=== PATIENT | female | born 1995 | race Caucasian/White ===

== ENCOUNTER → 2018-08-23 18:18 | Outpatient (CLI) | payer OTHER, SELFPAY ==
[2018-08-23 21:00] LABS: Chlamydia Trachomatis by PCR Negative (Negative); Neisserai gonorrhoeae by PCR Negative (Negative); Probe Check PASS; Sample Adequacy Control PASS; Specimen Processing Control PASS
[2018-08-28 11:55] LABS: HPV Reflexed? NOT INDICATED
== END ==
PROVIDERS: Referring Provider Nurse Practitioner Women's Health; Visit Provider Nurse Practitioner Women's Health
DX: Z12.4 Encounter for screening for malignant neoplasm of cervix (principal); Z11.3 Encounter for screening for infections with a predominantly sexual mode of transmission
CPT/HCPCS: 87491; 87591; 87624; 88175; G0145

== ENCOUNTER 2019-05-07 09:58 | Emergency (ER) | payer OTHER, SELFPAY ==
[2019-05-07 09:58] VITALS: BP 143/87; PULSE 95; RESP 16; TEMP 36.8; O2SAT 100; BMI 27.9
--- NOTE | 2019-05-07 10:16 | RAD_ITS ---
STUDY: X-RAY CHEST REASON FOR EXAM: Female, 23 years old. Chest pain. TECHNIQUE: PA and lateral views of the chest. COMPARISON: None. FINDINGS: The lungs are clear and expanded. There is no demonstrated pleural abnormality. Normal size heart. Normal mediastinum and diogenes. Normal visualized pulmonary arteries. Normal visualized aortic arch and descending thoracic aorta. Normal visualized thoracic spine. Normal visualized ribs, clavicles, and shoulders. There is no demonstrated abnormality of the visualized soft tissue structures of the upper abdomen. RAD/Chest PA and Lateral IMPRESSION: Normal x-ray examination of the chest. Electronically Signed: Galindo Chou, at 11:04 EDT , Service support ,
--- NOTE | 2019-05-07 10:16 | VDLE_ITS ---
Reason For Study: Right leg pain RIGHT GSV is normal. CFV is compressible, spontaneous, phasic, competent and demonstrates normal augmentation. FV is compressible, spontaneous, phasic, competent and demonstrates normal augmentation. POP V is compressible, spontaneous, phasic, competent and demonstrates normal augmentation. T/P Trunk is compressible. PTV is compressible. RT PerV is compressible. Procedure Exam performed portable in ED. A preliminary report was called and/or faxed to Marco A. Interpretation Summary There is no evidence of right lower extremity deep vein thrombosis. Right greater saphenous vein appears patent and compressible segmentally. Ordering Physician: Antonieta Strickland Performed By: Paulette Fung RVT
--- NOTE | 2019-05-07 10:16 | EKG12_ITS ---
Test Reason : LOWER EXTREMITY PAIN Blood Pressure : / mmHG Vent. Rate : 073 BPM Atrial Rate : 073 BPM P-R Int : 138 ms QRS Dur : 082 ms QT Int : 390 ms P-R-T Axes : 067 028 053 degrees QTc Int : 429 ms Normal sinus rhythm Normal ECG Confirmed by PARKER CHRISTY, ANNA ([id number]), video news editor NIKITA MATHIS ([id number]) on 05/08/2019 12:26:39 PM Referred By: IRLANDA Confirmed By:ANNA CANALES MD
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
== END 2019-05-07 11:48 | disposition home or self-care (01) ==
PROVIDERS: Emergency Provider Emergency Medicine; Family Provider Nurse Practitioner Primary Care; PCP Nurse Practitioner Primary Care
DX: R07.89 Other chest pain (principal); S80.11XA Contusion of right lower leg, initial encounter; F90.9 Attention-deficit hyperactivity disorder, unspecified type; Z79.899 Other long term (current) drug therapy; X58.XXXA Exposure to other specified factors, initial encounter; Y93.89 Activity, other specified; Y92.89 Other specified places as the place of occurrence of the external cause; Y99.8 Other external cause status
CPT/HCPCS: 71046; 93005; 93971; 99283; J7030; A4216

== ENCOUNTER → 2020-05-21 | Outpatient (CLI) | payer OTHER, SELFPAY | END | disposition home or self-care (01) | LOC: MTDU 09:36 | PROVIDERS: PCP Nurse Practitioner Primary Care; Visit Provider Family Medicine | DX: Z02.1 Encounter for pre-employment examination (principal) | CPT/HCPCS: 87635; G2023; U0003 ==

== ENCOUNTER → 2020-08-24 | Outpatient (CLI) | payer OTHER, SELFPAY ==
[2020-08-24 13:11] VITALS: BMI 29.4
[2020-08-27 03:07] LABS: Chlamydia By Nucleic Acid AMP Negative (Negative)
[2020-08-27 08:27] LABS: Gonococcus By Nucleic Acid AMP Negative (Negative)
== END | disposition home or self-care (01) ==
LOC: LABSPEC 16:35
PROVIDERS: PCP Nurse Practitioner Primary Care; Visit Provider Nurse Practitioner Women's Health
DX: Z11.3 Encounter for screening for infections with a predominantly sexual mode of transmission (principal)
CPT/HCPCS: 87070; 87205; 87491; 87591

== ENCOUNTER 2021-12-16 14:26 | Outpatient (CLI) | payer OTHER, SELFPAY ==
[2021-12-21 17:53] LABS: HPV Reflexed? NOT INDICATED
== END 2021-12-16 23:59 | disposition home or self-care (01) ==
LOC: LABSPEC 14:27
PROVIDERS: PCP Nurse Practitioner Primary Care; Visit Provider Nurse Practitioner Women's Health
DX: Z12.4 Encounter for screening for malignant neoplasm of cervix (principal)
CPT/HCPCS: 88175; G0145

== ENCOUNTER → 2022-06-25 | Outpatient (CLI) | payer OTHER, SELFPAY ==
--- NOTE | 2022-06-25 09:01 | CT_ITS ---
INDICATION: HYPOXEMIA EXAMINATION: CT CHEST WITHOUT CONTRAST - CT Chest W/O Contrast Injection TECHNIQUE: Helically acquired images were obtained of the chest. A radiation dose optimization technique was used for this scan. IV Contrast dosage and agent: None. COMPARISON: None. FINDINGS: LUNGS, PLEURA AND LARGE AIRWAYS: No masses, consolidation, or edema. No pleural effusion or thickening. No pneumothorax. THYROID: No thyroid lesions. HEART AND PERICARDIUM: Heart size is normal. No pericardial effusion. CORONARY ARTERIES: Coronary artery calcification VESSELS: Thoracic aorta is not dilated. MEDIASTINUM AND MELITA: No mediastinal or hilar adenopathy. Esophagus is unremarkable. No hiatal hernia. UPPER ABDOMEN: No acute pathology. BONES: No suspicious lytic or blastic abnormality. CT/Chest without Contrast IMPRESSION: Negative CT chest without contrast. Electronically Signed: Keegan Crow MD at 10:37 EDT ,
== END | disposition home or self-care (01) ==
LOC: CT 08:56
PROVIDERS: PCP Nurse Practitioner Primary Care; Visit Provider Internal Medicine Pulmonary Disease
DX: I25.10 Atherosclerotic heart disease of native coronary artery without angina pectoris (principal); R09.02 Hypoxemia; R06.09 Other forms of dyspnea
CPT/HCPCS: 71250

== ENCOUNTER → 2022-10-07 | Outpatient (CLI) | payer OTHER, SELFPAY ==
[2022-10-07 17:37] LABS: Amphetamine Urine VISTA NEGATIVE (<1000 ng/mL); Barbiturate Urine VISTA NEGATIVE (< 200 ng/mL); Benzodiazepine Urine VISTA NEGATIVE (< 200 ng/mL); Cocaine Urine VISTA NEGATIVE (< 300 ng/mL); Ecstacy Urine VISTA NEGATIVE (< 500 ng/mL); Methadone Urine VISTA NEGATIVE (< 300 ng/mL); PCP Urine VISTA NEGATIVE (< 25 ng/mL); THC Urine VISTA NEGATIVE (< 50 ng/mL); Vista UDS pH Range 6
[2022-10-10 22:06] LABS: Chlamydia By Nucleic Acid AMP Negative (Negative)
[2022-10-11 11:12] LABS: Gonococcus By Nucleic Acid AMP Negative (Negative)
== END | disposition home or self-care (01) ==
PROVIDERS: PCP Nurse Practitioner Primary Care; Visit Provider Obstetrics & Gynecology
DX: Z34.90 Encounter for supervision of normal pregnancy, unspecified, unspecified trimester (principal)
CPT/HCPCS: 80307; 87086; 87088; 87491; 87591

== ENCOUNTER → 2022-10-24 | Outpatient (CLI) | payer OTHER, SELFPAY ==
[2022-10-24 10:29] LABS: Absolute Lymphocyte Count 2.24 X10^3/uL (0.83-4.51); Absolute Neutrophil Count 7.6 X10^3/uL (2.0-7.7); Basophil# 0.08 X10^3/uL; Basophil% 0.7 % (0-1); Eosinophil# 0.18 X10^3/uL; Eosinophils% 1.7 % (0-5); Hematocrit 40.6 % (37-47); Hemoglobin 14.3 g/dL (12.0-15.0); Lymphocyte # 2.24 X10^3/ul (0.83-4.51); Lymphocyte % 20.9 % (19-41); Mean Corp Hgb Conc 35.2 g/dL (32-36); Mean Corpuscular Hgb 29.2 pg (27.0-32.0); Mean Platelet Vol. 9.9 fl (6.2-12.0); Monocyte# 0.56 X10^3/uL; Monocyte% 5.2 % (0-10); NRBC Flagged by Analyzer 0 % (0-5); Neutrophil # 7.63 X10^3/uL (2.7-7.7); Neutrophil % 71.1 % (47-70); Platelet Count 248 K/mm3 (150-450); RBC Distribution Width CV 12.7 % (11.6-14.6); RBC Distribution Width SD 38.5 fl (35.1-43.9); Red Blood Count 4.89 M/mm3 (4.2-5.4); White Blood Count 10.7 K/mm3 (4.4-11.0)
[2022-10-24 10:54] LABS: Glucose Challenge Gest 1H 50g 104 mg/dL (70-140)
[2022-10-24 11:15] LABS: NATERA MAILED SPECIMEN
[2022-10-24 11:49] LABS: HIV - WCH Non-Reactive (Nonreactive); Hepatitis B Surface Antigen Non-Reactive (Nonreactive); Hepatitis C Antibody Non-Reactive (Nonreactive); Rubella IgG Reactive (Nonreactive); Syphilis Antibodies Non-reactive
== END | disposition home or self-care (01) ==
LOC: PAVLAB 09:58
PROVIDERS: PCP Nurse Practitioner Primary Care; Referring Provider Obstetrics & Gynecology; Visit Provider Obstetrics & Gynecology
DX: Z34.81 Encounter for supervision of other normal pregnancy, first trimester (principal)
CPT/HCPCS: 36415; 82950; 85025; 86703; 86762; 86780; 86803; 86850; 86900; 86901; 87340

== ENCOUNTER → 2022-12-02 | Outpatient (CLI) | payer OTHER, SELFPAY ==
--- NOTE | 2022-12-02 15:17 | US_ITS ---
STUDY: SECOND AND THIRD TRIMESTER OBSTETRICAL ULTRASOUND - LIMITED REASON FOR EXAM: Female, 27 years old. Pelvic pain. well-being. Right-sided pain. LMP: August 06, 2022 PRIOR ULTRASOUND: None. TECHNIQUE: Transabdominal TECHNICAL QUALITY: Adequate. FINDINGS: There is a single intrauterine fetus. The fetus is in a variable presentation. There is demonstrated cardiac activity with a heart rate of 162 bpm. There is a normal amniotic fluid volume. The largest amniotic fluid pocket measures 4.5 cm. The placenta is posterior and low lying but not previa in location. The placental edge lies 1.8 cm away from the internal os. There are Grade 0 placental changes. Along the superior aspect of the placenta there is a 0.8 x 1.6 x 1.9 cm anechoic area becomes less conspicuous the later images. There is no vascularity. Question placental guzmán. The cervix measures 3.5 cm in length. The adnexa are visualized and appear unremarkable. Biometry was not performed. Patient is scheduled for an anatomy scan in 2.5 weeks. Age by LMP: 16 weeks, 6 days. ADILENE by LMP: May 13, 2023. US/OB Limited (No Biometrics) IMPRESSION: 1. Live single intrauterine at 16 weeks, 6 days. ADILENE is May 13, 2023. 2. heart rate 162 bpm. 3. Low-lying posterior grade 0 placenta with questionable placental guzmán. Electronically Signed: Tamir Santana DO at 16:18 EST ,
== END | disposition home or self-care (01) ==
LOC: US 15:16
PROVIDERS: PCP Nurse Practitioner Primary Care; Visit Provider Obstetrics & Gynecology
DX: O26.899 Other specified pregnancy related conditions, unspecified trimester (principal); R10.2 Pelvic and perineal pain
CPT/HCPCS: 76815

== ENCOUNTER → 2023-02-23 | Outpatient (CLI) | payer OTHER, SELFPAY ==
[2023-02-23 09:44] LABS: Absolute Lymphocyte Count 2.22 X10^3/uL (0.83-4.51); Absolute Neutrophil Count 11.2 X10^3/uL (2.0-7.7); Basophil# 0.09 X10^3/uL; Basophil% 0.6 % (0-1); Eosinophil# 0.24 X10^3/uL; Eosinophils% 1.6 % (0-5); Hemoglobin 12.8 g/dL (12.0-15.0); Lymphocyte # 2.22 X10^3/ul (0.83-4.51); Mean Corp Hgb Conc 33.7 g/dL (32-36); Mean Corpuscular Hgb 29.5 pg (27.0-32.0); Mean Corpuscular Volume 87.6 fL (81-99); Mean Platelet Vol. 9.8 fl (6.2-12.0); Monocyte# 0.86 X10^3/uL; Monocyte% 5.8 % (0-10); NRBC Flagged by Analyzer 0 % (0-5); Neutrophil # 11.19 X10^3/uL (2.7-7.7); Neutrophil % 75.7 % (47-70); Platelet Count 258 K/mm3 (150-450); RBC Distribution Width CV 13.2 % (11.6-14.6); Red Blood Count 4.34 M/mm3 (4.2-5.4); White Blood Count 14.8 K/mm3 (4.4-11.0)
[2023-02-23 10:19] LABS: Glucose Challenge Gest 1H 50g 114 mg/dL (70-140)
[2023-02-23 10:42] LABS: HIV - WCH Non-Reactive (Nonreactive); Syphilis Antibodies Non-reactive
== END | disposition home or self-care (01) ==
PROVIDERS: PCP Nurse Practitioner Primary Care; Referring Provider Obstetrics & Gynecology; Visit Provider Obstetrics & Gynecology
DX: O09.90 Supervision of high risk pregnancy, unspecified, unspecified trimester (principal)
CPT/HCPCS: 36415; 82950; 85025; 86703; 86780; 86850; 86900; 86901

== ENCOUNTER 2023-03-14 20:45 | Outpatient (CLI) | payer OTHER, SELFPAY ==
[2023-03-14] VITALS (9 sets, daily range): BP systolic 119–148; BP diastolic 70–85; PULSE 74–90; TEMP 36.4; O2SAT 97–99; BMI 35.4
[2023-03-14 22:00] LABS: Hematocrit 37.5 % (37-47); Hemoglobin 12.6 g/dL (12.0-15.0); Mean Corp Hgb Conc 33.6 g/dL (32-36); Mean Corpuscular Hgb 29.2 pg (27.0-32.0); Mean Corpuscular Volume 86.8 fL (81-99); Mean Platelet Vol. 10.3 fl (6.2-12.0); Platelet Count 252 K/mm3 (150-450); RBC Distribution Width CV 13.2 % (11.6-14.6); RBC Distribution Width SD 41.7 fl (35.1-43.9); Red Blood Count 4.32 M/mm3 (4.2-5.4); White Blood Count 16.4 K/mm3 (4.4-11.0)
[2023-03-14 22:13] LABS: AST(SGOT) 10 U/L (15-37); Alanine Aminotransfer ALT/SGPT 17 U/L (13-56); EST Glomerular Filtration Rate 107 mL/min (>60); Est Glom Filt Rate - Afr Amer 130 mL/min (>60); Estimated Creatinine Clearance 127.28 ml/min
[2023-03-14 22:18] LABS: Protein, Urine (Random) < 6.0 mg/dL (<11.9)
--- NOTE | 2023-03-14 22:36 | OB.TRI.PN_ITS ---
Progress Notes Date of Service: 03/14/23 Progress Note: Patient presents for triage evaluation secondary to headache and elevated BP at work today FHT: 145 Moderate variability reactive no decelerations category I tracing. appropriate for gestational age [place]: No Contractions Assessment and plan: Reactive NST, reassuring maternal and status patient discharged to home to follow-up in office later this week for BP check. Get home BP monitoring set up through [facility] this week. See problem list details for additional plan information. Reviewed POC with Dr. Harris, agrees with plan. Laboratory Studies: Laboratory Tests 03/14/23 03/14/23 03/14/23 Range/Units 21:50 21:50 21:45 WBC 16.4 H (4.4-11.0) K/mm3 RBC 4.32 (4.2-5.4) M/mm3 Hgb 12.6 (12.0-15.0) g/dL Hct 37.5 (37-47) % MCV 86.8 (81-99) fL MCH 29.2 (27.0-32.0) pg MCHC 33.6 (32-36) g/dL RDW Std Deviation 41.7 (35.1-43.9) fl RDW Coeff of Leora 13.2 (11.6-14.6) % Plt Count 252 (150-450) K/mm3 MPV 10.3 (6.2-12.0) fl Creatinine 0.70 (0.55-1.02) mg/dL Estim Creat Clear Calc 127.28 ml/min Est GFR (MDRD) Af Amer 130 (>60) mL/min Est GFR (MDRD) Non-Af 107 (>60) mL/min Uric Acid 4.0 (2.6-6.0) mg/dL AST 10 L (15-37) U/L ALT 17 (13-56) U/L U Random Total Protein < 6.0 (<11.9) mg/dL Urine Creatinine 25.10 (NO RANGE EST.) mg/dL Protein/Creatinin Ratio TNP Charges/Coding Multi Select Codes Urinary/Genital Urinary/Genital CPT Codes: 42261-40 non-stress test Interp Assessment & Plan (1) Elevated blood pressure affecting , antepartum: COMMENT: to follow up this week for BP check. Get home monitor ([facility]), repeat labs next week. Anticipate testing at 32 weeks and growth US q 4 weeks
== END 2023-03-14 23:08 | disposition home or self-care (01) ==
LOC: WPOUT 20:51 → WP 20:52
PROVIDERS: PCP Nurse Practitioner Primary Care; Referring Provider Advanced Practice Midwife; Visit Provider Advanced Practice Midwife
DX: O99.891 Other specified diseases and conditions complicating pregnancy (principal); R51.9 Headache, unspecified; R03.0 Elevated blood-pressure reading, without diagnosis of hypertension; Z3A.00 Weeks of gestation of pregnancy not specified
CPT/HCPCS: 59025; 59050; 82565; 82570; 84156; 84450; 84460; 84550; 85027

== ENCOUNTER 2023-03-22 09:54 | Outpatient (CLI) | payer OTHER, SELFPAY ==
[2023-03-22] MEDS: Lactated Ringers 1,000 ML 999 ML IV (10:20)
[2023-03-22 10:43] LABS: Hematocrit 38.5 % (37-47); Hemoglobin 12.9 g/dL (12.0-15.0); Mean Corp Hgb Conc 33.5 g/dL (32-36); Mean Corpuscular Hgb 29.1 pg (27.0-32.0); Mean Corpuscular Volume 86.9 fL (81-99); Mean Platelet Vol. 10.5 fl (6.2-12.0); Platelet Count 257 K/mm3 (150-450); RBC Distribution Width CV 13.2 % (11.6-14.6); RBC Distribution Width SD 41.4 fl (35.1-43.9); Red Blood Count 4.43 M/mm3 (4.2-5.4); White Blood Count 13.8 K/mm3 (4.4-11.0)
[2023-03-22 10:56] LABS: AST(SGOT) 11 U/L (15-37); Alanine Aminotransfer ALT/SGPT 15 U/L (13-56); EST Glomerular Filtration Rate 128 mL/min (>60); Est Glom Filt Rate - Afr Amer 155 mL/min (>60); Uric Acid 4.7 mg/dL (2.6-6.0)
[2023-03-22 11:09] LABS: Free T3 2.3 pg/mL (2.18-3.98); T4 Free Direct 0.92 ng/dL (0.76-1.46); Thyroid Stim Hormone (TSH) 1.39 uIU/mL (0.358-3.74)
--- NOTE | 2023-03-22 21:45 | OB.TRI.HP_ITS ---
HPI - General HPI Narrative RICK STORY, is a 27 F who presents at 32+4 with dizziness room spinning and near syncopal event in the office. sent to for BP monitoring and PEC work up. Maternal Data Information ADILENE Calculator Estimated Delivery Date Method Current WG Current Estimate 05/13/23 LMP (Certain) 32w 4d PFSH PFSH Medical History ADHD Migraine Vocal cord dysfunction Home Medications ascorbic acid (vitamin C) 1,000 mg capsule 1 g PO DAILY 09/27/22 [History Last Taken 03/13/23] multivit-min no.71-iron fum 28 mg-folate no.1 1 mg-dha 300 mg capsule (PNV- [place]) 1 cap PO DAILY Check with primary doctor 09/27/22 [History Last Taken 06/28] omega3 1,000 iv-pil-zza-other [id number] oil 1,400 mg capsule,delay rel 1 cap PO DAILY Check with primary doctor 09/27/22 [History Last Taken 03/13/23] vitamin B comp and C no.3 15 mg-10 mg-50 mg-5 mg-300 mg capsule (B Complex Plus Vitamin C) 1 cap PO QODAY 09/27/22 [History Last Taken 03/12/23] labetalol 100 mg tablet 100 mg PO BID #60 tabs 03/21/23 [Rx Last Taken Unknown] Allergy/AdvReac Type Severity Reaction Status Date / Time No Known Allergies Allergy Verified 03/22/23 09:02 Family History Mother Psoriasis Surgical History H/O wisdom tooth extraction History of tonsillectomy Social History adopted: No household members: spouse housing: apartment number of children: 0 current occupational status: employed 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 current occupational exposures/hazards: No pets and animals: Yes pets and animals: dog(s) history of recent travel: Yes ([place]) out of state: Yes out of country: No sexually active: Yes Smoking Status: Never smoker second hand exposure: No alcohol intake: former details: socially prior to substance use type: does not use well-balanced diet: daily or most days caffeine: Yes Type: coffee Number of servings: 1 eating out: 1-3 times/week what type of physical activity do you participate in: walking frequency: 5-6 times per week duration: 30-45 minutes/day amy/methodist: None seatbelt use: always do you feel safe at home: Yes additional social history: - Rickey Story - [place] [place] History 1 Elective abortions Hx Para 0 Spontaneous abortions Hx # Term Pregnancies Ectopic pregnancies Hx # Pregnancies Multiple births # of living children Visit Details Expected Delivery Route/Plan Labor Preferences- CB/BF classes: just breathe, childbirth education labor support person: Rickey labor intervention preferences: [] pain management options preferred: prefers no epidural cut cord/dad catch: : yes PP control planned: nuvaring discussed possible routes of delivery and associated risks: [] special requests: [] Plans Covid status: discussed Flu vaccine: discussed Tdap vaccine: [] Rhogam: [] LARC form signed: completed. Problem list reviewed and updated with the most current plan of care details and appropriate orders placed. Relevant counseling for the gestational age provided. Continue routine care and follow up unless otherwise noted in visit notes/problem list details OB Flowsheet Initial Weight: Not Recorded Date -?-?-?-?-?-?-?-?-?-?-?-?- EGA Weight BP Urine Prot -?-?-?-?-?-?-?-?-?-?-?-?- Glucose FHR FuHt Pres Dilation -?-?-?-?-?-?-?-?-?-?-?-?- Effaced St Visit Note 10/07/22 -?-?-?-?-?-?-?-?-?-?-?-?- 8w 6d 215 lb 129/83 -?-?-?-?-?-?-?-?-?-?-?-?- 180 -?-?-?-?-?-?-?-?-?-?-?-?- JV- single live IUP measurign 8 weeks 6 days and consistent with LMP. 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 11/11/22 -?-?-?-?-?-?-?-?-?-?-?-?- 13w 6d 217 lb 123/74 -?-?-?-?-?-?-?-?-?-?-?-?- 160 -?-?-?-?-?-?-?-?-?-?-?-?- SM- no vb keithfer ariel reviewed testing results 12/06/22 -?-?-?-?-?-?-?-?--?-?-?-?- 17w 3d 213 lb 8 oz 110/74 Nega tive -?-?-?-?-?-?-?-?-?-?-?-?- Negative 161 -?-?-?-?-?-?-?-?-?-?-?-?- MH-No Vb, ely george. Doing well. 01/06/23 -?-?-?-?-?-?-?-?-?-?-?-?- 21w 6d 222 lb 4 oz 107/71 Nega tive -?-?-?-?-?-?-?-?-?-?-?-?- Negative 163 -?-?-?-?-?-?-?-?-?-?-?-?- JV- has rpt us a t 28 weeks for low placenta. 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 02/03/23 -?-?-?-?-?-?-?-?-?-?-?-?- 25w 6d 232 lb 6 oz 120/82 Nega tive -?-?-?-?-?-?-?-?-?-?-?-?- Negative 150 26 -?-?-?-?-?-?-?-?-?-?-?-?- SM- no vb lof go od fm no reuglar ctx 02/23/23 -?-?-?-?-?-?-?-?-?-?-?-?- 28w 5d 234 lb 8 oz 119/73 -?-?-?-?-?-?-?-?-?-?-?-?- 159 29 -?-?-?-?-?-?-?-?-?-?-?-?- JV- tdap and rho luz maria given. gct done and pending. cbc is normal. pt complains of cramping in legs because works 12 hr shifts. compression stockings and magnesium supplement encouraged and she is doing these already 03/08/23 -?-?-?-?-?-?-?-?-?-?-?-?- 30w 4d 239 lb 2 oz 103/68 Nega tive -?-?-?-?-?-?-?-?-?-?-?-?- Negative 156 30 -?-?-?-?-?-?-?-?-?-?-?-?- LC- doing well. no vb/ctx/lof. good fm. larc signed. normal glucose. signed up for childbirth education classes. 03/15/23 -?-?-?-?-?-?-?-?-?-?-?-?- 31w 4d 236 lb 4 oz 108/71 Nega tive -?-?-?-?-?-?-?-?-?-?-?-?- Negative 150 -?-?-?-?-?-?-?-?-?-?-?-?- KW-doing well to day, +FM, no lof/vb/ctx. monitor given and has follow up appt on mon. Daily BPs at home or unless she is feeling symptomatic. to call with BPs of 140/90 or higher. 03/22/23 -?-?-?-?-?-?-?-?-?-?-?-?- 32w 4d 241 lb 2 oz 142/82 122/83 Negative -?-?-?-?-?-?-?-?-?-?-?-?- Negative 150 32 -?-?-?-?-?-?-?-?-?-?-?-?- LC- pt seen in [facility] on 03/14 with 140s/90s BP, home bp last night 140s/90s. started on labetalol 100mg BID. not taken yet this AM. LC- pt seen in [facility] on 03/14 wit h 140s/90s BP, home bp last night 140s/90s. started on labetalol 100mg BID. not taken yet this AM. NST not completed as pt felt dizzy and feeling faint. sent to [facility] for labs and hydration. LC- pt seen in [facility] on 03/14 wit h 140s/90s BP, home bp last night 140s/90s. GHTN diagnosis based on criteria. started on labetalol 100mg BID. not taken yet this AM. NST not completed as pt felt dizzy and feeling faint. sent to [facility] for labs and hydration. NST FHR Rate Baby A Baseline: 140 Variability:: Moderate Accelerations:: 10 x 10 Decelerations:: None NST Reactive:: Yes FHR Category:: Category I Uterine Activity:: none Assessment & Plan (1) Gestational hypertension: COMMENT: NST twice weekly. growth US at 32 &36 weeks. home monitor-Daily BP. Medications started. IOL between 37-38 weeks (2) Low lying placenta nos or without hemorrhage, second trimester: COMMENT: Resolved-fu placental location with anatomy US at 20 weeks (3) Thyroid goiter: COMMENT: monitoring TSH normal 03/22 (4) Rh negative state in antepartum period: COMMENT: rhogam @ 28 wks & PRN bleeding (5) Supervision of high risk , antepartum: COMMENT: PRR , ADILENE 05/13/23, boy Coleen Lang Jr IV Rickey (6) : QUALIFIERS: Weeks of gestation: 30 weeks Qualified Code(s): Z3A.30 - 30 weeks gestation of COMMENT: NIPT low risk, declined carrier testing, nl 1 HR GCT. declined ntd screening. nl anatomy. PLAN: Plan Patient presents for triage evaluation secondary to labile BP and dizziness in office stable BP in L&D with improved symptoms following rehydration. FHT: Moderate variability reactive no decelerations category I tracing [place]: no Contractions Assessment and plan: Reactive NST, reassuring maternal and status patient discharged to home to follow-up in office. See problem list details for additional plan information. Charges/Coding Procedures Urinary/Genital [id number]: 55838-10 non-stress test Interp
== END 2023-03-22 13:35 | disposition home or self-care (01) ==
LOC: WPOUT 10:00 → WP 10:00
PROVIDERS: PCP Nurse Practitioner Primary Care; Referring Provider Registered Nurse; Visit Provider Registered Nurse
DX: O13.3 Gestational [pregnancy-induced] hypertension without significant proteinuria, third trimester (principal); Z3A.30 30 weeks gestation of pregnancy; O99.283 Endocrine, nutritional and metabolic diseases complicating pregnancy, third trimester; E04.9 Nontoxic goiter, unspecified
CPT/HCPCS: 96360; 36415; 59025; 59050; 82565; 84439; 84443; 84450; 84460; 84481; 84550; 85027; 99221; J7120; G0378

== ENCOUNTER → 2023-03-24 | Outpatient (CLI) | payer OTHER, SELFPAY ==
--- NOTE | 2023-03-24 18:22 | US_ITS ---
STUDY: SECOND AND THIRD TRIMESTER OBSTETRICAL ULTRASOUND - LIMITED REASON FOR EXAM: Female, 27 years old . Growth. LMP: August 06, 2022 PRIOR ULTRASOUND: December 02, 2022 TECHNIQUE: Transabdominal TECHNICAL QUALITY: Adequate. FINDINGS: There is a single intrauterine fetus. The fetus is in a cephalic presentation. There is demonstrated cardiac activity with a heart rate of 158 bpm. There is a normal amniotic fluid volume. The largest amniotic fluid pocket measures 5.6 cm. The amniotic fluid index (CARRIE) is 17.27 cm. The placenta is posterior in location and is not low lying. There are Grade 1 placental changes. The cervix measures 3.8 cm in length. BIOMETRY: BPD: 8.11 cm: 32 weeks, 4 days HC: 30.53 cm: 34 weeks, 0 days AC: 30.13 cm: 34 weeks, 1 days FL: 6.58 cm: 33 weeks, 6 days Age by LMP: 32 weeks, 6 days. ADILENE by LMP: May 13, 2023. age by current US: 33 weeks, 3 days. ADILENE by current US: May 09, 2023. Estimated weight: 12/09/2002 grams, +/- 345 grams, 70 percentile. Gender: Indeterminant US/OB Limited With Biometrics IMPRESSION: 1. Live single intrauterine at 33 weeks, 3 days. ADILENE is May 09, 2023. This grossly conforms to expected gestational age by LMP. 2. EFW of 2303 g. 3. CARRIE of 17.27 cm. 4. Posterior grade 1 placenta. 5. Vertex presentation. Electronically Signed: Tamir Santana DO at 18:33 EDT ,
== END | disposition home or self-care (01) ==
PROVIDERS: PCP Nurse Practitioner Primary Care; Referring Provider Advanced Practice Midwife; Visit Provider Advanced Practice Midwife
DX: Z34.80 Encounter for supervision of other normal pregnancy, unspecified trimester (principal)
CPT/HCPCS: 76816

== ENCOUNTER → 2023-03-28 | Outpatient (CLI) | payer OTHER, SELFPAY ==
[2023-03-28 15:53] LABS: Absolute Lymphocyte Count 2.53 X10^3/uL (0.83-4.51); Absolute Neutrophil Count 10.6 X10^3/uL (2.0-7.7); Basophil# 0.08 X10^3/uL; Basophil% 0.6 % (0-1); Eosinophil# 0.25 X10^3/uL; Eosinophils% 1.7 % (0-5); Hematocrit 35.6 % (37-47); Hemoglobin 12.4 g/dL (12.0-15.0); Lymphocyte # 2.53 X10^3/ul (0.83-4.51); Lymphocyte % 17.4 % (19-41); Mean Corp Hgb Conc 34.8 g/dL (32-36); Mean Corpuscular Hgb 29.5 pg (27.0-32.0); Mean Corpuscular Volume 84.6 fL (81-99); Mean Platelet Vol. 10.2 fl (6.2-12.0); Monocyte# 0.89 X10^3/uL; Monocyte% 6.1 % (0-10); NRBC Flagged by Analyzer 0 % (0-5); Neutrophil # 10.58 X10^3/uL (2.7-7.7); Platelet Count 243 K/mm3 (150-450); RBC Distribution Width CV 13.3 % (11.6-14.6); RBC Distribution Width SD 40.5 fl (35.1-43.9); Red Blood Count 4.21 M/mm3 (4.2-5.4); White Blood Count 14.5 K/mm3 (4.4-11.0)
[2023-03-28 16:15] LABS: ALB/GLOB Ratio 0.7 RATIO (0.9-2.4); AST(SGOT) 10 U/L (15-37); Alanine Aminotransfer ALT/SGPT 14 U/L (13-56); Albumin, Serum 2.4 g/dL (3.2-5.0); Alkaline Phosphatase 96 U/L (45-117); Anion Gap 8 (5-15); BUN 7 mg/dL (7-18); BUN/Creat Ratio 10.4 RATIO (10-20); Calcium,Total 8.6 mg/dL (8.5-10.1); Chloride 109 mmol/L (98-107); Creatinine, Serum 0.67 mg/dL (0.55-1.02); EST Glomerular Filtration Rate 112 mL/min (>60); Est Glom Filt Rate - Afr Amer 135 mL/min (>60); Globulin 3.4 g/dL (2.2-4.2); Glucose 115 mg/dL (74-106); Potassium 3.7 mmol/L (3.5-5.1); Protein, Total 5.8 g/dL (6.4-8.2); Sodium Level 140 mmol/L (136-145)
[2023-03-28 17:50] LABS: Protein, Urine (Random) 22.2 mg/dL (<11.9); Protein:Creat Ratio 109 mg/g CRE (0-200)
== END | disposition home or self-care (01) ==
PROVIDERS: PCP Nurse Practitioner Primary Care; Referring Provider Advanced Practice Midwife; Visit Provider Advanced Practice Midwife
DX: O13.9 Gestational [pregnancy-induced] hypertension without significant proteinuria, unspecified trimester (principal)
CPT/HCPCS: 36415; 80053; 82570; 84156; 85025

== ENCOUNTER 2023-04-01 09:00 | Outpatient (CLI) | payer OTHER, SELFPAY ==
[2023-03-22 10:05] VITALS: TEMP 36.8; O2SAT 98
[2023-03-22 11:25] VITALS: BP 97/56; PULSE 74
[2023-04-01 09:18] VITALS: BMI 35.2
[2023-04-01 09:21] VITALS: BP 122/71; PULSE 85; TEMP 36.5; O2SAT 97
--- NOTE | 2023-04-01 10:10 | OB.TRI.HP_ITS ---
HPI - General HPI Narrative RICK STORY, is a 27 F who presents at 34 weeks for NST for gestational HTN. Maternal Data Information ADILENE Calculator Estimated Delivery Date Method Current WG Current Estimate 05/13/23 LMP (Certain) 34w 0d PFSH PFSH Medical History ADHD Migraine Vocal cord dysfunction Home Medications ascorbic acid (vitamin C) 1,000 mg capsule 1 g PO DAILY 09/27/22 [History Last Taken 03/13/23] multivit-min no.71-iron fum 28 mg-folate no.1 1 mg-dha 300 mg capsule (PNV- [place]) 1 cap PO DAILY Check with primary doctor 09/27/22 [History Last Taken 03/13/23] omega3 1,000 cg-eii-mzi-other yx1n-nphb oil 1,400 mg capsule,delay rel 1 cap PO DAILY Check with primary doctor 09/27/22 [History Last Taken 03/13/23] vitamin B comp and C no.3 15 mg-10 mg-50 mg-5 mg-300 mg capsule (B Complex Plus Vitamin C) 1 cap PO QODAY 09/27/22 [History Last Taken 03/12/23] Allergy/AdvReac Type Severity Reaction Status Date / Time No Known Allergies Allergy Verified 04/01/23 09:18 Family History Mother Psoriasis Surgical History H/O wisdom tooth extraction History of tonsillectomy Social History adopted: No household members: spouse housing: apartment number of children: 0 current occupational status: employed 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 current occupational exposures/hazards: No pets and animals: Yes pets and animals: dog(s) history of recent travel: Yes ([place]) out of state: Yes out of country: No sexually active: Yes Smoking Status: Never smoker second hand exposure: No alcohol intake: former details: socially prior to substance use type: does not use well-balanced diet: daily or most days caffeine: Yes Type: coffee Number of servings: 1 eating out: 1-3 times/week what type of physical activity do you participate in: walking frequency: 5-6 times per week duration: 30-45 minutes/day amy/evangelical: None seatbelt use: always do you feel safe at home: Yes additional social history: - Rickey Story - Crank Hand History 1 Elective abortions Hx Para 0 Spontaneous abortions Hx # Term Pregnancies Ectopic pregnancies Hx # Pregnancies Multiple births # of living children Visit Details Expected Delivery Route/Plan Labor Preferences- CB/BF classes: just breathe, childbirth education labor support person: Rickey labor intervention preferences: [] pain management options preferred: prefers no epidural cut cord/dad catch: : yes PP control planned: nuvaring discussed possible routes of delivery and associated risks: [] special requests: [] Plans Covid status: discussed Flu vaccine: discussed Tdap vaccine: [] Rhogam: [] LARC form signed: completed. Problem list reviewed and updated with the most current plan of care details and appropriate orders placed. Relevant counseling for the gestational age provided. Continue routine care and follow up unless otherwise noted in visit notes/problem list details OB Flowsheet Initial Weight: Not Recorded Date -?-?-?-?-?-?-?-?-?-?-?-?- EGA Weight BP Urine Prot -?-?-?-?-?-?-?-?-?-?-?-?- Glucose FHR FuHt Pres Dilation -?-?-?-?-?-?-?-?-?-?-?-?- Effaced St Visit Note 10/07/22 -?-?-?-?-?-?-?-?-?-?-?-?- 8w 6d 215 lb 129/83 -?-?-?-?-?-?-?-?-?-?-?-?- 180 -?-?-?-?-?-?-?-?-?-?-?-?- JV- single live IUP measurign 8 weeks 6 days and consistent with LMP. 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 11/11/22 -?-?-?-?-?-?--?-?-?-?-?-?- 13w 6d 217 lb 123/74 -?-?-?-?-?-?-?-?-?-?-?-?- 160 -?-?-?-?-?-?-?-?-?-?-?-?- SM- no vb ely george reviewed testing results 12/06/22 -?-?-?-?-?-?-?-?-?-?-?-?- 17w 3d 213 lb 8 oz 110/74 Nega tive -?-?-?-?-?-?-?-?-?-?-?-?- Negative 161 -?-?-?-?-?-?-?-?-?-?-?-?- MH-No Vb, ely george. Doing well. 01/06/23 -?-?-?-?-?-?-?-?-?-?-?-?- 21w 6d 222 lb 4 oz 107/71 Nega tive -?-?-?-?-?-?-?-?-?-?-?-?- Negative 163 -?-?-?-?-?-?-?-?-?-?-?-?- JV- has rpt us a t 28 weeks for low placenta. 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 02/03/23 -?-?-?-?-?-?-?-?--?-?-?-?- 25w 6d 232 lb 6 oz 120/82 Nega tive -?-?-?-?-?-?-?-?-?-?-?-?- Negative 150 26 -?-?-?-?-?-?-?-?-?-?-?-?- SM- no vb lof go od fm no reuglar ctx 02/23/23 -?-?-?-?-?-?-?-?-?-?-?-?- 28w 5d 234 lb 8 oz 119/73 -?-?-?-?-?-?-?-?-?-?-?-?- 159 29 -?-?-?-?-?-?-?-?-?-?-?-?- JV- tdap and rho luz maria given. gct done and pending. cbc is normal. pt complains of cramping in legs because works 12 hr shifts. compression stockings and magnesium supplement encouraged and she is doing these already 03/08/23 -?-?-?-?-?-?-?-?-?-?-?-?- 30w 4d 239 lb 2 oz 103/68 Nega tive -?-?-?-?-?-?-?-?-?-?-?-?- Negative 156 30 -?-?-?-?-?-?-?-?-?-?-?-?- LC- doing well. no vb/ctx/lof. good fm. larc signed. normal glucose. signed up for childbirth education classes. 03/15/23 -?-?-?-?-?-?-?-?-?-?-?-?- 31w 4d 236 lb 4 oz 108/71 Nega tive -?-?-?-?-?-?-?-?-?-?-?-?- Negative 150 -?-?-?-?-?-?-?-?-?-?-?-?- KW-doing well to day, +FM, no lof/vb/ctx. monitor given and has follow up appt on mon. Daily BPs at home or unless she is feeling symptomatic. to call with BPs of 140/90 or higher. 03/22/23 -?-?-?-?-?-?-?-?-?-?-?-?- 32w 4d 241 lb 2 oz 142/82 122/83 Negative -?-?-?-?-?-?-?-?-?-?-?-?- Negative 150 32 -?-?-?-?-?-?-?-?-?-?-?-?- LC- pt seen in [facility] on 03/14 with 140s/90s BP, home bp last night 140s/90s. started on labetalol 100mg BID. not taken yet this AM. LC- pt seen in [facility] on 03/14 wit h 140s/90s BP, home bp last night 140s/90s. started on labetalol 100mg BID. not taken yet this AM. NST not completed as pt felt dizzy and feeling faint. sent to for labs and hydration. LC- pt seen in [facility] on 03/14 wit h 140s/90s BP, home bp last night 140s/90s. GHTN diagnosis based on criteria. started on labetalol 100mg BID. not taken yet this AM. NST not completed as pt felt dizzy and feeling faint. sent to for labs and hydration. 03/24/23 -?-?-?-?-?-?-?-?-?-?-?--?- 32w 6d 239 lb 4 oz 129/81 Nega tive -?-?-?-?-?-?-?-?-?-?-?-?- Negative 140 -?-?-?-?-?-?-?-?-?-?-?-?- SM- discussed yann georgina haywood with patient, no meds at present, continue monitoring, repeat labs next week. home bp monitoring 03/28/23 -?-?-?-?-?-?-?-?-?-?-?-?- 33w 3d 239 lb 8 oz 111/76 111/76 Trace -?-?-?-?-?-?-?-?-?-?-?-?- Negative 145 33 -?-?-?-?-?-?-?-?-?-?-?-?- KW-+FM. No lof/v b/ctx. Bps good at home. Pre E labs today. has NST monday on [facility]. reactive NST NST FHR Rate Baby A Baseline: 130-150 Variability:: Moderate Accelerations:: 15 x 15 Decelerations:: None NST Reactive:: Yes FHR Category:: Category I Uterine Activity:: none Assessment & Plan (1) Gestational hypertension: COMMENT: questionable diagnosis- considerable variation, recommend weekly labs. continue to monitor at this point to clarify diagnosis. NST twice weekly. growth US at 32 (70%) &36 weeks. home monitor-Daily BP. consider IOL between 37- 38 weeks (2) Thyroid goiter: COMMENT: monitoring TSH normal 03/22 (3) Rh negative state in antepartum period: COMMENT: rhogam @ 28 wks & PRN bleeding (4) Supervision of high risk , antepartum: COMMENT: PRR , ADILENE 05/13/23, boy Coleen Lang Jr IV Rickey (5) : QUALIFIERS: Weeks of gestation: 33 weeks Qualified Code(s): Z3A.33 - 33 weeks gestation of COMMENT: NIPT low risk, declined carrier testing, nl 1 HR GCT. declined ntd screening. nl anatomy. (6) Maternal varicella, non-immune: COMMENT: Pt has had 5 boosters, doesn't hold immunity PLAN: Plan Patient presents for triage evaluation secondary to NST for gestational HTN. BP stable FHT: Moderate variability reactive no decelerations category I tracing [place]: no Contractions Assessment and plan: Reactive NST, reassuring maternal and status patient discharged to home to follow-up on monday for next NST. See problem list details for additional plan information.
== END 2023-04-01 10:05 | disposition home or self-care (01) ==
LOC: WPOUT 09:11 → WP 09:12
PROVIDERS: PCP Nurse Practitioner Primary Care; Referring Provider Registered Nurse; Visit Provider Registered Nurse
DX: O13.3 Gestational [pregnancy-induced] hypertension without significant proteinuria, third trimester (principal); Z3A.33 33 weeks gestation of pregnancy
CPT/HCPCS: 59025; 59050

== ENCOUNTER 2023-04-03 08:55 | Outpatient (CLI) | payer OTHER, SELFPAY ==
[2023-04-03 09:05] VITALS: BMI 35.3
[2023-04-03 09:08] VITALS: BP 106/59; PULSE 73; PULSE 75; TEMP 36.7; O2SAT 98
--- NOTE | 2023-04-03 09:46 | PCM.PN.OB ---
Objective Data Objective Data Vital Signs: Vital Signs Temp Pulse BP Pulse Ox 98.1 F 75 106/59 L 98 04/03/23 09:08 04/03/23 09:08 04/03/23 09:08 04/03/23 09:08 Weight: 239 lb 4 oz Body Mass Index (BMI) 35.3 NST FHR Rate Baby A Baseline: 150 Variability:: Moderate Accelerations:: 15 x 15 Decelerations:: None NST Reactive:: Yes FHR Category:: Category I Uterine Activity:: no contractions Assessment & Plan (1) Gestational hypertension: COMMENT: questionable diagnosis- considerable variation, recommend weekly labs. continue to monitor at this point to clarify diagnosis. NST twice weekly. growth US at 32 (70%) &36 weeks. home monitor-Daily BP. consider IOL between 37-38 weeks (2) Supervision of high risk , antepartum: COMMENT: PRR , ADILENE 05/13/23, boy Coleen Lang Jr IV Rickey (3) : QUALIFIERS: Weeks of gestation: 33 weeks Qualified Code(s): Z3A.33 - 33 weeks gestation of COMMENT: NIPT low risk, declined carrier testing, nl 1 HR GCT. declined ntd screening. nl anatomy. (4) Maternal varicella, non-immune: COMMENT: Pt has had 5 boosters, doesn't hold immunity (5) Thyroid goiter: COMMENT: monitoring TSH normal 03/22 (6) Rh negative state in antepartum period: COMMENT: rhogam @ 28 wks & PRN bleeding PLAN: Plan Patient presents for triage evaluation secondary to NST for GHTN FHT: Moderate variability reactive no decelerations category I tracing [place]: no Contractions Assessment and plan: Reactive NST, reassuring maternal and status patient discharged to home to follow-up in office. See problem list details for additional plan information. Charges/Coding Procedures Urinary/Genital 52xxx-59xxx: 30656-04 non-stress test Interp
== END 2023-04-03 09:50 | disposition home or self-care (01) ==
LOC: WPOUT 09:04 → WP 09:05
PROVIDERS: PCP Nurse Practitioner Primary Care; Referring Provider Registered Nurse; Visit Provider Registered Nurse
DX: O13.3 Gestational [pregnancy-induced] hypertension without significant proteinuria, third trimester (principal); Z3A.33 33 weeks gestation of pregnancy
CPT/HCPCS: 59025; 59050

== ENCOUNTER → 2023-04-06 | Outpatient (CLI) | payer OTHER, SELFPAY ==
[2023-04-06 14:21] LABS: Basophil# 0.08 X10^3/uL; Basophil% 0.6 % (0-1); Eosinophil# 0.19 X10^3/uL; Eosinophils% 1.4 % (0-5); Hematocrit 39.7 % (37-47); Hemoglobin 13.4 g/dL (12.0-15.0); Lymphocyte % 17.6 % (19-41); Mean Corp Hgb Conc 33.8 g/dL (32-36); Mean Corpuscular Hgb 29.4 pg (27.0-32.0); Mean Corpuscular Volume 87.1 fL (81-99); Mean Platelet Vol. 10.4 fl (6.2-12.0); Monocyte% 6.6 % (0-10); NRBC Flagged by Analyzer 0 % (0-5); Neutrophil # 9.96 X10^3/uL (2.7-7.7); Neutrophil % 72.8 % (47-70); Platelet Count 260 K/mm3 (150-450); RBC Distribution Width CV 13.4 % (11.6-14.6); RBC Distribution Width SD 42.2 fl (35.1-43.9); Red Blood Count 4.56 M/mm3 (4.2-5.4); White Blood Count 13.7 K/mm3 (4.4-11.0)
[2023-04-06 14:29] LABS: Protein, Urine (Random) < 6.0 mg/dL (<11.9)
[2023-04-06 14:37] LABS: ALB/GLOB Ratio 0.7 RATIO (0.9-2.4); AST(SGOT) 10 U/L (15-37); Alanine Aminotransfer ALT/SGPT 16 U/L (13-56); Albumin, Serum 2.6 g/dL (3.2-5.0); Alkaline Phosphatase 117 U/L (45-117); Anion Gap 7 (5-15); BUN 7 mg/dL (7-18); BUN/Creat Ratio 9.7 RATIO (10-20); Calcium,Total 9.3 mg/dL (8.5-10.1); Chloride 106 mmol/L (98-107); Creatinine, Serum 0.72 mg/dL (0.55-1.02); EST Glomerular Filtration Rate 103 mL/min (>60); Est Glom Filt Rate - Afr Amer 125 mL/min (>60); Globulin 3.6 g/dL (2.2-4.2); Glucose 87 mg/dL (74-106); Potassium 3.6 mmol/L (3.5-5.1); Protein, Total 6.2 g/dL (6.4-8.2); Sodium Level 137 mmol/L (136-145)
== END | disposition home or self-care (01) ==
LOC: PAVLAB 13:44
PROVIDERS: PCP Nurse Practitioner Primary Care; Referring Provider Obstetrics & Gynecology; Visit Provider Obstetrics & Gynecology
DX: O13.9 Gestational [pregnancy-induced] hypertension without significant proteinuria, unspecified trimester (principal)
CPT/HCPCS: 36415; 80053; 82570; 84156; 85025

== ENCOUNTER → 2023-04-10 | Outpatient (CLI) | payer OTHER, SELFPAY ==
[2023-04-10 10:48] LABS: Absolute Lymphocyte Count 2.31 X10^3/uL (0.83-4.51); Absolute Neutrophil Count 10.3 X10^3/uL (2.0-7.7); Basophil# 0.09 X10^3/uL; Basophil% 0.6 % (0-1); Eosinophils% 1.4 % (0-5); Hematocrit 40.4 % (37-47); Hemoglobin 13.6 g/dL (12.0-15.0); Lymphocyte # 2.31 X10^3/ul (0.83-4.51); Lymphocyte % 16.7 % (19-41); Mean Corp Hgb Conc 33.7 g/dL (32-36); Mean Corpuscular Hgb 28.9 pg (27.0-32.0); Mean Platelet Vol. 10.2 fl (6.2-12.0); Monocyte# 0.81 X10^3/uL; Monocyte% 5.8 % (0-10); NRBC Flagged by Analyzer 0 % (0-5); Neutrophil # 10.32 X10^3/uL (2.7-7.7); Neutrophil % 74.6 % (47-70); Platelet Count 253 K/mm3 (150-450); RBC Distribution Width CV 13.5 % (11.6-14.6); RBC Distribution Width SD 41.8 fl (35.1-43.9); White Blood Count 13.9 K/mm3 (4.4-11.0)
[2023-04-10 11:00] LABS: Protein, Urine (Random) 6.7 mg/dL (<11.9); Protein:Creat Ratio 212 mg/g CRE (0-200)
[2023-04-10 11:23] LABS: ALB/GLOB Ratio 0.7 RATIO (0.9-2.4); AST(SGOT) 12 U/L (15-37); Alanine Aminotransfer ALT/SGPT 15 U/L (13-56); Albumin, Serum 2.6 g/dL (3.2-5.0); Alkaline Phosphatase 117 U/L (45-117); Anion Gap 5 (5-15); BUN 6 mg/dL (7-18); BUN/Creat Ratio 8.5 RATIO (10-20); Calcium,Total 8.8 mg/dL (8.5-10.1); Chloride 109 mmol/L (98-107); Creatinine, Serum 0.71 mg/dL (0.55-1.02); EST Glomerular Filtration Rate 106 mL/min (>60); Est Glom Filt Rate - Afr Amer 128 mL/min (>60); Globulin 3.5 g/dL (2.2-4.2); Glucose 96 mg/dL (74-106); Potassium 3.8 mmol/L (3.5-5.1); Protein, Total 6.1 g/dL (6.4-8.2); Sodium Level 136 mmol/L (136-145)
== END | disposition home or self-care (01) ==
LOC: PAVLAB 10:16
PROVIDERS: PCP Nurse Practitioner Primary Care; Referring Provider Advanced Practice Midwife; Visit Provider Advanced Practice Midwife
DX: O13.9 Gestational [pregnancy-induced] hypertension without significant proteinuria, unspecified trimester (principal); Z3A.34 34 weeks gestation of pregnancy
CPT/HCPCS: 36415; 80053; 82570; 84156; 85025

== ENCOUNTER → 2023-04-18 | Outpatient (CLI) | payer OTHER, SELFPAY ==
[2023-04-18 10:32] LABS: Absolute Neutrophil Count 8.8 X10^3/uL (2.0-7.7); Basophil# 0.09 X10^3/uL; Basophil% 0.7 % (0-1); Eosinophil# 0.17 X10^3/uL; Eosinophils% 1.4 % (0-5); Hematocrit 40.9 % (37-47); Hemoglobin 13.6 g/dL (12.0-15.0); Mean Corp Hgb Conc 33.3 g/dL (32-36); Mean Corpuscular Hgb 28.9 pg (27.0-32.0); Mean Corpuscular Volume 86.8 fL (81-99); Mean Platelet Vol. 10.5 fl (6.2-12.0); Monocyte# 0.82 X10^3/uL; Monocyte% 6.5 % (0-10); NRBC Flagged by Analyzer 0 % (0-5); Neutrophil # 8.84 X10^3/uL (2.7-7.7); Neutrophil % 70.5 % (47-70); Platelet Count 244 K/mm3 (150-450); RBC Distribution Width CV 13.5 % (11.6-14.6); RBC Distribution Width SD 42.2 fl (35.1-43.9); Red Blood Count 4.71 M/mm3 (4.2-5.4); White Blood Count 12.5 K/mm3 (4.4-11.0)
[2023-04-18 10:57] LABS: Protein, Urine (Random) < 6.0 mg/dL (<11.9)
[2023-04-18 11:01] LABS: ALB/GLOB Ratio 0.7 RATIO (0.9-2.4); AST(SGOT) 12 U/L (15-37); Alanine Aminotransfer ALT/SGPT 14 U/L (13-56); Albumin, Serum 2.6 g/dL (3.2-5.0); Alkaline Phosphatase 118 U/L (45-117); Anion Gap 7 (5-15); BUN 5 mg/dL (7-18); BUN/Creat Ratio 6.8 RATIO (10-20); Calcium,Total 9.3 mg/dL (8.5-10.1); Chloride 110 mmol/L (98-107); Creatinine, Serum 0.73 mg/dL (0.55-1.02); EST Glomerular Filtration Rate 102 mL/min (>60); Est Glom Filt Rate - Afr Amer 123 mL/min (>60); Globulin 3.5 g/dL (2.2-4.2); Glucose 96 mg/dL (74-106); Potassium 3.9 mmol/L (3.5-5.1); Protein, Total 6.1 g/dL (6.4-8.2); Sodium Level 139 mmol/L (136-145)
== END | disposition home or self-care (01) ==
PROVIDERS: PCP Nurse Practitioner Primary Care; Referring Provider Nurse Practitioner Women's Health; Visit Provider Nurse Practitioner Women's Health
DX: O13.9 Gestational [pregnancy-induced] hypertension without significant proteinuria, unspecified trimester (principal); Z3A.00 Weeks of gestation of pregnancy not specified
CPT/HCPCS: 36415; 80053; 82570; 84156; 85025; 87081

== ENCOUNTER → 2023-04-21 | Outpatient (CLI) | payer OTHER, SELFPAY ==
--- NOTE | 2023-04-21 10:49 | US_ITS ---
STUDY: SECOND AND THIRD TRIMESTER OBSTETRICAL ULTRASOUND - LIMITED REASON FOR EXAM: Female, 27 years old growth ultrasound LMP: Established due date 05/13/2023. PRIOR ULTRASOUND: 03/24/2023. TECHNIQUE: Transabdominal. TECHNICAL QUALITY: Adequate. FINDINGS: Single fetus identified in the uterus. Cephalic presentation. heart rate demonstrated at 152 bpm. survey not assessed at this time. Amniotic fluid index 13.0 cm. Placenta is posterior fundal. Grossly intact. No previa. Cervical length not visualized. BIOMETRY: BPD: 9.07 cm: 36 weeks, 5 days HC: 32.52 cm: 36 weeks, 6 days AC: 33.51 cm: 37 weeks, 3 days FL: 7.18 cm: 36 weeks, 6 days Age by LMP: 36 weeks, 6 days. ADILENE by LMP: 05/13/2023. age by prior US: 37 weeks, 3 days. ADILENE by prior US: 05/09/2023. age by current US: 36 weeks, 6 days. ADILENE by current US: 05/13/2023. Estimated weight: 3165 grams, +/- 475 grams, 66.4 percentile. US/OB Limited With Biometrics IMPRESSION: Single live intrauterine estimated gestational age 36 weeks 6 days based on composite measurements. CARRIE 13. Electronically Signed: Emy Coronel MD at 22:14 EDT ,
[2023-04-21 12:48] LABS: Microalbumin,Random Urine 18.9 mg/L (NO RANGE EST.); Microalbumin:Creatinine Ratio 8.5 mg/g CRE (<30 mg/g CRE)
== END | disposition home or self-care (01) ==
PROVIDERS: Registered Nurse; PCP Nurse Practitioner Primary Care; Referring Provider Advanced Practice Midwife; Visit Provider Advanced Practice Midwife
DX: O09.90 Supervision of high risk pregnancy, unspecified, unspecified trimester (principal); Z3A.00 Weeks of gestation of pregnancy not specified
CPT/HCPCS: 76816; 82043; 82570

== ENCOUNTER 2023-04-23 19:05 | Inpatient (IN) | payer OTHER, SELFPAY ==
[2023-04-23 19:30] VITALS: BMI 36.6
[2023-04-23 19:40] VITALS: TEMP 36.3; O2SAT 97
[2023-04-23 19:41] VITALS: BP 135/83; PULSE 84
[2023-04-23 19:52] LABS: Absolute Lymphocyte Count 2.58 X10^3/uL (0.83-4.51); Absolute Neutrophil Count 8.1 X10^3/uL (2.0-7.7); Basophil# 0.07 X10^3/uL; Basophil% 0.6 % (0-1); Eosinophil# 0.18 X10^3/uL; Eosinophils% 1.5 % (0-5); Hematocrit 37.3 % (37-47); Hemoglobin 12.8 g/dL (12.0-15.0); Lymphocyte # 2.58 X10^3/ul (0.83-4.51); Lymphocyte % 21.8 % (19-41); Mean Corp Hgb Conc 34.3 g/dL (32-36); Mean Corpuscular Hgb 29.6 pg (27.0-32.0); Mean Corpuscular Volume 86.1 fL (81-99); Mean Platelet Vol. 11.1 fl (6.2-12.0); Monocyte# 0.79 X10^3/uL; Monocyte% 6.7 % (0-10); NRBC Flagged by Analyzer 0 % (0-5); Neutrophil # 8.14 X10^3/uL (2.7-7.7); Neutrophil % 68.8 % (47-70); Platelet Count 225 K/mm3 (150-450); RBC Distribution Width CV 13.6 % (11.6-14.6); RBC Distribution Width SD 42.2 fl (35.1-43.9); Red Blood Count 4.33 M/mm3 (4.2-5.4); White Blood Count 11.8 K/mm3 (4.4-11.0)
[2023-04-23] MEDS: miSOPROStol 25 MCG TABLET VAGINAL (20:22)
[2023-04-23 20:27] LABS: Syphilis Antibodies Non-reactive
[2023-04-23 20:34] LABS: AST(SGOT) 11 U/L (15-37); Alanine Aminotransfer ALT/SGPT 15 U/L (13-56); EST Glomerular Filtration Rate 106 mL/min (>60); Est Glom Filt Rate - Afr Amer 129 mL/min (>60); Estimated Creatinine Clearance 127.28 ml/min; Uric Acid 5.7 mg/dL (2.6-6.0)
[2023-04-23 20:49] LABS: Protein, Urine (Random) 8.1 mg/dL (<11.9); Protein:Creat Ratio 99 mg/g CRE (0-200)
[2023-04-24] VITALS (23 sets, daily range): BP systolic 96–146; BP diastolic 50–83; PULSE 67–90; TEMP 35.8–36.7; O2SAT 97–100
[2023-04-24] MEDS: miSOPROStol 25 MCG TABLET VAGINAL ×2 (00:22→04:22)
--- NOTE | 2023-04-24 07:25 | PCM.PN.BLA ---
Progress Note patient coping well with cramping continue with cytotec dosing. Will increase dose to 50mcg current tracing: FHT: 130 Moderate variability reactive no decelerations category I tracing [place]: irregular Contractions A/P: continue with cytotec continue position changes anticipate pitocin and parks bulb placement with improved mckeon score. Assessment & Plan Assessment/Plan (1) Encounter for induction of labor: PLAN: at 37.1 weeks for PIH (2) Gestational hypertension: (3) Supervision of high risk , antepartum: (4) : QUALIFIERS: Weeks of gestation: 36 weeks Qualified Code(s): Z3A.36 - 36 weeks gestation of Multi Select Codes Urinary/Genital Urinary/Genital CPT Codes: No Charge
[2023-04-24] MEDS: 0.9% Saline Lock 10 ML Syringe IV (07:42)
[2023-04-24] MEDS: miSOPROStol 50 MCG TABLET VAGINAL (08:59)
[2023-04-24] MEDS: Lactated Ringers 1,000 ML 50 ML IV (15:35)
[2023-04-24] MEDS: Oxytocin 15 Units/NS 250ml 15 UNITS/250 ML IV.SOLN 2 UNITS IV (15:35)
--- NOTE | 2023-04-24 15:51 | PN_ITS ---
Progress Note coping well with contractions current tracing: FHT: 145Moderate variability reactive no decelerations category I tracing [place]: irregular Contractions SROM at 1530 clear SVE 2/80/-1 A/P: pitocin titration per protocol continue position changes encouraged to walk room and halls epidural if desired Assessment & Plan Assessment/Plan (1) Encounter for induction of labor: (2) Gestational hypertension: (3) Thyroid goiter: (4) Rh negative state in antepartum period: (5) Supervision of high risk , antepartum: (6) : QUALIFIERS: Weeks of gestation: 36 weeks Qualified Code(s): Z3A.36 - 36 weeks gestation of Multi Select Codes Urinary/Genital Urinary/Genital CPT Codes: No Charge
[2023-04-24] MEDS: LACTATED RINGERS 500 ML 999 ML IV (18:19)
[2023-04-24] MEDS: fentaNYL-bupivacaine (epidural) 100 ML BAG EPIDURAL (19:11)
--- NOTE | 2023-04-24 22:53 | PN_ITS ---
Progress Note comfortable with epidural current tracing: FHT: 145 Moderate variability reactive no decelerations category I tracing [place]: 2-4 minute Contractions-IUPC in place SVE 4/80/-1 Pitocin 6.0mu A/P: continue position changes titrate pitocin per policy anticipate active labor and Multi Select Codes Urinary/Genital Urinary/Genital CPT Codes: No Charge
[2023-04-24] MEDS: Lactated Ringers 1,000 ML 200 ML IV (23:50)
[2023-04-25] VITALS (44 sets, daily range): BP systolic 117–137; BP diastolic 57–80; PULSE 69–95; RESP 16–17; TEMP 35.9–37.4; O2SAT 89–100
[2023-04-25] MEDS: fentaNYL-bupivacaine (epidural) 100 ML BAG EPIDURAL (00:02)
[2023-04-25] MEDS: Ondansetron 4 MG/2 ML Vial IV (01:16)
[2023-04-25] MEDS: 0.9% Saline Lock 10 ML Syringe IV ×2 (01:16→08:36)
--- NOTE | 2023-04-25 05:25 | EX.PCM.OBRPT ---
Assessment & Plan (1) Encounter for induction of labor: (2) Gestational hypertension: COMMENT: 04/13 discussed with patient again- questionable diagnosis- considerable variation, recommend weekly labs. continue to monitor at this point to clarify diagnosis 04/21- reviewed BP log at home consistent 140s/80s atleast once/day. c/w JV concurs diagnosis of GHTN. IOL at 37 weeks NST twice weekly. growth US at 32 (70%) &36 weeks. home monitor-Daily BP. consider IOL between 37-38 weeks only if persistent HTN, discussed brining in cuff. bps 110s over 70s, PCR low/stable (3) Thyroid goiter: COMMENT: monitoring TSH normal 03/22 (4) Rh negative state in antepartum period: COMMENT: rhogam @ 28 wks & PRN bleeding (5) Supervision of high risk , antepartum: COMMENT: PRR , ADILENE 05/13/23, boy Coleen Lang Jr IV Rickey (6) : QUALIFIERS: Weeks of gestation: 36 weeks Qualified Code(s): Z3A.36 - 36 weeks gestation of COMMENT: Neg GBS NIPT low risk, declined carrier testing, nl 1 HR GCT. declined ntd screening. nl anatomy. (7) Maternal varicella, non-immune: COMMENT: Pt has had 5 boosters, doesn't hold immunity Maternal Data Information ADILENE Calculator Estimated Delivery Date Method Current WG Current Estimate 05/13/23 LMP (Certain) 37w 3d Final ADILENE: 05/13/23 Final ADILENE Source: US >20 weeks Gestational age: 37.3 weeks Vaginal Delivery Maternal Presentation Maternal Presentation: Medically Indicated Induction Maternal Presentation: Patient began pushing with significant variables during pushing. FHT returned to baseline quickly after contraction ended. Dr Cyr aware of heart tracing and viewing from mobile device. Patient pushed effectively and delivered the head in the VICKY presentation. The head was delivered atraumatically and a loose nuchal cord ?1 was identified and easily reduced over the 's head. The anterior and posterior shoulders delivered without complication followed by the rest of the infant and the was placed on the maternal abdomen. Delayed cord clamping was employed for approximately 4 minutes. Cord was clamped and cut and gentle traction was applied to the cord and the placenta delivered spontaneously immediately following it was noted to be intact with three-vessel cord. The perineum and vagina were inspected and noted to have second degree laceration which was repaired in the usual fashion using 3-0 Rapide. EBL was 150. Patient and infant tolerated delivery well. Apgars 8/9. Type of Induction: Pitocin and Cytotec Medical Reason for Induction: Gestational Hypertension Operative Information Date of Procedure: 04/25/23 Pre-Operative Diagnosis: See AP comments Post-Operative Diagnosis: Same Surgery / Procedure Performed: Spontaneous Vaginal Delivery typewriter operator automatic #1: Sanam Tovar Type of Anesthesia: Epidural Estimated Blood Loss: 150 Time of Delivery: 04:57 Findings Presentation: Vertex Amniotic Membrane Rupture Type: Spontaneous Time of Membrane Rupture: 1530 Amniotic Fluid Description: Clear Placental Delivery Description: Spontaneous Placenta Disposition: [facility] Cord Vessel Description: 3 Vessels Cord Entanglement: Around neck x 1, loose Cord Gases: VBG A Gender: Male (1 minute): 8 (5 minute): 9 Delayed Cord Clamping: Yes Post Vaginal Delivery Medications Given After Delivery: IV Pitocin Episiotomy Description: None Laceration: 2nd degree Complication Complications: None Multi Select Codes Urinary/Genital Urinary/Genital CPT Codes: 26879 Vaginal Delivery [facility]
--- NOTE | 2023-04-25 05:33 | DCINST_ITS ---
Discharge Instructions Diet Discharge Diet: No restrictions Activity Discharge Activity: Return to Normal Activity May resume sexual activity in: 6-8 weeks Dressing / Incision Call your doctor if you observe: Fever of 101 or Higher, Coldness, Increased Pain, Numbness or Tingling, Change in Color, Inability to urinate, Inability to have a bowel movement, Using more than 1 pad per hour, Shortness of breath, Dizziness, Fainting spells, Swelling in the ankles, Chest pain, Increased palpitations (irregular heartbeat), Calf discomfort and Uncontrolled pain Follow Up Care Please Follow Up With: Sanam Tovar CNM When: Please call the office to schedule your follow up appointment in 6 weeks. If you had high blood pressure please call to schedule an appointment in 2 weeks. Test Results: Test results from this visit will be discussed in further detail at your follow- up appointment, if applicable. Discharge Plan Admission Admit Date/Time: 04/23/23 19:05 Attending Provider: Sanam Tovar Primary Care Provider: Soco Frazier NP Discharge Orders/Prescriptions Prescriptions: No Action PNV-[place] 28-1-300 mg capsule 1 cap PO DAILY ascorbic acid (vitamin C) 1,000 mg capsule 1 g PO DAILY B Complex Plus Vitamin C 07-50-88-5-300 mg capsule 1 cap PO QODAY Rx Instructions: give with food (meal/snack) coyhn-6z-pky-epa-fish oil 1,000-1,400 mg capsule,delayed release(DR/EC) 1 cap PO DAILY Referrals / Follow Up: Soco Frazier NP, MECHANICAL PIPING DESIGNER-C [Primary Care Provider] - Disposition Disposition (needs filled in before D/C Order can be placed): Home, Self Care
[2023-04-25] MEDS: Oxytocin 15 Units/NS 250ml 15 UNITS/250 ML IV.SOLN 83 UNITS IV (05:35)
[2023-04-25] MEDS: Ibuprofen 600 MG Tablet PO ×2 (06:55→16:48)
[2023-04-25] MEDS: Acetaminophen 500 MG Tablet 1000 MG PO ×2 (13:05→20:11)
[2023-04-25] MEDS: Benzocaine/Lanolin/Aloe Vera 1 SPRAY EACH TOPICAL (16:49)
[2023-04-26 00:50] VITALS: BP 120/64; PULSE 84; RESP 16; TEMP 36.6; O2SAT 95
[2023-04-26] MEDS: Ibuprofen 600 MG Tablet PO ×2 (01:09→10:54)
[2023-04-26] MEDS: Acetaminophen 500 MG Tablet 1000 MG PO (05:15)
[2023-04-26 05:49] VITALS: BP 114/61; PULSE 72; RESP 16; TEMP 36.5; O2SAT 95
--- NOTE | 2023-04-26 07:25 | PCM.PN.OB ---
Subjective Subjective Patient doing well without complaints. Tolerating PO. Ambulating and voiding without difficulty. Feeding well. Denies chest pain, shortness of breath, calf pain/swelling, fevers, chills, lightheadedness. Objective Data Objective Data Vital Signs: Vital Signs Temp Pulse Resp BP Pulse Ox O2 Del Method 97.7 F L 72 16 114/61 95 Room Air 04/26/23 05:49 04/26/23 05:49 04/26/23 05:49 04/26/23 05:49 04/26/23 05:49 04/26/23 05:49 Oxygen Delivery Method Room Air Weight: 248 lb Body Mass Index (BMI) 36.6 Intake & Output: Intake and Output for Last 24 Hours 04/24/23 04/25/23 04/26/23 23:59 23:59 23:59 Intake Total 1524.50 / 1524.50 2426.3 / 2426.3 Output Total 2650 / 2650 Balance 1524.50 / 1524.50 -223.7 / -223.7 Lab / Micro Data Attestation: I reviewed the patient's lab results. Result Diagrams: 04/23/23 19:30 04/23/23 20:05 Labs: Laboratory Results - last 24 hr 04/25/23 08:30: Screen NEGATIVE, Baby's Blood Type O POSITIVE, Baby's EDNA NEGATIVE ROS Constitutional Constitutional: Reports systems reviewed and no addt'l complaints, except as documented; Denies anorexia or headache(s) Cardiovascular Cardiovascular: Reports systems reviewed and no addt'l complaints, except as documented; Denies dizziness, dyspnea, nausea or tachypnea Respiratory/Chest Respiratory/Chest: Reports systems reviewed and no addt'l complaints, except as documented; Denies cough, dyspnea, shortness of breath at rest or tachypnea Gastrointestinal Gastrointestinal: Reports systems reviewed and no addt'l complaints, except as documented; Denies abdominal pain, constipation or nausea Genitourinary Genitourinary: Reports systems reviewed and no addt'l complaints, except as documented; Denies burning urination, difficulty urinating, dysuria, urinary frequency or urinary incontinence Musculoskeletal Musculoskeletal: Reports systems reviewed and no addt'l complaints, except as documented Integumentary Integumentary: Reports systems reviewed and no addt'l complaints, except as documented Neurologic Neurologic: Reports systems reviewed and no addt'l complaints, except as documented; Denies abnormal speech, dizziness or headache(s) Psychiatric Psychiatric: Reports systems reviewed and no addt'l complaints, except as documented Endocrine Endocrinology: Reports systems reviewed and no addt'l complaints, except as documented Hematologic/Lymphatic Hematologic/Lymphatic: Reports systems reviewed and no addt'l complaints, except as documented Physical Exam Const alert, oriented x3 and no apparent distress Neck full ROM Resp normal respiratory effort, normal air movement and no retractions Effort and Inspection: able to speak in complete sentences and symmetric chest movement GI soft to palpation Bladder / Kidney Exam: bladder normal to palpation Uterus Palpation: uterus fundus firm Extremity normal to inspection and full ROM Psych mental status grossly normal, thought process normal and cooperative Assessment & Plan (1) Vaginal delivery: COMMENT: KW IOL 37.3 PIH Boy Rickey Ramirez PLAN: s/p PPD # 1 1. routine post delivery care 2. breast feeding- support given 3. rh positive 4. rubella immune 5. D/C home (2) Gestational hypertension: COMMENT: 04/13 discussed with patient again- questionable diagnosis- considerable variation, recommend weekly labs. continue to monitor at this point to clarify diagnosis 04/21- reviewed BP log at home consistent 140s/80s atleast once/day. c/w JV concurs diagnosis of GHTN. IOL at 37 weeks NST twice weekly. growth US at 32 (70%) &36 weeks. home monitor-Daily BP. consider IOL between 37-38 weeks only if persistent HTN, discussed brining in cuff. bps 110s over 70s, PCR low/stable PLAN: continue to monitor BP daily. call with BP over 150/90 (3) Rh negative state in antepartum period: COMMENT: rhogam @ 28 wks & PRN bleeding (4) Maternal varicella, non-immune: COMMENT: Pt has had 5 boosters, doesn't hold immunity Charges/Coding Multi Select Codes Urinary/Genital Urinary/Genital CPT Codes: No Charge
--- NOTE | 2023-04-26 07:27 | DCINST_ITS ---
Discharge Instructions Diet Discharge Diet: No restrictions Activity May resume sexual activity in: 6-8 weeks Dressing / Incision Call your doctor if you observe: Fever of 101 or Higher, Coldness, Increased Pain, Numbness or Tingling, Change in Color, Inability to urinate, Inability to have a bowel movement, Using more than 1 pad per hour, Shortness of breath, Dizziness, Fainting spells, Swelling in the ankles, Chest pain, Increased palpitations (irregular heartbeat), Calf discomfort and Uncontrolled pain Follow Up Care Please Follow Up With: Sanam Tovar CNM Test Results: Test results from this visit will be discussed in further detail at your follow- up appointment, if applicable. Discharge Plan Admission Admit Date/Time: 04/23/23 19:05 Attending Provider: Sanam Tovar Primary Care Provider: Soco Frazier NP Discharge Orders/Prescriptions Prescriptions: No Action PNV-[place] 28-1-300 mg capsule 1 cap PO DAILY ascorbic acid (vitamin C) 1,000 mg capsule 1 g PO DAILY B Complex Plus Vitamin C 93-40-80-5-300 mg capsule 1 cap PO QODAY Rx Instructions: give with food (meal/snack) vuxqb-5a-eyj-epa-fish oil 1,000-1,400 mg capsule,delayed release(DR/EC) 1 cap PO DAILY Referrals / Follow Up: Soco Frazier NP, CARDING MACHINE FEEDER-C [Primary Care Provider] - Disposition Disposition (needs filled in before D/C Order can be placed): Home, Self Care
[2023-04-26 07:47] VITALS: BP 142/79; PULSE 79; RESP 16; TEMP 36.6; O2SAT 98
--- NOTE | 2023-04-26 08:11 | NURSING ---
report given to Ino Ford RN who is assuming care of pt at this time
[2023-04-26 10:49] VITALS: BP 115/68; PULSE 70; RESP 18
--- NOTE | 2023-04-27 12:27 | HP.PCM.OB_ITS ---
HPI - General General Date of Admission: 04/23/23 Date of Service: 04/23/23 Chief Complaint: IOL for PIH HPI Narrative RICK STORY, is a 27 F who presents at 37 weeks for IOL for PIH Maternal Data Information ADILENE Calculator Estimated Delivery Date Method Current WG Current Estimate 05/13/23 LMP (Certain) 37w 5d Final ADILENE: 05/13/23 Final ADILENE Source: US >20 weeks Gestational age: 37.0 weeks [facility] Medical History ADHD Migraine Vocal cord dysfunction Home Medications ascorbic acid (vitamin C) 1,000 mg capsule 1 g PO DAILY supplement 09/27/22 [History Last Taken 03/13/23] multivit-min no.71-iron fum 28 mg-folate no.1 1 mg-dha 300 mg capsule (PNV- Ransom) 1 cap PO DAILY 09/27/22 [History Last Taken 03/13/23] omega3 1,000 sd-cej-adv-other [id number] oil 1,400 mg capsule,delay rel 1 cap PO DAILY Check with primary doctor 09/27/22 [History Last Taken 03/13/23] vitamin B comp and C no.3 15 mg-10 mg-50 mg-5 mg-300 mg capsule (B Complex Plus Vitamin C) 1 cap PO QODAY supplement 09/27/22 [History Last Taken 03/12/23] Allergy/AdvReac Type Severity Reaction Status Date / Time Food Allergies: Uncoded AdvReac Other Verified 04/24/23 14:38 Family History (Updated 04/23/23 @ 19:51 by Laura Dubois) Mother Psoriasis Brother Psoriatic arthritis Asthma Father Kidney stone Surgical History H/O wisdom tooth extraction History of tonsillectomy Social History adopted: No household members: spouse housing: apartment number of children: 0 current occupational status: employed 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 current occupational exposures/hazards: No pets and animals: Yes pets and animals: dog(s) history of recent travel: Yes ([place]) out of state: Yes out of country: No sexually active: Yes Smoking Status: Never smoker second hand exposure: No alcohol intake: former details: socially prior to substance use type: does not use well-balanced diet: daily or most days caffeine: Yes Type: coffee Number of servings: 1 eating out: 1-3 times/week what type of physical activity do you participate in: walking frequency: 5-6 times per week duration: 30-45 minutes/day amy/uatsdin: None seatbelt use: always do you feel safe at home: Yes additional social history: - 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 1 Elective abortions Hx Para 0 Spontaneous abortions Hx # Term Pregnancies Ectopic pregnancies Hx # Pregnancies Multiple births # of living children Visit Details Expected Delivery Route/Plan Labor Preferences- CB/BF classes: just breathe, childbirth education labor support person: Rickey labor intervention preferences: [] pain management options preferred: prefers no epidural cut cord/dad catch: : yes PP control planned: nuvaring discussed possible routes of delivery and associated risks: [] special requests: [] Plans Covid status: discussed Flu vaccine: discussed Tdap vaccine: [] Rhogam: [] LARC form signed: completed. Problem list reviewed and updated with the most current plan of care details and appropriate orders placed. Relevant counseling for the gestational age provided. Continue routine care and follow up unless otherwise noted in visit notes/problem list details OB Flowsheet Initial Weight: Not Recorded Date -?-?-?-?-?-?-?-?-?-?-?-?- EGA Weight BP Urine Prot -?-?-?-?-?-?-?-?-?-?-?-?- Glucose FHR FuHt Pres Dilation -?-?-?-?-?-?-?-?-?-?-?-?- Effaced St Visit Note 10/07/22 -?-?-?-?-?-?-?-?-?-?-?-?- 8w 6d 215 lb 129/83 -?-?-?-?-?-?-?-?-?-?-?-?- 180 -?-?-?-?-?-?-?-?-?-?-?-?- JV- single live IUP measurign 8 weeks 6 days and consistent with LMP. 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 11/11/22 -?-?-?-?-?-?-?-?-?-?-?-?- 13w 6d 217 lb 123/74 -?-?-?-?-?-?-?-?-?-?-?-?- 160 -?-?-?-?-?-?-?-?-?-?-?-?- SM- no vb ely george reviewed testing results 12/06/22 -?-?-?-?-?-?-?-?-?-?-?-?- 17w 3d 213 lb 8 oz 110/74 Nega tive -?-?-?-?-?-?-?-?-?-?-?-?- Negative 161 -?-?-?-?-?-?-?-?-?-?-?-?- MH-No Vb, ely george. Doing well. 01/06/23 -?-?-?-?-?-?-?-?-?-?-?-?- 21w 6d 222 lb 4 oz 107/71 Nega tive -?-?-?-?-?-?-?-?-?-?-?-?- Negative 163 -?-?-?-?-?-?-?-?-?-?-?-?- JV- has rpt us a t 28 weeks for low placenta. 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 02/03/23 -?-?-?-?-?-?-?-?-?-?-?-?- 25w 6d 232 lb 6 oz 120/82 Nega tive -?-?-?-?-?-?-?-?-?-?-?-?- Negative 150 26 -?-?-?--?-?-?-?-?-?-?-?-?- SM- no vb lof go od fm no reuglar ctx 02/23/23 -?-?-?-?-?-?-?-?-?-?-?-?- 28w 5d 234 lb 8 oz 119/73 -?-?-?-?-?-?-?-?-?-?-?-?- 159 29 -?-?-?-?-?-?-?-?-?-?-?-?- JV- tdap and rho luz maria given. gct done and pending. cbc is normal. pt complains of cramping in legs because works 12 hr shifts. compression stockings and magnesium supplement encouraged and she is doing these already 03/08/23 -?-?-?-?-?-?-?-?-?-?-?-?- 30w 4d 239 lb 2 oz 103/68 Nega tive -?-?-?-?-?-?-?-?-?-?-?-?- Negative 156 30 -?-?-?-?-?-?-?-?-?-?-?-?- LC- doing well. no vb/ctx/lof. good fm. larc signed. normal glucose. signed up for childbirth education classes. 03/15/23 -?-?-?-?-?-?-?-?-?-?-?-?- 31w 4d 236 lb 4 oz 108/71 Nega tive -?-?-?-?-?-?-?-?-?-?-?-?- Negative 150 -?-?-?-?-?-?-?-?-?-?-?-?- KW-doing well to day, +FM, no lof/vb/ctx. monitor given and has follow up appt on mon. Daily BPs at home or unless she is feeling symptomatic. to call with BPs of 140/90 or higher. 03/22/23 -?-?-?-?-?-?-?-?-?-?-?-?- 32w 4d 241 lb 2 oz 142/82 122/83 Negative -?-?-?-?-?-?-?-?-?-?-?-?- Negative 150 32 -?-?-?-?-?-?-?-?-?-?-?-?- LC- pt seen in [facility] on 03/14 with 140s/90s BP, home bp last night 140s/90s. started on labetalol 100mg BID. not taken yet this AM. LC- pt seen in on 03/14 wit h 140s/90s BP, home bp last night 140s/90s. started on labetalol 100mg BID. not taken yet this AM. NST not completed as pt felt dizzy and feeling faint. sent to for labs and hydration. LC- pt seen in on 03/14 wit h 140s/90s BP, home bp last night 140s/90s. GHTN diagnosis based on criteria. started on labetalol 100mg BID. not taken yet this AM. NST not completed as pt felt dizzy and feeling faint. sent to for labs and hydration. 03/24/23 -?-?-?-?-?-?-?-?-?-?-?-?- 32w 6d 239 lb 4 oz 129/81 Nega tive -?-?-?-?-?-?-?-?-?-?-?-?- Negative 140 -?-?-?-?-?-?-?-?-?--?-?-?- SM- discussed yann georgina carbajalnosis with patient, no meds at present, continue monitoring, repeat labs next week. home bp monitoring 03/28/23 -?-?-?-?-?-?-?-?-?-?-?-?- 33w 3d 239 lb 8 oz 111/76 111/76 Trace -?-?-?-?-?-?-?-?-?-?-?-?- Negative 145 33 -?-?-?-?-?-?-?-?-?-?-?-?- KW-+FM. No lof/v b/ctx. Bps good at home. Pre E labs today. has NST monday on WP. reactive NST 04/06/23 -?-?-?-?-?-?-?-?-?-?-?-?- 34w 5d 239 lb 2 oz 124/78 Nega tive -?-?-?-?-?-?-?-?-?-?-?-?- Negative 130 35 -?-?-?-?-?-?-?-?-?-?-?-?- JV- no lof, va g inal bleeding or dec fm. pt states that she has started not feeling well. mild intermittent headaches, fatigue, increase swelling in hands and arms. normal bp today. NST reactive. no proteinuria. checking [facility] labs weekly. 04/10/23 -?-?-?-?-?-?-?-?-?-?-?-?- 35w 2d 110/72 110/72 Negative -?-?-?-?-?-?-?-?-?-?-?-?- Negative 145 -?-?-?-?-?-?-?-?-?-?-?-?- KW- +FM. no vb/l of/ctx. still feeling increased fatigue, with intermittent headaches. PIH repeated today. reactive NST KW- +FM. no vb/lof/ctx. stil l feeling increased fatigue, with intermittent headaches. PIH repeated today. reactive NST. has had some elevated bps at home. BP precautions reviewed. 04/13/23 -?-?-?-?-?-?-?-?-?-?-?-?- 35w 5d 242 lb 113/75 -?-?-?-?-?-?-?-?-?-?-?-?- 140 -?-?-?-?-?-?-?-?-?-?-?-?- SM- no vb lof go od fm no regular ctx 04/18/23 -?-?-?-?-?-?-?-?-?-?-?-?- 36w 3d 242 lb 4 oz 124/80 Nega tive -?-?-?-?-?-?-?-?-?-?-?-?- Negative 150 0 -?-?-?-?-?-?-?-?-?-?-?-?- -No VB, LOF. G ood FM. Some BH CTX. GBS done 04/21/23 -?-?-?-?-?-?-?-?-?-?-?-?- 36w 6d 214 lb 243 lb 143/80 1+ -?-?-?-?-?-?-?-?-?-?-?-?- Negative 150 36 0 -?-?-?-?-?-?-?-?-?-?-?-?- 30 -3 LC- no vb/ lof/ctx. good fm. gbs negative. IOL set up for monday.obtaining growth today. P:C ratio sent for elevated BP and +1 in office. PIH labs normal on 04/18 without any symptoms of PEC today. LC- no vb/lof/ctx. good fm. gbs negative. IOL set up for 04/23/2023 at 7pm.obtaining growth today. P:C ratio sent for elevated BP and +1 in office. PIH labs normal on 04/18 without any symptoms of PEC today. ROS Constitutional Constitutional: Denies change in weight, fatigue, fever(s), headache(s), poor appetite or weakness Eyes Eyes: Denies blurry vision, change in vision, floaters, seeing flashes or spots in vision ENT HEENT: Denies dizziness, headache(s), loss taste/smell or sore throat Cardiovascular Cardiovascular: Denies chest pain, dizziness, dyspnea, irregular heart rhythm, lightheadedness, palpitations or rapid heart rate Respiratory/Chest Respiratory/Chest: Denies change in mental status, chest tightness, cough, dyspnea or breast pain Gastrointestinal Gastrointestinal: Denies anorexia, chewing difficulty, constipation, diarrhea or weight changes Genitourinary Genitourinary: Denies difficulty urinating, dysuria, flank pain, genital pain, urinary frequency or urinary urgency Musculoskeletal Musculoskeletal: Denies back pain, difficulty walking, extremity pain, joint pain, muscle cramps or muscle weakness Integumentary Integumentary: Denies lesions or unusual bruising Neurologic Neurologic: Denies abnormal movements, abnormal speech, dizziness, numbness, seizure-like activity, syncope or weakness Psychiatric Psychiatric: Denies behavioral changes, change in appetite, confusion, depression, homicidal ideation, suicidal ideation or suicidal thoughts Endocrine Endocrinology: Denies excessive sweating, polydipsia or polyuria Hematologic/Lymphatic Hematologic/Lymphatic: Denies anemia Allergic/Immunologic Allergic/Immunologic: Denies itchy eyes, lip swelling, throat swelling, tongue swelling or wheezing Vital Signs Vital Signs Vital Signs: Weight Weight: 248 lb Body Mass Index (BMI) 36.6 Physical Exam Const alert, oriented x3 and no apparent distress General Appearance: cooperative Orientation / Consciousness: awake HEENT normocephalic Neck full ROM Lymph Lymphatic: no lymphadenopathy noted Chest inspection of chest normal Resp normal respiratory effort and normal air movement Effort and Inspection: able to speak in complete sentences and symmetric chest movement GI soft to palpation and non-tender Inspection: gravid Palpation: soft; Negative for tender external exam normal Back/Spine normal to inspection Extremity normal to inspection and full ROM Skin no rashes or lesions noted Psych mental status grossly normal Appearance: grossly normal Speech: normal speech Labs Labs Labs: Blood Type O NEGATIVE Antibody Screen POSITIVE H Hct 37.3 % (37-47) Hgb 12.8 g/dL (12.0-15.0) Obstetrics US Syphilis Total Ab Non-reactive Rubella IgG Antibody Reactive (Nonreactive) Hep Bs Antigen Non-Reactive (Nonreactive) Chlamydia DNA (HAYES) Negative (Negative) Neisseria gonorrhoeae DNA (HAYES) Negative (Negative) HIV 1&2 Antibody Non-Reactive (Nonreactive) Glucose 1 Hr 50 gm 114 mg/dL (70-140) Rhogam given: Yes Assessment & Plan (1) Gestational hypertension: COMMENT: 04/13 discussed with patient again- questionable diagnosis- considerable variation, recommend weekly labs. continue to monitor at this point to clarify diagnosis 04/21- reviewed BP log at home consistent 140s/80s atleast once/day. c/w JV concurs diagnosis of GHTN. IOL at 37 weeks NST twice weekly. growth US at 32 (70%) &36 weeks. home monitor-Daily BP. consider IOL between 37-38 weeks only if persistent HTN, discussed brining in cuff. bps 110s over 70s, PCR low/stable (2) Thyroid goiter: COMMENT: monitoring TSH normal 03/22 (3) Rh negative state in antepartum period: COMMENT: rhogam @ 28 wks & PRN bleeding (4) Vaginal delivery: COMMENT: KW IOL 37.3 PIH Boy Rickey Ramirez Charges/Coding Multi Select Codes Urinary/Genital Urinary/Genital CPT Codes: No Charge
== END 2023-04-26 13:50 | disposition home or self-care (01) | DRG 807 ==
PROVIDERS: Obstetrics & Gynecology; Admitting Provider Advanced Practice Midwife; PCP Nurse Practitioner Primary Care; Referring Provider Advanced Practice Midwife; Visit Provider Advanced Practice Midwife
DX: O13.4 Gestational [pregnancy-induced] hypertension without significant proteinuria, complicating childbirth (principal); Z37.0 Single live birth; E04.9 Nontoxic goiter, unspecified; O99.284 Endocrine, nutritional and metabolic diseases complicating childbirth; O70.1 Second degree perineal laceration during delivery; O69.81X0 Labor and delivery complicated by cord around neck, without compression, not applicable or unspecified; Z3A.37 37 weeks gestation of pregnancy
CPT/HCPCS: 59025; 59050; 82565; 82570; 84156; 84450; 84460; 84550; 85025; 85461; 86780; 86850; 86870; 86900; 86901; 99221; J7120; A4216; G0378; J2405; J2790

== ENCOUNTER → 2023-04-28 | Outpatient (CLI) | payer OTHER, SELFPAY ==
[2023-04-28 16:14] LABS: Absolute Neutrophil Count 7.5 X10^3/uL (2.0-7.7); Basophil# 0.06 X10^3/uL; Basophil% 0.5 % (0-1); Eosinophil# 0.41 X10^3/uL; Eosinophils% 3.7 % (0-5); Hematocrit 39.1 % (37-47); Hemoglobin 13.1 g/dL (12.0-15.0); Lymphocyte % 21.5 % (19-41); Mean Corp Hgb Conc 33.5 g/dL (32-36); Mean Corpuscular Hgb 29.4 pg (27.0-32.0); Mean Corpuscular Volume 87.9 fL (81-99); Mean Platelet Vol. 10.1 fl (6.2-12.0); Monocyte# 0.73 X10^3/uL; Monocyte% 6.5 % (0-10); NRBC Flagged by Analyzer 0 % (0-5); Neutrophil # 7.52 X10^3/uL (2.7-7.7); Neutrophil % 67.3 % (47-70); Platelet Count 264 K/mm3 (150-450); RBC Distribution Width CV 13.9 % (11.6-14.6); RBC Distribution Width SD 44.1 fl (35.1-43.9); Red Blood Count 4.45 M/mm3 (4.2-5.4); White Blood Count 11.2 K/mm3 (4.4-11.0)
[2023-04-28 16:41] LABS: Protein, Urine (Random) 9.5 mg/dL (<11.9); Protein:Creat Ratio 505 mg/g CRE (0-200)
[2023-04-28 16:52] LABS: ALB/GLOB Ratio 0.8 RATIO (0.9-2.4); AST(SGOT) 19 U/L (15-37); Alanine Aminotransfer ALT/SGPT 23 U/L (13-56); Albumin, Serum 2.6 g/dL (3.2-5.0); Alkaline Phosphatase 100 U/L (45-117); Anion Gap 5 (5-15); BUN 8 mg/dL (7-18); BUN/Creat Ratio 10.5 RATIO (10-20); Calcium,Total 8.8 mg/dL (8.5-10.1); Chloride 108 mmol/L (98-107); Creatinine, Serum 0.76 mg/dL (0.55-1.02); EST Glomerular Filtration Rate 97 mL/min (>60); Est Glom Filt Rate - Afr Amer 117 mL/min (>60); Globulin 3.4 g/dL (2.2-4.2); Glucose 84 mg/dL (74-106); Potassium 3.6 mmol/L (3.5-5.1); Sodium Level 142 mmol/L (136-145)
== END | disposition home or self-care (01) ==
LOC: LAB 15:50
PROVIDERS: PCP Nurse Practitioner Primary Care; Referring Provider Obstetrics & Gynecology; Visit Provider Obstetrics & Gynecology
DX: O13.9 Gestational [pregnancy-induced] hypertension without significant proteinuria, unspecified trimester (principal); Z3A.00 Weeks of gestation of pregnancy not specified
CPT/HCPCS: 36415; 80053; 82570; 84156; 85025

== ENCOUNTER 2024-11-01 01:47 | Emergency (ER) | payer OTHER, SELFPAY ==
[2024-11-01 01:47] VITALS: BP 128/89; PULSE 77; RESP 16; TEMP 36.6; O2SAT 99; BMI 31.1
--- NOTE | 2024-11-01 02:00 | EDS_ITS ---
HPI History of Present Illness Chief Complaint: Syncope Detail of Chief Complaint: Near syncope. No LOC. Abdominal cramping. Informant: patient Onset/Context/Timing Onset: Today and Yesterday Context: Gradual Onset Timing: Intermittent Current Severity: Mild Maximum Severity: Moderate Narrative Narrative: Healthy 29-year-old female. No prior abdominal surgeries. She was at her parents house today. [place] lightheaded and dizzy. Near syncopal episode around 6:00. Had some abdominal cramping. Had a normal bowel movement. No diarrhea or melena. And developed nausea with some abdominal cramps and some back discomfort of the lower back. Denies any dysuria urgency or frequency. She did start Zithromax Z-EDI antibiotic and took it on Monday and . She has never been on it before. She has had near syncope before in the past. 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 Recent Illness/Hospitalization: No PFSH PFSH Medical History Vocal cord dysfunction Migraine ADHD Home Medications ?Medication ?Instructions ?Recorded ?Last Taken ?Type ascorbic acid (vitamin C) 1,000 mg 1 g PO DAILY supplement 09/27/22 03/13/23 History capsule multivit-min no.71-iron fum 28 1 cap PO DAILY 09/27/22 03/13/23 History mg-folate no.1 1 mg-dha 300 mg capsule (PNV-Raymond) omega3 1,000 qe-ffa-itn-other 1 cap PO DAILY Check with primary 09/27/22 03/13/23 History [id number] oil 1,400 mg doctor capsule,delay rel vitamin B comp and C no.3 15 mg-10 1 cap PO QODAY supplement 09/27/22 03/12/23 History mg-50 mg-5 mg-300 mg capsule (B Complex Plus Vitamin C) cholecalciferol (vitamin D3) 25 150 mcg PO DAILY 06/02/23 Unknown History mcg (1,000 unit) capsule norethindrone (contraceptive) 0.35 0.35 mg PO DAILY #84 tabs 06/02/23 Unknown Rx mg tablet Allergy/AdvReac Type Severity Reaction Status Date / Time Food Allergies: Uncoded AdvReac Other Verified 11/01/24 01:52 Family History Mother Psoriasis Brother Psoriatic arthritis Asthma Father Kidney stone Surgical History H/O wisdom tooth extraction History of tonsillectomy Social History adopted: No household members: spouse housing: apartment number of children: 0 current occupational status: employed 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 current occupational exposures/hazards: No pets and animals: Yes pets and animals: dog(s) history of recent travel: Yes ([place]) out of state: Yes out of country: No sexually active: Yes Smoking Status: Never smoker second hand exposure: No alcohol intake: former details: socially prior to substance use type: does not use well-balanced diet: daily or most days caffeine: Yes Type: coffee Number of servings: 1 eating out: 1-3 times/week what type of physical activity do you participate in: walking frequency: 5-6 times per week duration: 30-45 minutes/day amy/taoism: None seatbelt use: always do you feel safe at home: Yes 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 Abdominal cramping and lower back pain. No recent illness other than a mild URI it sounds viral. Constitutional Constitutional ED: Denies chills Eyes Eyes: Denies blurry vision ENT ENT ED: Denies ear pain Cardiovascular Cardiovascular: Denies chest pain Respiratory/Chest Respiratory/Chest: Reports cough Gastrointestinal Gastrointestinal: Reports abdominal pain and nausea; Denies constipation, diarrhea, melena or vomiting Genitourinary Genitourinary ED: Denies dysuria or hematuria Musculoskeletal Musculoskeletal: Reports back pain; Denies arthralgias Integumentary Denies abscess or Abrasions Neurologic Neurologic: Denies headache(s) Psychiatric Psychiatric: Denies anxiety Endocrine Endocrinology: Denies cold intolerance Hematologic/Lymphatic Hematologic/Lymphatic: Reports none Allergic/Immunologic Allergic/Immunologic ED: Denies mouth swelling, tongue swelling or urticaria EXAM Physical Exam Narrative Exam Narrative: Well-appearing 29-year-old female. Vital signs are stable afebrile. Pulse ox 99% on room air no signs of hypoxia. H EENT exam pupils round reactive light. Moist mucous membranes. Posterior pharynx unremarkable. TMs normal. Neck nontender no lymphadenopathy. Lungs clear to auscultation bilaterally. Heart regular rate and rhythm rate about 75 no murmur. Chest wall ribs nontender. Abdomen soft nondistended normal bowel sounds without peritoneal signs. No localizing tenderness. No hernia or mass. No distention. Back mild paralumbar lumbar soft tissue tenderness. No ecchymosis or bruising. No CVA tenderness. Moving all 4 extremities. Normal strength. Nontender no edema. Neurologically she is awake and alert no focal motor deficits. Const Vital Signs: 11/01/24 01:47 11/01/24 01:50 11/01/24 03:47 Temperature 97.8 F Temperature Source Oral Pulse Rate 77 77 Respiratory Rate 16 13 Respiratory Effort Normal Respiratory Pattern Normal Blood Pressure 128/89 H 110/72 Blood Pressure Mean 102 84 Pulse Ox 99 96 Oxygen Delivery Method Room Air Room Air 11/01/24 04:27 Temperature 98.0 F Temperature Source Pulse Rate 69 Respiratory Rate 18 Respiratory Effort Respiratory Pattern Blood Pressure 114/75 Blood Pressure Mean 88 Pulse Ox 97 Oxygen Delivery Method Positive well nourished and well developed; Negative for cachectic, contractures or unkempt General Appearance ED: well developed and NAD; Negative for unkempt, cachectic, contractures, cyanotic, diaphoretic or pallor Nutritional Appearance: Negative for cachectic HEENT Reports TM's clear and moist mucous membranes Negative for trauma or tenderness Tympanic Membrane ED: Yes TM's clear Eyes PERRL and EOMs intact bilaterally General Eye ED: Negative for pale conjunctiva or scleral icterus Neck no lymphadenopathy, supple and no JVD General: Negative for tenderness Lymph Lymphatic: Negative for other Chest Wall inspection of chest normal and palpation of chest normal Chest: Negative for other Resp normal respiratory effort and clear to auscultation bilaterally Effort and Inspection: Negative for retractions Auscultation: Negative for rales, rhonchi, wheezes or diminished lung sounds Cardio regular rate, regular rhythm, S1 normal heart sound, S2 normal heart sound and no murmurs Palpation: Negative for palpable S3 or palpable S4 Rate: Negative for bradycardia or tachycardic Rhythm: Negative for abnormal rhythm GI normal to inspection, nondistended, normoactive bowel sounds, non-tender, non- distended and no masses Inspection: Negative for abdominal distention Auscultation: normoactive bowel sounds Palpation: soft; Negative for tender, guarding, mass or rebound tenderness present Back/Spine no CVA tenderness Back/Spine Narrative: Paralumbar soft tissue tenderness. General Back: Negative for CVA tenderness or other Cervical Spine: Negative for cervical spine tenderness Thoracic Spine / Upper Back: thoracic spinal tenderness; Negative for paraspinal muscle tenderness Lumbar Spine / Lower Back: Negative for lumbar spinal tenderness Extremity normal to inspection General Extremety ED: Negative for edema or tenderness General Extremity: Negative for edema Neuro oriented x3 and CN's II-XII intact bilaterally Sensorium / Orientation: alert; Negative for orientation impaired, lethargic or stuporous Motor Exam: strength 5/5 throughout; Negative for general weakness or strength abnormal Psych mental status grossly normal Appearance: Negative for unkempt Attitude: No agitated Mood & Affect: Negative for tearful Skin no rashes or lesions noted, no wounds and skin turgor normal General Skin Exam: elasticity normal; Negative for jaundice or pallor Lesions: No lesion noted Rashes: No rashes noted Trauma: Negative for abrasion Wounds: Negative for wounds noted MDM MDM MDM Narrative Medical decision making narrative: 29-year-old female abdominal cramping near syncope and nausea. Exam benign. This may be viral. Could also be secondary to her currently being on Zithromax Z-EDI antibiotic. Screening labs will be obtained. Zofran for nausea. I do not think she needs any imaging. Repeat exam patient is doing well at 3:20 AM. States she is feeling better. She received IV fluids. Zofran for nausea. And she is currently resting comfortably. On repeat abdominal exam is benign, soft and nontender without peritoneal signs. Similar to the prior exam. Awaiting the CAT scan reports. Clinically I think she had abdominal cramping may or may not be from her current antibiotic she is on. That caused her to have a vagal response and near syncope. Repeat exam patient doing well at 4:25 AM. CAT scan returned showed some fluid near her liver and right paracolic gutter. No specific cause. Abdomen is benign. She will be discharged to home. History & Record Review Discussion w/independent historian: Patient Additional record(s) reviewed:: No prior records Lab Data Attestation: I reviewed the patient's lab results. Lab results narrative: CBC shows an elevated white count of 23.8. H&H is 17 and 50. I think this is from hemoconcentration. Patient does have abnormal white counts in the past but normally not over 20,000. Typically her hemoglobin is around 13. Platelets 349. Electrolytes show a gap of 7. Normal BUN of 15 creatinine 0.9. Glucose 125. Liver enzymes normal. Lipase normal at 21. Serum test negative. Urinalysis is normal. No white or red cells. No nitrates. Labs: Laboratory Results - last 24 hr 11/01/24 11/01/24 02:01 02:21 WBC 23.8 H RBC 6.05 H Hgb 17.2 H Hct 50.3 H MCV 83.1 MCH 28.4 MCHC 34.2 RDW Std Deviation 39.2 RDW Coeff of Leora 13.0 Plt Count 349 MPV 9.7 Immature Gran % (Auto) 0.500 Neut % (Auto) 79.2 H Lymph % (Auto) 15.3 L Howard % (Auto) 4.2 Eos % (Auto) 0.3 Baso % (Auto) 0.5 Absolute Neuts (auto) 18.9 H Absolute Lymphs (auto) 3.64 Nucleated RBC % 0 Sodium 138 Potassium 4.2 Chloride 101 Carbon Dioxide 31.0 Anion Gap 7 BUN 15 Creatinine 0.96 Estim Creat Clear Calc 107.38 Est GFR (MDRD) Af Amer 89 Est GFR (MDRD) Non-Af 73 BUN/Creatinine Ratio 15.6 Glucose 125 H Calcium 9.6 Total Bilirubin 0.50 AST 20 ALT 22 Alkaline Phosphatase 90 Total Protein 7.5 Albumin 4.1 Globulin 3.4 Albumin/Globulin Ratio 1.2 Lipase 21 Serum , Qual NEGATIVE Urine Color Yellow Urine Clarity Clear Urine pH 6.0 Ur Specific [place] 1.025 Urine Protein 30 H Urine Glucose (UA) Normal Urine Ketones 5 H Urine Occult Blood 10 H Urine Nitrite Negative Urine Bilirubin 1 H Urine Urobilinogen 1 H Ur Leukocyte Esterase 25 H Urine RBC 0 SEEN Urine WBC 0 SEEN Ur Squamous Epith Cells 0 SEEN Urine Bacteria 2+ Hyaline Casts 0-5 SEEN Urine Mucus 0 SEEN Radiography Diagnostic Testing: Clinical Impression(s) from Imaging Studies Abdomen/Pelvis CT 11/01/24 02:10 IMPRESSION: Small amount of fluid signal along the right perihepatic region and the right paracolic gutter extending down into the pelvis. Electronically Signed: Florencio Ortega MD at 4:18 EST , Rhythm Strip Rhythm Strip: Sinus Rhythm Rate: 80 Ectopy: None EKG Initial EKG: Attestation: I personally reviewed and interpreted this EKG as follows: Interpretation: Sinus Rhythm and No Acute Injury Pattern Comments: Normal sinus rhythm rate of 80 no acute signs of OR or ischemia. No dysrhythmia. Discharge Plan Triage Chief Complaint: Syncope ED Provider: Heron Mondragon Dx/Rx/DC Orders Clinical Impression: Near syncope, Abdominal pain, Leukocytosis Instructions: ED Near-Fainting- Vagal Reaction Prescriptions: No Action PNV-Raymond 28-1-300 mg capsule 1 cap PO DAILY ascorbic acid (vitamin C) 1,000 mg capsule 1 g PO DAILY B Complex Plus Vitamin C 12-15-85-5-300 mg capsule 1 cap PO QODAY Rx Instructions: give with food (meal/snack) [id number]-fish oil 1,000-1,400 mg capsule,delayed release(DR/EC) 1 cap PO DAILY cholecalciferol (vitamin D3) 25 mcg (1,000 unit) capsule 150 mcg PO DAILY norethindrone (contraceptive) 0.35 mg tablet 0.35 mg PO DAILY Qty: 84 4RF Primary Care Provider: Soco Frazier NP Referrals: Soco Frazier NP, [employer] [Primary Care Provider] - As Needed Activity Restrictions/Additional Instructions: Plenty of fluids and rest. I would stop the Zithromax. Your lungs are clear and no signs of a bacterial respiratory infection. Print Language: Togolese Disposition Disposition: Home, Self Care
[2024-11-01] MEDS: Ondansetron 4 MG/2 ML Vial IV ×2 (02:05→02:49)
--- NOTE | 2024-11-01 02:05 | EKG12_ITS ---
Test Reason : SYNCOPE Blood Pressure : */* mmHG Vent. Rate : 80 BPM Atrial Rate : 80 BPM P-R Int : 150 ms QRS Dur : 76 ms QT Int : 388 ms P-R-T Axes : 51 -4 40 degrees QTcB Int : 447 ms Normal sinus rhythm Normal ECG Confirmed by NATHEN CHRISTY, SAVANNA ([id number]), film editor JEN CESPEDES ([id number]) on 11/01/2024 9:47:36 AM Referred By: Confirmed By: SAVANNA SENA MD
[2024-11-01 02:07] LABS: Absolute Lymphocyte Count 3.64 X10^3/uL (0.83-4.51); Absolute Neutrophil Count 18.9 X10^3/uL (2.0-7.7); Basophil# 0.13 X10^3/uL; Basophil% 0.5 % (0-1); Eosinophil# 0.06 X10^3/uL; Eosinophils% 0.3 % (0-5); Hematocrit 50.3 % (37-47); Hemoglobin 17.2 g/dL (12.0-15.0); Lymphocyte # 3.64 X10^3/ul (0.83-4.51); Lymphocyte % 15.3 % (19-41); Mean Corp Hgb Conc 34.2 g/dL (32-36); Mean Corpuscular Hgb 28.4 pg (27.0-32.0); Mean Corpuscular Volume 83.1 fL (81-99); Mean Platelet Vol. 9.7 fl (6.2-12.0); Monocyte# 0.99 X10^3/uL; Monocyte% 4.2 % (0-10); NRBC Flagged by Analyzer 0 % (0-5); Neutrophil % 79.2 % (47-70); Platelet Count 349 K/mm3 (150-450); RBC Distribution Width SD 39.2 fl (35.1-43.9); Red Blood Count 6.05 M/mm3 (4.2-5.4); White Blood Count 23.8 K/mm3 (4.4-11.0)
--- NOTE | 2024-11-01 02:10 | CT_ITS ---
EXAM: CT ABDOMEN AND PELVIS WITH INTRAVENOUS CONTRAST CLINICAL INDICATION: abd pain and leukocytosis TECHNIQUE: Helically acquired images were obtained of the abdomen and pelvis with intravenous contrast. CTDIvol = ( 11.29 ) mGy, DLP = ( 617.80 ) mGycm This CT exam was performed using one or more of the following dose reduction techniques: automated exposure control, adjustment of the mA and/or kV according to patient size, and/or use of iterative reconstruction technique. CONTRAST: IV 80mL [id number] COMPARISON: No relevant prior studies available. FINDINGS: LOWER THORAX: Unremarkable. Lung bases are clear. No cardiomegaly. No significant pericardial effusion. ABDOMEN: LIVER: Small amount of fluid signal along the right perihepatic region and the right paracolic gutter extending down into the pelvis. GALLBLADDER AND BILE DUCTS: Unremarkable. No calcified gallstones. No gallbladder distention or wall edema. No intra- or extrahepatic biliary ductal dilation. PANCREAS: Unremarkable. No focal cystic or solid mass. SPLEEN: Unremarkable. Normal size without focal cystic or solid mass. ADRENALS: Unremarkable. No nodules. KIDNEYS AND URETERS: Unremarkable. Normal renal size and position. No hydronephrosis. STOMACH AND BOWEL: No colitis, diverticulitis or bowel obstruction. PELVIS: APPENDIX: No evidence of acute appendicitis. BLADDER: Unremarkable. REPRODUCTIVE: Unremarkable as visualized. No mass. ABDOMEN and PELVIS: INTRAPERITONEAL SPACE: Small amount of free fluid in the pelvis. No free air. BONES/JOINTS: Unremarkable. No suspicious lytic or blastic abnormality. SOFT TISSUES: Unremarkable. No discrete abdominal or pelvic wall hernia. VASCULATURE: Unremarkable. Abdominal aorta is non-dilated. LYMPH NODES: Unremarkable. No enlarged lymph nodes. CT/Abdomen/Pelvis W IV Cont ONLY IMPRESSION: Small amount of fluid signal along the right perihepatic region and the right paracolic gutter extending down into the pelvis. Electronically Signed: Florencio Ortega MD at 4:18 EST ,
[2024-11-01 02:26] LABS: Mucous, Urine 0 SEEN /hpf (<or=2+); Red Blood Cells-Urine 0 SEEN /hpf (0-5); Squamous Epithelial Cells - UA 0 SEEN /hpf (5-10); White Blood Cells 0 SEEN /hpf (0-5)
[2024-11-01 02:28] LABS: Internal QC Validated? YES +Cl - CLEAR BKGD; Pregnancy, Serum, hCG Quali. NEGATIVE Negative
[2024-11-01 02:28] LABS: Color, Urine Yellow (Yellow); Glucose, Dipstick Normal (Normal); Ketone-Dipstick 5 mg/dl (Negative); Leukocyte Esterase-Dipstick 25 /ul (Negative); Nitrite-Dipstick Negative (Negative); Occult Blood-Urine 10 /ul (Negative); Protein-Dipstick 30 mg/dl (Negative); Specific Gravity, Urine 1.025 (1.002-1.030); Urine Clarity Clear (Clear); Urine Urobilinogen 1 mg/dl (Normal)
[2024-11-01 02:30] LABS: ALB/GLOB Ratio 1.2 RATIO (0.9-2.4); AST(SGOT) 20 U/L (15-37); Alanine Aminotransfer ALT/SGPT 22 U/L (13-56); Albumin, Serum 4.1 g/dL (3.2-5.0); Alkaline Phosphatase 90 U/L (45-117); Anion Gap 7 (5-15); BUN 15 mg/dL (7-18); BUN/Creat Ratio 15.6 RATIO (10-20); Calcium,Total 9.6 mg/dL (8.5-10.1); Chloride 101 mmol/L (98-107); Creatinine, Serum 0.96 mg/dL (0.55-1.02); EST Glomerular Filtration Rate 73 mL/min (>60); Est Glom Filt Rate - Afr Amer 89 mL/min (>60); Estimated Creatinine Clearance 107.38 ml/min; Globulin 3.4 g/dL (2.2-4.2); Glucose 125 mg/dL (74-106); Lipase 21 U/L (13-75); Potassium 4.2 mmol/L (3.5-5.1); Protein, Total 7.5 g/dL (6.4-8.2); Sodium Level 138 mmol/L (136-145)
[2024-11-01 02:39] LABS: Bacteria 2+ /hpf (None Seen); Hyaline Cast 0-5 SEEN /lpf (0-5); Urine Bilirubin Dipstick 1 mg/dL (Negative)
[2024-11-01 03:47] VITALS: BP 110/72; PULSE 77; RESP 13; O2SAT 96
[2024-11-01 04:27] VITALS: BP 114/75; PULSE 69; RESP 18; TEMP 36.7; O2SAT 97
== END 2024-11-01 04:30 | disposition home or self-care (01) ==
PROVIDERS: Emergency Provider Emergency Medicine; PCP Nurse Practitioner Primary Care; Visit Provider Emergency Medicine
DX: R55 Syncope and collapse (principal); R11.0 Nausea; R10.9 Unspecified abdominal pain; D72.829 Elevated white blood cell count, unspecified
CPT/HCPCS: 74177; 80053; 81001; 83690; 84703; 85025; 93005; 96374; 96376; 99284; Q9967; A4216; J2405

== ENCOUNTER → 2025-01-30 | Outpatient (CLI) | payer OTHER, SELFPAY ==
--- NOTE | 2025-01-30 12:57 | US_ITS ---
PROCEDURE: THYROID 01/30/2025 REASON FOR EXAM: F/U NODULE SIZE TECHNIQUE: Real-time grayscale sonography is performed as well as color Doppler. COMPARISON: None. FINDINGS: MID right lobe nodule identified measuring 9 MM X 7 MM X 7 MM. The nodule is solid (2 points); isoechoic (1 point); wider than tall (0); smooth margins (0 points); and has no calcifications (0). TR 3 mildly suspicious. The gland is otherwise normal size and echogenicity. Right lobe measures 4.9 cm by 1.5 cm x 1.3 cm. The left lobe measures 5.0 cm x 1.9 cm x 0.9 cm. Isthmus is 2.9 mm in thickness. COMPARISON No follow-up imaging or FNA procedure recommended. PROCEDURE: Not recommended US/Thyroid IMPRESSION: Only mildly suspicious TR 3 lesion identified in the mid right lobe, too small for follow-up imaging or FNA biopsy. Reading Location: [facility]
== END | disposition home or self-care (01) ==
LOC: US 12:56
PROVIDERS: PCP Nurse Practitioner Primary Care; Referring Provider Internal Medicine Endocrinology, Diabetes & Metabolism; Visit Provider Internal Medicine Endocrinology, Diabetes & Metabolism
DX: E04.9 Nontoxic goiter, unspecified (principal)
CPT/HCPCS: 76536

== ENCOUNTER → 2025-03-18 | Outpatient (CLI) | payer OTHER, SELFPAY ==
[2025-03-21 08:05] LABS: HPV Reflexed? NOT INDICATED
== END | disposition home or self-care (01) ==
LOC: LABSPEC 11:14
PROVIDERS: PCP Nurse Practitioner Primary Care; Referring Provider Advanced Practice Midwife; Visit Provider Advanced Practice Midwife
DX: Z12.4 Encounter for screening for malignant neoplasm of cervix (principal); R10.2 Pelvic and perineal pain
CPT/HCPCS: 87070; 87077; 87205; 88175; G0145

== ENCOUNTER → 2025-03-26 | Outpatient (CLI) | payer OTHER, SELFPAY ==
--- NOTE | 2025-03-26 08:59 | US_ITS ---
PROCEDURE: PELVIC W/ TRANSVAGINAL REASON FOR EXAM: UTERINE TENDERNESS TECHNIQUE: Transabdominal and transvaginal pelvic ultrasound COMPARISON: None FINDINGS: LMP: March 13, 2025 Measurements: Uterus: 8.6 cm x 5.6 cm x 4.2 cm with a volume of 105.9 mL Endometrial Thickness: 4 mm Right Ovary: 4 cm x 3.4 cm x 2.5 cm with a volume of 17.47 mL. Left Ovary: 3.4 cm x 1.8 cm x 1.6 cm with a volume of 5.09 mL. TRANSABDOMINAL: Uterus: Normal size, myometrial echotexture, and contour. Endometrium: Unremarkable. Right ovary: Normal size and echotexture. Left ovary: Normal size and echotexture. Other: No large pelvic mass identified. Transvaginal sonography was performed to better visualize the endometrium. TRANSVAGINAL: Uterus: Anteverted. Endometrium: Normal echotexture. Right ovary: Normal size and echotexture. Left ovary: Normal size and echotexture. Other adnexal findings: None. Cul-de-sac: No free intraperitoneal fluid identified. Tenderness: No tenderness US/Pelvic w/ Transvaginal IMPRESSION: NORMAL TRANSABDOMINAL AND TRANSVAGINAL PELVIC ULTRASOUND. Reading Location: [place] [id number]
== END | disposition home or self-care (01) ==
LOC: OPUS 08:59
PROVIDERS: PCP Nurse Practitioner Primary Care; Referring Provider Advanced Practice Midwife; Visit Provider Advanced Practice Midwife
DX: R10.2 Pelvic and perineal pain (principal)
CPT/HCPCS: 76830; 76856

== ENCOUNTER → 2025-04-25 | Outpatient (CLI) | payer OTHER, SELFPAY | END | disposition home or self-care (01) | LOC: BWCLAB 11:15 | PROVIDERS: PCP Nurse Practitioner Primary Care; Visit Provider Advanced Practice Midwife | DX: R10.2 Pelvic and perineal pain (principal) | CPT/HCPCS: 87070; 87077; 87205 ==

== ENCOUNTER → 2025-06-18 | Outpatient (CLI) | payer OTHER, SELFPAY ==
[2025-06-18 12:18] LABS: Hepatitis B Surface Antigen Nonreactive (Nonreactive)
--- OUTSIDE RECORDS SUMMARY | 2025-06-18 18:56 | XMS RPT_ITS | CCD ---
Author Organization [facility] Care Team Providers Care Adhesive Bandage Machine Operator Name Role Phone KARIN CARDIOVASCULAR LAB DIRECTOR-ASSOCIATE PROFESSOR OF HISTORY, SOCO S Primary Care Physicia n Jorgito PT, Nohemi Unavailable Unavailable Nonstaff, Premier Primary Care Provider Karin BRUSH HOLDER INSPECTOR, BRUSH HOLDER INSPECTOR-C Soco Primary Care Provider Karin BRUSH HOLDER INSPECTOR, BRUSH HOLDER INSPECTOR-C Soco Referring Provider [phone] Dr. Antonieta Hendrickson Attending Provider [phone] Dr. Beatriz Cyr Attending Provider [phone] Brain BRUSH HOLDER INSPECTOR, BRUSH HOLDER INSPECTOR-C Joy Attending Provider [phone] Karin BRUSH HOLDER INSPECTOR, BRUSH HOLDER INSPECTOR-C Soco Primary Care Provider Karin BRUSH HOLDER INSPECTOR, BRUSH HOLDER INSPECTOR-C Soco Referring Provider [phone] Dr. Beatriz Cyr Attending Provider [phone] Brain BRUSH HOLDER INSPECTOR, BRUSH HOLDER INSPECTOR-C Joy Attending Provider [phone] Dr. Antonieta Hendrickson Attending Provider [phone] Karin BRUSH HOLDER INSPECTOR, BRUSH HOLDER INSPECTOR-C Soco Primary Care Provider Karin BRUSH HOLDER INSPECTOR, BRUSH HOLDER INSPECTOR-C Soco Referring Provider [phone] Dr. Beatriz Cyr Attending Provider [phone] DONNA Dickerson Attending Provider [phone] DONNA Tovar Attending Provider [phone] DONNA Tovar Referring Provider [phone] DONNA Tovar Other Provider [phone] DONNA Dickerson Referring Provider Dickerson, CNM Isabel Other Provider Karin BRUSH HOLDER INSPECTOR, BRUSH HOLDER INSPECTOR-C Soco Primary Care Provider [phone] Karin BRUSH HOLDER INSPECTOR, BRUSH HOLDER INSPECTOR-C Soco Referring Provider [phone] Brain BRUSH HOLDER INSPECTOR, BRUSH HOLDER INSPECTOR-C Joy Attending Provider [phone] Dr. Antonieta Hendrickson Admit Provider Dr. Antonieta Hendrickson Referring Provider [phone] Dr. Antonieta Hendrickson Other Provider DONNA Tovar Admit Provider [phone] Karin BRUSH HOLDER INSPECTOR, BRUSH HOLDER INSPECTOR-C Soco Primary Care Provider Karin BRUSH HOLDER INSPECTOR, BRUSH HOLDER INSPECTOR-C Soco Referring Provider [phone] Dr. Antonieta Hendrickson Attending Provider [phone] KARIN CARDIOVASCULAR LAB DIRECTOR-ASSOCIATE PROFESSOR OF HISTORY, SOCO S Attending Unava ilable KARIN CARDIOVASCULAR LAB DIRECTOR-ASSOCIATE PROFESSOR OF HISTORY, SOCO S Primary Care Unava ilable KARIN CARDIOVASCULAR LAB DIRECTOR-ASSOCIATE PROFESSOR OF HISTORY, SOCO S Attending Unava ilable AKRIN CARDIOVASCULAR LAB DIRECTOR-ASSOCIATE PROFESSOR OF HISTORY, SOCO S Primary Care Unava ilable EMILEE CHRISTY, FAY Attending Unavaila ble KARIN CARDIOVASCULAR LAB DIRECTOR-ASSOCIATE PROFESSOR OF HISTORY, SOCO S Primary Care Unava ilable EMILEE CHRISTY, FAY Attending Unavaila ble KARIN CARDIOVASCULAR LAB DIRECTOR-ASSOCIATE PROFESSOR OF HISTORY, SOCO S Primary Care Unava ilable [place] CARDIOVASCULAR LAB DIRECTOR-ASSOCIATE PROFESSOR OF HISTORY, Soco S Primary Care Provider CHARBEL NAPIER Referring Unavailable KARIN, SOCO S Attending Unavailable KARIN, SOCO S Primary Care Unavailable KARIN CARDIOVASCULAR LAB DIRECTOR-ASSOCIATE PROFESSOR OF HISTORY, SOCO S Primary Care Unava ilable EMILEE CHRISTY, FAY Attending Unavaila ble Karin BRUSH HOLDER INSPECTOR-C, Soco Primary Care Provider [phone] Giancarlo CHRISTY, Dr. Shelby Attending Provider Dr. Heron Mondragon MD Emergency Provider [phone] Emilee CHRISTY, Dr. Fay Murillo Attending Provide r Dr. Fay Hebert MD Referring Provide r Karin BRUSH HOLDER INSPECTOR-C, Soco Primary Care Provider [phone] Karin BRUSH HOLDER INSPECTOR-C, Soco Referring Provider [phone] Sanam Tovar CNM Attending Provider [phone] Sanam Tovar CNM Referring Provider Karin BRUSH HOLDER INSPECTOR, [place] Referring Unavailable Karin BRUSH HOLDER INSPECTOR, [facility] Primary Care Unavailable Sanam Tovar Attending Unavailable Karin BRUSH HOLDER INSPECTOR, [place]o Referring Unavailable Sanam Tovar Attending Unavailable Karin BRUSH HOLDER INSPECTOR, [facility] Primary Care Unavailable Karin BRUSH HOLDER INSPECTOR, [facility] Primary Care Unavailable Fay Hebert Attending Unavaila ble Fay Hebert Referring Unavaila ble Karin BRUSH HOLDER INSPECTOR, [facility] Primary Care Unavailable Heron Mondragon Attending Unavailable Karin BRUSH HOLDER INSPECTOR, [facility] Primary Care Unavailable Assessment, Health Risk Attending Unavaila ble Assessment, Health Risk Referring Unavaila Sanam Woodall Attending Unavailable Karin BRUSH HOLDER INSPECTOR, [facility] Primary Care Unavailable Sanam Tovar Referring Unavailable Sanam Tovar Referring Unavailable Sanam Tovar Attending Unavailable Karin BRUSH HOLDER INSPECTOR, [facility] Primary Care Unavailable Sanam Tovar Referring Unavailable Karin BRUSH HOLDER INSPECTOR, [facility] Primary Care Unavailable Sanam Tovar Attending Unavailable Sanam Tovar Attending Unavailable Karin BRUSH HOLDER INSPECTOR, [facility] Care Unavailable Allergies Allergy Classification Reported Allergen(s) Allergy Type Date of Onset Reaction(s) Facility (8 sources) Acetaminophen / Caffeine / isometheptene; Translations: [APAP/caffeine/is ometheptene mucate] Drug Allergy [facility] (2 sources) LORazepam Drug Allergy 2 Other - comment required [facility] (9 sources) Food Allergies: Uncoded; Translations: [Food Allergies: Uncoded] Propensity to adverse reactions 3 Other [facility] Comment on above: artificial sweetener s give migraines (5 sources) Azithromycin Drug Allergy 5 [facility] Comment on above: Dizziness, lighthead ed, couldn't walk (1 source) Azithromycin Drug Allergy 5 [facility] Repository Medications Current Medications Medication Drug Class(es) Dates Sig (Normalized) Sig (Original) ascorbic acid 1000 mg oral capsule (19 sources) Vitamin C Start: 09-27-2022 take 1 g by mouth once daily Ascorbic Acid (Vitamin C) 1,000 mg capsule Active 1 g PO DAILY September 27, 2022 1:00am supplement Start: 09-27-2022 take 1 g by mouth once daily A scorbic Acid (Vitamin C) Active 1 GM PO DAILY September 27, 2022 1:00am Start: 09-27-2022 take 1 g by mouth once daily A scorbic Acid (Vitamin C) Active 1 GM PO DAILY September 27, 2022 12:00am Calcium, Magnesium and Zinc oral tablet (4 sources) Start: 02-23-2023 take 1 tablet by mouth once daily Calcium, Magnesium and Zinc oral tablet Dose = 1 tab(s), Oral, qDay, # 30 tab(s), 0 Refill(s) Start Date: 02/23/23 Status: Ordered Quantity: 30.0 Unit: tab(s) Repeat number: 1 Start: 02-23-2023 take 1 tablet by konrad th once daily Calcium, Magnesium and Zinc oral tablet Dose = 1 tab(s), Oral, qDay, # 30 tab(s), 0 Refill(s) Start Date: 02/23/23 Status: Ordered cefdinir 300 mg oral capsule (1 source) Cephalosporin Antibacterial Start: 04-30-2025 take 1 capsule by mouth twice daily Cefdinir 300 mg capsule Active 300 mg PO TWICE A DAY 20 10 0 April 30, 2025 12:00am May 09, 2025 12:00am cholecalciferol 0.025 mg oral capsule (7 sources) Vitamin D Start: 06-02-2023 take 1 capsule by mouth once daily Cholecalciferol (Vitamin D3) 25 mcg (1,000 unit) capsule Active 150 ug PO DAILY June 02, 2023 12:00am etonogestrel/ethinyl estradiol (NUVARING VAGINAL) (2 sources) etonogestrel/eth inyl estradiol (NUVARING VAGINAL) by Vaginal route 0 Active Fish Oils (4 sources) Start: 02-23-2023 Fish Oil 1000 mg oral capsule Dose : 1,000 mg = 1 cap(s), Oral, qDay, # 90 cap(s), 0 Refill(s) Start Date: 02/23/23 Status: Ordered Quantity: 90.0 Unit: cap(s) Repeat number: 1 Start: 02-23-2023 Fish Oil 1000 mg oral capsule Dose : 1,000 mg = 1 cap(s), Oral, qDay, # 90 cap(s), 0 Refill(s) Start Date: 02/23/23 Status: Ordered Mv-Mins 68-Rqak-Jhkra No.1-D garcia (Pnv-Leander) 28-1-300 mg capsule (19 sources) Start: 09-27-2022 Mv-Mins 71-Iro n-Folic No.1-Dha (Pnv-Leander) 28-1-300 mg capsule Active 1 NMA PO DAILY September 27, 2022 1:00am Start: 09-27-2022 Mv-Mins 71-Iro n-Folic No.1-Dha (Pnv-Leander) 28-1-300 mg capsule Active 1 NMA PO DAILY September 27, 2022 1:00am Start: 09-27-2022 take 1 capsule by mo [facility] once daily Mv-Mins 73-Uart-Ywvve No.1-Dha (Pnv-Leander) 28-1-300 mg capsule Active 1 CAP PO DAILY September 27, 2022 12:00am Start: 09-27-2022 take 1 capsule by mo ut once daily Mv-Mins 85-Oubh-Csywr No.1-Dha (Pnv-Leander) 28-1-300 mg capsule Active 1 CAP PO DAILY September 27, 2022 1:00am Start: 09-27-2022 take 1 capsule by mouth once M v-Mins 22-Dvis-Thxdu No.1-Dha (Pnv-Leander) 28-1-300 mg capsule Active CAP PO September 27, 2022 1:00am Start: 09-27-2022 take 1 capsule by mouth once M v-Mins 99-Gryq-Yqubm No.1-Dha (Pnv-Leander) 28-1-300 mg capsule Active CAP PO September 27, 2022 12:00am NuvaRing 0.120 mg-0.015 mg/24 hours vaginal ring (2 sources) Start: 07-12-2019 NuvaRing 0.120 mg-0.015 mg/24 hours vaginal ring Dose = 1 EA, Vaginal, q4wk, 0 Refill(s) Start Date: 07/12/19 Status: Ordered Qxyvh-6v-Rqu-Epa-Fish Oil (13 sources) Start: 09-27-2022 take 1 capsule by mouth once daily Ofopl-7x-Kfn-Epa-Fish Oil Active 1 CAP PO DAILY September 27, 2022 12:00am Start: 09-27-2022 take 1 capsule by mo ut once daily Lwbri-3r-Iqe-Epa-Fish Oil Active 1 CAP PO DAILY September 27, 2022 1:00am Start: 09-27-2022 Kibqm-3v-Ajw-E pa-Fish Oil Active CAP PO September 27, 2022 1:00am Start: 09-27-2022 Xabjz-2d-Nap-E pa-Fish Oil Active CAP PO September 27, 2022 12:00am Ackhb-7y-Ffu-Epa-Fish Oil 1,000-1,400 mg capsule,delayed release(DR/EC) (6 sources) Start: 09-27-2022 Tushf-5c-Aik-E pa-Fish Oil 1,000-1,400 mg capsule,delayed release(DR/EC) Active 1 NMA PO DAILY September 27, 2022 1:00am Check with primary doctor Start: 09-27-2022 Wnkhc-6m-Lki-E pa-Fish Oil 1,000-1,400 mg capsule,delayed release(DR/EC) Active 1 NMA PO DAILY September 27, 2022 1:00am AD oral tablet (4 sources) Start: 02-23-2023 take 1 tablet by mouth once daily AD oral tablet Dose = 1 tab(s), Oral, Daily, # 30 tab(s), 0 Refill(s) Start Date: 02/23/23 Status: Ordered Quantity: 30.0 Unit: tab(s) Repeat number: 1 Start: 02-23-2023 take 1 tablet by konrad once daily AD oral tablet Dose = 1 tab(s), Oral, Daily, # 30 tab(s), 0 Refill(s) Start Date: 02/23/23 Status: Ordered Vitamin D3 (4 sources) Start: 10-18-2023 Vitamin D3 Dos e : 6,000 unit(s) =, qDay, 0 Refill(s) Start Date: 10/18/23 Status: Ordered Repeat number: 1 Start: 10-18-2023 Vitamin D3 Dos e : 6,000 unit(s) =, qDay, 0 Refill(s) Start Date: 10/18/23 Status: Ordered Start: 10-18-2023 Vitamin D3 qDa y, 0 Refill(s) Start Date: 10/18/23 Status: Ordered Completed/Discontinued Medications Medication Drug Class(es) Dates Sig (Normalized) Sig (Original) amoxicillin 500 mg oral capsule (4 sources) Penicillin-class Antibacterial Start: 03-24-2025 End: 03-24-2025 take 1 capsule by mouth every eight hours Amoxicillin 500 mg capsule Discontinued 500 mg PO Q8H 21 7 0 March 24, 2025 12:00am March 30, 2025 12:00am March 24, 2025 3:34pm amoxicillin 500 mg / clavulanate 125 mg oral tablet (9 sources) Penicillin-class Antibacterial Start: 04-29-2025 End: 04-30-2025 Amoxicillin-Pot Clavulanate (Augmentin) 500-125 mg tablet Discontinued 1 {tbl} PO TWICE A DAY 14 7 0 April 29, 2025 12:00am May 05, 2025 12:00am April 30, 2025 9:18am Start: 03-24-2025 End: 03-31-2025 Amoxicillin-Pot Clavulanate 875-125 mg tablet Discontinued 1 {tbl} PO TWICE A DAY 14 7 0 March 24, 2025 3:50pm March 30, 2025 12:00am March 31, 2025 12:07am atomoxetine 10 mg oral capsule (20 sources) Norepinephrine Reuptake Inhibitor Start: 08-23-2018 End: 08-24-2020 take 1 capsule by mouth once daily Atomoxetine (Strattera) 10 mg capsule Discontinued 20 mg PO DAILY August 23, 2018 12:00am August 24, 2020 1:08pm cyclobenzaprine hydrochloride 5 mg oral tablet (2 sources) Muscle Relaxant Start: 04-14-2025 End: 04-25-2025 take 1 tablet by mouth three times daily as needed for muscle spasms Cyclobenzaprine 5 mg tablet Discontinued 5 mg PO THREE TIMES A DAY as needed for muscle spasm 30 0 April 14, 2025 12:00am April 25, 2025 9:27am 21 day ethinyl estradiol 0.298517 mg/hr / etonogestrel 0.005 mg/hr vaginal system (20 sources) Progestin, Estrogen Start: 07-16-2018 End: 09-27-2022 Etonogestrel-Ethiny l Estradiol (Nuvaring) 0.12-0.015 mg/24 hr ring Discontinued 1 NMA VAGINAL every 4 weeks 3 September 29, 2021 11:03am December 16, 2021 2:08pm Start: 07-16-2018 End: 09-27-2022 Etonogestrel-Ethinyl Estradi ol (Nuvaring) 0.12-0.015 mg/24 hr ring Discontinued 1 VAG RING VAGINAL every 4 weeks 3 September 29, 2021 10:03am December 16, 2021 1:08pm Start: 11-14-2014 End: 08-23-2018 Etonogestrel-Ethinyl Estradi ol 1 EACH ring Discontinued 1 NMA VG November 14, 2014 1:00am August 23, 2018 3:16pm fluconazole 150 mg oral tablet (20 sources) Azole Antifungal Start: 08-26-2020 End: 12-16-2021 Fluconazole 150 mg tablet Discontinued 150 mg PO .COMPLEX 2 0 August 26, 2020 12:00am December 16, 2021 1:59pm 150 mg PO take one po now and repeat in 3 days labetalol hydrochloride 100 mg oral tablet (14 sources) beta-Adrenergic Manuel Start: 03-21-2023 End: 03-24-2023 take 1 tablet by mouth twice daily Labetalol 100 mg tablet Discontinued 100 mg PO TWICE A DAY 60 March 21, 2023 12:00am March 24, 2023 3:04pm High blood pressure affecting , antepartum Unspecified maternal hypertension, unspecified trimester norethindrone 0.35 mg oral tablet (7 sources) Start: 06-02-2023 End: 03-18-2025 take 1 tablet by mouth once daily Norethindrone (Contraceptive) 0.35 mg tablet Discontinued 0.35 mg PO DAILY 84 June 02, 2023 12:00am March 18, 2025 9:30am Encounter for contraceptive management Encounter for contraceptive management, unspecified Vitamin B Comp And C No.3 (B Complex Plus Vitamin C) 12-62-42-5-300 mg capsule (19 sources) Start: 09-27-2022 End: 03-18-2025 Vitamin B Comp And C No.3 (B Complex Plus Vitamin C) 62-86-11-5-300 mg capsule Discontinued 1 NMA PO EVERY OTHER DAY September 27, 2022 1:00am March 18, 2025 9:30am supplement give with food (meal/snack) Start: 09-27-2022 End: 03-18-2025 Vitamin B Comp And C No.3 (B Complex Plus Vitamin C) 47-67-19-5-300 mg capsule Discontinued 1 NMA PO EVERY OTHER DAY September 27, 2022 1:00am March 18, 2025 9:30am give with food (meal/snack) Start: 09-27-2022 Vitamin B Comp And C No.3 (B Complex Plus Vitamin C) 76-78-84-5-300 mg capsule Active 1 NMA PO EVERY OTHER DAY September 27, 2022 1:00am give with food (meal/snack) Start: 09-27-2022 Vitamin B Comp And C No.3 (B Complex Plus Vitamin C) 14-67-84-5-300 mg capsule Active 1 CAP PO EVERY OTHER DAY September 27, 2022 12:00am give with food (meal/snack) Start: 09-27-2022 Vitamin B Comp And C No.3 (B Complex Plus Vitamin C) 50-69-22-5-300 mg capsule Active 1 CAP PO EVERY OTHER DAY September 27, 2022 1:00am give with food (meal/snack) Start: 09-27-2022 Vitamin B Comp And C No.3 (B Complex Plus Vitamin C) 87-43-04-5-300 mg capsule Active 1 CAP PO DAILY September 27, 2022 1:00am give with food (meal/snack) Start: 09-27-2022 Vitamin B Comp And C No.3 (B Complex Plus Vitamin C) 14-27-89-5-300 mg capsule Active 1 CAP PO DAILY September 27, 2022 12:00am give with food (meal/snack) Problems Problem Classification Problem Date Documented Date Episodic/Chronic Abdominal pain (19 sources) Abdominal pain; Translations: [Unspecified abdominal pain] Onset: 05-02-2025 11-09-2024 Episodic Anxiety disorders (1 source) Anxiety; Translations: [Anxiety disorder, unspecified] Chronic Attention-deficit, conduct, and disruptive behavior disorders (8 sources) Adult attention deficit hyperactivity disorder 07-12-2019 Chronic Contraceptive and procreative management (7 sources) Patient encounter status; Translations: [Encounter for contraceptive management, unspecified] 06-02-2023 Episodic Diseases of white blood cells (6 sources) Leukocytosis; Translations: [Elevated white blood cell count, unspecified] 11-09-2024 Chronic Headache; including migraine (8 sources) Migraine 07-12-2019 Chronic Hemorrhage during ; abruptio placenta; placenta previa (20 sources) Low lying placenta; Translations: [Low lying placenta NOS or without hemorrhage, second trimester] 12-05-2022 Episodic Comment on above: Resolved-fu placenta l location with anatomy US at 20 weeks Hypertension complicating ; childbirth and the puerperium (20 sources) Elevated blood pressure; Translations: [Unspecified maternal hypertension, unspecified trimester] 03-14-2023 Chronic Hypertension complicating ; childbirth and the puerperium (20 sources) -induced hypertension; Translations: [Gestational [-induced] hypertension without significant proteinuria, unspecified trimester] 03-28-2023 Episodic Comment on above: 04/13 discussed with p atient again- questionable diagnosis- considerable variation, recommend weekly labs. continue to monitor at this point to clarify diagnosis04/21- reviewed BP log at home consistent 140s/80s atleast once/day. c/w JV concurs diagnosis of GHTN. IOL at 37 weeksNST twice weekly. growth US at 32 (70%) &36 weeks. home monitor-Daily BP. consider IOL between 37-38 weeks only if persistent HTN, discussed brining in cuff. bps 110s over 70s, PCR low/stable Menstrual disorders (2 sources) Dysmenorrhea; Translations: [Dysmenorrhea, unspecified] 04-25-2025 Chronic Other circulatory disease (1 source) Elevated blood-pressure reading without diagnosis of hypertension; Translations: [Elevated blood-pressure reading, without diagnosis of hypertension] Episodic Other complications of (19 sources) High risk ; Translations: [Supervision of high risk , unspecified, unspecified trimester] 12-06-2022 Episodic Comment on above: PRR , ADILENE 05/13/23 , stu Benjaminie Rickey Martino IV Rickey Other complications of (19 sources) Varicella non-immune; Translations: [Supervision of other high risk pregnancies, unspecified trimester] 09-27-2022 Episodic Comment on above: Pt has had 5 booster s, doesn't hold immunity Other complications of (19 sources) RhD negative; Translations: [Other specified related conditions, unspecified trimester] 09-27-2022 Episodic Comment on above: rhogam @ 28 wks & OR N bleeding Other complications of (20 sources) Supervision of other high risk pregnancies, unspecified trimester; Translations: [Other specified conditions influencing health status] Episodic Other complications of (20 sources) Other specified related conditions, unspecified trimester; Translations: [Other specified complications of , antepartum condition or complication] Episodic Other complications of (20 sources) Supervision of high risk , unspecified, unspecified trimester; Translations: [Supervision of unspecified high-risk ] Episodic Other connective tissue disease (6 sources) Cramp 07-22-2021 Episodic Other lower respiratory disease (1 source) Dyspnea; Translations: [Dyspnea, unspecified] Episodic Other lower respiratory disease (2 sources) Disorder of lung 03-17-2022 Episodic Other non-traumatic joint disorders (6 sources) Knee pain 11-16-2020 Episodic Other nutritional; endocrine; and metabolic disorders (19 sources) Body mass index 30+ - obesity; Translations: [Body mass index (BMI) 31.0-31.9, adult] 09-27-2022 Chronic Other nutritional; endocrine; and metabolic disorders (16 sources) Body mass index (BMI) 31.0-31.9, adult; Translations: [Body Mass Index 31.0-31.9, adult] Chronic Other and delivery including normal (20 sources) ; Translations: [Encounter for supervision of normal , unspecified, unspecified trimester] Episodic Comment on above: KW IOL 37.3 PIH Stu Ramirez Neg GBS NIPT low ris k, declined carrier testing, nl 1 HR GCT. declined ntd screening. nl anatomy. Other screening for suspected conditions (not mental disorders or infectious disease) (1 source) Encounter for screening for malignant neoplasm of cervix; Translations: [Encounter for screening for malignant neoplasm of cervix] Onset: 03-25-2025 Episodic Other upper respiratory disease (20 sources) Vocal cord dysfunction; Translations: [Other diseases of vocal cords] 09-27-2022 Episodic Comment on above: dyskinesia, exercise induced Other upper respiratory disease (3 sources) Other diseases of vocal cords; Translations: [Other diseases of vocal cords] Episodic Residual codes; unclassified (2 sources) Contact with and (suspected) exposure to lead; Translations: [Contact with and (suspected) exposure to lead] Onset: 06-06-2024 Episodic Syncope (7 sources) Near syncope; Translations: [Syncope and collapse] Onset: 03-18-2025 11-09-2024 Episodic Thyroid disorders (20 sources) Non-toxic nodular goiter; Translations: [Nontoxic goiter, unspecified] Onset: 02-06-2025 Chronic Comment on above: monitoring TSH gary l 03/22 Unclassified (6 sources) Injury of right foot 04-09-2020 Unclassified (8 sources) Patient encounter status 07-22-2021 Unclassified (2 sources) Pain of right shoulder region 10-18-2023 Unclassified (2 sources) Exposure to lead 06-06-2024 Unclassified (2 sources) R10.2 - Pelvic and perineal pain Results Test Name Value Interpretation Reference Range Facility Genital Culture Comprehensiv ceci 04-28-2025 VAC Reason for Exam: Pel lashawn pain #1 Ampicillin can be used for Beta-Lactamase negative isolates. Trimeth/Sulfa, Chloramphenicol, Cefotaxime, Ciprofloxacin, Amoxicillin/Clavulanic Acid, and Oral 2nd/3rd Generation Cephalosporins are effective against both Beta-Lactamase positive and Beta-Lactamase negative isolates. Genital Culture Comprehensive No yeast, Neisseria or beta-hemolytic Streptococcus isolated. Haemophilus influenzae Amount Growth 2+ Beta Lactamase-Reportable Negative GVAG Amount Growth 2+ Normal [facility] Comment on above: Performed By: #### M 100.3200, M100.2000 #### [facility] [address] [place], [address] Genital cultureOrdered By: Daquan Tovar on 04-25-2025 Source specific culture G. vaginalis (Presumptive) Abnormal [facility] Gram Stainon 04-25-2025 GS Reason for Exam: Pel lashawn pain Gram Stain 3+ Gram positive rods 2+ Gram negative rods No Gram negative diplococci Score =4 Interpretation: 0-3 Normal, 4-6 Intermediate, 7-10 Positive BV Normal [facility] Comment on above: Performed By: #### M 100.4080, M100.1999 #### [facility] [address] [place], [address] Gram stainOrdered By: Sanam Tovar on 04-25-2025 Microscopic observation Gram stain Nom (Unsp spec) [facility] Fleet Operations Manager Office Visit Reporton 04-25-2025 Fleet Operations Manager Office Visit Report [facility] [address], [address] [place] [address] OFFICE VISIT Date of Service: 04/25/25 MR#: [id number] Acct: [id number] Name: ROBERTA ROSA Rep #: [id number] : 1995 Provider: DONNA Norris ams Age/Sex: 29/F [place] [facility] [place]: Signed Intake Vital Signs 03/18/25 09:27 04/25/25 09:23 04/25/25 09:27 Height 5 ft 9 in 5 ft 9 in 5 ft 9 in Weight: 212 lb 210 lb 6 oz BMI 31.3 31.0 BP 120/82 H 115/77 Intake Visit Reasons: Painful Menses $20 copay Chief Complaint: painful menses Presales Senior Specialist Required: No Is patient in pain?: No Allergies azithromycin Adverse Reaction (Verified 04/25/25 09:22) lightheaded Food Allergies: Uncoded Adverse Reaction (Verified 04/25/25 09:22) Other Medications ???Medication ???Instructions ???Recorded ???Confirmed ???Type ascorbic acid (vitamin C) 1,000 mg 1 g PO DAILY supplement 09/27/22 04/25/25 History capsule multivit-min no.71-iron fum 28 1 cap PO DAILY 09/27/22 04/25/25 History mg-folate no.1 1 mg-dha 300 mg capsule (PNV-Leander) omega3 1,000 pf-ayd-uzx-other 1 cap PO DAILY Check with primary 09/27/22 04/25/25 History oz0o-ilfr oil 1,400 mg doctor capsule,delay rel cholecalciferol (vitamin D3) 25 150 mcg PO DAILY 07/28/23 06/20/25 History mcg (1,000 unit) capsule Is last menstrual period known: Yes Last Menstrual Period: 04/12/25 Post menopausal: No Patient : No : No PFSH Medical History Vocal cord dysfunction Migraine ADHD Surgical History H/O wisdom tooth extraction History of tonsillectomy Family History Mother Psoriasis Brother Psoriatic arthritis Asthma Father Kidney stone Social History adopted: No household members: spouse housing: apartment number of children: 0 current occupational status: employed 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 current occupational exposures/hazards: No pets and animals: Yes pets and animals: dog(s) history of recent travel: Yes ([place]) out of state: Yes out of country: No sexually active: Yes Smoking Status: Never smoker second hand exposure: No alcohol intake: former details: socially prior to substance use type: does not use well-balanced diet: daily or most days caffeine: Yes Type: coffee Number of servings: 1 eating out: 1-3 times/week what type of physical activity do you participate in: walking frequency: 5-6 times per week duration: 30-45 minutes/day amy/advent: None seatbelt use: always do you feel safe at home: Yes 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 Menses are regualr and every 28-30 days. Does have pain for 1-2 days prior to starting menses and for the 2 days of flow. Tylenol and motrin will help with the pain and allow her to function. SHe had a normal pelvic US but does offer that she does have some pain with bowel movements and urination at times. Discussed possible endometriosis and options for control. SHe would like to TTC in the next few months and declines at this time. Would like to try PFPT first. Female Reproductive History Last Menstrual Period: 04/12/25 Cycle Length: 21-35 Bleeding Duration: 2 History 1 Elective abortions Hx Para 1 Spontaneous abortions Hx # Term Pregnancies Ectopic pregnancies Hx # Pregnancies Multiple births # of living children 1 Past Pregnancies Del. Date Name GA/Weeks Outcome Route Bth Weight Infant Gen Labor Lgth Anesthesia Del Locatn Provider FOB 04/25/23 Rickey Ramirez IV 37 live - full term Male epidural [facility] Sanam Tovar Rickey Delivery Date: 04/25/23 Last Updated by: Soco Ruiz 2nd degree laceration ROS Const Constitutional: Reports system reviewed and no additional complaints, except as documented Cardio Card: Reports system reviewed and no additional complaints, except as documented Resp Resp: Reports system reviewed and no additional complaints, except as documented GI GI: Reports system reviewed and no additional complaints, except as documented : Reports system reviewed and no additional complaints, except as documented; Denies difficulty voiding, dysuria or urinary frequency Skin Skin/Breast: Reports system reviewed and no additional complaints, except as documented Neuro Neuro: Reports system reviewed and no additional complaints, except as documented Psych Psych: Reports system reviewed and no (more content not included)... [facility] Pelvic w/ Transvaginalon Pelvic w/ Transvaginal [facility] [address], [place] [address] Pelvic w/ Transvaginal MR#: [id number] Acct: [id number] Name: ROBERTA ROSA Rep #: [id number] : 1995 F 29 From: Galindo pelayo MD PCP: LISBETH Zapata Status: REG CLI Study: Pelvic w/ Transvaginal Date of Exam: 03/26/25 Exam# [id number] Ordering Dr: Sanam Tovar CNM PROCEDURE: PELVIC W/ TRANSVAGINAL REASON FOR EXAM: UTERINE TENDERNESS TECHNIQUE: Transabdominal and transvaginal pelvic ultrasound COMPARISON: None FINDINGS: LMP: March 13, 2025 Measurements: Uterus: 8.6 cm x 5.6 cm x 4.2 cm with a volume of 105.9 mL Endometrial Thickness: 4 mm Right Ovary: 4 cm x 3.4 cm x 2.5 cm with a volume of 17.47 mL. Left Ovary: 3.4 cm x 1.8 cm x 1.6 cm with a volume of 5.09 mL. TRANSABDOMINAL: Uterus: Normal size, myometrial echotexture, and contour. Endometrium: Unremarkable. Right ovary: Normal size and echotexture. Left ovary: Normal size and echotexture. Other: No large pelvic mass identified. Transvaginal sonography was performed to better visualize the endometrium. TRANSVAGINAL: Uterus: Anteverted. Endometrium: Normal echotexture. Right ovary: Normal size and echotexture. Left ovary: Normal size and echotexture. Other adnexal findings: None. Cul-de-sac: No free intraperitoneal fluid identified. Tenderness: No tenderness US/Pelvic w/ Transvaginal IMPRESSION: NORMAL TRANSABDOMINAL AND TRANSVAGINAL PELVIC ULTRASOUND. Reading Location: [place] [address] CC: DONNA Tovar; LISBETH Frazier Signal Apprentice: Signed [facility] Genital Culture Comprehensiv ceci 03-21-2025 VAC Reason for Exam: Pel lashawn Pain #1 Ampicillin can be used for Beta-Lactamase negative isolates. Trimeth/Sulfa, Chloramphenicol, Cefotaxime, Ciprofloxacin, Amoxicillin/Clavulanic Acid, and Oral 2nd/3rd Generation Cephalosporins are effective against both Beta-Lactamase positive and Beta-Lactamase negative isolates. Genital Culture Comprehensive No yeast, Gardnerella, Neisseria or beta-hemolytic Streptococcus isolated. Genital Culture Comprehensive Genital Culture Comprehensive Genital Culture Comprehensive Genital Culture Comprehensive Haemophilus influenzae Amount Growth Rare Beta Lactamase-Reportable Negative Normal [facility] Comment on above: Performed By: #### M 100.3200, M100.2000 #### [facility] [address] [place], [address] PAP I-G w/rfx hrHPV-Aptimaon 03-20-2025 ADEQ Comment Normal . [facility] Comment on above: Order Comment: Speci men Comment: [id number] Comment: No. of containers..01 ThinPrep Vial Result Comment: Sati sfactory for evaluation. Endocervical and/or squamous metaplastic cells (endocervical component) are present. Performed By: #### M 100.3200, #### [facility] [address] [place], [address] COMM . Normal . [facility] Comment on above: Order Comment: Speci men Comment: [id number] Comment: No. of containers..01 ThinPrep Vial Performed By: #### M 100.3200, #### [facility] [address] [place], [address] COMMENT Comment Normal . [facility] Comment on above: Order Comment: Speci men Comment: [id number] Comment: No. of containers..01 ThinPrep Vial Result Comment: This liquid based ThinPrep(R) pap test was screened with the use of an image guided system. Performed By: #### M 100.3200, #### [facility] [address] [place], [address] DIAG Comment Normal . [facility] Comment on above: Order Comment: Speci men Comment: [id number] Comment: No. of containers..01 ThinPrep Vial Result Comment: NEGA TIVE FOR INTRAEPITHELIAL LESION OR MALIGNANCY. Performed By: #### M 100.3200, #### [facility] [address] [place], [address] HPV RFLX Comment Normal . [facility] Comment on above: Order Comment: Speci men Comment: [id number] Comment: No. of containers..01 ThinPrep Vial Result Comment: The HPV DNA reflex criteria were not met with this specimen result therefore, no HPV testing was performed. Performed at: [address] [id number] Safe Deposit Attendant: Yanique Reed MD, Phone: [phone] Performed By: #### M 100.3200, #### [facility] [address] [place], [place], [address] PAPSMR Comment Normal . [facility] Comment on above: Order Comment: Speci men Comment: [id number] Comment: No. of containers..01 ThinPrep Vial Result Comment: The Pap smear is a screening test designed to aid in the detection of premalignant and malignant conditions of the uterine cervix. It is not a diagnostic procedure and should not be used as the sole means of detecting cervical cancer. Both false-positive and false-negative reports do occur. Performed By: #### M 100.3200, #### [facility] [address] [place], [place], [address] PERFORM Comment Normal . [facility] Comment on above: Order Comment: Speci men Comment: [id number] Comment: No. of containers..01 ThinPrep Vial Result Comment: Linda Pollack, Sports Physiotherapist (ASCP) Performed By: #### M 100.3200, #### [facility] [address] [place], [place], [address] Cervical or vagninal specime n microscopic examination by cytology stain (reported asOrdered By: Sanam Tovar on 03-18-2025 Cytology report Cyto stain Doc (Cvx/Vag) Comment . [facility] Comment on above: The Pap smear is a s creening test designed to aid in thedetection of premalignant and malignant conditions of theuterine cervix. It is not a diagnostic procedure andshould not be used as the sole means of detecting cervicalcancer. Both false-positive and false-negative reports dooccur. Gram Stainon 03-18-2025 GS Reason for Exam: Pel lashawn Pain Gram Stain 4+ Gram positive rods No Gram negative diplococci 1+ Epithelial cells Score = 0 Interpretation: 0-3 Normal, 4-6 Intermediate, 7-10 Positive BV Normal [facility] Comment on above: Performed By: #### M 100.3200, M1 #### [facility] [address] [place], [address] Gram stainOrdered By: Sanam Tovar on 03-18-2025 Microscopic observation Gram stain Nom (Unsp spec) [facility] - CytologyOrdered By: Sanam Tovar on 03-18-2025 Sports Physiotherapist Cyto stain Nom (Cvx/Vag) [ID] Comment . [facility] Comment on above: Carito Pollack Cytol ogist (ASCP) Laboratory - Miscellaneous t estsOrdered By: Sanam Tovar on 03-18-2025 Service comment (Unsp spec) [Interp] . . [facility] No Panel InformationOrdered By: Sanam Tovar on 03-18-2025 Pap Smear Specimen Adequacy Comment . [facility] Comment on above: Satisfactory for ruben luation. Endocervical and/or squamous metaplasticcells (endocervical component) are present. 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 Complaint: 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 Required: No Is patient in pain?: No Allergies azithromycin Adverse Reaction (Verified 03/18/25 09:30) lightheaded Food Allergies: Uncoded Adverse Reaction (Verified 03/18/25 09:29) Other Medications ???Medication ???Instructions ???Recorded ???Confirmed ???Type ascorbic acid (vitamin C) 1,000 mg 1 g PO DAILY supplement 09/27/22 03/18/25 History capsule multivit-min no.71-iron fum 28 1 cap PO DAILY 11/22/22 05/13/25 History mg-folate no.1 1 mg-dha 300 mg capsule (PNV-Leander) omega3 1,000 wg-zal-nkt-other 1 cap PO DAILY Check with primary 09/27/22 03/18/25 History ls9c-rwav oil 1,400 mg doctor capsule,delay rel cholecalciferol (vitamin D3) 25 150 mcg PO DAILY 06/02/23 03/18/25 History mcg (1,000 unit) capsule Is last menstrual period known: Yes Last Menstrual Period: 03/13/25 Post menopausal: No PFSH Medical History Vocal cord dysfunction Migraine ADHD Surgical History H/O wisdom tooth extraction History of tonsillectomy Family History Mother Psoriasis Brother Psoriatic arthritis Asthma Father Kidney stone Social History adopted: No household members: spouse housing: apartment number of children: 0 current occupational status: employed 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 current occupational exposures/hazards: No pets and animals: Yes pets and animals: dog(s) history of recent travel: Yes ([place]) out of state: Yes out of country: No sexually active: Yes Smoking Status: Never smoker second hand exposure: No alcohol intake: former details: socially prior to substance use type: does not use well-balanced diet: daily or most days caffeine: Yes Type: coffee Number of servings: 1 eating out: 1-3 times/week what type of physical activity do you participate in: walking frequency: 5-6 times per week duration: 30-45 minutes/day amy/advent: None seatbelt use: always do you feel safe at home: Yes 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 Date Name GA/Weeks Outcome Route Bth Weight Gen Labor Lgth Anesthesia Del Locatn Provider FOB 04/25/23 Rickey Ramirez IV 37 live - full term Male epidural [facility] Sanam Lang Delivery Date: 04/25/23 Last Updated by: Soco Ruiz 2nd degree laceration HPI Encounter for routine gynecological examination Details: ROBERTA ROSA is a 29 year old who presents for annual exam. concerns with dysmenorrhea for the last 2 cycles-cycles not any heavier. not on contraception. motrin and tylenol for pain which helps but does not take it away. is Last PAP: 12/2021 History of abnormal PAP: No Last mammogram: Due at 41yrs History of abnormal mammogram: [] Colon cancer screening: Due at 46yrs Other preventative health care screenings: PCP, Endocrinology Female Reproductive History Last Menstrual Period: 03/13/25 Cycle Length: 21-35 Bleeding Duration: 4 Questions: metorrhagia: Yes, sexually active: Yes, dyspareunia: No and PCB: No ROS Const Constitutional: Reports system reviewed and no additional complaints, except as documented Cardio Card: Reports system reviewed and no additional complaints, except as documented Resp Resp: Reports system reviewed and no additional complaints, except as documented GI GI: Reports system reviewed and no additional complaints, except as documented : Reports system reviewed and no additional complaints, except as documented; Denies difficulty voiding, dysuria or urinary frequency Skin Skin/Breast: Reports system reviewed and no additional complaints, except as documented Neuro Neuro: Reports system reviewed and no additional complaints, except as documented Psych Psych: Reports system reviewed and no additional complaints, except as documented; Denies anhedonia, anxiety or depression Exam Const General: co (more content not included)... [facility] Thyroidon 01-30-2025 Thyroid [facility] [address] [place] [address] Thyroid MR#: [id number] Acct: [id number] Name: ROBERTA ROSA Rep #: [id number] : 1995 F 29 From: Finesse Contreras DO PCP: Soco Frazier, BRUSH HOLDER INSPECTOR-C Status: REG CLI Study: Thyroid Date of Exam: 01/30/25 Exam# [id number] Ordering Dr: Fay Hebert MD PROCEDURE: THYROID 01/30/2025 REASON FOR EXAM: F/U NODULE SIZE TECHNIQUE: Real-time grayscale sonography is performed as well as color Doppler. COMPARISON: None. FINDINGS: MID right lobe nodule identified measuring 9 MM X 7 MM X 7 MM. The nodule is solid (2 points); isoechoic (1 point); wider than tall (0); smooth margins (0 points); and has no calcifications (0). TR 3 mildly suspicious. The gland is otherwise normal size and echogenicity. Right lobe measures 4.9 cm by 1.5 cm x 1.3 cm. The left lobe measures 5.0 cm x 1.9 cm x 0.9 cm. Isthmus is 2.9 mm in thickness. COMPARISON No follow-up imaging or FNA procedure recommended. PROCEDURE: Not recommended US/Thyroid IMPRESSION: Only mildly suspicious TR 3 lesion identified in the mid right lobe, too small for follow-up imaging or FNA biopsy. Reading Location: [facility] CC: LISBETH Frazier; Dr. Fay Hebert MD Signal Apprentice: Signed [facility] FT3on 12-16-2024 Free T3 [Mass/Vol] 2.19 pg/mL Low 2.30-4.00 [facility] Comment on above: Performed By: #### F T4, TSH, FT3 #### [place] [address] FT4on 12-16-2024 Free T4 [Mass/Vol] 0.96 ng/dL Normal 0.76-1.46 [facility] Comment on above: Performed By: #### F T4, TSH, FT3 #### [place] [address] LABORATORYOrdered By: SYSTEM SYSTEM on 12-16-2024 Free T3 [Mass/Vol] 2.19 pg/mL Low 2.30 - 4. 00 pg/mL AO ADM SS Free T4 [Mass/Vol] 0.96 ng/dL Normal 0.76 - 1. 46 ng/dL AO ADM SS TSH Qn 1.53 m[IU]/L Normal 0.36 - 3.74 mcIU/mL AO ADM SS TSHon 12-16-2024 TSH Qn 1.53 m[IU]/L Normal 0.36-3.74 [facility] Comment on above: Performed By: #### F T4, TSH, FT3 #### [facility] [address] [place], [place] [address] 12 Lead EKGon 11-01-2024 12 Lead EKG [facility] [address] [place] [address] 12 Lead EKG 11/01/24 0210 MR#: [id number] Acct: [id number] Name: ROBERTA ROSA Rep #: [id number] : 1995 29 From: Tuan Pack MD Attending Dr: Status: DEP ER Ordering Dr: Heron Mondragon MD Date: 11/01/24 Location: ED Sex: F C Admitted: Test Reason : SYNCOPE Blood Pressure : */* mmHG Vent. Rate : 80 BPM Atrial Rate : 80 BPM P-R Int : 150 ms QRS Dur : 76 ms QT Int : 388 ms P-R-T Axes : 51 -4 40 degrees QTcB Int : 447 ms Normal sinus rhythm Normal ECG Confirmed by TUAN PAKC MD ([id number]), editorial intern JEN CESPEDES ([id number]) on 11/01/2024 9:47:36 AM Referred By: Confirmed By: TUAN PACK MD 11/01/24 0947 Date Tuan Pack MD CC: BRUSH HOLDER INSPECTOR-C Soco Frazier; Dr. Heron Mondragon MD Signed Normal [facility] Abdomen/Pelvis W IV Cont ONL Yon 11-01-2024 Abdomen/Pelvis W IV Cont ONLY [facility] [address] [place] [address] Abdomen/Pelvis W IV Cont ONLY MR#: [id number] Acct: [id number] Name: ROBERTA ROSA Rep #: [id number] : 1995 F 29 From: Florencio Ortega MD PCP: Soco Frazier, BRUSH HOLDER INSPECTOR-C Status: REG ER Study: Abdomen/Pelvis W IV Cont ONLY Date of Exam: Exam# [id number] Ordering [place]: [place] [id number] EXAM: CT ABDOMEN AND PELVIS WITH INTRAVENOUS CONTRAST CLINICAL INDICATION: abd pain and leukocytosis TECHNIQUE: Helically acquired images were obtained of the abdomen and pelvis with intravenous contrast. CTDIvol = ( 11.29 ) mGy, DLP = ( 617.80 ) mGycm This CT exam was performed using one or more of the following dose reduction techniques: automated exposure control, adjustment of the mA and/or kV according to patient size, and/or use of iterative reconstruction technique. CONTRAST: IV 80mL Isovue-370 COMPARISON: No relevant prior studies available. FINDINGS: LOWER THORAX: Unremarkable. Lung bases are clear. No cardiomegaly. No significant pericardial effusion. ABDOMEN: LIVER: Small amount of fluid signal along the right perihepatic region and the right paracolic gutter extending down into the pelvis. GALLBLADDER AND BILE DUCTS: Unremarkable. No calcified gallstones. No gallbladder distention or wall edema. No intra- or extrahepatic biliary ductal dilation. PANCREAS: Unremarkable. No focal cystic or solid mass. SPLEEN: Unremarkable. Normal size without focal cystic or solid mass. ADRENALS: Unremarkable. No nodules. KIDNEYS AND URETERS: Unremarkable. Normal renal size and position. No hydronephrosis. STOMACH AND BOWEL: No colitis, diverticulitis or bowel obstruction. PELVIS: APPENDIX: No evidence of acute appendicitis. BLADDER: Unremarkable. REPRODUCTIVE: Unremarkable as visualized. No mass. ABDOMEN and PELVIS: INTRAPERITONEAL SPACE: Small amount of free fluid in the pelvis. No free air. BONES/JOINTS: Unremarkable. No suspicious lytic or blastic abnormality. SOFT TISSUES: Unremarkable. No discrete abdominal or pelvic wall hernia. VASCULATURE: Unremarkable. Abdominal aorta is non-dilated. LYMPH NODES: Unremarkable. No enlarged lymph nodes. CT/Abdomen/Pelvis W IV Cont ONLY IMPRESSION: Small amount of fluid signal along the right perihepatic region and the right paracolic gutter extending down into the pelvis. Electronically Signed: Florencio Ortega MD at 4:18 EST Reading Location ID and State: [facility] / [place] Tel , Service support , CC: LISBETH Frazier; Dr. Heron Mondragon MD Signal Apprentice: Signed [facility] Absolute neutrophil countOrd ered By: Heron Mondragon on 11-01-2024 Neutrophils (Bld) [#/Vol] 18.9 10*3/uL High 2.0-7.7 [facility] Albumin to globulin ratioOrd ered By: Heron Mondragon on 11-01-2024 Albumin/Globulin [Mass ratio] 1.2 {ratio} 0.9-2.4 [facility] Basophil percentageOrdered B y: Heron Mondragon on 11-01-2024 Basophils/100 WBC (Bld) 0.5 % 0-1 [facility] Beta HCG ( test) Ql Ordered By: Heron Mondragon on 11-01-2024 Serum Test, Qualitative Negative [facility] Bilirubin Test strip Ql (U)O rdered By: Heron Mondragon on 11-01-2024 Bilirubin Ql (U) 1 mg/dL High Negative [facility] Comment on above: COLOR OF URINE MAY A FFECT DIPSTICK RESULTS. Bilirubin, totalOrdered By: Heron Mondragon on 11-01-2024 Bilirubin [Mass/Vol] 0.50 mg/dL 0.20-1.00 [facility] Comment on above: For patients on eltr ombopag therapy, use of Dimension [place] TBIL is not recommended. Blood urea nitrogen (BUN)/cr eatinine ratioOrdered By: Heron Mondragon on 11-01-2024 Urea nitrogen/Creatinine [Mass ratio] 15.6 mg/mg 10-20 [facility] CBC W/Diff, Automatedon 10-07 Absolute Lymph 3.64 X10 3/uL Normal 0.83-4.51 [facility] Comment on above: Performed By: #### L 500.4050, L100.0100, L501.2450 #### [facility] [address] [place], [place], [address] Absolute Neut 18.9 X10 3/uL High 2.0-7.7 [facility] Comment on above: Performed By: #### L 500.4050, L100.0100, L501.2450 #### [facility] [address] [place], [address] Basophils/100 WBC (Bld) 0.5 % Normal 0-1 [facility] Comment on above: Performed By: #### L 500.4050, L100.0100, L501.2450 #### [facility] [address] [place], [address] Eosinophils/100 WBC (Bld) 0.3 % Normal 0-5 [facility] Comment on above: Performed By: #### L 500.4050, L100.0100, L501.2450 #### [facility] [address] [place], [address] Erythrocyte distribution width (RBC) [Ratio] 13.0 % Normal 11.6-14.6 [facility] Comment on above: Performed By: #### L 500.4050, L100.0100, L501.2450 #### [facility] [address] [place], [address] Hematocrit (Bld) [Volume fraction] 50.3 % High 37-47 [facility] Comment on above: Performed By: #### L 500.4050, L100.0100, L501.2450 #### [facility] [address] [place], [address] Hemoglobin (Bld) [Mass/Vol] 17.2 g/dL High 12.0-15.0 [facility] Comment on above: Performed By: #### L 500.4050, L100.0100, L501.2450 #### [facility] [address] [place], [address] IG% 0.500 Normal 0.0-0.9 [facility] Comment on above: Result Comment: IG% - Immature Granulocytes (promyelocytes, myelocytes and metamyelocytes) > 1% indicates that a LEFT SHIFT is Present. Performed By: #### L 500.4050, L100.0100, L501.2450 #### [facility] [address] [place], [address] Lymphocytes/100 WBC (Bld) 15.3 % Low 19-41 [facility] Comment on above: Performed By: #### L 500.4050, L100.0100, L501.2450 #### [facility] [address] [place], [address] MCH (RBC) [Entitic mass] 28.4 pg Normal 27.0-32.0 [facility] Comment on above: Performed By: #### L 500.4050, L100.0100, L501.2450 #### [facility] [address] [place], [address] MCHC (RBC) [Mass/Vol] 34.2 g/dL Normal 32-36 [facility] Comment on above: Performed By: #### L 500.4050, L100.0100, L501.2450 #### [facility] [address] [place], [address] MCV (RBC) [Entitic vol] 83.1 fL Normal 81-99 [facility] Comment on above: Performed By: #### L 500.4050, L100.0100, L501.2450 #### [facility] [address] [place], [address] Monocytes/100 WBC (Bld) 4.2 % Normal 0-10 [facility] Comment on above: Performed By: #### L 500.4050, L100.0100, L501.2450 #### [facility] [address] [place], [address] Neutrophils/100 WBC (Bld) 79.2 % High 47-70 [facility] Comment on above: Performed By: #### L 500.4050, L100.0100, L501.2450 #### [facility] [address] [place], [address] Nucleated RBC (Bld) [#/Vol] 0 10*3/uL Normal 0-5 [facility] Comment on above: Performed By: #### L 500.4050, L100.0100, L501.2450 #### [facility] [address] [place], [address] Platelet mean volume (Bld) [Entitic vol] 9.7 fL Normal 6.2-12.0 [facility] Comment on above: Performed By: #### L 500.4050, L100.0100, L501.2450 #### [facility] [address] [place], [address] Platelets (Bld) [#/Vol] 349 10*3/uL Normal 150-450 [facility] Comment on above: Performed By: #### L 500.4050, L100.0100, L501.2450 #### [facility] [address] [place], [address] RBC (Bld) [#/Vol] 6.05 10*6/uL High 4.2-5.4 [facility] Comment on above: Performed By: #### L 500.4050, L100.0100, L501.2450 #### [facility] [address] [place], [address] RDW SD 39.2 fl Normal 35.1-43.9 [facility] Comment on above: Performed By: #### L 500.4050, L100.0100, L501.2450 #### [facility] [address] [place], [address] WBC (Bld) [#/Vol] 23.8 10*3/uL High 4.4-11.0 [facility] Comment on above: Performed By: #### L 500.4050, L100.0100, L501.2450 #### [facility] [address] [place], [address] Carbon dioxide measurementOr dered By: Heron Mondragon on 11-01-2024 CO2 [Moles/Vol] 31.0 mmol/L 21.0-32.0 [facility] Chloride measurementOrdered By: Heron Mondragon on 11-01-2024 Chloride [Moles/Vol] 101 mmol/L 98-107 [facility] Comprehensive Metabolic Prof ilon 11-01-2024 Albumin [Mass/Vol] 4.1 g/dL Normal 3.2-5.0 [facility] Comment on above: Performed By: #### L 500.4050, L100.0100, L501.2450 #### [facility] [address] [place], [address] Albumin/Globulin [Mass ratio] 1.2 {ratio} Normal 0.9-2.4 [facility] Comment on above: Performed By: #### L 500.4050, L100.0100, L501.2450 #### [facility] [address] [place], [address] ALK P 90 U/L Normal 45-117 [facility] Comment on above: Performed By: #### L 500.4050, L100.0100, L501.2450 #### [facility] [address] [place], [address] ALT [Catalytic activity/Vol] 22 U/L Normal 13-56 [facility] Comment on above: Performed By: #### L 500.4050, L100.0100, L501.2450 #### [facility] [address] [place], [address] AST [Catalytic activity/Vol] 20 U/L Normal 15-37 [facility] Comment on above: Result Comment: Mode rate Hemolysis, Result may be falsely increased. Performed By: #### L 500.4050, L100.0100, L501.2450 #### [facility] [address] [place], [address] Bilirubin [Mass/Vol] 0.50 mg/dL Normal 0.20-1.00 [facility] Comment on above: Result Comment: For patients on eltrombopag therapy, use of Dimension [place] TBIL is not recommended. Performed By: #### L 500.4050, L100.0100, L501.2450 #### [facility] [address] [place], [address] BUN/CRE 15.6 RATIO Normal 10-20 [facility] Comment on above: Performed By: #### L 500.4050, L100.0100, L501.2450 #### [facility] [address] [place], [address] CA,Total 9.6 mg/dL Normal 8.5-10.1 [facility] Comment on above: Performed By: #### L 500.4050, L100.0100, L501.2450 #### [facility] [address] [place], [address] Chloride [Moles/Vol] 101 mmol/L Normal 98-107 [facility] Comment on above: Performed By: #### L 500.4050, L100.0100, L501.2450 #### [facility] [address] [place], [address] CO2 [Moles/Vol] 31.0 mmol/L Normal 21.0-32.0 [facility] Comment on above: Performed By: #### L 500.4050, L100.0100, L501.2450 #### [facility] [address] [place], [address] Creatinine [Mass/Vol] 0.96 mg/dL Normal 0.55-1.02 [facility] Comment on above: Result Comment: The validity of the calculated GFR GFRAA in patients over 70 years has not been determined. Clinical correlation is essential. Performed By: #### L 500.4050, L100.0100, L501.2450 #### [facility] [address] [place], [address] ECRCL 107.38 ml/min Normal [facility] Comment on above: Performed By: #### L 500.4050, L100.0100, L501.2450 #### [facility] [address] [place], [address] EST GFR - AA 89 mL/min Normal >60 [facility] Comment on above: Result Comment: Afri can English GFR Calc Performed By: #### L 500.4050, L100.0100, L501.2450 #### [facility] [address] [place], [address] GAP 7 Normal 5-15 [facility] Comment on above: Performed By: #### L 500.4050, L100.0100, L501.2450 #### [facility] [address] [place], [address] GFR/1.73 sq M.predicted among non-blacks MDRD (S/P/Bld) [Vol rate/Area] 73 mL/min/{1.73_m2} Normal >60 [facility] Comment on above: Result Comment: Non- GFR Calc Performed By: #### L 500.4050, L100.0100, L501.2450 #### [facility] [address] [place], [address] Globulin (S) [Mass/Vol] 3.4 g/dL Normal 2.2-4.2 [facility] Comment on above: Performed By: #### L 500.4050, L100.0100, L501.2450 #### [facility] [address] [place], [address] Glucose [Mass/Vol] 125 mg/dL High 74-106 [facility] Comment on above: Result Comment: Fast ing Glucose result from 100 to 125 mg/dL suggests IMPAIRED HOMEOSTASIS per A.D.A. criteria. Performed By: #### L 500.4050, L100.0100, L501.2450 #### [facility] [address] [place], [address] Potassium [Moles/Vol] 4.2 mmol/L Normal 3.5-5.1 [facility] Comment on above: Result Comment: Mode rate Hemolysis, Result may be falsely increased. Performed By: #### L 500.4050, L100.0100, L501.2450 #### [facility] [address] [place], [address] Sodium [Moles/Vol] 138 mmol/L Normal 136-145 [facility] Comment on above: Performed By: #### L 500.4050, L100.0100, L501.2450 #### [facility] [address] [place], [address] T PROT 7.5 g/dL Normal 6.4-8.2 [facility] Comment on above: Performed By: #### L 500.4050, L100.0100, L501.2450 #### [facility] [address] [place], [address] Urea nitrogen [Mass/Vol] 15 mg/dL Normal 7-18 [facility] Comment on above: Performed By: #### L 500.4050, L100.0100, L501.2450 #### [facility] [address] [place], [address] Emergency Department Summary on 11-01-2024 Emergency Department Summary [facility] Department [address] [place] [address] Emergency Department Summary 11/01/24 MR#: [id number] Acct: [id number] Name: ROBERTA ROSA Rep #: [id number] : 1995 29 From: Heron Mondragon MD PCP: Soco Frazier [employer] Status:REG ER Location: ED HPI History of Present Illness Chief Complaint: Syncope Detail of Chief Complaint: Near syncope. No LOC. Abdominal cramping. Informant: patient Onset/Context/Timing Onset: Today and Yesterday Context: Gradual Onset Timing: Intermittent Current Severity: Mild Maximum Severity: Moderate Narrative Narrative: Healthy 29-year-old female. No prior abdominal surgeries. She was at her parents house today. [place] lightheaded and dizzy. Near syncopal episode around 6:00. Had some abdominal cramping. Had a normal bowel movement. No diarrhea or melena. And developed nausea with some abdominal cramps and some back discomfort of the lower back. Denies any dysuria urgency or frequency. She did start Zithromax Z-EDI antibiotic and took it on Monday and . She has never been on it before. She has had near syncope before in the past. 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 Recent Illness/Hospitalization : No PFSH PFSH Medical History Vocal cord dysfunction Migraine ADHD Home Medications ???Medication ???Instructions ???Recorded ???Last Taken ???Type ascorbic acid (vitamin C) 1,000 mg 1 g PO DAILY supplement 09/27/22 03/13/23 History capsule multivit-min no.71-iron fum 28 1 cap PO DAILY 09/27/22 03/13/23 History mg-folate no.1 1 mg-dha 300 mg capsule (PNV-Leander) omega3 1,000 [id number] 1 cap PO DAILY Check with primary 09/27/22 03/13/23 History cl7b-flva oil 1,400 mg doctor capsule,delay rel vitamin B comp and C no.3 15 mg-10 1 cap PO QODAY supplement 09/27/22 03/12/23 History mg-50 mg-5 mg-300 mg capsule (B Complex Plus Vitamin C) cholecalciferol (vitamin D3) 25 150 mcg PO DAILY 06/02/23 Unknown History mcg (1,000 unit) capsule norethindrone (contraceptive) 0.35 0.35 mg PO DAILY #84 tabs 06/02/23 Unknown Rx mg tablet Allergy/AdvReac Type Severity Reaction Status Date / Time Food Allergies: Uncoded AdvReac Other Verified 11/01/24 01:52 Family History Mother Psoriasis Brother Psoriatic arthritis Asthma Father Kidney stone Surgical History H/O wisdom tooth extraction History of tonsillectomy Social History adopted: No household members: spouse housing: apartment number of children: 0 current occupational status: employed 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 current occupational exposures/hazards: No pets and animals: Yes pets and animals: dog(s) history of recent travel: Yes ([place]) out of state: Yes out of country: No sexually active: Yes Smoking Status: Never smoker second hand exposure: No alcohol intake: former details: socially prior to substance use type: does not use well-balanced diet: daily or most days caffeine: Yes Type: coffee Number of servings: 1 eating out: 1-3 times/week what type of physical activity do you participate in: walking frequency: 5-6 times per week duration: 30-45 minutes/day amy/advent: None seatbelt use: always do you feel safe at home: Yes additional social history: - Rickey Rosa - [employer] ROS ROS ED ROS Narrative Nausea. Abdominal cramping and lower back pain. No recent illness other than a mild URI it sounds viral. Constitutional Constitutional ED: Denies chills Eyes Eyes: Denies blurry vision ENT ENT ED: Denies ear pain Cardiovascular Cardiovascular: Denies chest pain Respiratory/Chest Respiratory/Chest: Reports cough Gastrointestinal Gastrointestinal: Reports abdominal pain and nausea; Denies constipation, diarrhea, melena or vomiting Genitourinary Genitourinary ED: Denies dysuria or hematuria Musculoskeletal Musculoskeletal: Reports back pain; Denies arthralgias Integumentary Denies abscess or Abrasions Neurologic Neurologic: Denies headache(s) Psychiatric Psychiatric: Denies anxiety Endocrine Endocrinology: Denies cold intolerance Hematologic/Lymphatic Hematologic/Lymphatic: Reports none Allergic/Immunologic Allergic/Immunologic ED: Denies mouth swelling, tongue swelling or urticaria EXAM Physical Exam Narrative Exam Narrative: Well-appearing 29-year-old female. Vital signs are stable afebrile. Pulse ox 99% on room air no signs of hypoxia. H EENT exam pupils round reactive light. Moist mucous membranes. Posterior pharynx unremarkable. TMs normal. Neck nontender no lymp (more content not included)... Normal [facility] Eosinophil percentageOrdered By: Heron Mondragon on 11-01-2024 Eosinophils/100 WBC (Bld) 0.3 % 0-5 [facility] Epithelial cells.squamous LM Ql (Urine sed)Ordered By: Heron Mondragon on 11-01-2024 Epithelial cells.squamous LM.HPF (Urine sed) [#/Area] 0 /[HPF] 5-10 [facility] Erythrocyte distribution wid th (RBC) [Ratio]Ordered By: Heron Mondragon on 11-01-2024 Erythrocyte distribution width (RBC) [Entitic vol] 39.2 fL 35.1-43.9 [facility] Erythrocyte distribution wid th ratioOrdered By: Heron Mondragon on 11-01-2024 Erythrocyte distribution width (RBC) [Ratio] 13.0 % 11.6-14.6 [facility] Estimated glomerular filtrat ion rate (GFR) AmericanOrdered By: Heron Mondragon on 11-01-2024 Estimated GFR (MDRD) Amer 89 mL/min >60 [facility] Comment on above: GFR Calc Estimation of creatinine ivelisse aranceOrdered By: Heron Mondragon on 11-01-2024 Estimated Creatinine Clearance Calc 107.38 ml/min [facility] Glomerular filtration rate ( GFR) estimationOrdered By: Heron Mondragon on 11-01-2024 Estimated GFR (MDRD) Non-Af Amer 73 mL/min >60 [facility] Comment on above: Non- GFR Calc Glucose Ql (U)Ordered By: Robert Mondragon on 11-01-2024 Urine Glucose (UA) Normal mg/dl Normal [facility] Glucose measurementOrdered B y: Heron Mondragon on 11-01-2024 Glucose [Mass/Vol] 125 mg/dL High 74-106 [facility] Comment on above: Fasting Glucose resu lt from 100 to 125 mg/dL suggests IMPAIRED HOMEOSTASIS per A.D.A. criteria. Hematocrit Auto (Bld) [Volum e fraction]Ordered By: Heron Mondragon on 11-01-2024 Hematocrit (Bld) [Volume fraction] 50.3 % High 37-47 [facility] Hemoglobin measurementOrdere d By: Heron Mondragon on 11-01-2024 Hemoglobin (Bld) [Mass/Vol] 17.2 g/dL High 12.0-15.0 [facility] Hyaline casts LM.LPF (Urine sed) [#/Area]Ordered By: Heron Mondragon on 11-01-2024 Hyaline casts LM Ql (Urine sed) 0-5 SEEN /lpf 0-5 [facility] Immature granulocytes/100 WB C Auto (Bld)Ordered By: Heron Mondragon on 11-01-2024 Immature granulocytes/100 WBC (Bld) 0.500 % 0.0-0.9 [facility] Comment on above: IG% - Immature Granu locytes (promyelocytes, myelocytes and metamyelocytes) > 1% indicates that a LEFT SHIFT is Present. Ketones Test strip Ql (U)Ord ered By: Heron Mondragon on 11-01-2024 Ketones Ql (U) 5 mg/dl High Negative [facility] - Chemistry and C hemistry - challengeOrdered By: Heron Mondragon on 11-01-2024 AST [Catalytic activity/Vol] 20 U/L 15-37 [facility] Comment on above: Moderate Hemolysis, Result may be falsely increased. Lipaseon 11-01-2024 Lipase [Catalytic activity/Vol] 21 U/L Normal 13-75 [facility] Comment on above: Result Comment: Plea se note: LIPASE revised reference range effective 23. New Lipase methodology. Expected to produce lower values than the previous assay method. NEW Reference Range: 13 - 75 U/L Performed By: #### L 500.4050, L100.0100, L501.2450 #### [facility] [address] [place], [address] Lipase measurementOrdered By : Heron Mondragon on 11-01-2024 Lipase [Catalytic activity/Vol] 21 U/L 13-75 [facility] Comment on above: Please note:LIPASE r evised reference range effective 23. New Lipase methodology. Expected to produce lower values than the previous assay method. NEW Reference Range: 13 - 75 U/L Lymphocytes Auto (Unsp spec) [#/Vol]Ordered By: Heron Mondragon on 11-01-2024 Lymphocytes (Bld) [#/Vol] 3.64 10*3/uL 0.83-4.51 [facility] Lymphocytes/100 WBC Auto (Un sp spec)Ordered By: Heron Mondragon on 11-01-2024 Lymphocytes/100 WBC (Bld) 15.3 % Low 19-41 [facility] MCV (mean corpuscular volume ) determinationOrdered By: Heron Mondragon on 11-01-2024 MCV (RBC) [Entitic vol] 83.1 fL 81-99 [facility] Mean corpuscular hemoglobin (MCH) determinationOrdered By: Heron Mondragon on 11-01-2024 MCH (RBC) [Entitic mass] 28.4 pg 27.0-32.0 [facility] Mean corpuscular hemoglobin concentration (MCHC) determinationOrdered By: Heron Mondragon on 11-01-2024 MCHC (RBC) [Mass/Vol] 34.2 g/dL 32-36 [facility] Mean platelet volume determi nationOrdered By: Heron Mondragon on 11-01-2024 Platelet mean volume (Bld) [Entitic vol] 9.7 fL 6.2-12.0 [facility] Microscopic analysis of urin e for red blood cells (RBC)Ordered By: Heron Mondragon on 11-01-2024 Urine RBC 0 SEEN /hpf 0-5 [facility] Monocyte percentageOrdered B y: Heron Mondragon on 11-01-2024 Monocytes/100 WBC (Bld) 4.2 % 0-10 [facility] Mucus LM Ql (Urine sed)Order ed By: Heron Mondragon on 11-01-2024 Mucus Ql (Urine sed) 0 SEEN /hpf [facility] Neutrophil percentageOrdered By: Heron Mondragon on 11-01-2024 Neutrophils/100 WBC (Bld) 79.2 % High 47-70 [facility] Nitrite Test strip Ql (U)Ord ered By: Heron Mondragon on 11-01-2024 Nitrite Ql (U) Negative Negative [facility] Nucleated red blood cell per centageOrdered By: Heron Mondragon on 11-01-2024 Nucleated RBC/100 WBC (Bld) [Ratio] 0 % 0-5 [facility] Platelet countOrdered By: Robert Mondragon on 11-01-2024 Platelets (Bld) [#/Vol] 349 10*3/uL 150-450 [facility] Potassium measurementOrdered By: Heron Mondragon on 11-01-2024 Potassium [Moles/Vol] 4.2 mmol/L 3.5-5.1 [facility] Comment on above: Moderate Hemolysis, Result may be falsely increased. ,Serum,hCG Quali.on 11-01-2024 HCG, SERUM QUAL Negative Normal [facility] Comment on above: Performed By: #### L 700.6800 #### [facility] [address] [place], [place], [address] Protein Test strip Ql (U)Ord ered By: Heron Mondragon on 11-01-2024 Protein Ql (U) 30 mg/dl High Negative [facility] RBC Auto (Bld) [#/Vol]Ordere d By: Heron Mondragon on 11-01-2024 RBC (Bld) [#/Vol] 6.05 10*6/uL High 4.2-5.4 [facility] Serum anion gap measurementO rdered By: Heorn Mondragon on 11-01-2024 Anion gap [Moles/Vol] 7 mmol/L 5-15 [facility] Serum globulin measurementOr dered By: Heron Mondragon on 11-01-2024 Globulin (S) [Mass/Vol] 3.4 g/dL 2.2-4.2 [facility] Serum or plasma alanine serna otransferase (ALT) measurementOrdered By: Heron Mondragon on 11-01-2024 ALT [Catalytic activity/Vol] 22 U/L 13-56 [facility] Serum or plasma albumin johnna urement (mass/volume)Ordered By: Heron Mondragon on 11-01-2024 Albumin [Mass/Vol] 4.1 g/dL 3.2-5.0 [facility] Serum or plasma alkaline barbara sphatase measurementOrdered By: Heron Mondragon on 11-01-2024 ALP [Catalytic activity/Vol] 90 U/L 45-117 [facility] Serum or plasma calcium johnna urement (mass/volume)Ordered By: Heron Mondragon on 11-01-2024 Calcium [Mass/Vol] 9.6 mg/dL 8.5-10.1 [facility] Serum or plasma creatinine m easurement (mass/volume)Ordered By: Heron Mondragon on 11-01-2024 Creatinine [Mass/Vol] 0.96 mg/dL 0.55-1.02 [facility] Comment on above: The validity of the calculated GFR & GFRAA in patients over 70 years has not been determined. Clinical correlation is essential. Serum or plasma urea nitroge n measurement (mass/volume)Ordered By: Heron Mondragon on 11-01-2024 Urea nitrogen [Mass/Vol] 15 mg/dL 7-18 [facility] Sodium levelOrdered By: Heron Mondragon on 11-01-2024 Sodium [Moles/Vol] 138 mmol/L 136-145 [facility] Total proteinOrdered By: Hemant Mondragon on 11-01-2024 Protein [Mass/Vol] 7.5 g/dL 6.4-8.2 [facility] Urinalysis, Completeon 11-01 BACTERIA 2+ /hpf Normal None Seen [facility] Comment on above: Order Comment: CLEAN CATCH Performed By: #### M 100.3200, M100 #### [facility] [address] [place], [address] CAST,HYALINE 0-5 SEEN Normal 0-5 [facility] Comment on above: Order Comment: CLEAN CATCH Performed By: #### M 100.3200, M100 #### [facility] [address] [place], [address] EPI,SQUAMOUS 0 SEEN Normal 5-10 [facility] Comment on above: Order Comment: CLEAN CATCH Performed By: #### M 100.3200, M100 #### [facility] [address] [place], [address] Mucus Ql (Urine sed) 0 SEEN Normal [facility] Comment on above: Order Comment: CLEAN CATCH Performed By: #### M 100.3200, M100 #### [facility] [address] [place], [address] RBC 0 SEEN Normal 0-5 [facility] Comment on above: Order Comment: CLEAN CATCH Performed By: #### M 100.3200, M100.1999 #### [facility] [address] [place], [address] WBC 0 SEEN Normal 0-5 [facility] Comment on above: Order Comment: CLEAN CATCH Performed By: #### M 100.3200, M100.1999 #### [facility] [address] [place], [address] Urine blood detectionOrdered By: Heron Mondragon on 11-01-2024 Urine Occult Blood 10 /ul High Negative [facility] Urine clarityOrdered By: Hemant Mondragon on 11-01-2024 Clarity (U) Clear Clear [facility] Urine color determinationOrd ered By: Heron Mondragon on 11-01-2024 Color (U) Yellow Yellow [facility] Urine leukocyte esterase det ection by dipstickOrdered By: Heron Mondragon on 11-01-2024 Leukocyte esterase Test strip Ql (U) 25 /ul High Negative [facility] Urine pHOrdered By: Heron alonso on 11-01-2024 pH (U) 6.0 [pH] 5.0 - 8.0 [facility] Urine sediment bacteria coun t by microscopy (number/high power field)Ordered By: Heron Mondragon on 11-01-2024 Bacteria LM.HPF (Urine sed) [#/Area] 2 /[HPF] None Seen [facility] Urine specific gravity measu rementOrdered By: Heron Mondragon on 11-01-2024 Specific gravity (U) [Rel density] 1.025 1.002-1.030 [facility] Urobilinogen Ql (U)Ordered B y: Heron Mondragon on 11-01-2024 Urobilinogen (U) [Mass/Vol] 1 mg/dL High Normal [facility] White blood cell (WBC) count Ordered By: Heron Mondragon on 11-01-2024 WBC (Bld) [#/Vol] 23.8 10*3/uL High 4.4-11.0 [facility] White blood cell countOrdere d By: Heron Mondragon on 11-01-2024 Urine WBC 0 SEEN /hpf 0-5 [facility] .Auto Diffon 06-06-2024 Basophil, Absolute 0.1 10 3/mcL Normal 0.0-0.2 [facility] ([place]) Comment on above: Performed By: #### A DIFF, ANEU, CBC #### [address] [address] Basophils/100 WBC (Bld) 1.1 % Normal 0.0-2.5 [facility] ([place]) Comment on above: Performed By: #### A DIFF, ANEU, CBC #### [address] [address] Eosinophil, Absolute 0.2 10 3/mcL Normal 0.0-0.4 [facility] ([place]) Comment on above: Performed By: #### A DIFF, ANEU, CBC #### [address] [address] Eosinophils/100 WBC (Bld) 2.3 % Normal 0.0-7.0 [facility] ([place]) Comment on above: Performed By: #### A DIFF, ANEU, CBC #### [address] [address] Lymphocyte, Absolute 2.9 10 3/mcL Normal 0.8-3.9 [facility] ([place]) Comment on above: Performed By: #### A DIFF, ANEU, CBC #### [address] [address] Lymphocytes/100 WBC (Bld) 28.2 % Normal 10.0-50.0 [facility] ([place]) Comment on above: Performed By: #### A DIFF, ANEU, CBC #### [address] [address] Monocyte, Absolute 0.7 10 3/mcL Normal 0.2-1.0 [facility] ([place]) Comment on above: Performed By: #### A DIFF, ANEU, CBC #### [address] [address] Monocytes/100 WBC (Bld) 7.2 % Normal 1.7-13.0 [facility] ([place]) Comment on above: Performed By: #### A DIFF, ANEU, CBC #### [address] [address] Neutrophils/100 WBC (Bld) 61.2 % Normal 37.0-80.0 [facility] ([place]) Comment on above: Performed By: #### A DIFF, ANEU, CBC #### [address] [address] .NEUABSon 06-06-2024 Neutrophil, Absolute 6.3 10 3/mcL High 2.9-6.2 [facility] ([place]) Comment on above: Performed By: #### A DIFF, ANEU, CBC #### [address] [address] CBCon 06-06-2024 Erythrocyte distribution width (RBC) [Ratio] 14.3 % Normal 11.5-14.5 [facility] ([place]) Comment on above: Performed By: #### A DIFF, ANEU, CBC #### [address] [address] Hematocrit (Bld) [Volume fraction] 40.1 % Normal 37.0-47.0 [facility] ([place]) Comment on above: Performed By: #### A DIFF, ANEU, CBC #### [address] [address] Hgb 13.7 G/dL Normal 12.0-16.0 [facility] ([place]) Comment on above: Performed By: #### A DIFF, ANEU, CBC #### [address] [address] MCH (RBC) [Entitic mass] 29.6 pg Normal 27.0-31.2 [facility] ([place]) Comment on above: Performed By: #### A DIFF, ANEU, CBC #### [address] [address] MCHC 34.3 G/dL Normal 33.0-37.0 [facility] ([place]) Comment on above: Performed By: #### A DIFF, ANEU, CBC #### [address] [address] MCV (RBC) [Entitic vol] 86.3 fL Normal 80.0-94.0 [facility] ([place]) Comment on above: Performed By: #### A DIFF, ANEU, CBC #### [address] [address] Platelet 262 10 3/mcL Normal 130-400 [facility] ([place]) Comment on above: Performed By: #### A DIFF, ANEU, CBC #### [address] [address] Platelet mean volume (Bld) [Entitic vol] 8.9 fL Normal 7.4-10.4 [facility] ([place]) Comment on above: Performed By: #### A DIFF, ANEU, CBC #### [address] [address] RBC 4.64 10 6/mcL Normal 4.20-5.40 [facility] ([place]) Comment on above: Performed By: #### A DIFF, ANEU, CBC #### [address] [address] WBC 10.3 10 3/mcL Normal 4.6-10.8 [facility] ([place]) Comment on above: Performed By: #### A DIFF, ANEU, CBC #### [address] [address] LABORATORYOrdered By: SYSTEM SYSTEM on 06-06-2024 Basophil, Absolute 0.1 103/mcL Normal 0.0 - 0.2 10^3/mcL AO Workflow SS Basophils/100 WBC (Bld) 1.1 % Normal 0.0 - 2.5 % AO Workflow SS Eosinophil, Absolute 0.2 103/mcL Normal 0.0 - 0 .4 10^3/mcL AO Workflow SS Eosinophils/100 WBC (Bld) 2.3 % Normal 0.0 - 7.0 % AO Workflow SS Erythrocyte distribution width (RBC) [Ratio] 14.3 % Normal 11.5 - 14.5 % AO Workflow [facility] Hematocrit (Bld) [Volume fraction] 40.1 % Normal 37.0 - 47.0 % AO Workflow SS Hemoglobin (Bld) [Mass/Vol] 13.7 G/dL Normal 12.0 - 16.0 G/dL AO Workflow SS Lymphocyte, Absolute 2.9 103/mcL Normal 0.8 - 3 .9 10^3/mcL AO Workflow SS Lymphocytes/100 WBC (Bld) 28.2 % Normal 10.0 - 50.0 % AO Workflow SS MCH (RBC) [Entitic mass] 29.6 pg Normal 27.0 - 31.2 pg AO Workflow SS MCHC 34.3 G/dL Normal 33.0 - 37.0 G/dL AO Workflow SS MCV (RBC) [Entitic vol] 86.3 fL Normal 80.0 - 94.0 fL AO Workflow SS Monocyte, Absolute 0.7 103/mcL Normal 0.2 - 1.0 10^3/mcL AO Workflow SS Monocytes/100 WBC (Bld) 7.2 % Normal 1.7 - 13.0 % AO Workflow SS Neutrophil, Absolute 6.3 103/mcL High 2.9 - 6 .2 10^3/mcL AO Workflow SS Neutrophils/100 WBC (Bld) 61.2 % Normal 37.0 - 80.0 % AO Workflow SS Platelet mean volume (Bld) [Entitic vol] 8.9 fL Normal 7.4 - 10.4 fL AO Workflow SS Platelets (Bld) [#/Vol] 262 103/mcL Normal 130 - 400 10^3/mcL AO Workflow SS RBC (Bld) [#/Vol] 4.64 106/mcL Normal 4.20 - 5.4 0 10^6/mcL AO Workflow SS WBC (Bld) [#/Vol] 10.3 103/mcL Normal 4.6 - 10.8 10^3/mcL AO Workflow SS US THYROIDon 02-23-2024 US THYROID ORIGINAL EXAMINATION: ULTRASOUND OF THE THYROID WITH COLOR DOPPLER FLOW EVALUATION02/23/2024 12:02 pm COMPARISON: Thyroid ultrasound 02/13/2023 HISTORY: ORDERING SYSTEM PROVIDED HISTORY: Reason for Exam: f/u thyroid nodule, FINDINGS: Size right thyroid lobe: 5.7 x 1.5 x 1.7 cm Size left thyroid lobe: 5.1 x 1.1 x 1.9 cm Size isthmus: 0.4 cm Texture: Homogeneous Estimated total number of nodules greater than or equal to 1 cm: 1 Nodule #1: Maximum size: 1 cm . All dimensions: 1 x 0.8 x 0.9 cm Location: Right Mid Composition: solid or almost completely solid: 2 points Echogenicity: hypoechoic: 2 points Shape: wider than tall: 0 points Margins: smooth: 0 points Echogenic foci: none: 0 points ACR Total Points: 4; ACR TI-RADS risk category: TR4 - moderately suspicious nodule. Non-enlarged thyroid. Solitary right-sided thyroid nodule is grossly unchanged in size IMPRESSION: 1. Right-sided thyroid nodule: ACR TI-RADS 2017 Category 4. Recommend: Follow-up ultrasound in 1 year. ACR TI-RADS 2017 Recommendations: TR1(0 points) : No FNA or follow up TR2 (2 points) : No FNA or follow up TR3 (3 points) : FNA if >/= 2.5 cm, follow up if 1.5 - 2.4 cm in 1, 3, and 5 years TR4 (4-6 points) : FNA if >/= 1.5 cm, follow up if 1.0 - 1.4 cm in 1, 2, 3, and 5 years TR5 (>/= 7 points) : FNA if >/= 1.0 cm, follow up if 0.5 - 0.9 cm every year for 5 years *ACR TI-RADS recommends that no more than two nodules with the highest ACR TI-RADS total point should be biopsied and no more than four nodules should be followed. I have personally reviewed the images of this examination and agree with the resident's findings and interpretation. Interpreted by: Hayden Rodríguez DO Preliminary Report By: Nessa Price Electronically signed By Hayden Rodríguez DO Dictated Date: 02/23/2024 1:25:45 PM Prelim Date: 02/23/2024 1:56:19 PM Sign Date: 02/23/2024 1:56:19 PM Ordering Provider: FAY Petty [facility] ([place]) FT3on 12-20-2023 Free T3 [Mass/Vol] 3.03 pg/mL Normal 2.30-4.00 [facility] ([place]) Comment on above: Performed By: #### F T3, TSH, FT4 #### [place] [id number] FT4on 12-20-2023 Free T4 [Mass/Vol] 0.82 ng/dL Normal 0.76-1.46 [facility] ([place]) Comment on above: Performed By: #### F T3, TSH, FT4 #### [facility] [address] [place], [place] [address] TSHon 12-20-2023 TSH Qn 2.92 m[IU]/L Normal 0.36-3.74 [facility] ([place]) Comment on above: Performed By: #### F T3, TSH, FT4 #### [place] [id number] [place], [place] [address] XR SHOULDER MINIMUM 2 VIEWS RIGHTon 10-20-2023 XR SHOULDER MINIMUM 2 VIEWS RIGHT ORIGINAL EXAMINATION: 4 XRAY VIEWS OF THE RIGHT [id number]/13/2023 2:18 pm COMPARISON: None HISTORY: ORDERING SYSTEM PROVIDED HISTORY: Reason for Exam: pain, FINDINGS: No acute fracture, dislocation, bony lytic process or periosteal reaction is seen in the visualized bones and joints. Gleno humeral joint appears unremarkable. There is mild elevation of distal clavicle relative to acromion with mild irregularity of the distal clavicular articular surface, possible remote acromioclavicular joint injury. Visualized thoracic structures and soft tissues show no acute abnormality. IMPRESSION: No acute fracture or dislocation seen. Possible remote acromioclavicular joint injury. I have personally reviewed the images of this examination and agree with the resident's findings and interpretation. Interpreted by: Brown Diaz MD Preliminary Report By: Sujit Thomas Electronically signed By Brown Diaz MD Dictated Date: 10/20/2023 11:01:50 AM Prelim Date: 10/20/2023 11:47:31 AM Sign Date: 10/20/2023 11:47:31 AM Ordering Provider: SOCO Petty [facility] ([place]) Absolute lymphocyte countOrd ered By: Dr. Cyr on 04-28-2023 Lymphocytes Auto (Unsp spec) [#/Vol] 2.40 10*3/uL 0.83-4.51 [facility] Basophil percentageOrdered B y: Dr. Cyr on 04-28-2023 Basophils/100 WBC (Bld) 0.5 % 0-1 [facility] Bilirubin [Mass/Vol] 0.20 mg/dL 0.20-1.00 [facility] Comment on above: For patients on eltr ombopag therapy, use of Dimension [place] TBIL is not recommended. Chloride [Moles/Vol] 108 mmol/L 98-107 [facility] Eosinophils/100 WBC (Bld) 3.7 % 0-5 [facility] Glucose [Mass/Vol] 84 mg/dL 74-106 [facility] Neutrophils (Bld) [#/Vol] 7.5 10*3/uL 2.0-7.7 [facility] Neutrophils/100 WBC (Bld) 67.3 % 47-70 [facility] Potassium [Moles/Vol] 3.6 mmol/L 3.5-5.1 [facility] Protein [Mass/Vol] 6.0 g/dL 6.4-8.2 [facility] Sodium [Moles/Vol] 142 mmol/L 136-145 [facility] WBC (Bld) [#/Vol] 11.2 10*3/uL 4.4-11.0 [facility] Blood erythrocytes count (nu mber/volume)Ordered By: Dr. Cyr on 04-28-2023 RBC (Bld) [#/Vol] 4.45 10*6/uL 4.2-5.4 [facility] Blood hemoglobin measurement (mass/volume)Ordered By: Dr. Cyr on 04-28-2023 Hemoglobin (Bld) [Mass/Vol] 13.1 g/dL 12.0-15.0 [facility] Blood lymphocytes/100 leukoc ytesOrdered By: Dr. Cyr on 04-28-2023 Lymphocytes/100 WBC (Bld) 21.5 % 19-41 [facility] Blood monocytes/100 leukocyt esOrdered By: Dr. Cyr on 04-28-2023 Monocytes/100 WBC (Bld) 6.5 % 0-10 [facility] Blood platelet mean volumeOr dered By: Dr. Cyr on 04-28-2023 Platelet mean volume (Bld) [Entitic vol] 10.1 fL 6.2-12.0 [facility] Determination of erythrocyte mean corpuscular volume (MCV)Ordered By: Dr. Cyr on 04-28-2023 MCV (RBC) [Entitic vol] 87.9 fL 81-99 [facility] Hematocrit Auto (Bld) [Volum e fraction]Ordered By: Dr. Cyr on 04-28-2023 Hematocrit (Bld) [Volume fraction] 39.1 % 37-47 [facility] - Chemistry and C hemistry - challengeOrdered By: Dr. Cyr on 04-28-2023 ALP [Catalytic activity/Vol] 100 U/L 45-117 [facility] ALT [Catalytic activity/Vol] 23 U/L 13-56 [facility] CO2 [Moles/Vol] 29.0 mmol/L 21.0-32.0 [facility] Globulin (S) [Mass/Vol] 3.4 g/dL 2.2-4.2 [facility] Urea nitrogen/Creatinine [Mass ratio] 10.5 mg/mg 10-20 [facility] - Hematology and Cell countsOrdered By: Dr. Cyr on 04-28-2023 Erythrocyte distribution width (RBC) [Entitic vol] 44.1 fL 35.1-43.9 [facility] Erythrocyte distribution width (RBC) [Ratio] 13.9 % 11.6-14.6 [facility] Immature granulocytes/100 WBC (Bld) 0.500 % 0.0-0.9 [facility] Comment on above: IG% - Immature Granu locytes (promyelocytes, myelocytes and metamyelocytes) > 1% indicates that a LEFT SHIFT is Present. MCH (RBC) [Entitic mass] 29.4 pg 27.0-32.0 [facility] Nucleated RBC/100 WBC (Bld) [Ratio] 0 % 0-5 [facility] MCHC Auto (RBC) [Mass/Vol]Or dered By: Dr. Cyr on 04-28-2023 MCHC (RBC) [Mass/Vol] 33.5 g/dL 32-36 [facility] No Panel InformationOrdered By: Dr. Cyr on 04-28-2023 Estimated GFR (MDRD) Amer 117 mL/min >60 [facility] Comment on above: GFR Calc Estimated GFR (MDRD) Non-Af Amer 97 mL/min >60 [facility] Comment on above: Non- GFR Calc Platelets bldOrdered By: Dr. Cyr on 04-28-2023 Platelets (Bld) [#/Vol] 264 10*3/uL 150-450 [facility] Serum or plasma albumin johnna urement (mass/volume)Ordered By: Dr. Cyr on 04-28-2023 Albumin [Mass/Vol] 2.6 g/dL 3.2-5.0 [facility] Serum or plasma albumin/glob ulin mass ratioOrdered By: Dr. Cyr on 04-28-2023 Albumin/Globulin [Mass ratio] 0.8 {ratio} 0.9-2.4 [facility] Serum or plasma calcium johnna urement (mass/volume)Ordered By: Dr. Cyr on 04-28-2023 Calcium [Mass/Vol] 8.8 mg/dL 8.5-10.1 [facility] Serum or plasma creatinine m easurement (mass/volume)Ordered By: Dr. Cyr on 04-28-2023 Creatinine [Mass/Vol] 0.76 mg/dL 0.55-1.02 [facility] Comment on above: The validity of the calculated GFR & GFRAA in patients over 70 years has not been determined. Clinical correlation is essential. Serum or plasma urea nitroge n measurement (mass/volume)Ordered By: Dr. Cyr on 04-28-2023 Urea nitrogen [Mass/Vol] 8 mg/dL 7-18 [facility] Thin prep Papanicolaou smear with manual screeningOrdered By: Dr. Cyr on 04-28-2023 Thin prep Papanicolaou smear with manual screening 19 U/L 15-37 [facility] Thin prep Papanicolaou smear with manual screening 5 5-15 [facility] Urine creatinine measurement (mass/volume)Ordered By: Dr. Cyr on 04-28-2023 Creatinine (U) [Mass/Vol] 18.80 mg/dL NO RANGE EST. [facility] Urine protein measurement (m ass/volume)Ordered By: Dr. Cyr on 06-23-2023 Protein (U) [Mass/Vol] 9.5 mg/dL 0.0-11.8 [facility] Urine protein/creatinine mas s ratioOrdered By: Dr. Cyr on 04-28-2023 Protein/Creatinine (U) [Mass ratio] 505 mg/g CRE 0-200 [facility] Absolute lymphocyte countOrd ered By: Dr. Adams on 04-23-2023 Lymphocytes Auto (Unsp spec) [#/Vol] 2.58 10*3/uL 0.83-4.51 [facility] Basophil percentageOrdered B y: Dr. Adams on 04-23-2023 Basophils/100 WBC (Bld) 0.6 % 0-1 [facility] Eosinophils/100 WBC (Bld) 1.5 % 0-5 [facility] Neutrophils (Bld) [#/Vol] 8.1 10*3/uL 2.0-7.7 [facility] Neutrophils/100 WBC (Bld) 68.8 % 47-70 [facility] WBC (Bld) [#/Vol] 11.8 10*3/uL 4.4-11.0 [facility] Blood erythrocytes count (nu mber/volume)Ordered By: Dr. Adams on 04-23-2023 RBC (Bld) [#/Vol] 4.33 10*6/uL 4.2-5.4 [facility] Blood hemoglobin measurement (mass/volume)Ordered By: Dr. Adams on 04-23-2023 Hemoglobin (Bld) [Mass/Vol] 12.8 g/dL 12.0-15.0 [facility] Blood lymphocytes/100 leukoc ytesOrdered By: Dr. Adams on 04-23-2023 Lymphocytes/100 WBC (Bld) 21.8 % 19-41 [facility] Blood monocytes/100 leukocyt esOrdered By: Dr. Adams on 04-23-2023 Monocytes/100 WBC (Bld) 6.7 % 0-10 [facility] Blood platelet mean volumeOr dered By: Dr. Adams on 04-23-2023 Platelet mean volume (Bld) [Entitic vol] 11.1 fL 6.2-12.0 [facility] Determination of erythrocyte mean corpuscular volume (MCV)Ordered By: Dr. Adams on 04-23-2023 MCV (RBC) [Entitic vol] 86.1 fL 81-99 [facility] Hematocrit Auto (Bld) [Volum e fraction]Ordered By: Dr. Adams on 04-23-2023 Hematocrit (Bld) [Volume fraction] 37.3 % 37-47 [facility] - Chemistry and C hemistry - challengeOrdered By: Dr. Adams on 04-23-2023 ALT [Catalytic activity/Vol] 15 U/L 13-56 [facility] - Hematology and Cell countsOrdered By: Dr. Adams on 04-23-2023 Erythrocyte distribution width (RBC) [Entitic vol] 42.2 fL 35.1-43.9 [facility] Erythrocyte distribution width (RBC) [Ratio] 13.6 % 11.6-14.6 [facility] Immature granulocytes/100 WBC (Bld) 0.600 % 0.0-0.9 [facility] Comment on above: IG% - Immature Granu locytes (promyelocytes, myelocytes and metamyelocytes) > 1% indicates that a LEFT SHIFT is Present. MCH (RBC) [Entitic mass] 29.6 pg 27.0-32.0 [facility] Nucleated RBC/100 WBC (Bld) [Ratio] 0 % 0-5 [facility] MCHC Auto (RBC) [Mass/Vol]Or dered By: Dr. Adams on 04-23-2023 MCHC (RBC) [Mass/Vol] 34.3 g/dL 32-36 [facility] No Panel InformationOrdered By: Dr. Adams on 04-23-2023 Estimated Creatinine Clearance Calc 127.28 ml/min [facility] Estimated GFR (MDRD) Amer 129 mL/min >60 [facility] Comment on above: GFR Calc Estimated GFR (MDRD) Non-Af Amer 106 mL/min >60 [facility] Comment on above: Non- GFR Calc Platelets bldOrdered By: Dr. Adams on 04-23-2023 Platelets (Bld) [#/Vol] 225 10*3/uL 150-450 [facility] Serum Treponema species anti body detectionOrdered By: Dr. Adams on 04-23-2023 Treponema sp Ab Ql (S) Non-Reactive [facility] Serum or plasma creatinine m easurement (mass/volume)Ordered By: Dr. Adams on 04-23-2023 Creatinine [Mass/Vol] 0.70 mg/dL 0.55-1.02 [facility] Comment on above: The validity of the calculated GFR & GFRAA in patients over 70 years has not been determined. Clinical correlation is essential. Serum or plasma uric acid me asurement (mass/volume)Ordered By: Dr. Adams on 04-23-2023 Urate [Mass/Vol] 5.7 mg/dL 2.6-6.0 [facility] Comment on above: The drugs N-Acetylcy steine and Metamizole may falsely depress this assay. Thin prep Papanicolaou smear with manual screeningOrdered By: Dr. Adams on 04-23-2023 Thin prep Papanicolaou smear with manual screening 11 U/L 15-37 [facility] Urine creatinine measurement (mass/volume)Ordered By: Dr. Adams on 04-23-2023 Creatinine (U) [Mass/Vol] 81.80 mg/dL NO RANGE EST. [facility] Urine protein measurement (m ass/volume)Ordered By: Dr. Adams on 04-23-2023 Protein (U) [Mass/Vol] 8.1 mg/dL 0.0-11.8 [facility] Urine protein/creatinine mas s ratioOrdered By: Dr. Adams on 04-23-2023 Protein/Creatinine (U) [Mass ratio] 99 mg/g CRE 0-200 [facility] - Chemistry and C hemistry - challengeon 04-21-2023 Glucose Ql (U) Negative [facility] - Urinalysison Protein Ql (U) 1+ [facility] No Panel InformationOrdered By: Isabel Dickerson on 04-21-2023 Urine Microalbumin/Creatinine Ratio 8.5 mg/g CRE <30 [facility] No Panel InformationOrdered By: Joy De La Paz on 04-21-2023 Group B Streptococcus Culture Group B Beta Streptococcus is not isolated. [facility] Thin prep Papanicolaou smear with manual screeningOrdered By: Isabel Dickerson on 04-21-2023 Thin prep Papanicolaou smear with manual screening 18.9 mg/L NO RANGE EST. [facility] Urine creatinine measurement (mass/volume)Ordered By: Isabel Dickerson on 04-21-2023 Creatinine (U) [Mass/Vol] 223.00 mg/dL NO RANGE EST. [facility] Absolute lymphocyte countOrd ered By: Joy De La Paz on 04-18-2023 Lymphocytes Auto (Unsp spec) [#/Vol] 2.50 10*3/uL 0.83-4.51 [facility] Basophil percentageOrdered B y: Joy De La Paz on 04-18-2023 Basophils/100 WBC (Bld) 0.7 % 0-1 [facility] Bilirubin [Mass/Vol] 0.30 mg/dL 0.20-1.00 [facility] Comment on above: For patients on eltr ombopag therapy, use of Dimension [place] TBIL is not recommended. Chloride [Moles/Vol] 110 mmol/L 98-107 [facility] Eosinophils/100 WBC (Bld) 1.4 % 0-5 [facility] Glucose [Mass/Vol] 96 mg/dL 74-106 [facility] Neutrophils (Bld) [#/Vol] 8.8 10*3/uL 2.0-7.7 [facility] Neutrophils/100 WBC (Bld) 70.5 % 47-70 [facility] Potassium [Moles/Vol] 3.9 mmol/L 3.5-5.1 [facility] Protein [Mass/Vol] 6.1 g/dL 6.4-8.2 [facility] Sodium [Moles/Vol] 139 mmol/L 136-145 [facility] WBC (Bld) [#/Vol] 12.5 10*3/uL 4.4-11.0 [facility] Blood erythrocytes count (nu mber/volume)Ordered By: Joy De La Paz on 04-18-2023 RBC (Bld) [#/Vol] 4.71 10*6/uL 4.2-5.4 [facility] Blood hemoglobin measurement (mass/volume)Ordered By: Joy De La Paz on 04-18-2023 Hemoglobin (Bld) [Mass/Vol] 13.6 g/dL 12.0-15.0 [facility] Blood lymphocytes/100 leukoc ytesOrdered By: Joy De La Paz on 04-18-2023 Lymphocytes/100 WBC (Bld) 20.0 % 19-41 [facility] Blood monocytes/100 leukocyt esOrdered By: Joy De La Paz on 04-18-2023 Monocytes/100 WBC (Bld) 6.5 % 0-10 [facility] Blood platelet mean volumeOr dered By: Joy De La Paz on 04-18-2023 Platelet mean volume (Bld) [Entitic vol] 10.5 fL 6.2-12.0 [facility] Determination of erythrocyte mean corpuscular volume (MCV)Ordered By: Joy De La Paz on 04-18-2023 MCV (RBC) [Entitic vol] 86.8 fL 81-99 [facility] Hematocrit Auto (Bld) [Volum e fraction]Ordered By: Joy De La Paz on 04-18-2023 Hematocrit (Bld) [Volume fraction] 40.9 % 37-47 [facility] - Chemistry and C hemistry - challengeOrdered By: Joy De La Paz on 04-18-2023 ALP [Catalytic activity/Vol] 118 U/L 45-117 [facility] ALT [Catalytic activity/Vol] 14 U/L 13-56 [facility] CO2 [Moles/Vol] 22.0 mmol/L 21.0-32.0 [facility] Globulin (S) [Mass/Vol] 3.5 g/dL 2.2-4.2 [facility] Urea nitrogen/Creatinine [Mass ratio] 6.8 mg/mg 10-20 [facility] - Chemistry and C hemistry - challengeon 04-18-2023 Glucose Ql (U) Negative [facility] - Hematology and Cell countsOrdered By: Joy De La Paz on 04-18-2023 Erythrocyte distribution width (RBC) [Entitic vol] 42.2 fL 35.1-43.9 [facility] Erythrocyte distribution width (RBC) [Ratio] 13.5 % 11.6-14.6 [facility] Immature granulocytes/100 WBC (Bld) 0.900 % 0.0-0.9 [facility] Comment on above: IG% - Immature Granu locytes (promyelocytes, myelocytes and metamyelocytes) > 1% indicates that a LEFT SHIFT is Present. MCH (RBC) [Entitic mass] 28.9 pg 27.0-32.0 [facility] Nucleated RBC/100 WBC (Bld) [Ratio] 0 % 0-5 [facility] - Urinalysison Protein Ql (U) Negative [facility] MCHC Auto (RBC) [Mass/Vol]Or dered By: Joy De La Paz on 04-18-2023 MCHC (RBC) [Mass/Vol] 33.3 g/dL 32-36 [facility] No Panel InformationOrdered By: Joy De La Paz on 04-18-2023 Group B Streptococcus Culture Group B Beta Streptococcus is not isolated. [facility] Estimated GFR (MDRD) Amer 123 mL/min >60 [facility] Comment on above: GFR Calc Estimated GFR (MDRD) Non-Af Amer 102 mL/min >60 [facility] Comment on above: Non- GFR Calc Platelets bldOrdered By: Danica De La Paz on 04-18-2023 Platelets (Bld) [#/Vol] 244 10*3/uL 150-450 [facility] Serum or plasma albumin johnna urement (mass/volume)Ordered By: Joy De La Paz on 04-18-2023 Albumin [Mass/Vol] 2.6 g/dL 3.2-5.0 [facility] Serum or plasma albumin/glob ulin mass ratioOrdered By: Joy De La Paz on 04-18-2023 Albumin/Globulin [Mass ratio] 0.7 {ratio} 0.9-2.4 [facility] Serum or plasma calcium johnna urement (mass/volume)Ordered By: Joy De La Paz on 04-18-2023 Calcium [Mass/Vol] 9.3 mg/dL 8.5-10.1 [facility] Serum or plasma creatinine m easurement (mass/volume)Ordered By: Joy De La Paz on 04-18-2023 Creatinine [Mass/Vol] 0.73 mg/dL 0.55-1.02 [facility] Comment on above: The validity of the calculated GFR & GFRAA in patients over 70 years has not been determined. Clinical correlation is essential. Serum or plasma urea nitroge n measurement (mass/volume)Ordered By: Joy De La Paz on 04-18-2023 Urea nitrogen [Mass/Vol] 5 mg/dL 7-18 [facility] Thin prep Papanicolaou smear with manual screeningOrdered By: Joy De La Paz on 04-18-2023 Thin prep Papanicolaou smear with manual screening 12 U/L 15-37 [facility] Thin prep Papanicolaou smear with manual screening 7 5-15 [facility] Urine creatinine measurement (mass/volume)Ordered By: Dr. Adams on 04-18-2023 Creatinine (U) [Mass/Vol] 21.60 mg/dL NO RANGE EST. [facility] Urine protein measurement (m ass/volume)Ordered By: Dr. Adams on 04-18-2023 Protein (U) [Mass/Vol] mg/dL 0.0-11.8 [facility] Urine protein/creatinine mas s ratioOrdered By: Dr. Adams on 04-18-2023 Protein/Creatinine (U) [Mass ratio] TNP [facility] Comment on above: Test not performed Absolute lymphocyte countOrd ered By: Sanam Tovar on 04-10-2023 Lymphocytes Auto (Unsp spec) [#/Vol] 2.31 10*3/uL 0.83-4.51 [facility] Basophil percentageOrdered B y: Sanam Tovar on 04-10-2023 Basophils/100 WBC (Bld) 0.6 % 0-1 [facility] Bilirubin [Mass/Vol] 0.40 mg/dL 0.20-1.00 [facility] Comment on above: For patients on eltr ombopag therapy, use of Dimension [place] TBIL is not recommended. Chloride [Moles/Vol] 109 mmol/L 98-107 [facility] Eosinophils/100 WBC (Bld) 1.4 % 0-5 [facility] Glucose [Mass/Vol] 96 mg/dL 74-106 [facility] Neutrophils (Bld) [#/Vol] 10.3 10*3/uL 2.0-7.7 [facility] Neutrophils/100 WBC (Bld) 74.6 % 47-70 [facility] Potassium [Moles/Vol] 3.8 mmol/L 3.5-5.1 [facility] Protein [Mass/Vol] 6.1 g/dL 6.4-8.2 [facility] Sodium [Moles/Vol] 136 mmol/L 136-145 [facility] WBC (Bld) [#/Vol] 13.9 10*3/uL 4.4-11.0 [facility] Blood erythrocytes count (nu mber/volume)Ordered By: Sanam Tovar on 04-10-2023 RBC (Bld) [#/Vol] 4.70 10*6/uL 4.2-5.4 [facility] Blood hemoglobin measurement (mass/volume)Ordered By: Sanam Tovar on 04-10-2023 Hemoglobin (Bld) [Mass/Vol] 13.6 g/dL 12.0-15.0 [facility] Blood lymphocytes/100 leukoc ytesOrdered By: Sanam Tovar on 04-10-2023 Lymphocytes/100 WBC (Bld) 16.7 % 19-41 [facility] Blood monocytes/100 leukocyt esOrdered By: Sanam Tovar on 04-10-2023 Monocytes/100 WBC (Bld) 5.8 % 0-10 [facility] Blood platelet mean volumeOr dered By: Sanam Tovar on 04-10-2023 Platelet mean volume (Bld) [Entitic vol] 10.2 fL 6.2-12.0 [facility] Determination of erythrocyte mean corpuscular volume (MCV)Ordered By: Sanam Tovar on 04-10-2023 MCV (RBC) [Entitic vol] 86.0 fL 81-99 [facility] Hematocrit Auto (Bld) [Volum e fraction]Ordered By: Sanam Tovar on 04-10-2023 Hematocrit (Bld) [Volume fraction] 40.4 % 37-47 [facility] - Chemistry and C hemistry - challengeOrdered By: Sanam Tovar on 04-10-2023 ALP [Catalytic activity/Vol] 117 U/L 45-117 [facility] ALT [Catalytic activity/Vol] 15 U/L 13-56 [facility] CO2 [Moles/Vol] 22.0 mmol/L 21.0-32.0 [facility] Globulin (S) [Mass/Vol] 3.5 g/dL 2.2-4.2 [facility] Urea nitrogen/Creatinine [Mass ratio] 8.5 mg/mg 10-20 [facility] - Chemistry and C hemistry - challengeon 04-10-2023 Glucose Ql (U) Negative [facility] - Hematology and Cell countsOrdered By: Sanam Tovar on 04-10-2023 Erythrocyte distribution width (RBC) [Entitic vol] 41.8 fL 35.1-43.9 [facility] Erythrocyte distribution width (RBC) [Ratio] 13.5 % 11.6-14.6 [facility] Immature granulocytes/100 WBC (Bld) 0.900 % 0.0-0.9 [facility] Comment on above: IG% - Immature Granu locytes (promyelocytes, myelocytes and metamyelocytes) > 1% indicates that a LEFT SHIFT is Present. MCH (RBC) [Entitic mass] 28.9 pg 27.0-32.0 [facility] Nucleated RBC/100 WBC (Bld) [Ratio] 0 % 0-5 [facility] - Urinalysison Protein Ql (U) Negative [facility] MCHC Auto (RBC) [Mass/Vol]Or dered By: Sanam Tovar on 04-10-2023 MCHC (RBC) [Mass/Vol] 33.7 g/dL 32-36 [facility] No Panel InformationOrdered By: Sanam Tovar on 04-10-2023 Estimated GFR (MDRD) Amer 128 mL/min >60 [facility] Comment on above: GFR Calc Estimated GFR (MDRD) Non-Af Amer 106 mL/min >60 [facility] Comment on above: Non- GFR Calc Platelets bldOrdered By: Vijay Tovar on 04-10-2023 Platelets (Bld) [#/Vol] 253 10*3/uL 150-450 [facility] Serum or plasma albumin johnna urement (mass/volume)Ordered By: Sanam Tovar on 04-10-2023 Albumin [Mass/Vol] 2.6 g/dL 3.2-5.0 [facility] Serum or plasma albumin/glob ulin mass ratioOrdered By: Sanam Tovar on 04-10-2023 Albumin/Globulin [Mass ratio] 0.7 {ratio} 0.9-2.4 [facility] Serum or plasma calcium johnna urement (mass/volume)Ordered By: Sanam Tovar on 04-10-2023 Calcium [Mass/Vol] 8.8 mg/dL 8.5-10.1 [facility] Serum or plasma creatinine m easurement (mass/volume)Ordered By: Sanam Tovar on 04-10-2023 Creatinine [Mass/Vol] 0.71 mg/dL 0.55-1.02 [facility] Comment on above: The validity of the calculated GFR & GFRAA in patients over 70 years has not been determined. Clinical correlation is essential. Serum or plasma urea nitroge n measurement (mass/volume)Ordered By: Sanam Tovar on 04-10-2023 Urea nitrogen [Mass/Vol] 6 mg/dL 7-18 [facility] Thin prep Papanicolaou smear with manual screeningOrdered By: Sanam Tovar on 04-10-2023 Thin prep Papanicolaou smear with manual screening 12 U/L 15-37 [facility] Thin prep Papanicolaou smear with manual screening 5 5-15 [facility] Urine creatinine measurement (mass/volume)Ordered By: Sanam Tovar on 04-10-2023 Creatinine (U) [Mass/Vol] 31.60 mg/dL NO RANGE EST. [facility] Urine protein measurement (m ass/volume)Ordered By: Sanam Tovar on 04-10-2023 Protein (U) [Mass/Vol] 6.7 mg/dL 0.0-11.8 [facility] Urine protein/creatinine mas s ratioOrdered By: Sanam Tovar on 04-10-2023 Protein/Creatinine (U) [Mass ratio] 212 mg/g CRE 0-200 [facility] Absolute lymphocyte countOrd ered By: Dr. Adams on 04-06-2023 Lymphocytes Auto (Unsp spec) [#/Vol] 2.40 10*3/uL 0.83-4.51 [facility] Basophil percentageOrdered B y: Dr. Adams on 04-06-2023 Basophils/100 WBC (Bld) 0.6 % 0-1 [facility] Bilirubin [Mass/Vol] 0.20 mg/dL 0.20-1.00 [facility] Comment on above: For patients on eltr ombopag therapy, use of Dimension [place] TBIL is not recommended. Chloride [Moles/Vol] 106 mmol/L 98-107 [facility] Eosinophils/100 WBC (Bld) 1.4 % 0-5 [facility] Glucose [Mass/Vol] 87 mg/dL 74-106 [facility] Neutrophils (Bld) [#/Vol] 10.0 10*3/uL 2.0-7.7 [facility] Neutrophils/100 WBC (Bld) 72.8 % 47-70 [facility] Potassium [Moles/Vol] 3.6 mmol/L 3.5-5.1 [facility] Protein [Mass/Vol] 6.2 g/dL 6.4-8.2 [facility] Sodium [Moles/Vol] 137 mmol/L 136-145 [facility] WBC (Bld) [#/Vol] 13.7 10*3/uL 4.4-11.0 [facility] Blood erythrocytes count (nu mber/volume)Ordered By: Dr. Adams on 04-06-2023 RBC (Bld) [#/Vol] 4.56 10*6/uL 4.2-5.4 [facility] Blood hemoglobin measurement (mass/volume)Ordered By: Dr. Adams on 04-06-2023 Hemoglobin (Bld) [Mass/Vol] 13.4 g/dL 12.0-15.0 [facility] Blood lymphocytes/100 leukoc ytesOrdered By: Dr. Adams on 04-06-2023 Lymphocytes/100 WBC (Bld) 17.6 % 19-41 [facility] Blood monocytes/100 leukocyt esOrdered By: Dr. Adams on 04-06-2023 Monocytes/100 WBC (Bld) 6.6 % 0-10 [facility] Blood platelet mean volumeOr dered By: Dr. Adams on 04-06-2023 Platelet mean volume (Bld) [Entitic vol] 10.4 fL 6.2-12.0 [facility] Determination of erythrocyte mean corpuscular volume (MCV)Ordered By: Dr. Adams on 04-06-2023 MCV (RBC) [Entitic vol] 87.1 fL 81-99 [facility] Hematocrit Auto (Bld) [Volum e fraction]Ordered By: Dr. Adams on 04-06-2023 Hematocrit (Bld) [Volume fraction] 39.7 % 37-47 [facility] Laboratory - Chemistry and C hemistry - challengeOrdered By: Dr. Adams on 04-06-2023 ALP [Catalytic activity/Vol] 117 U/L 45-117 [facility] ALT [Catalytic activity/Vol] 16 U/L 13-56 [facility] CO2 [Moles/Vol] 24.0 mmol/L 21.0-32.0 [facility] Globulin (S) [Mass/Vol] 3.6 g/dL 2.2-4.2 [facility] Urea nitrogen/Creatinine [Mass ratio] 9.7 mg/mg 10-20 [facility] Laboratory - Chemistry and C hemistry - challengeon 04-06-2023 Glucose Ql (U) Negative [facility] - Hematology and Cell countsOrdered By: Dr. Adams on 04-06-2023 Erythrocyte distribution width (RBC) [Entitic vol] 42.2 fL 35.1-43.9 [facility] Erythrocyte distribution width (RBC) [Ratio] 13.4 % 11.6-14.6 [facility] Immature granulocytes/100 WBC (Bld) 1.000 % 0.0-0.9 [facility] Comment on above: IG% - Immature Granu locytes (promyelocytes, myelocytes and metamyelocytes) > 1% indicates that a LEFT SHIFT is Present. MCH (RBC) [Entitic mass] 29.4 pg 27.0-32.0 [facility] Nucleated RBC/100 WBC (Bld) [Ratio] 0 % 0-5 [facility] Laboratory - Urinalysison Protein Ql (U) Negative [facility] MCHC Auto (RBC) [Mass/Vol]Or dered By: Dr. Adams on 04-06-2023 MCHC (RBC) [Mass/Vol] 33.8 g/dL 32-36 [facility] No Panel InformationOrdered By: Dr. Adams on 04-06-2023 Estimated GFR (MDRD) Amer 125 mL/min >60 [facility] Comment on above: GFR Calc Estimated GFR (MDRD) Non-Af Amer 103 mL/min >60 [facility] Comment on above: Non- GFR Calc Platelets bldOrdered By: Dr. Adams on 04-06-2023 Platelets (Bld) [#/Vol] 260 10*3/uL 150-450 [facility] Serum or plasma albumin johnna urement (mass/volume)Ordered By: Dr. Adams on 04-06-2023 Albumin [Mass/Vol] 2.6 g/dL 3.2-5.0 [facility] Serum or plasma albumin/glob ulin mass ratioOrdered By: Dr. Adams on 04-06-2023 Albumin/Globulin [Mass ratio] 0.7 {ratio} 0.9-2.4 [facility] Serum or plasma calcium johnna urement (mass/volume)Ordered By: Dr. Adams on 04-06-2023 Calcium [Mass/Vol] 9.3 mg/dL 8.5-10.1 [facility] Serum or plasma creatinine m easurement (mass/volume)Ordered By: Dr. Adams on 04-06-2023 Creatinine [Mass/Vol] 0.72 mg/dL 0.55-1.02 [facility] Comment on above: The validity of the calculated GFR & GFRAA in patients over 70 years has not been determined. Clinical correlation is essential. Serum or plasma urea nitroge n measurement (mass/volume)Ordered By: Dr. Adams on 04-06-2023 Urea nitrogen [Mass/Vol] 7 mg/dL 7-18 [facility] Thin prep Papanicolaou smear with manual screeningOrdered By: Dr. Adams on 04-06-2023 Thin prep Papanicolaou smear with manual screening 10 U/L 15-37 [facility] Thin prep Papanicolaou smear with manual screening 7 5-15 [facility] Urine creatinine measurement (mass/volume)Ordered By: Dr. Adams on 04-06-2023 Creatinine (U) [Mass/Vol] 16.70 mg/dL NO RANGE EST. [facility] Urine protein measurement (m ass/volume)Ordered By: Dr. Adams on 04-06-2023 Protein (U) [Mass/Vol] mg/dL 0.0-11.8 [facility] Urine protein/creatinine mas s ratioOrdered By: Dr. Adams on 04-06-2023 Protein/Creatinine (U) [Mass ratio] TNP [facility] Comment on above: Test not performed Absolute lymphocyte countOrd ered By: Sanam Tovar on 03-28-2023 Lymphocytes Auto (Unsp spec) [#/Vol] 2.53 10*3/uL 0.83-4.51 [facility] Basophil percentageOrdered B y: Sanam Tovar on 03-28-2023 Basophils/100 WBC (Bld) 0.6 % 0-1 [facility] Bilirubin [Mass/Vol] 0.20 mg/dL 0.20-1.00 [facility] Comment on above: For patients on eltr ombopag therapy, use of Dimension [place] TBIL is not recommended. Chloride [Moles/Vol] 109 mmol/L 98-107 [facility] Eosinophils/100 WBC (Bld) 1.7 % 0-5 [facility] Glucose [Mass/Vol] 115 mg/dL 74-106 [facility] Comment on above: Fasting Glucose resu lt from 100 to 125 mg/dL suggests IMPAIRED HOMEOSTASIS per A.D.A. criteria. Neutrophils (Bld) [#/Vol] 10.6 10*3/uL 2.0-7.7 [facility] Neutrophils/100 WBC (Bld) 73.0 % 47-70 [facility] Potassium [Moles/Vol] 3.7 mmol/L 3.5-5.1 [facility] Protein [Mass/Vol] 5.8 g/dL 6.4-8.2 [facility] Sodium [Moles/Vol] 140 mmol/L 136-145 [facility] WBC (Bld) [#/Vol] 14.5 10*3/uL 4.4-11.0 [facility] Blood erythrocytes count (nu mber/volume)Ordered By: Sanam Tovar on 03-28-2023 RBC (Bld) [#/Vol] 4.21 10*6/uL 4.2-5.4 [facility] Blood hemoglobin measurement (mass/volume)Ordered By: Sanam Tovar on 03-28-2023 Hemoglobin (Bld) [Mass/Vol] 12.4 g/dL 12.0-15.0 [facility] Blood lymphocytes/100 leukoc ytesOrdered By: Sanam Tovar on 03-28-2023 Lymphocytes/100 WBC (Bld) 17.4 % 19-41 [facility] Blood monocytes/100 leukocyt esOrdered By: Sanam Tovar on 03-28-2023 Monocytes/100 WBC (Bld) 6.1 % 0-10 [facility] Blood platelet mean volumeOr dered By: Sanam Tovar on 03-28-2023 Platelet mean volume (Bld) [Entitic vol] 10.2 fL 6.2-12.0 [facility] Determination of erythrocyte mean corpuscular volume (MCV)Ordered By: Sanam Tovar on 03-28-2023 MCV (RBC) [Entitic vol] 84.6 fL 81-99 [facility] Hematocrit Auto (Bld) [Volum e fraction]Ordered By: Sanam Tovar on 03-28-2023 Hematocrit (Bld) [Volume fraction] 35.6 % 37-47 [facility] Laboratory - Chemistry and C hemistry - challengeOrdered By: Sanam Tovar on 03-28-2023 ALP [Catalytic activity/Vol] 96 U/L 45-117 [facility] ALT [Catalytic activity/Vol] 14 U/L 13-56 [facility] CO2 [Moles/Vol] 23.0 mmol/L 21.0-32.0 [facility] Globulin (S) [Mass/Vol] 3.4 g/dL 2.2-4.2 [facility] Urea nitrogen/Creatinine [Mass ratio] 10.4 mg/mg 10-20 [facility] - Chemistry and C hemistry - challengeon 03-28-2023 Glucose Ql (U) Negative [facility] - Hematology and Cell countsOrdered By: Sanam Tovar on 03-28-2023 Erythrocyte distribution width (RBC) [Entitic vol] 40.5 fL 35.1-43.9 [facility] Erythrocyte distribution width (RBC) [Ratio] 13.3 % 11.6-14.6 [facility] Immature granulocytes/100 WBC (Bld) 1.200 % 0.0-0.9 [facility] Comment on above: IG% - Immature Granu locytes (promyelocytes, myelocytes and metamyelocytes) > 1% indicates that a LEFT SHIFT is Present. MCH (RBC) [Entitic mass] 29.5 pg 27.0-32.0 [facility] Nucleated RBC/100 WBC (Bld) [Ratio] 0 % 0-5 [facility] Laboratory - Urinalysison Protein Ql (U) Trace [facility] MCHC Auto (RBC) [Mass/Vol]Or dered By: Sanam Tovar on 03-28-2023 MCHC (RBC) [Mass/Vol] 34.8 g/dL 32-36 [facility] No Panel InformationOrdered By: Sanam Tovar on 03-28-2023 Estimated GFR (MDRD) Amer 135 mL/min >60 [facility] Comment on above: GFR Calc Estimated GFR (MDRD) Non-Af Amer 112 mL/min >60 [facility] Comment on above: Non- GFR Calc Platelets bldOrdered By: Vijay Tovar on 03-28-2023 Platelets (Bld) [#/Vol] 243 10*3/uL 150-450 [facility] Serum or plasma albumin johnna urement (mass/volume)Ordered By: Sanam Tovar on 03-28-2023 Albumin [Mass/Vol] 2.4 g/dL 3.2-5.0 [facility] Serum or plasma albumin/glob ulin mass ratioOrdered By: Sanam Tovar on 03-28-2023 Albumin/Globulin [Mass ratio] 0.7 {ratio} 0.9-2.4 [facility] Serum or plasma calcium johnna urement (mass/volume)Ordered By: Sanam Tovar on 03-28-2023 Calcium [Mass/Vol] 8.6 mg/dL 8.5-10.1 [facility] Serum or plasma creatinine m easurement (mass/volume)Ordered By: Sanam Tovar on 03-28-2023 Creatinine [Mass/Vol] 0.67 mg/dL 0.55-1.02 [facility] Comment on above: The validity of the calculated GFR & GFRAA in patients over 70 years has not been determined. Clinical correlation is essential. Serum or plasma urea nitroge n measurement (mass/volume)Ordered By: Sanam Tovar on 03-28-2023 Urea nitrogen [Mass/Vol] 7 mg/dL 7-18 [facility] Thin prep Papanicolaou smear with manual screeningOrdered By: Sanam Tovar on 03-28-2023 Thin prep Papanicolaou smear with manual screening 10 U/L 15-37 [facility] Thin prep Papanicolaou smear with manual screening 8 5-15 [facility] Urine creatinine measurement (mass/volume)Ordered By: Sanam Tovar on 03-28-2023 Creatinine (U) [Mass/Vol] 204.00 mg/dL NO RANGE EST. [facility] Urine protein measurement (m ass/volume)Ordered By: Sanam Tovar on 03-28-2023 Protein (U) [Mass/Vol] 22.2 mg/dL 0.0-11.8 [facility] Urine protein/creatinine mas s ratioOrdered By: Sanam Tovar on 03-28-2023 Protein/Creatinine (U) [Mass ratio] 109 mg/g CRE 0-200 [facility] Laboratory - Chemistry and C hemistry - challengeon 03-24-2023 Glucose Ql (U) Negative [facility] - Urinalysison Protein Ql (U) Negative [facility] Basophil percentageOrdered B y: Isabel Dickerson on 03-22-2023 WBC (Bld) [#/Vol] 13.8 10*3/uL 4.4-11.0 [facility] Blood erythrocytes count (nu mber/volume)Ordered By: Isabel Dickerson on 03-22-2023 RBC (Bld) [#/Vol] 4.43 10*6/uL 4.2-5.4 [facility] Blood hemoglobin measurement (mass/volume)Ordered By: Isabel Dickerson on 03-22-2023 Hemoglobin (Bld) [Mass/Vol] 12.9 g/dL 12.0-15.0 [facility] Blood platelet mean volumeOr dered By: Isabel Dickerson on 03-22-2023 Platelet mean volume (Bld) [Entitic vol] 10.5 fL 6.2-12.0 [facility] Determination of erythrocyte mean corpuscular volume (MCV)Ordered By: Isabel Dickerson on 03-22-2023 MCV (RBC) [Entitic vol] 86.9 fL 81-99 [facility] Hematocrit Auto (Bld) [Volum e fraction]Ordered By: Isabel Dickerson on 03-22-2023 Hematocrit (Bld) [Volume fraction] 38.5 % 37-47 [facility] Laboratory - Chemistry and C hemistry - challengeOrdered By: Isabel Dickerson on 03-22-2023 ALT [Catalytic activity/Vol] 15 U/L 13-56 [facility] Free T4 [Mass/Vol] 0.92 ng/dL 0.76-1.46 [facility] Laboratory - Chemistry and C hemistry - challengeon 03-22-2023 Glucose Ql (U) Negative [facility] - Hematology and Cell countsOrdered By: Isabel Dickerson on 03-22-2023 Erythrocyte distribution width (RBC) [Entitic vol] 41.4 fL 35.1-43.9 [facility] Erythrocyte distribution width (RBC) [Ratio] 13.2 % 11.6-14.6 [facility] MCH (RBC) [Entitic mass] 29.1 pg 27.0-32.0 [facility] Laboratory - Urinalysison Protein Ql (U) Negative [facility] MCHC Auto (RBC) [Mass/Vol]Or dered By: Isabel Dickerson on 03-22-2023 MCHC (RBC) [Mass/Vol] 33.5 g/dL 32-36 [facility] No Panel InformationOrdered By: Isabel Dickerson on 03-22-2023 Estimated GFR (MDRD) Amer 155 mL/min >60 [facility] Comment on above: GFR Calc Estimated GFR (MDRD) Non-Af Amer 128 mL/min >60 [facility] Comment on above: Non- GFR Calc Free Triiodothyronine (T3) pg/dL 2.3 pg/mL 2.18-3.98 [facility] Thyroid Stimulating Hormone (TSH) 1.39 uIU/mL 0.358-3.74 [facility] Platelets bldOrdered By: Elba Dickerson on 03-22-2023 Platelets (Bld) [#/Vol] 257 10*3/uL 150-450 [facility] Serum or plasma creatinine m easurement (mass/volume)Ordered By: Isabel Dickerson on 03-22-2023 Creatinine [Mass/Vol] 0.60 mg/dL 0.55-1.02 [facility] Comment on above: The validity of the calculated GFR & GFRAA in patients over 70 years has not been determined. Clinical correlation is essential. Serum or plasma uric acid me asurement (mass/volume)Ordered By: Isabel Dickerson on 03-22-2023 Urate [Mass/Vol] 4.7 mg/dL 2.6-6.0 [facility] Comment on above: The drugs N-Acetylcy steine and Metamizole may falsely depress this assay. Thin prep Papanicolaou smear with manual screeningOrdered By: Isabel Dickerson on 03-22-2023 Thin prep Papanicolaou smear with manual screening 11 U/L 15-37 [facility] Laboratory - Chemistry and C hemistry - challengeon 03-15-2023 Glucose Ql (U) Negative [facility] Laboratory - Urinalysison Protein Ql (U) Negative [facility] Basophil percentageOrdered B y: Sanam Tovar on 03-14-2023 WBC (Bld) [#/Vol] 16.4 10*3/uL 4.4-11.0 [facility] Blood erythrocytes count (nu mber/volume)Ordered By: Sanam Tovar on 03-14-2023 RBC (Bld) [#/Vol] 4.32 10*6/uL 4.2-5.4 [facility] Blood hemoglobin measurement (mass/volume)Ordered By: Sanam Tovar on 03-14-2023 Hemoglobin (Bld) [Mass/Vol] 12.6 g/dL 12.0-15.0 [facility] Blood platelet mean volumeOr dered By: Sanam Tovar on 03-14-2023 Platelet mean volume (Bld) [Entitic vol] 10.3 fL 6.2-12.0 [facility] Determination of erythrocyte mean corpuscular volume (MCV)Ordered By: Sanam Tovar on 03-14-2023 MCV (RBC) [Entitic vol] 86.8 fL 81-99 [facility] Hematocrit Auto (Bld) [Volum e fraction]Ordered By: Sanam Tovar on 03-14-2023 Hematocrit (Bld) [Volume fraction] 37.5 % 37-47 [facility] Laboratory - Chemistry and C hemistry - challengeOrdered By: Sanam Tovar on 03-14-2023 ALT [Catalytic activity/Vol] 17 U/L [facility] - Hematology and Cell countsOrdered By: Sanam Tovar on 03-14-2023 Erythrocyte distribution width (RBC) [Entitic vol] 41.7 fL 35.1-43.9 [facility] Erythrocyte distribution width (RBC) [Ratio] 13.2 % 11.6-14.6 [facility] MCH (RBC) [Entitic mass] 29.2 pg 27.0-32.0 [facility] MCHC Auto (RBC) [Mass/Vol]Or dered By: Sanam Tovar on 03-14-2023 MCHC (RBC) [Mass/Vol] 33.6 g/dL 32 [facility] No Panel InformationOrdered By: Sanam Tovar on 03-14-2023 Estimated Creatinine Clearance Calc 127.28 ml/min [facility] Estimated GFR (MDRD) Amer 130 mL/min >60 [facility] Comment on above: GFR Calc Estimated GFR (MDRD) Non-Af Amer 107 mL/min >60 [facility] Comment on above: Non- GFR Calc Platelets bldOrdered By: Vijay Tovar on 03-14-2023 Platelets (Bld) [#/Vol] 252 10*3/uL 150-450 [facility] Serum or plasma creatinine m easurement (mass/volume)Ordered By: Sanam Tovar on 03-14-2023 Creatinine [Mass/Vol] 0.70 mg/dL 0.55-1.02 [facility] Comment on above: The validity of the calculated GFR & GFRAA in patients over 70 years has not been determined. Clinical correlation is essential. Serum or plasma uric acid me asurement (mass/volume)Ordered By: Sanam Tovar on 03-14-2023 Urate [Mass/Vol] 4.0 mg/dL 2.6-6.0 [facility] Comment on above: The drugs N-Acetylcy steine and Metamizole may falsely depress this assay. Thin prep Papanicolaou smear with manual screeningOrdered By: Sanam Tovar on 03-14-2023 Thin prep Papanicolaou smear with manual screening 10 U/L [facility] Urine creatinine measurement (mass/volume)Ordered By: Sanam Tovar on 03-14-2023 Creatinine (U) [Mass/Vol] 25.10 mg/dL NO RANGE EST. [facility] Urine protein measurement (m ass/volume)Ordered By: Sanam Tovar on 03-14-2023 Protein (U) [Mass/Vol] mg/dL 0.0-11.8 [facility] Urine protein/creatinine mas s ratioOrdered By: Sanam Tovar on 03-14-2023 Protein/Creatinine (U) [Mass ratio] TNP [facility] Comment on above: Test not performed Laboratory - Chemistry and C hemistry - challengeon 03-08-2023 Glucose Ql (U) Negative [facility] Laboratory - Urinalysison Protein Ql (U) Negative [facility] Absolute lymphocyte countOrd ered By: Dr. Cyr on 02-23-2023 Lymphocytes Auto (Unsp spec) [#/Vol] 2.22 10*3/uL 0.83-4.51 [facility] Basophil percentageOrdered B y: Dr. Cyr on 02-23-2023 Basophils/100 WBC (Bld) 0.6 % 0-1 [facility] Eosinophils/100 WBC (Bld) 1.6 % 0-5 [facility] Neutrophils (Bld) [#/Vol] 11.2 10*3/uL 2.0-7.7 [facility] Neutrophils/100 WBC (Bld) 75.7 % 47-70 [facility] WBC (Bld) [#/Vol] 14.8 10*3/uL 4.4-11.0 [facility] Blood erythrocytes count (nu mber/volume)Ordered By: Dr. Cyr on 02-23-2023 RBC (Bld) [#/Vol] 4.34 10*6/uL 4.2-5.4 [facility] Blood hemoglobin measurement (mass/volume)Ordered By: Dr. Cyr on 02-23-2023 Hemoglobin (Bld) [Mass/Vol] 12.8 g/dL 12.0-15.0 [facility] Blood lymphocytes/100 leukoc ytesOrdered By: Dr. Cyr on 02-23-2023 Lymphocytes/100 WBC (Bld) 15.0 % 19-41 [facility] Blood monocytes/100 leukocyt esOrdered By: Dr. Cyr on 02-23-2023 Monocytes/100 WBC (Bld) 5.8 % 0-10 [facility] Blood platelet mean volumeOr dered By: Dr. Cyr on 02-23-2023 Platelet mean volume (Bld) [Entitic vol] 9.8 fL 6.2-12.0 [facility] Determination of erythrocyte mean corpuscular volume (MCV)Ordered By: Dr. Cyr on 02-23-2023 MCV (RBC) [Entitic vol] 87.6 fL 81-99 [facility] Gestational diabetes screen 1-hour screen with 50g oral glucose loadOrdered By: Dr. Cyr on 02-23-2023 Glucose 1 Hr post 50 g glucose PO [Mass/Vol] 114 mg/dL 70-140 [facility] HIV 1 and HIV-2 antibody ass ay with HIV-1 p24 antigen detectionOrdered By: Dr. Cyr on 02-23-2023 HIV 1+2 Ab+HIV1 p24 Ag IA Ql Non-Reactive Nonreactive [facility] Hematocrit Auto (Bld) [Volum e fraction]Ordered By: Dr. Cyr on 02-23-2023 Hematocrit (Bld) [Volume fraction] 38.0 % 37-47 [facility] Laboratory - Hematology and Cell countsOrdered By: Dr. Cyr on 02-23-2023 Erythrocyte distribution width (RBC) [Entitic vol] 42.0 fL 35.1-43.9 [facility] Erythrocyte distribution width (RBC) [Ratio] 13.2 % 11.6-14.6 [facility] Immature granulocytes/100 WBC (Bld) 1.300 % 0.0-0.9 [facility] Comment on above: IG% - Immature Granu locytes (promyelocytes, myelocytes and metamyelocytes) > 1% indicates that a LEFT SHIFT is Present. MCH (RBC) [Entitic mass] 29.5 pg 27.0-32.0 [facility] Nucleated RBC/100 WBC (Bld) [Ratio] 0 % 0-5 [facility] MCHC Auto (RBC) [Mass/Vol]Or dered By: Dr. Cyr on 02-23-2023 MCHC (RBC) [Mass/Vol] 33.7 g/dL 32-36 [facility] Platelets bldOrdered By: Dr. Cyr on 02-23-2023 Platelets (Bld) [#/Vol] 258 10*3/uL 150-450 [facility] Serum Treponema species anti body detectionOrdered By: Dr. Cyr on 02-23-2023 Treponema sp Ab Ql (S) Non-Reactive [facility] Laboratory - Chemistry and C hemistry - challengeon 02-03-2023 Glucose Ql (U) Negative [facility] Laboratory - Urinalysison Protein Ql (U) Negative [facility] Laboratory - Chemistry and C hemistry - challengeon 01-06-2023 Glucose Ql (U) Negative [facility] - Urinalysison Protein Ql (U) Negative [facility] Laboratory - Chemistry and C hemistry - challengeon 12-06-2022 Glucose Ql (U) Negative [facility] - Urinalysison Protein Ql (U) Negative [facility] Absolute lymphocyte countOrd ered By: Dr. Adams on 10-24-2022 Lymphocytes Auto (Unsp spec) [#/Vol] 2.24 10*3/uL 0.83-4.51 [facility] Basophil percentageOrdered B y: Dr. Adams on 10-24-2022 Basophils/100 WBC (Bld) 0.7 % 0-1 [facility] Eosinophils/100 WBC (Bld) 1.7 % 0-5 [facility] Neutrophils (Bld) [#/Vol] 7.6 10*3/uL 2.0-7.7 [facility] Neutrophils/100 WBC (Bld) 71.1 % 47-70 [facility] WBC (Bld) [#/Vol] 10.7 10*3/uL 4.4-11.0 [facility] Blood erythrocytes count (nu mber/volume)Ordered By: Dr. Adams on 10-24-2022 RBC (Bld) [#/Vol] 4.89 10*6/uL 4.2-5.4 [facility] Blood hemoglobin measurement (mass/volume)Ordered By: Dr. Adams on 10-24-2022 Hemoglobin (Bld) [Mass/Vol] 14.3 g/dL 12.0-15.0 [facility] Blood lymphocytes/100 leukoc ytesOrdered By: Dr. Adams on 10-24-2022 Lymphocytes/100 WBC (Bld) 20.9 % 19-41 [facility] Blood monocytes/100 leukocyt esOrdered By: Dr. Adams on 10-24-2022 Monocytes/100 WBC (Bld) 5.2 % 0-10 [facility] Blood platelet mean volumeOr dered By: Dr. Adams on 10-24-2022 Platelet mean volume (Bld) [Entitic vol] 9.9 fL 6.2-12.0 [facility] Determination of erythrocyte mean corpuscular volume (MCV)Ordered By: Dr. Adams on 10-24-2022 MCV (RBC) [Entitic vol] 83.0 fL 81-99 [facility] Gestational diabetes screen 1-hour screen with 50g oral glucose loadOrdered By: Dr. Adams on 10-24-2022 Glucose 1 Hr post 50 g glucose PO [Mass/Vol] 104 mg/dL 70-140 [facility] HIV 1 and HIV-2 antibody ass ay with HIV-1 p24 antigen detectionOrdered By: Dr. Adams on 10-24-2022 HIV 1+2 Ab+HIV1 p24 Ag IA Ql Non-Reactive Nonreactive [facility] Hematocrit Auto (Bld) [Volum e fraction]Ordered By: Dr. Adams on 10-24-2022 Hematocrit (Bld) [Volume fraction] 40.6 % 37-47 [facility] Laboratory - Hematology and Cell countsOrdered By: Dr. Adams on 10-24-2022 Erythrocyte distribution width (RBC) [Entitic vol] 38.5 fL 35.1-43.9 [facility] Erythrocyte distribution width (RBC) [Ratio] 12.7 % 11.6-14.6 [facility] Immature granulocytes/100 WBC (Bld) 0.400 % 0.0-0.9 [facility] Comment on above: IG% - Immature Granu locytes (promyelocytes, myelocytes and metamyelocytes) > 1% indicates that a LEFT SHIFT is Present. MCH (RBC) [Entitic mass] 29.2 pg 27.0-32.0 [facility] Nucleated RBC/100 WBC (Bld) [Ratio] 0 % 0-5 [facility] MCHC Auto (RBC) [Mass/Vol]Or dered By: Dr. Adams on 10-24-2022 MCHC (RBC) [Mass/Vol] 35.2 g/dL 32-36 [facility] No Panel InformationOrdered By: Dr. Adams on 10-24-2022 Hepatitis B Surface Antigen Non-Reactive Nonreactive [facility] Hepatitis C Antibody Non-Reactive Nonreactive [facility] Comment on above: Non Reactive: < 0.8 Equivocal: >/= 0.8 to < 1.0 Reactive: >/= 1.0The CDC recommends that a reactive/equivocal HCV antibody result be followed up by the HCV Nucleic Acid Amplificationtest (147405) Miscellaneous Test Comment MAILED SPECIMEN [facility] Rubella IgG Antibody Reactive Nonreactive [facility] Comment on above: Antibody Results Int erpretation of Immune Status Non Reactive Presumed Non-Immune Equivocal Equivocal Reactive Presumed Immune Platelets bldOrdered By: Dr. Adams on 10-24-2022 Platelets (Bld) [#/Vol] 248 10*3/uL 150-450 [facility] Serum Treponema species anti body detectionOrdered By: Dr. Adams on 10-24-2022 Treponema sp Ab Ql (S) Non-Reactive [facility] Culture, urineOrdered By: Dr Lauar Adams on 10-10-2022 Bacteria identified Cx Nom (U) Presumptive Lactobacillus sp. [facility] Chlamydia trachomatis rRNA d etection by probe and target amplification methodOrdered By: Dr. Adams on 10-07-2022 C. trachomatis rRNA HAYES+probe Ql (Unsp spec) Negative Negative [facility] - Drug toxicology Ordered By: Dr. Adams on 10-07-2022 Amphetamines Ql (U) Negative <1000 ng/mL [facility] Benzodiazepines Ql (U) Negative < 200 ng/mL [facility] Cannabinoids Screen Ql (U) Negative < 50 ng/mL [facility] Cocaine Ql (U) Negative < 300 ng/mL [facility] Opiates Ql (U) Negative < 300 ng/mL [facility] - Microbiology an d Antimicrobial susceptibilityOrdered By: Dr. Adams on 10-07-2022 N. gonorrhoeae DNA HAYES+probe Ql (Unsp spec) Negative Negative [facility] Comment on above: Performed at: =[address] [id number] Director: Yanique Reed MD, Phone: [phone] No Panel InformationOrdered By: Dr. Adams on 10-07-2022 MDMA (Ecstasy) Screen Negative < 500 ng/mL [facility] Urine Barbiturates Screen Negative < 200 ng/mL [facility] Urine Drug Screen Comment [facility] Comment on above: CONFIRMATORY TESTING FOR ALL POSITIVE URINE DRUG SCREENRESULTS WILL ONLY BE SENT OUT UPON PHYSICIAN ORDER. VISTA Urine Drug Screen methods provide only preliminaryanalytical test results. A more specific alternate chemicalmethod must be used in order to obtain a confirmedanalytical result. Gas chromatography/mass spectrometery(GC/MS) is the preferred confirmatory method. Clinicalconsideration and professional judgement should be appliedto any drug of abuse test result, particularly whenpreliminary positive results are used. URINE TCA TESTING MUST BE ORDERED SEPARATELY. USE TESTMNEMONIC: [facility] Urine Methadone Screen Negative < 300 ng/mL [facility] Urine phencyclidine (PCP) de tectionOrdered By: Dr. Adams on 10-07-2022 Phencyclidine Ql (U) Negative < 25 ng/mL [facility] LABORATORYOrdered By: SYSTEM SYSTEM on 02-22-2022 TPO Ab IA Qn 37 unit/mL Invalid Interpretation Code 0 - 60 unit/mL AH ADM SS US THYROID OR PARATHYROIDon 02-06-2022 US THYROID OR PARATHYROID EXAM: US THYROID CLINICAL: Nontoxic nodular goiter, difficulty swallowing COMPARISON: None available at the time of dictation. TECHNIQUE: Grayscale and Doppler images of the thyroid gland were obtained. FINDINGS: The right thyroid lobe measures 5.7 x 1.37 x 2.14 cm. The left thyroid lobe measures 5.37 x 1.26 x 1.84 cm. The thyroid isthmus measures 3.4 mm. The thyroid tissue is homogeneous in echotexture. Vascularity bilaterally appears increased to the thyroid tissue. RIGHT LOBE: In the mid to upper lateral aspect of the right lobe, an isoechoic solid nodule measures 0.6 x 0.7 x 0.9 cm, a TR 3 lesion. LEFT LOBE: No measurable cyst or solid nodules identified. Cervical lymph nodes: None identified. IMPRESSION: Single TR 3 lesion in the right lobe measures less than 1 cm in size, by TI RADS criteria listed below, no specific follow-up is recommended.. ACR Ti-Rad Recommendations: TR1 & TR2 : No FNA or follow-up. TR3 : FNA if greater than or equal to 2.5cm, follow-up if 1.5 -2.4 cm in 1, 3 and 5 years. TR4 : FNA if greater than or equal to 1.5cm, follow-up if 1 -1.4 cm in 1, 2, 3 and 5 years. TR5 : FNA if greater than or equal to 1cm, follow-up if 0.5 -0.9 cm every year for 5. Dictated by: Dc Clementsstation ID:[id number] Normal [facility] LABORATORYOrdered By: Jose Ceron on 01-31-2022 Free T4 [Mass/Vol] 1.00 ng/dL Invalid Interpretation Code 0.76 - 1.46 ng/dL AO ADM SS TSH Qn 1.82 m[IU]/L Invalid Interpretation Code 0.36 - 3.74 mcIU/mL AO ADM SS BASIC METABOLIC PANELon 01-04 Anion gap [Moles/Vol] 13 mmol/L Normal 5-15 [facility] Comment on above: Performed By: #### L [id number] #### [address] [address] Carlitos Ovalles M.D. [employer] Firer/Fireman Calcium [Mass/Vol] 9.0 mg/dL Normal 8.5-10.5 [facility] Comment on above: Performed By: #### L [id number] #### [address] [address] Carlitos Ovalles M.D. [employer] Firer/Fireman Chloride [Moles/Vol] 104 mmol/L Normal 96-110 [facility] Comment on above: Performed By: #### L [id number] #### [address] [address] Carlitos Ovalles M.D. [employer] Firer/Fireman CO2 [Moles/Vol] 21 mmol/L Normal 19-32 [facility] Comment on above: Performed By: #### L [id number] #### [address] [address] Carlitos Ovalles M.D. [employer] Firer/Fireman Creatinine [Mass/Vol] 0.8 mg/dL Normal 0.5-1.2 [facility] Comment on above: Performed By: #### L [id number] #### [address] [address] Carlitos Ovalles M.D. [employer] Firer/Fireman ESTIMATED GFR 105 mL/min/1.73m*2 Normal >=60 [facility] Comment on above: Performed By: #### L [id number] #### [address] [address] Carlitos Ovalles M.D. [employer] Firer/Fireman Glucose [Mass/Vol] 100 mg/dL High 70-99 [facility] Comment on above: Performed By: #### L [id number] #### [address] [address] Carlitos Ovalles M.D. [employer] Firer/Fireman Potassium [Moles/Vol] 3.9 mmol/L Normal 3.4-5.3 [facility] Comment on above: Performed By: #### L [id number] #### [address] [address] Carlitos Ovalles M.D. [employer] Firer/Fireman Sodium [Moles/Vol] 138 mmol/L Normal 135-148 [facility] Comment on above: Performed By: #### L [id number] #### [address] [place] [address] Carlitos Ovalles M.D. [employer] Firer/Fireman Urea nitrogen [Mass/Vol] 8 mg/dL Normal 3-29 [facility] Comment on above: Performed By: #### L [id number] #### [address] [address] Carlitos Ovalles M.D. [employer] Firer/Fireman Urea nitrogen/Creatinine [Mass ratio] 10 mg/mg Normal 7-25 [facility] Comment on above: Performed By: #### L [id number] #### [address] [address] Carlitos Ovalles M.D. [employer] Firer/Fireman Anion gap [Moles/Vol] 13 mmol/L [facility] Calcium [Mass/Vol] 9.0 mg/dL 8.5 - 10. 5 mg/dL [facility] Chloride [Moles/Vol] 104 mmol/L [facility] CO2 [Moles/Vol] 21 mmol/L [facility] Creatinine [Mass/Vol] 0.8 mg/dL 0.5 - 1.2 mg/dL [facility] GFR/1.73 sq M.predicted among blacks MDRD (S/P/Bld) [Vol rate/Area] 105 mL/min/{1.73_m2} >=60 mL/min/1.73m *2 [facility] Glucose [Mass/Vol] 100 mg/dL High 70 - 99 mg/dL [facility] Interpretation and review of laboratory results Abnormal [facility] Potassium [Moles/Vol] 3.9 mmol/L [facility] Sodium [Moles/Vol] 138 mmol/L [facility] Urea nitrogen [Mass/Vol] 8 mg/dL 3 - 29 mg/dL [facility] Urea nitrogen/Creatinine [Mass ratio] 10 mg/mg [facility] COMPLETE BLOOD COUNT WITH DI FFERENTIALon 01-19-2022 BASOPHILS ABSOLUTE COUNT (10*3/UL) BY AUTOMATED COUNT 0.1 K/uL Normal 0.0-0.3 [facility] Comment on above: Performed By: #### L [id number] #### [address] [address] Carlitos Ovalles M.D. [employer] Firer/Fireman BASOPHILS RELATIVE PERCENT BY AUTOMATED COUNT 0.7 % Normal 0.0-2.0 [facility] Comment on above: Performed By: #### L [id number] #### [address] [address] Carlitos Ovalles M.D. [employer] Firer/Fireman Eosinophils (Bld) [#/Vol] 0.2 10*3/uL Normal 0.0-0.5 [facility] Comment on above: Performed By: #### L [id number] #### [address] [address] Carlitos Ovalles M.D. [employer] Firer/Fireman EOSINOPHILS RELATIVE PERCENT BY AUTOMATED COUNT 1.4 % Normal 0.0-5.0 [facility] Comment on above: Performed By: #### L [id number] #### [address] [address] Carlitos Ovalles M.D. [employer] Firer/Fireman Erythrocyte distribution width (RBC) [Ratio] 12.8 % Normal <=15.0 [facility] Comment on above: Performed By: #### L [id number] #### [address] [address] Carlitos Ovalles M.D. [employer] Firer/Fireman Hematocrit (Bld) [Volume fraction] 40.0 % Normal 34.0-49.0 [facility] Comment on above: Performed By: #### L [id number] #### [address] [address] Carlitos Ovalles M.D. [employer] Firer/Fireman Hemoglobin (Bld) [Mass/Vol] 13.3 g/dL Normal 11.2-15.7 [facility] Comment on above: Performed By: #### L [id number] #### [address] [address] Carlitos Ovalles M.D. [employer] Firer/Fireman Immature granulocytes (Bld) [#/Vol] 0.1 10*3/uL Normal 0.0-0.1 [facility] Comment on above: Performed By: #### L [id number] #### [address] [address] Carlitos Ovalles M.D. [employer] Firer/Fireman Immature granulocytes/100 WBC (Bld) 0.4 % Normal <1.0 [facility] Comment on above: Performed By: #### L [id number] #### [address] [address] Carlitos Ovalles M.D. [employer] Firer/Fireman LYMPHOCYTES ABSOLUTE COUNT (10*3/UL) BY AUTOMATED COUNT 3.5 K/uL Normal 0.9-4.1 [facility] Comment on above: Performed By: #### L [id number] #### [address] [address] Carlitos Ovalles M.D. [employer] Firer/Fireman LYMPHOCYTES RELATIVE PERCENT BY AUTOMATED COUNT 24.5 % Normal 14.0-51.0 [facility] Comment on above: Performed By: #### L [id number] #### [address] [address] Carlitos Ovalles M.D. [employer] Firer/Fireman MCH (RBC) [Entitic mass] 27.0 pg Normal 26.0-34.0 [facility] Comment on above: Performed By: #### L [id number] #### [address] [address] Carlitos Ovalles M.D. [employer] Firer/Fireman MCHC (RBC) [Mass/Vol] 33.3 g/dL Normal 30.7-35.5 [facility] Comment on above: Performed By: #### L [id number] #### [address] [address] Carlitos Ovalles M.D. [employer] Firer/Fireman MCV (RBC) [Entitic vol] 81.1 fL Normal 80.0-100.0 [facility] Comment on above: Performed By: #### L [id number] #### [address] [address] Carlitos Ovalles M.D. [employer] Firer/Fireman MEAN PLATELET VOLUME (FL) BY AUTOMATED COUNT 9.7 fL Normal 7.2-11.7 [facility] Comment on above: Performed By: #### L [id number] #### [address] [address] Carlitos Ovalles M.D. [employer] Firer/Fireman MONOCYTES ABSOLUTE COUNT (10*3/UL) BY AUTOMATED COUNT 0.9 K/uL Normal 0.2-1.0 [facility] Comment on above: Performed By: #### L [id number] #### [address] [address] Carlitos Ovalles M.D. [employer] Firer/Fireman MONOCYTES RELATIVE PERCENT BY AUTOMATED COUNT 6.6 % Normal 4.0-12.0 [facility] Comment on above: Performed By: #### L [id number] #### [address] [address] Carlitos Ovalles M.D. [employer] Firer/Fireman NEUTROPHILS ABSOLUTE COUNT (10*3/UL) BY AUTOMATED COUNT 9.4 K/uL High 1.8-7.5 [facility] Comment on above: Performed By: #### L [id number] #### [address] [address] Carlitos Ovalles M.D. [employer] Firer/Fireman NEUTROPHILS RELATIVE PERCENT BY AUTOMATED COUNT 66.4 % Normal 42.0-80.0 [facility] Comment on above: Performed By: #### L [id number] #### [address] [address] Carlitos Ovalles M.D. [employer] Firer/Fireman NRBC (PER 100 WBCS) BY AUTOMATED COUNT 0 /100 WBCs Normal <=0 [facility] Comment on above: Performed By: #### L [id number] #### [address] [address] Carlitos Ovalles M.D. [employer] Firer/Fireman PLATELETS (10*3/UL) BY AUTOMATED COUNT 278 K/uL Normal 140-400 [facility] Comment on above: Performed By: #### L [id number] #### [address] [address] Carlitos Ovalles M.D. [employer] Firer/Fireman RBC (Bld) [#/Vol] 4.93 10*6/uL Normal 3.95-5.26 [facility] Comment on above: Performed By: #### L [id number] #### [address] [address] Carlitos Ovalles M.D. [employer] Firer/Fireman WBC (Bld) [#/Vol] 14.1 10*3/uL High 3.5-10.9 [facility] Comment on above: Performed By: #### L [id number] #### [address] [address] Carlitos Ovalles M.D. [employer] Firer/Fireman Basophils (Bld) [#/Vol] 0.1 10*3/uL 0.0 - 0.3 K/uL [facility] Basophils/100 WBC (Bld) 0.7 % 0.0 - 2.0 % [facility] Eosinophils (Bld) [#/Vol] 0.2 10*3/uL 0.0 - 0.5 K/uL [facility] Eosinophils/100 WBC (Bld) 1.4 % 0.0 - 5.0 % [facility] Erythrocyte distribution width (RBC) [Ratio] 12.8 % <=15.0 [facility] Hematocrit (Bld) [Volume fraction] 40.0 % 34.0 - 49.0 % [facility] Hemoglobin (Bld) [Mass/Vol] 13.3 g/dL 11.2 - 15.7 g/dL [facility] Immature granulocytes (Bld) [#/Vol] 0.1 10*3/uL 0.0 - 0.1 K/uL [facility] Immature granulocytes/100 WBC (Bld) 0.4 % <1.[address] [facility] Interpretation and review of laboratory results Abnormal [facility] Lymphocytes (Bld) [#/Vol] 3.5 10*3/uL 0.9 - 4.1 K/uL [facility] Lymphocytes/100 WBC (Bld) 24.5 % 14.0 - 51.0 % [facility] MCH (RBC) [Entitic mass] 27.0 pg 26.0 - 34.[address] [facility] MCHC (RBC) [Mass/Vol] 33.3 g/dL 30.7 - 35.5 g/dL [facility] MCV (RBC) [Entitic vol] 81.1 fL 80.0 - 100.[address] [facility] Monocytes (Bld) [#/Vol] 0.9 10*3/uL 0.2 - 1.0 K/uL [facility] Monocytes/100 WBC (Bld) 6.6 % 4.0 - 12.0 % [facility] Neutrophils (Bld) [#/Vol] 9.4 10*3/uL High 1.8 - 7.5 K/uL [facility] Neutrophils/100 WBC (Bld) 66.4 % 42.0 - 80.0 % [facility] Nucleated cells (Bld) [#/Vol] 0 <=0 /[address] [facility] Platelet mean volume (Bld) [Entitic vol] 9.7 fL 7.2 - 11.[address] [facility] Platelets (Bld) [#/Vol] 278 10*3/uL 140 - 400 K/uL [facility] RBC (Bld) [#/Vol] 4.93 10*6/uL [facility] WBC corrected for nucl RBC Auto (Bld) [#/Vol] 14.1 K/uL High 3.5 - 10.9 K/uL [facility] D-DIMERon 01-19-2022 COMMENT The D-Dimer test may be used to exclude an acute PE or DVT. In patients with a low to moderate clinical pre-test probability and a D-Dimer result < 0.50 ug/mL FEU, the likelihood of a PE or DVT is very low. However, a thromboembolic event should not be excluded solely on the basis of the D-Dimer level. Increased levels of D-Dimer are associated with a PE, DVT, DIC, malignancies, inflammation, sepsis, surgery, trauma, and . Normal [facility] Comment on above: Performed By: #### L [id number] #### [address] [address] Carlitos Ovalles M.D. [employer] Firer/Fireman D-DIMER (3) <= Normal <0.50 [facility] Comment on above: Performed By: #### L [id number] #### [address] [address] Carlitos Ovalles M.D. [employer] Firer/Fireman TO SCAN RESULT USE SCAN ICON Normal [facility] Comment on above: Performed By: #### L [id number] #### [address] [address] Carlitos Ovalles M.D. [employer] Firer/Fireman D-Dimer Quantitative <=0.27 <0.50 u g/mL [facility]U [facility] Result [facility] The D-Dimer test may be used to exclude an acute PE or DVT. In patients with a low to moderate clinical pre-test probability and a D-Dimer result < 0.50 ug/mL FEU, the likelihood of a PE or DVT is very low. However, a thromboembolic event should not be excluded solely on the basis of the D-Dimer level. Increased levels of D-Dimer are associated with a PE, DVT, DIC, malignancies, inflammation, sepsis, surgery, trauma, and . [facility] SCREEN, URINEon Beta HCG ( test) Ql (U) Negative Normal Negative [facility] Comment on above: Performed By: #### L [id number] #### [address] [address] Carlitos Ovalles M.D. [employer] Firer/Fireman COMMENT Dilute urine specime ns as indicated by a low specific gravity (<1.010) may not contain passenger service representative levels of HCG. If is still suspected, a serum test or repeat urine test using first morning urine specimen should be considered. Normal [facility] Comment on above: Performed By: #### L [id number] #### [address] [address] Carlitos Ovalles M.D. [employer] Firer/Fireman SCREEN, URINEOrder ed By: Becca Cesar on 01-19-2022 Beta HCG ( test) Ql (U) Negative Negative [facility] Beta HCG ( test) Ql (U) Dilute urine specimens as indicated by a low specific gravity (<1.010) may not contain passenger service representative levels of HCG. If is still suspected, a serum test or repeat urine test using first morning urine specimen should be considered. [facility] Interpretation and review of laboratory results Normal [facility] TROPONIN T (BASELINE)on 01-04 COMMENT Patients who present with symptoms suggestive of acute coronary syndrome should have Gen 5 Troponin T assay (high sensitivity Troponin T Assay) interpreted in conjunction with clinical presentation, signs and symptoms, risk stratification with HEART score, ECG testing, imaging, etc. Baseline and serial troponin testing (when clinically indicated), to assess for significant delta (rise and/or fall), will assist the clinician in differentiating between ischemic and non-ischemic causes of myocardial injury. [facility] Comment on above: Performed By: #### L [id number] #### [address] [address] Carlitos Ovalles M.D. [employer] Firer/Fireman TROPONIN BASELINE < Normal <=14 [facility] Comment on above: Performed By: #### L [id number] #### [address] [address] Carlitos Ovalles M.D. [employer] Firer/Fireman Interpretation and review of laboratory results Normal [facility] Troponin T.cardiac High sensitivity method [Mass/Vol] <6 <=14 ng/L [facility] Patients who present with symptoms suggestive of acute coronary syndrome should have Gen 5 Troponin T assay (high sensitivity Troponin T Assay) interpreted in conjunction with clinical presentation, signs and symptoms, risk stratification with HEART score, ECG testing, imaging, etc. Baseline and serial troponin testing (when clinically indicated), to assess for significant delta (rise and/or fall), will assist the clinician in differentiating between ischemic and non-ischemic causes of myocardial injury. [employer] XR CHEST PA OR AP 1 VIEW (PO RTABLE)on 01-19-2022 XR CHEST PA OR AP 1 VIEW (PORTABLE) XR CHEST PA OR AP 1 VIEW (PORTABLE) 4:48 PM HISTORY: ANXIETY, SHORTNESS OF BREATH, . TECHNIQUE: Single AP/PA projection of the chest. Limited assessment of the lung bases, as well as the retrocardiac space due to single projection. FINDINGS: The cardiac shadow is unremarkable with no obvious signs of cardiomegaly. The visualized lung marquez are clear radiographically. There are no obvious signs of lung infiltrates or concerning lung opacities. No signs of significant pleural effusion. IMPRESSION: No obvious active chest disease radiographically. Dictated by Neftali Means MDWorkstation ID:[id number] Pt c/o of anxiety and sob. Pt reports she was working and felt like she could not take a deep breath and then felt anxious. Pt very tearful in triage. Reports she has had this in the past. Normal [facility] MRI KNEE WO IVCON RTon 06-09 MRI KNEE WO IVCON RT * * *Final Report* * * DATE OF EXAM: Jun 09 2021 7:33PM LDM 0213 - MRI KNEE WO IVCON RT / PROCEDURE REASON: Sprain S83.91XA, S76.911A * * * * Physician Interpretation * * * * EXAM TITLE: MRI KNEE WO IVCON RT DATE:06/09/2021 COMPARISON: None. CLINICAL INDICATION/HISTORY: Right knee pain TECHNIQUE: MRI of the knee performed as per routine protocol. FINDINGS: There is a normal appearance of the menisci. The collateral and cruciate ligaments are normal as are the quadriceps and patellar tendons. No acute bony abnormality is identified. The articular cartilage is maintained. No sizable joint effusion. IMPRESSION: Normal MRI of the knee. Signal Apprentice: MIMI Transcribe Date/Time: Jun 10 2021 8:55A Dictated by : MILLICENT ALLISON MD This examination was interpreted and the report reviewed and electronically signed by: MILLICENT ALLISON MD on Jun 10 2021 9:01AM EST [id number] Normal [facility] KNEE COMP 4 OR MORE VWS RTon 06-01-2021 KNEE COMP 4 OR MORE VWS RT KNEE COMP 4 OR MORE VWS RT Ordering Physician: Addison Man 06/01/2021 11:13 AM RIGHT KNEE Clinical Statement: Injury, right knee pain medially FINDINGS: Five images of the right knee were obtained. There were no prior studies available for comparison. The osseous structures are intact. No fractures are seen. The joint spaces are maintained. There is no joint effusion. IMPRESSION: No acute abnormalities. ---- Electronic Signature on File ---- Signed By: Everardo Clark MD FACR [email or web address] Dictated: 06/01/2021 11:51 AM Signed: 06/01/2021 11:52 AM Reported By: EVERARDO CLARK M.D. Signed By: EVERARDO CLARK M.D. [facility] Culture, urine Bacteria identified Cx Nom (U) Presumptive Lactobacillus sp. [facility] Work Phone: Vital Signs Date Time Vital Sign Value Performing Clinician Faci lity 04-25-2025 09:27-0400 Body height 175.26 cm Soco Frazier BRUSH HOLDER INSPECTOR-C Work Phone: [facility] 04-25-2025 09:23-0400 Body mass index (BMI) [Ratio] 31 kg/m2 Soco Frazier NP-C Work Phone: [facility] 04-25-2025 09:23-0400 Body weight 95.42 kg Soco Frazier NP-C Work Phone: [facility] 04-25-2025 09:23-0400 Diastolic blood pressure 77 mm[Hg] Soco Frazier BRUSH HOLDER INSPECTOR-C Work Phone: [facility] 04-25-2025 09:23-0400 Systolic blood pressure 115 mm[Hg] Soco Frazier BRUSH HOLDER INSPECTOR-C Work Phone: [facility] 03-18-2025 09:27-0400 Body height 175.26 cm Soco Frazier BRUSH HOLDER INSPECTOR-C Work Phone: [facility] 03-18-2025 09:27-0400 Body mass index (BMI) [Ratio] 31.3 kg/m2 Soco Ibarramer BRUSH HOLDER INSPECTOR-C Work Phone: [facility] 03-18-2025 09:27-0400 Body weight 96.16 kg Soco Frazier BRUSH HOLDER INSPECTOR-C Work Phone: [facility] 03-18-2025 09:27-0400 Diastolic blood pressure 82 mm[Hg] Soco Ibarramer BRUSH HOLDER INSPECTOR-C Work Phone: [facility] 03-18-2025 09:27-0400 Systolic blood pressure 120 mm[Hg] Soco Frazier BRUSH HOLDER INSPECTOR-C Work Phone: [facility] 11-01-2024 04:27-0500 Body temperature 98 [degF] Socogiselle Frazier BRUSH HOLDER INSPECTOR-C Work Phone: [facility] 11-01-2024 04:27-0500 Diastolic blood pressure 75 mm[Hg] Soco Frazier BRUSH HOLDER INSPECTOR-C Work Phone: [facility] 11-01-2024 04:27-0500 Heart rate 69 /min Soco Frazier BRUSH HOLDER INSPECTOR-C Work Phone: [facility] 11-01-2024 04:27-0500 Respiratory rate 18 /min Soco Fraizer BRUSH HOLDER INSPECTOR-C Work Phone: [facility] 11-01-2024 04:27-0500 SaO2% (BldA) [Mass fraction] 97 % Soco Frazier BRUSH HOLDER INSPECTOR-C Work Phone: [facility] 11-01-2024 04:27-0500 Systolic blood pressure 114 mm[Hg] Soco Frazier BRUSH HOLDER INSPECTOR-C Work Phone: [facility] 11-01-2024 01:47-0500 Body height 175.26 cm Soco Frazier BRUSH HOLDER INSPECTOR-C Work Phone: [facility] 11-01-2024 01:47-0500 Body mass index (BMI) [Ratio] 31.1 kg/m2 Soco Frazier BRUSH HOLDER INSPECTOR-C Work Phone: [facility] 11-01-2024 01:47-0500 Body weight 95.6 kg Soco Karin BRUSH HOLDER INSPECTOR-C Work Phone: [facility] 05-11-2023 13:49-0400 Body height 175.26 cm BRUSH HOLDER INSPECTOR-C Soco Frazier BRUSH HOLDER INSPECTOR Work Phone: [facility] 05-11-2023 13:49-0400 Body mass index (BMI) [Ratio] 32.8 kg/m2 BRUSH HOLDER INSPECTOR-C Soco [place] BRUSH HOLDER INSPECTOR Work Phone: [facility] 05-11-2023 13:49-0400 Body weight 100.75 kg BRUSH HOLDER INSPECTOR-C Soco Frazier BRUSH HOLDER INSPECTOR Work Phone: [facility] 05-11-2023 13:49-0400 Diastolic blood pressure 78 mm[Hg] BRUSH HOLDER INSPECTOR-C Soco Karin BRUSH HOLDER INSPECTOR Work Phone: [facility] 05-11-2023 13:49-0400 Systolic blood pressure 118 mm[Hg] BRUSH HOLDER INSPECTOR-C Soco Karin BRUSH HOLDER INSPECTOR Work Phone: [facility] 04-28-2023 15:00-0400 Body height 175.26 cm BRUSH HOLDER INSPECTOR-C Soco [place] BRUSH HOLDER INSPECTOR Work Phone: [facility] 04-28-2023 15:00-0400 Body mass index (BMI) [Ratio] 34.7 kg/m2 BRUSH HOLDER INSPECTOR-C [place] BRUSH HOLDER INSPECTOR Work Phone: [facility] 04-28-2023 15:00-0400 Body weight 106.7 kg BRUSH HOLDER INSPECTOR-C [place] BRUSH HOLDER INSPECTOR Work Phone: [facility] 04-28-2023 15:00-0400 Diastolic blood pressure 82 mm[Hg] BRUSH HOLDER INSPECTOR-C [place] BRUSH HOLDER INSPECTOR Work Phone: [facility] 04-28-2023 15:00-0400 Systolic blood pressure 132 mm[Hg] BRUSH HOLDER INSPECTOR-C [place] BRUSH HOLDER INSPECTOR Work Phone: [facility] 04-26-2023 10:49-0400 Diastolic blood pressure 68 mm[Hg] BRUSH HOLDER INSPECTOR-C [place] BRUSH HOLDER INSPECTOR Work Phone: [facility] 04-26-2023 10:49-0400 Heart rate 70 /min BRUSH HOLDER INSPECTOR-C [place] BRUSH HOLDER INSPECTOR Work Phone: [facility] 04-26-2023 10:49-0400 Respiratory rate 18 /min BRUSH HOLDER INSPECTOR-C [place] BRUSH HOLDER INSPECTOR Work Phone: [facility] 04-26-2023 10:49-0400 Systolic blood pressure 115 mm[Hg] BRUSH HOLDER INSPECTOR-C [place] BRUSH HOLDER INSPECTOR Work Phone: [facility] 04-26-2023 07:47-0400 Body temperature 97.9 [degF] BRUSH HOLDER INSPECTOR-C [place] BRUSH HOLDER INSPECTOR Work Phone: [facility] 04-26-2023 07:47-0400 SaO2% (BldA) [Mass fraction] 98 % BRUSH HOLDER INSPECTOR-C [place] BRUSH HOLDER INSPECTOR Work Phone: [facility] 04-23-2023 19:30-0400 Body height 175.26 cm BRUSH HOLDER INSPECTOR-C [place] BRUSH HOLDER INSPECTOR Work Phone: [facility] 04-23-2023 19:30-0400 Body mass index (BMI) [Ratio] 36.6 kg/m2 BRUSH HOLDER INSPECTOR-C [place] BRUSH HOLDER INSPECTOR Work Phone: [facility] 04-23-2023 19:30-0400 Body weight 112.49 kg BRUSH HOLDER INSPECTOR-C Soco Frazier BRUSH HOLDER INSPECTOR Work Phone: [facility] 04-21-2023 10:53-0400 Body weight 110.22 kg BRUSH HOLDER INSPECTOR-C Soc[place] Fraz[place] BRUSH HOLDER INSPECTOR Work Phone: [facility] 04-21-2023 10:04-0400 Body mass index (BMI) [Ratio] 31.6 kg/m2 BRUSH HOLDER INSPECTOR-C [place] BRUSH HOLDER INSPECTOR Work Phone: [facility] 04-21-2023 10:04-0400 Diastolic blood pressure 80 mm[Hg] BRUSH HOLDER INSPECTOR-C [place] BRUSH HOLDER INSPECTOR Work Phone: [facility] 04-21-2023 10:04-0400 Systolic blood pressure 143 mm[Hg] BRUSH HOLDER INSPECTOR-C [place] BRUSH HOLDER INSPECTOR Work Phone: [facility] 04-18-2023 09:18-0400 Body mass index (BMI) [Ratio] 35.7 kg/m2 BRUSH HOLDER INSPECTOR-C [place] BRUSH HOLDER INSPECTOR Work Phone: [facility] 04-18-2023 09:18-0400 Body weight 109.88 kg BRUSH HOLDER INSPECTOR-C [place] BRUSH HOLDER INSPECTOR Work Phone: [facility] 04-18-2023 09:18-0400 Diastolic blood pressure 80 mm[Hg] BRUSH HOLDER INSPECTOR-C [place] BRUSH HOLDER INSPECTOR Work Phone: [facility] 04-18-2023 09:18-0400 Systolic blood pressure 124 mm[Hg] BRUSH HOLDER INSPECTOR-C [place] BRUSH HOLDER INSPECTOR Work Phone: [facility] 04-13-2023 13:14-0400 Body mass index (BMI) [Ratio] 35.7 kg/m2 BRUSH HOLDER INSPECTOR-C [place] BRUSH HOLDER INSPECTOR Work Phone: [facility] 04-13-2023 13:14-0400 Body weight 109.76 kg BRUSH HOLDER INSPECTOR-C [place] BRUSH HOLDER INSPECTOR Work Phone: [facility] 04-13-2023 13:14-0400 Diastolic blood pressure 75 mm[Hg] BRUSH HOLDER INSPECTOR-C [place] BRUSH HOLDER INSPECTOR Work Phone: [facility] 04-13-2023 13:14-0400 Systolic blood pressure 113 mm[Hg] BRUSH HOLDER INSPECTOR-C [place] BRUSH HOLDER INSPECTOR Work Phone: [facility] 04-10-2023 10:16-0400 Diastolic blood pressure 72 mm[Hg] BRUSH HOLDER INSPECTOR-C [place] BRUSH HOLDER INSPECTOR Work Phone: [facility] 04-10-2023 10:16-0400 Systolic blood pressure 110 mm[Hg] BRUSH HOLDER INSPECTOR-C Soco Frazier BRUSH HOLDER INSPECTOR Work Phone: [facility] 04-10-2023 09:33-0400 Body height 175.26 cm BRUSH HOLDER INSPECTOR-C [place] BRUSH HOLDER INSPECTOR Work Phone: [facility] 04-06-2023 13:04-0400 Body mass index (BMI) [Ratio] 35.3 kg/m2 BRUSH HOLDER INSPECTOR-C [place] BRUSH HOLDER INSPECTOR Work Phone: [facility] 04-06-2023 13:04-0400 Body weight 108.46 kg BRUSH HOLDER INSPECTOR-C [place] BRUSH HOLDER INSPECTOR Work Phone: [facility] 04-06-2023 13:04-0400 Diastolic blood pressure 78 mm[Hg] BRUSH HOLDER INSPECTOR-C Soco [place]ier BRUSH HOLDER INSPECTOR Work Phone: [facility] 04-06-2023 13:04-0400 Systolic blood pressure 124 mm[Hg] BRUSH HOLDER INSPECTOR-C [place] BRUSH HOLDER INSPECTOR Work Phone: [facility] 04-03-2023 09:08-0400 Body temperature 98.1 [degF] BRUSH HOLDER INSPECTOR-C Soco [place] BRUSH HOLDER INSPECTOR Work Phone: [facility] 04-03-2023 09:08-0400 Diastolic blood pressure 59 mm[Hg] BRUSH HOLDER INSPECTOR-C Soco [place]ier BRUSH HOLDER INSPECTOR Work Phone: [facility] 04-03-2023 09:08-0400 Heart rate 75 /min BRUSH HOLDER INSPECTOR-C [place] BRUSH HOLDER INSPECTOR Work Phone: [facility] 04-03-2023 09:08-0400 SaO2% (BldA) [Mass fraction] 98 % BRUSH HOLDER INSPECTOR-C [place] BRUSH HOLDER INSPECTOR Work Phone: [facility] 04-03-2023 09:08-0400 Systolic blood pressure 106 mm[Hg] BRUSH HOLDER INSPECTOR-C [place]o [place] BRUSH HOLDER INSPECTOR Work Phone: [facility] 04-03-2023 09:05-0400 Body height 175.26 cm BRUSH HOLDER INSPECTOR-C [place] BRUSH HOLDER INSPECTOR Work Phone: [facility] 04-03-2023 09:05-0400 Body mass index (BMI) [Ratio] 35.3 kg/m2 BRUSH HOLDER INSPECTOR-C [place] BRUSH HOLDER INSPECTOR Work Phone: [facility] 04-03-2023 09:05-0400 Body weight 108.52 kg BRUSH HOLDER INSPECTOR-C [place] BRUSH HOLDER INSPECTOR Work Phone: [facility] 04-01-2023 09:21-0400 Body temperature 97.7 [degF] BRUSH HOLDER INSPECTOR-C [place] BRUSH HOLDER INSPECTOR Work Phone: [facility] 04-01-2023 09:21-0400 Diastolic blood pressure 71 mm[Hg] BRUSH HOLDER INSPECTOR-C [place] BRUSH HOLDER INSPECTOR Work Phone: [facility] 04-01-2023 09:21-0400 Heart rate 85 /min BRUSH HOLDER INSPECTOR-C [place] BRUSH HOLDER INSPECTOR Work Phone: [facility] 04-01-2023 09:21-0400 SaO2% (BldA) [Mass fraction] 97 % BRUSH HOLDER INSPECTOR-C [place] BRUSH HOLDER INSPECTOR Work Phone: [facility] 04-01-2023 09:21-0400 Systolic blood pressure 122 mm[Hg] BRUSH HOLDER INSPECTOR-C [place] BRUSH HOLDER INSPECTOR Work Phone: [facility] 04-01-2023 09:18-0400 Body mass index (BMI) [Ratio] 35.2 kg/m2 BRUSH HOLDER INSPECTOR-C [place] BRUSH HOLDER INSPECTOR Work Phone: [facility] 04-01-2023 09:18-0400 Body weight 108 kg BRUSH HOLDER INSPECTOR-C [place] BRUSH HOLDER INSPECTOR Work Phone: [facility] 03-28-2023 15:38-0400 Diastolic blood pressure 76 mm[Hg] BRUSH HOLDER INSPECTOR-C Soco [place] BRUSH HOLDER INSPECTOR Work Phone: [facility] 03-28-2023 15:38-0400 Systolic blood pressure 111 mm[Hg] BRUSH HOLDER INSPECTOR-C [place] BRUSH HOLDER INSPECTOR Work Phone: [facility] 03-28-2023 15:00-0400 Body mass index (BMI) [Ratio] 35.4 kg/m2 BRUSH HOLDER INSPECTOR-C [place] BRUSH HOLDER INSPECTOR Work Phone: [facility] 03-28-2023 15:00-0400 Body weight 108.63 kg BRUSH HOLDER INSPECTOR-C [place] BRUSH HOLDER INSPECTOR Work Phone: [facility] 03-24-2023 14:37-0400 Body mass index (BMI) [Ratio] 35.3 kg/m2 BRUSH HOLDER INSPECTOR-C [place] BRUSH HOLDER INSPECTOR Work Phone: [facility] 03-24-2023 14:37-0400 Body weight 108.52 kg BRUSH HOLDER INSPECTOR-C [place] BRUSH HOLDER INSPECTOR Work Phone: [facility] 03-24-2023 14:37-0400 Diastolic blood pressure 81 mm[Hg] BRUSH HOLDER INSPECTOR-C [place] BRUSH HOLDER INSPECTOR Work Phone: [facility] 03-24-2023 14:37-0400 Systolic blood pressure 129 mm[Hg] BRUSH HOLDER INSPECTOR-C [place] BRUSH HOLDER INSPECTOR Work Phone: [facility] 03-22-2023 10:25-0400 Body weight 108.5 kg BRUSH HOLDER INSPECTOR-C [place] BRUSH HOLDER INSPECTOR Work Phone: [facility] 03-22-2023 09:03-0400 Diastolic blood pressure 83 mm[Hg] BRUSH HOLDER INSPECTOR-C [place] BRUSH HOLDER INSPECTOR Work Phone: [facility] 03-22-2023 09:03-0400 Systolic blood pressure 122 mm[Hg] BRUSH HOLDER INSPECTOR-C [place] BRUSH HOLDER INSPECTOR Work Phone: [facility] 03-22-2023 09:01-0400 Body mass index (BMI) [Ratio] 35.6 kg/m2 BRUSH HOLDER INSPECTOR-C [place] BRUSH HOLDER INSPECTOR Work Phone: [facility] 03-22-2023 09:01-0400 Body weight 109.37 kg BRUSH HOLDER INSPECTOR-C [place] BRUSH HOLDER INSPECTOR Work Phone: [facility] 03-15-2023 09:34-0400 Body mass index (BMI) [Ratio] 34.9 kg/m2 BRUSH HOLDER INSPECTOR-C [place] BRUSH HOLDER INSPECTOR Work Phone: [facility] 03-15-2023 09:34-0400 Body weight 107.16 kg BRUSH HOLDER INSPECTOR-C [place] BRUSH HOLDER INSPECTOR Work Phone: [facility] 03-15-2023 09:34-0400 Diastolic blood pressure 71 mm[Hg] BRUSH HOLDER INSPECTOR-C [place] BRUSH HOLDER INSPECTOR Work Phone: [facility] 03-15-2023 09:34-0400 Systolic blood pressure 108 mm[Hg] BRUSH HOLDER INSPECTOR-C [place] BRUSH HOLDER INSPECTOR Work Phone: [facility] 03-14-2023 22:23-0400 Diastolic blood pressure 74 mm[Hg] BRUSH HOLDER INSPECTOR-C [place] BRUSH HOLDER INSPECTOR Work Phone: [facility] 03-14-2023 22:23-0400 Heart rate 84 /min BRUSH HOLDER INSPECTOR-C [place] BRUSH HOLDER INSPECTOR Work Phone: [facility] 03-14-2023 22:23-0400 Systolic blood pressure 119 mm[Hg] BRUSH HOLDER INSPECTOR-C [place] BRUSH HOLDER INSPECTOR Work Phone: [facility] 03-14-2023 21:17-0400 Body height 175.26 cm BRUSH HOLDER INSPECTOR-C [place] BRUSH HOLDER INSPECTOR Work Phone: [facility] 03-14-2023 21:17-0400 Body mass index (BMI) [Ratio] 35.4 kg/m2 BRUSH HOLDER INSPECTOR-C [place] BRUSH HOLDER INSPECTOR Work Phone: [facility] 03-14-2023 21:17-0400 Body weight 108.86 kg BRUSH HOLDER INSPECTOR-C [place] BRUSH HOLDER INSPECTOR Work Phone: [facility] 03-14-2023 21:09-0400 Body temperature 97.5 [degF] BRUSH HOLDER INSPECTOR-C [place] BRUSH HOLDER INSPECTOR Work Phone: [facility] 03-14-2023 21:09-0400 SaO2% (BldA) [Mass fraction] 98 % BRUSH HOLDER INSPECTOR-C Soco [place]ier BRUSH HOLDER INSPECTOR Work Phone: [facility] 03-08-2023 08:34-0400 Body mass index (BMI) [Ratio] 35.3 kg/m2 BRUSH HOLDER INSPECTOR-C [place]o [place] BRUSH HOLDER INSPECTOR Work Phone: [facility] 03-08-2023 08:34-0400 Body weight 108.46 kg BRUSH HOLDER INSPECTOR-C Soco Frazier BRUSH HOLDER INSPECTOR Work Phone: [facility] 03-08-2023 08:34-0400 Diastolic blood pressure 68 mm[Hg] BRUSH HOLDER INSPECTOR-C Soco [place] BRUSH HOLDER INSPECTOR Work Phone: [facility] 03-08-2023 08:34-0400 Systolic blood pressure 103 mm[Hg] BRUSH HOLDER INSPECTOR-C Soco [place]ier BRUSH HOLDER INSPECTOR Work Phone: [facility] 02-23-2023 09:42-0400 Body height 175.26 cm BRUSH HOLDER INSPECTOR-C Soco [place] BRUSH HOLDER INSPECTOR Work Phone: [facility] 02-23-2023 09:41-0400 Body mass index (BMI) [Ratio] 34.6 kg/m2 BRUSH HOLDER INSPECTOR-C [place] BRUSH HOLDER INSPECTOR Work Phone: [facility] 02-23-2023 09:41-0400 Body weight 106.36 kg BRUSH HOLDER INSPECTOR-C [place]o [place] BRUSH HOLDER INSPECTOR Work Phone: [facility] 02-23-2023 09:41-0400 Diastolic blood pressure 73 mm[Hg] BRUSH HOLDER INSPECTOR-C Soco [place]ier BRUSH HOLDER INSPECTOR Work Phone: [facility] 02-23-2023 09:41-0400 Systolic blood pressure 119 mm[Hg] BRUSH HOLDER INSPECTOR-C Soco [place]ier BRUSH HOLDER INSPECTOR Work Phone: [facility] 02-03-2023 11:03-0400 Body mass index (BMI) [Ratio] 34.3 kg/m2 BRUSH HOLDER INSPECTOR-C [place] BRUSH HOLDER INSPECTOR Work Phone: [facility] 02-03-2023 11:03-0400 Body weight 105.4 kg BRUSH HOLDER INSPECTOR-C [place] BRUSH HOLDER INSPECTOR Work Phone: [facility] 02-03-2023 11:03-0400 Diastolic blood pressure 82 mm[Hg] BRUSH HOLDER INSPECTOR-C [place] BRUSH HOLDER INSPECTOR Work Phone: [facility] 02-03-2023 11:03-0400 Systolic blood pressure 120 mm[Hg] BRUSH HOLDER INSPECTOR-C [place] BRUSH HOLDER INSPECTOR Work Phone: [facility] 01-06-2023 10:53-0500 Body mass index (BMI) [Ratio] 32.8 kg/m2 BRUSH HOLDER INSPECTOR-C [place] BRUSH HOLDER INSPECTOR Work Phone: [facility] 01-06-2023 10:53-0500 Body weight 100.81 kg BRUSH HOLDER INSPECTOR-C [place] BRUSH HOLDER INSPECTOR Work Phone: [facility] 01-06-2023 10:53-0500 Diastolic blood pressure 71 mm[Hg] BRUSH HOLDER INSPECTOR-C [place] BRUSH HOLDER INSPECTOR Work Phone: [facility] 01-06-2023 10:53-0500 Systolic blood pressure 107 mm[Hg] BRUSH HOLDER INSPECTOR-C [place] BRUSH HOLDER INSPECTOR Work Phone: [facility] 12-06-2022 09:16-0500 Body height 175.26 cm BRUSH HOLDER INSPECTOR-C [place] BRUSH HOLDER INSPECTOR Work Phone: [facility] 12-06-2022 09:11-0500 Body mass index (BMI) [Ratio] 31.5 kg/m2 BRUSH HOLDER INSPECTOR-C [place] BRUSH HOLDER INSPECTOR Work Phone: [facility] 12-06-2022 09:11-0500 Body weight 96.84 kg BRUSH HOLDER INSPECTOR-C [place] BRUSH HOLDER INSPECTOR Work Phone: [facility] 12-06-2022 09:11-0500 Diastolic blood pressure 74 mm[Hg] BRUSH HOLDER INSPECTOR-C [place] BRUSH HOLDER INSPECTOR Work Phone: [facility] 12-06-2022 09:11-0500 Systolic blood pressure 110 mm[Hg] BRUSH HOLDER INSPECTOR-C [place] BRUSH HOLDER INSPECTOR Work Phone: [facility] 11-11-2022 10:12-0500 Body mass index (BMI) [Ratio] 32 kg/m2 BRUSH HOLDER INSPECTOR-C [place] BRUSH HOLDER INSPECTOR Work Phone: [facility] 11-11-2022 10:12-0500 Body weight 98.42 kg BRUSH HOLDER INSPECTOR-C [place] BRUSH HOLDER INSPECTOR Work Phone: [facility] 11-11-2022 10:12-0500 Diastolic blood pressure 74 mm[Hg] BRUSH HOLDER INSPECTOR-C [place] BRUSH HOLDER INSPECTOR Work Phone: [facility] 11-11-2022 10:12-0500 Systolic blood pressure 123 mm[Hg] BRUSH HOLDER INSPECTOR-C [place] BRUSH HOLDER INSPECTOR Work Phone: [facility] 10-07-2022 15:19-0500 Body height 175.26 cm BRUSH HOLDER INSPECTOR-C [place]o [place] BRUSH HOLDER INSPECTOR Work Phone: [facility] Work Phone: 10-07-2022 15:12-0500 Body mass index (BMI) [Ratio] 31.7 kg/m2 BRUSH HOLDER INSPECTOR-C [place] BRUSH HOLDER INSPECTOR Work Phone: [facility] 10-07-2022 15:12-0500 Body weight 97.52 kg BRUSH HOLDER INSPECTOR-C [place] BRUSH HOLDER INSPECTOR Work Phone: [facility] 10-07-2022 15:12-0500 Diastolic blood pressure 83 mm[Hg] BRUSH HOLDER INSPECTOR-C [place] BRUSH HOLDER INSPECTOR Work Phone: [facility] 10-07-2022 15:12-0500 Systolic blood pressure 129 mm[Hg] BRUSH HOLDER INSPECTOR-C [place] BRUSH HOLDER INSPECTOR Work Phone: [facility] 03-16-2022 17:21-0400 Heart rate 83 /min Nicky Verbillion DO Work Phone: [facility] 01-19-2022 17:21-0400 SaO2% (BldA) [Mass fraction] 94 % Nicky Verbillion DO Work Phone: [facility] 01-19-2022 16:31-0400 Diastolic blood pressure 90 mm[Hg] Nicky Verbillion DO Work Phone: [facility] 01-19-2022 16:31-0400 Systolic blood pressure 153 mm[Hg] Nicky Verbillion DO Work Phone: [facility] 01-19-2022 16:05-0400 Body height 174 cm Nicky Verbillion DO Work Phone: [facility] 01-19-2022 16:05-0400 Body mass index (BMI) [Ratio] 29.96 kg/m2 Nicky Verbillion DO Work Phone: [facility] 01-19-2022 16:05-0400 Body temperature 98.6 [degF] Nicky Verbillion DO Work Phone: [facility] 01-19-2022 16:05-0400 Body weight 90.72 kg Nicky Verbillion DO Work Phone: [facility] 01-19-2022 16:05-0400 Respiratory rate 20 /min Nicky Verbillion DO Work Phone: [facility] Encounters Encounter Date Encounter Type Care Provider Facility Start: 08-26-2025 ambulatory Sanam Tovar Facility :[facility] Start: 04-25-2025 End: 04-25-2025 ambulatory Soco Frazier BRUSH HOLDER INSPECTORSonjaC Work Phone: -Lab [facility] Start: 04-25-2025 End: 04-25-2025 Patient encounter procedure Sanam Tovar [facility] -Lab [facility] Start: 04-25-2025 End: 04-25-2025 Patient encounter procedure Sanam Tovar CN -[facility] Work Phone: Start: 04-25-2025 End: 04-25-2025 ambulatory Soco Frazier BRUSH HOLDER INSPECTOR-C Work Phone: [facility] Work Phone: Start: 04-25-2025 End: 04-25-2025 ambulatory Sanam Tovar Facility:[facility] Start: 03-26-2025 End: 03-26-2025 ambulatory Soco Frazier BRUSH HOLDER INSPECTOR-C Work Phone: [facility] Work Phone: Start: 03-26-2025 End: 03-26-2025 Patient encounter procedure Sanam Tovar [facility] Work Phone: Start: 03-26-2025 End: 03-26-2025 ambulatory Sanam Tovar Facility:[facility] Start: 03-18-2025 End: 03-18-2025 ambulatory Soco Frazier BRUSH HOLDER INSPECTOR-C Work Phone: [facility] Work Phone: Start: 03-18-2025 End: 03-18-2025 Patient encounter procedure Sanam Tovar CN[facility] -Laboratory Specimen Work Phone: Start: 03-18-2025 Encounter for gynecological examination (general) (routine) without abnormal findings Sanam Tovar [facility] Start: 03-18-2025 End: 03-18-2025 Patient encounter procedure Sanam Tovar CNM -[facility] Work Phone: Start: 03-18-2025 End: 03-18-2025 Patient encounter status Sanam Tovar CNM [facility] Start: 03-18-2025 End: 03-18-2025 ambulatory Soco Frazier BRUSH HOLDER INSPECTOR-C Work Phone: [facility] Work Phone: Start: 03-18-2025 End: 03-18-2025 ambulatory Sanam Tovar Facility:[facility] Start: 01-30-2025 End: 01-30-2025 ambulatory Soco Frazier BRUSH HOLDER INSPECTOR-C Work Phone: [facility] Work Phone: Start: 01-30-2025 End: 01-30-[address] Fay Hebert MD -Ultrasound, [facility] Work Phone: Start: 01-30-2025 End: 01-30-2025 ambulatory Soco Frazier NP Facility:[facility] Start: 12-16-2024 End: 12-16-2024 ambulatory SOCO FRAZIER CARDIOVASCULAR LAB DIRECTOR-ASSOCIATE PROFESSOR OF HISTORY Facility:[facility] Start: 12-16-2024 End: 12-16-2024 Patient encounter procedure FAY HEBERT MD [facility] Start: 11-01-2024 End: 11-01-2024 Emergency department patient visit Dr. 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) Start: 08-21-2024 ambulatory Soco Frazier NP Facil ity:[facility] Start: 06-06-2024 End: 06-10-2024 ambulatory SOCO FRAZIER CARDIOVASCULAR LAB DIRECTOR-ASSOCIATE PROFESSOR OF HISTORY Facility:[facility] Start: 06-06-2024 End: 06-10-2024 Outreach Lab SOCO FRAZIER CARDIOVASCULAR LAB DIRECTOR-ASSOCIATE PROFESSOR OF HISTORY [facility] Start: 02-23-2024 End: 02-23-2024 ambulatory FAY HEBERT MD Facility:[facility] Start: 02-23-2024 End: 02-23-2024 Patient encounter procedure FAY HEBERT MD [facility] Start: 12-20-2023 End: 02-14-2024 ambulatory FAY HEBERT MD Facility:[facility] Start: 10-18-2023 End: 10-18-2023 ambulatory SOCO Levi KARIN CARDIOVASCULAR LAB DIRECTOR-ASSOCIATE PROFESSOR OF HISTORY Facility:[facility] Start: 10-18-2023 End: 10-18-2023 Patient encounter procedure SOCO S KARIN CARDIOVASCULAR LAB DIRECTOR-ASSOCIATE PROFESSOR OF HISTORY [facility] Start: 05-11-2023 End: 05-11-2023 Patient encounter procedure BRUSH HOLDER INSPECTOR-C Soco Frazier BRUSH HOLDER INSPECTOR Work Phone: [facility] Work Phone: Start: 04-28-2023 End: 04-28-2023 ambulatory BRUSH HOLDER INSPECTOR-C Soco Frazier BRUSH HOLDER INSPECTOR Work Phone: [facility] Work Phone: Start: 04-28-2023 End: 04-28-2023 Patient encounter procedure BRUSH HOLDER INSPECTOR-C Soco Frazier BRUSH HOLDER INSPECTOR Work Phone: [facility] Start: 04-28-2023 End: 04-28-2023 Patient encounter procedure BRUSH HOLDER INSPECTOR-C Soco Frazier BRUSH HOLDER INSPECTOR Work Phone: [facility] Start: 04-27-2023 Non-patient / Non-visit BRUSH HOLDER INSPECTOR-C Ciro Frazier BRUSH HOLDER INSPECTOR Work Phone: [facility] Start: 04-26-2023 Non-patient / Non-visit BRUSH HOLDER INSPECTOR-C Ciro Frazier BRUSH HOLDER INSPECTOR Work Phone: [facility] Start: 04-25-2023 Non-patient / Non-visit BRUSH HOLDER INSPECTOR-C Ciro Frazier BRUSH HOLDER INSPECTOR Work Phone: [facility] Start: 04-24-2023 Non-patient / Non-visit BRUSH HOLDER INSPECTOR-C Ciro Frazier BRUSH HOLDER INSPECTOR Work Phone: [facility] Start: 04-23-2023 End: 06-21-2023 Evaluation and management of inpatient BRUSH HOLDER INSPECTOR-C Soco Frazier BRUSH HOLDER INSPECTOR Work Phone: [facility] Start: 04-21-2023 End: 04-21-2023 ambulatory BRUSH HOLDER INSPECTOR-C Soco Frazier BRUSH HOLDER INSPECTOR Work Phone: [facility] Work Phone: Start: 04-21-2023 End: 04-21-2023 Patient encounter procedure BRUSH HOLDER INSPECTOR-C Soco Frazier BRUSH HOLDER INSPECTOR Work Phone: [facility] Start: 04-18-2023 End: 04-18-2023 Patient encounter procedure BRUSH HOLDER INSPECTOR-C Soco Frazier BRUSH HOLDER INSPECTOR Work Phone: [facility] Start: 04-17-2023 Registered Recurring BRUSH HOLDER INSPECTOR-C Betsy Frazier BRUSH HOLDER INSPECTOR Work Phone: [facility] Start: 04-13-2023 End: 04-13-2023 Patient encounter procedure BRUSH HOLDER INSPECTOR-C Soco Frazier BRUSH HOLDER INSPECTOR Work Phone: [facility] Start: 04-10-2023 End: 04-10-2023 Patient encounter procedure BRUSH HOLDER INSPECTOR-C Soco Frazier BRUSH HOLDER INSPECTOR Work Phone: [facility] Start: 04-06-2023 End: 04-06-2023 ambulatory BRUSH HOLDER INSPECTOR-C Soco Frazier BRUSH HOLDER INSPECTOR Work Phone: [facility] Work Phone: Start: 04-06-2023 End: 04-06-2023 Patient encounter procedure BRUSH HOLDER INSPECTOR-C Soco Frazier BRUSH HOLDER INSPECTOR Work Phone: [facility] Start: 04-03-2023 Non-patient / Non-visit BRUSH HOLDER INSPECTOR-C Ciro Fraizer BRUSH HOLDER INSPECTOR Work Phone: [facility] Start: 04-03-2023 End: 04-03-2023 ambulatory BRUSH HOLDER INSPECTOR-C Soco Frazier BRUSH HOLDER INSPECTOR Work Phone: [facility] Work Phone: Start: 04-03-2023 End: 04-03-2023 Patient encounter procedure BRUSH HOLDER INSPECTOR-C Soco Frazier BRUSH HOLDER INSPECTOR Work Phone: [facility] Start: 04-01-2023 Non-patient / Non-visit BRUSH HOLDER INSPECTOR-C Ciro Frazier BRUSH HOLDER INSPECTOR Work Phone: [facility] Start: 04-01-2023 End: 04-01-2023 Patient encounter procedure BRUSH HOLDER INSPECTOR-C Soco Frazier BRUSH HOLDER INSPECTOR Work Phone: [facility] Outpatients Start: 03-28-2023 End: 03-28-2023 ambulatory BRUSH HOLDER INSPECTOR-C Soco Frazier BRUSH HOLDER INSPECTOR Work Phone: [facility] Work Phone: Start: 03-28-2023 End: 03-28-2023 Patient encounter procedure BRUSH HOLDER INSPECTOR-C Soco Frazier BRUSH HOLDER INSPECTOR Work Phone: [facility] Start: 03-24-2023 End: 03-24-2023 ambulatory BRUSH HOLDER INSPECTOR-C Soco Frazier BRUSH HOLDER INSPECTOR Work Phone: [facility] Work Phone: Start: 03-24-2023 End: 03-24-2023 Patient encounter procedure BRUSH HOLDER INSPECTOR-C Soco Frazier BRUSH HOLDER INSPECTOR Work Phone: [facility] Start: 03-24-2023 End: 03-24-2023 Patient encounter procedure BRUSH HOLDER INSPECTOR-C Soco Frazier BRUSH HOLDER INSPECTOR Work Phone: [facility] [facility] Start: 03-22-2023 Non-patient / Non-visit BRUSH HOLDER INSPECTOR-C Ciro Frazier BRUSH HOLDER INSPECTOR Work Phone: [facility] Start: 03-22-2023 End: 03-22-2023 Patient encounter procedure BRUSH HOLDER INSPECTOR-C Soco Frazier BRUSH HOLDER INSPECTOR [facility] Phone[facility] Start: 03-15-2023 End: 03-15-2023 Patient encounter procedure BRUSH HOLDER INSPECTOR-C Soco Frazier BRUSH HOLDER INSPECTOR Work Phone: [facility] Start: 03-14-2023 Non-patient / Non-visit BRUSH HOLDER INSPECTOR-C Ciro Frazier BRUSH HOLDER INSPECTOR Work Phone: [facility] Start: 03-14-2023 End: 03-14-2023 ambulatory BRUSH HOLDER INSPECTOR-C Soco Frazier BRUSH HOLDER INSPECTOR Work Phone: [facility] Work Phone: Start: 03-14-2023 End: 03-14-2023 Patient encounter procedure BRUSH HOLDER INSPECTOR-C Soco Frazier BRUSH HOLDER INSPECTOR [facility] Phone[facility] Start: 03-08-2023 End: 03-08-2023 Patient encounter procedure BRUSH HOLDER INSPECTOR-C Soco Frazier BRUSH HOLDER INSPECTOR Work Phone: [facility] Start: 02-23-2023 End: 02-23-2023 ambulatory BRUSH HOLDER INSPECTOR-C Soco Frazier BRUSH HOLDER INSPECTOR Work Phone: [facility] Work Phone: Start: 02-23-2023 End: 02-23-2023 Patient encounter procedure BRUSH HOLDER INSPECTOR-C Soco Frazier BRUSH HOLDER INSPECTOR Work Phone: [facility] Start: 02-03-2023 End: 02-03-2023 Patient encounter procedure BRUSH HOLDER INSPECTOR-C Soco Frazier BRUSH HOLDER INSPECTOR Work Phone: [facility] Start: 01-06-2023 End: 01-06-2023 Patient encounter procedure BRUSH HOLDER INSPECTOR-C Soco Frazier BRUSH HOLDER INSPECTOR Work Phone: [facility] Start: 12-06-2022 End: 12-06-2022 Patient encounter procedure BRUSH HOLDER INSPECTOR-C Soco Frazier BRUSH HOLDER INSPECTOR Work Phone: [facility] Start: 12-02-2022 End: 12-02-2022 ambulatory BRUSH HOLDER INSPECTOR-C Soco rFazier BRUSH HOLDER INSPECTOR Work Phone: [facility] Work Phone: Start: 12-02-2022 End: 12-02-2022 Patient encounter procedure BRUSH HOLDER INSPECTOR-C Soco Frazier BRUSH HOLDER INSPECTOR Work Phone: [facility], [facility] Start: 11-11-2022 End: 11-11-2022 Patient encounter procedure BRUSH HOLDER INSPECTOR-C Soco Frazier BRUSH HOLDER INSPECTOR Work Phone: [facility] Start: 10-24-2022 End: 10-24-2022 ambulatory BRUSH HOLDER INSPECTOR-C Soco Frazier BRUSH HOLDER INSPECTOR Work Phone: [facility] Work Phone: Start: 10-24-2022 End: 10-24-2022 Patient encounter procedure BRUSH HOLDER INSPECTOR-C Soco Frazier BRUSH HOLDER INSPECTOR Work Phone: [facility] Start: 10-07-2022 End: 10-07-2022 ambulatory BRUSH HOLDER INSPECTOR-C Soco Frazier BRUSH HOLDER INSPECTOR Work Phone: [facility] Work Phone: Start: 10-07-2022 End: 10-07-2022 Patient encounter procedure BRUSH HOLDER INSPECTOR-C Soco Frazier BRUSH HOLDER INSPECTOR Work Phone: [facility] Specimen Start: 10-07-2022 End: 10-07-2022 Patient encounter procedure BRUSH HOLDER INSPECTOR-C Soco Frazier BRUSH HOLDER INSPECTOR Work Phone: [facility] Start: 2022 End: 2022 ambulatory [facility] Work Phone: Start: 2022 End: 2022 [facility] Start: 03-01-2022 End: 03-01-2022 Patient encounter procedure TESSY BOTELLO CARDIOVASCULAR LAB DIRECTOR-ASSOCIATE PROFESSOR OF HISTORY [facility] Start: 02-22-2022 End: 02-22-2022 Patient encounter procedure SOCO FRAZIER CARDIOVASCULAR LAB DIRECTOR-ASSOCIATE PROFESSOR OF HISTORY [facility] Start: 02-04-2022 End: 02-04-2022 Subsequent hospital visit by physician Chris Correia MD Work Phone (unformatted): [phone] [facility] Start: 01-31-2022 End: 01-31-2022 Patient encounter procedure TESSY BOTELLO CARDIOVASCULAR LAB DIRECTOR-ASSOCIATE PROFESSOR OF HISTORY [facility] Start: 01-19-2022 End: 01-19-2022 Emergency department patient visit Nicky South DO Work Phone: [facility] Start: 11-10-2021 End: 11-10-2021 Patient encounter procedure SOCO FRAZIER CARDIOVASCULAR LAB DIRECTOR-ASSOCIATE PROFESSOR OF HISTORY [facility] Procedures Date Procedure Procedure Detail Performing Clinician Start: 04-25-2025 Gram stain microscopy Ciro Frazier BRUSH HOLDER INSPECTOR-C Work Phone: Start: 04-25-2025 End: 04-25-2025 Source specific culture Soco Frazier N P-C Work Phone: Start: 03-26-2025 Pelvic echography Rosa Frazier BRUSH HOLDER INSPECTOR-C Work Phone: Start: 03-18-2025 Liquid based cervica l cytology screening Soco Frazier BRUSH HOLDER INSPECTOR-C Work Phone: Comment on above: NEGATIVE FOR INTRAEP ITHELIAL LESION OR MALIGNANCY. This liquid based Th inPrep(R) pap test was screened withthe use of an image guided system. The HPV DNA reflex c riteria were not met with this specimenresult therefore, no HPV testing was performed.Performed at: [address], [place], [place] [id number] Director: Yanique Reed MD, Phone: [phone] Start: 03-18-2025 Gram stain microscopy J pau Frazier BRUSH HOLDER INSPECTOR-C Work Phone: Start: 03-18-2025 End: 03-18-2025 Source specific culture Soco Frazier N P-C Work Phone: Start: 01-30-2025 US scan of thyroid Betsy Frazier BRUSH HOLDER INSPECTOR-C Work Phone: Start: 11-01-2024 Computed tomography of abdomen and pelvis with intravenous contrast Soco Frazier BRUSH HOLDER INSPECTOR-C Work Phone: Start: 04-21-2023 Ultrasound scan for growth BRUSH HOLDER INSPECTOR-C Soco Frazier BRUSH HOLDER INSPECTOR Work Phone: Start: 04-18-2023 Group B Streptococcu s Culture BRUSH HOLDER INSPECTOR-C Soco Frazier BRUSH HOLDER INSPECTOR Work Phone: Start: 03-24-2023 Ultrasound scan for growth BRUSH HOLDER INSPECTOR-C Soco Frazier BRUSH HOLDER INSPECTOR Work Phone: Start: 12-02-2022 Ultrasonography for antepartum monitoring of fetus BRUSH HOLDER INSPECTOR-C Soco Frazier BRUSH HOLDER INSPECTOR Work Phone: Start: 2022 CT of chest without contrast Start: 01-19-2022 Ecg routine ecg w/le ast 12 lds w/i&r Nicky B Verbillion DO Work Phone: Start: 01-19-2022 Assay of troponin quantitative Nicky B Verbillion DO Work Phone: Start: 01-19-2022 Basic metabolic 2000 panel - Serum or Plasma Nicky B Verbillion DO Work Phone: Start: 01-19-2022 CBC W Auto Different ial panel - Blood Nicky B Verbillion DO Work Phone: Start: 01-19-2022 COMPLETE BLOOD COUNT WITH DIFFERENTIAL Nicky B Verbillion DO Work Phone: Start: 01-19-2022 Urine test visual color cmprsn caprices Nicky Chilel Verbillion DO Work Phone: Start: 01-19-2022 D-DIMER Paulette Coleman istodebra CARDIOVASCULAR LAB DIRECTOR Work Phone: Bilateral palatine t onsils (body structure) SOCO FRAZIER CARDIOVASCULAR LAB DIRECTOR-ASSOCIATE PROFESSOR OF HISTORY Entire wisdom tooth (body structure) SOCO FRAZIER CARDIOVASCULAR LAB DIRECTOR-ASSOCIATE PROFESSOR OF HISTORY Group B Streptococcu s Culture BRUSH HOLDER INSPECTOR-C Soco Frazier BRUSH HOLDER INSPECTOR Work Phone: Urine culture BRUSH HOLDER INSPECTOR-C Soco mancia BRUSH HOLDER INSPECTOR Work Phone: Urine culture BRUSH HOLDER INSPECTOR-C Soco mancia BRUSH HOLDER INSPECTOR Work Phone: Plan of Treatment Date Care Activity Detail Author Start: 11-01-2024 [facility] Start: 07-07-2024 COVID-19 (2023-12 season) COVID-19 ( season) [facility] Start: 07-07-2024 FLU (#1) FLU (#1) [facility] Start: 04-26-2023 Patient discharge [facility] Start: 04-25-2023 Administration of bl ood product [facility] Start: 04-25-2023 Administration of medication [facility] Start: 04-25-2023 Application of ice c ollar, cap or bag [facility] Start: 04-25-2023 Catheterization of vein [facility] Start: 04-25-2023 Introduction of urin margarita catheter [facility] Start: 04-25-2023 Measuring intake and output [facility] Start: 04-25-2023 Notification of physician [facility] Start: 04-25-2023 Procedure discontinued [facility] Start: 04-25-2023 Provision of activit y privileges [facility] Start: 04-25-2023 Vital signs measurements [facility] Start: 04-25-2023 [facility] Start: 04-23-2023 Admission procedure [facility] Start: 04-23-2023 Verification routine [facility] Start: 04-03-2023 Patient discharge [facility] Start: 04-03-2023 Nonstress test [facility] Start: 04-01-2023 Patient discharge [facility] Start: 04-01-2023 Nonstress test [facility] Start: 03-22-2023 Iv infusion hydratio n initial 31 min-1 hour HYDRATION IV INFUSION INIT [facility] Start: 03-22-2023 Nonstress test [facility] Start: 03-22-2023 Obstetric monitoring [facility] Start: 03-22-2023 Vital signs measurements [facility] Start: 03-22-2023 [facility] Start: 03-14-2023 End: 03-15-2023 [facility] Start: 03-14-2023 Nonstress test [facility] Start: 03-14-2023 Obstetric monitoring [facility] Start: 03-14-2023 Vital signs measurements [facility] Start: 03-14-2023 Patient discharge [facility] Start: 2021 COTEST / HPV COTEST / HPV [facility] Start: 06-06-2021 Influenza vaccination INFLUENZA VACC INE [facility] Start: 06-06-2021 Refusal of treatment by patient INFLUENZA VACCINE [facility] Start: 2017 Microscopic observat ion [Identifier] in Cervix by Cyto stain PAP SMEAR [facility] Start: 2017 Screening for malign ant neoplasm of cervix CERVICAL CANCER SCREENING [facility] Start: 2015 DTaP/Tdap/Td VACCINE S (1 - Tdap) DTaP/Tdap/Td VACCINES (1 - Tdap) [facility] Start: 2015 Hepatitis B (1 of 3 - 19+ 3-dose series) Hepatitis B (1 of 3 - 19+ 3-dose series) [facility] Start: 2014 HEPATITIS C SCREENING HEPATITIS C SC REENING [facility] Start: 2012 MenB (1 of 2 - MenB 2-Dose Series Bexsero) MenB (1 of 2 - MenB 2-Dose Series Bexsero) [facility] Start: 2011 HIV SCREENING HIV SCREENING [facility] Start: 2009 Varicella (1 of 2 - 13+ 2-dose series) Varicella (1 of 2 - 13+ 2-dose series) [facility] Start: 2007 HPV VACCINE (1 - 2-d ose series) HPV VACCINE (1 - 2-dose series) [facility] Start: 2003 Tetanus Diphtheria a nd Pertussis Vaccines (1 - Tdap) Tetanus Diphtheria and Pertussis Vaccines (1 - Tdap) [facility] Start: 2001 COVID-19 VACCINE (1) COVID-19 VACCIN E (1) [facility] Start: 1997 MMR (1 of 1 - Standa rd series) MMR (1 of 1 - Standard series) [facility] CBC W Auto Different ial panel - Blood [facility] Work Phone: Glucose [Mass/volume ] in Serum or Plasma --1 hour post 50 g glucose PO [facility] Work Phone: Hepatitis B surface antigen measurement [facility] Work Phone: Hepatitis C antibody measurement [facility] Work Phone: HIV 1+2 Ab+HIV1 p24 Ag [Presence] in Serum or Plasma by Immunoassay [facility] Work Phone: Liquid based cervica l cytology screening [facility] Patient Education [facility] Work Phone: Patient referral [facility] Work Phone: End: 01-19-2022 Radiologic exam chest single view [facility] Work Phone: Comment on above: Now for 1 Occurrence s starting 01/19/2022 until 01/19/2022 Rubella IgG measurement [facility] Work Phone: Source specific culture [facility] Standard ECG EKG Standard EKG STAT 01/19/2022 5:24 PM EDT [facility] Work Phone: Treponema sp Ab [Pre sence] in Serum [facility] Work Phone: US Pelvis [facility] End: 02-04-2022 soft tissue head & neck real time imge [facility] Work Phone: Comment on above: PRN for 1 Occurrence s starting 02/04/2022 until 02/04/2022 [facility] Immunizations Immunization Date Immunization Notes Care Provider Fa zarievans 08-15-2023 influenza virus vacc ine, unspecified formulation SOCO FRAZIER CARDIOVASCULAR LAB DIRECTOR-ASSOCIATE PROFESSOR OF HISTORY [facility] [place] 02-23-2023 tetanus toxoid, redu jenny diphtheria toxoid, and acellular pertussis vaccine, adsorbed BRUSH HOLDER INSPECTOR-C Soco Frazier BRUSH HOLDER INSPECTOR Work Phone: [facility] 09-28-2021 SARS-CoV-2 (COVID-19 ) mRNA-1273 vaccine SOCO FRAZIER CARDIOVASCULAR LAB DIRECTOR-ASSOCIATE PROFESSOR OF HISTORY [facility] Comment on above: Result Comment: 2021: [id number] 08-27-2021 SARS-CoV-2 (COVID-19 ) mRNA-1273 vaccine SOCO FRAZIER CARDIOVASCULAR LAB DIRECTOR-ASSOCIATE PROFESSOR OF HISTORY [facility] Comment on above: Result Comment: 2021: [id number] 08-10-2021 influenza virus vacc ine, unspecified formulation SOCO FRAZIER CARDIOVASCULAR LAB DIRECTOR-ASSOCIATE PROFESSOR OF HISTORY [facility] 08-30-2017 hepatitis B vaccine, adult dosage SOCO FRAZIER CARDIOVASCULAR LAB DIRECTOR-ASSOCIATE PROFESSOR OF HISTORY [facility] 05-01-2017 hepatitis B vaccine, adult dosage SOCO FRAZIER CARDIOVASCULAR LAB DIRECTOR-ASSOCIATE PROFESSOR OF HISTORY [facility] 05-01-2017 varicella virus vaccine BETSY FRAZIER CARDIOVASCULAR LAB DIRECTOR-ASSOCIATE PROFESSOR OF HISTORY [facility] 09-16-2013 meningococcal polysaccharide (groups A, C, Y and W-135) diphtheria toxoid conjugate vaccine (MCV4P) SOCO FRAZIER CARDIOVASCULAR LAB DIRECTOR-ASSOCIATE PROFESSOR OF HISTORY [facility] 09-16-2013 meningococcal polysaccharide vaccine (MPSV4) Soco Frazier BRUSH HOLDER INSPECTOR-C Work Phone: [facility] 11-06-2012 tetanus toxoid, redu jenny diphtheria toxoid, and acellular pertussis vaccine, adsorbed SOCO FRAZIER CARDIOVASCULAR LAB DIRECTOR-ASSOCIATE PROFESSOR OF HISTORY [facility] 06-03-2008 Human Papillomavirus Quadval SOCOGISELLE FRAZIER CARDIOVASCULAR LAB DIRECTOR-ASSOCIATE PROFESSOR OF HISTORY [facility] 09-14-2007 Human Papillomavirus Quadval SOCOGISELLE FRAZIER CARDIOVASCULAR LAB DIRECTOR-ASSOCIATE PROFESSOR OF HISTORY [facility] 07-18-2007 Human Papillomavirus Quadval SOCOGISELLE FRAZIER CARDIOVASCULAR LAB DIRECTOR-ASSOCIATE PROFESSOR OF HISTORY [facility] 07-18-2007 meningococcal polysaccharide (groups A, C, Y and W-135) diphtheria toxoid conjugate vaccine (MCV4P) SOCO FRAZIER CARDIOVASCULAR LAB DIRECTOR-ASSOCIATE PROFESSOR OF HISTORY [facility] 07-18-2007 tetanus toxoid, redu jenny diphtheria toxoid, and acellular pertussis vaccine, adsorbed SOCO FRAZIER CARDIOVASCULAR LAB DIRECTOR-ASSOCIATE PROFESSOR OF HISTORY [facility] 06-16-2001 measles, mumps and rubella virus vaccine Soco Frazier BRUSH HOLDER INSPECTOR-C Work Phone: [facility] 06-16-2001 measles/mumps/rubell a virus vaccine SOCO KARIN CARDIOVASCULAR LAB DIRECTOR-ASSOCIATE PROFESSOR OF HISTORY [facility] 06-16-2001 poliovirus vaccine, inactivated SOCO KARIN CARDIOVASCULAR LAB DIRECTOR-ASSOCIATE PROFESSOR OF HISTORY [facility] 11-28-1997 haemophilus influenz ae type b vaccine, PRP-T conjugate SOCO KARIN CARDIOVASCULAR LAB DIRECTOR-ASSOCIATE PROFESSOR OF HISTORY [facility] 11-06-1997 varicella virus vaccine BETSY FRAZIER CARDIOVASCULAR LAB DIRECTOR-ASSOCIATE PROFESSOR OF HISTORY [facility] 08-21-1997 measles, mumps and rubella virus vaccine Soco Frazier BRUSH HOLDER INSPECTOR-C Work Phone: [facility] 08-21-1997 measles/mumps/rubell a virus vaccine SOCO KARIN CARDIOVASCULAR LAB DIRECTOR-ASSOCIATE PROFESSOR OF HISTORY [facility] 04-07-1997 haemophilus influenz ae type b vaccine, PRP-T conjugate SOCO KARIN CARDIOVASCULAR LAB DIRECTOR-ASSOCIATE PROFESSOR OF HISTORY [facility] 04-07-1997 hepatitis B pediatri c vaccine SOCO FRAZIER CARDIOVASCULAR LAB DIRECTOR-ASSOCIATE PROFESSOR OF HISTORY [facility] 04-07-1997 hepatitis B vaccine, pediatric or pediatric/adolescent dosage Soco Frazier BRUSH HOLDER INSPECTOR-C Work Phone: [facility] 04-07-1997 poliovirus vaccine, inactivated SOCO KARIN CARDIOVASCULAR LAB DIRECTOR-ASSOCIATE PROFESSOR OF HISTORY [facility] 01-23-1997 haemophilus influenz ae type b vaccine, PRP-T conjugate SOCO KARIN CARDIOVASCULAR LAB DIRECTOR-ASSOCIATE PROFESSOR OF HISTORY [facility] 01-23-1997 poliovirus vaccine, inactivated SOCO KARIN CARDIOVASCULAR LAB DIRECTOR-ASSOCIATE PROFESSOR OF HISTORY [facility] 1996 haemophilus influenz ae type b vaccine, PRP-T conjugate SOCO KARIN CARDIOVASCULAR LAB DIRECTOR-ASSOCIATE PROFESSOR OF HISTORY [facility] 1996 hepatitis B pediatri c vaccine SOCO KARIN CARDIOVASCULAR LAB DIRECTOR-ASSOCIATE PROFESSOR OF HISTORY [facility] 1996 hepatitis B vaccine, pediatric or pediatric/adolescent dosage Soco Karin BRUSH HOLDER INSPECTOR-C Work Phone: [facility] 1996 poliovirus vaccine, inactivated SOCO KARIN CARDIOVASCULAR LAB DIRECTOR-ASSOCIATE PROFESSOR OF HISTORY [facility] 1996 hepatitis B pediatri c vaccine SOCO KARIN CARDIOVASCULAR LAB DIRECTOR-ASSOCIATE PROFESSOR OF HISTORY [facility] 1996 hepatitis B vaccine, pediatric or pediatric/adolescent dosage Soco Karin BRUSH HOLDER INSPECTOR-C Work Phone: [facility] Payers Date Payer Category Payer Unknown [id number] 2024 Self-pay [id number] 2023 Unknown [id number] 2021 Unknown [employer] [id number] 2021-Present [phone] [address] [place] [address] [id number] 2021 Unknown [id number] 1996 Unknown [id number] 1996 Unknown [id number] 1996 Unknown [id number] 1996 Unknown [id number] 1996 Unknown [id number] 1996 Unknown [id number] Unknown [id number] Unknown [id number] Unknown [id number] Unknown [id number] Unknown [id number] Unknown [id number] Unknown [id number] Unknown [id number] Unknown [id number] Social History Date Type Detail Facility Start: 07-12-2019 End: 11-01-2024 Never smoked tobacco (finding) [facility] Comment on above: no tobacco smoke exp osure Start: 1995 Sex Assigned At Female A [facility] Start: 01-19-2022 Tobacco use and exposure Smoke less tobacco non-user [facility] Start: 01-19-2022 Alcohol intake Current drinke r of alcohol (finding) [facility] Start: 1995 Sex Assigned At Not on file P [facility] Start: 01-09-2022 End: 02-04-2022 Exposure to SARS-CoV-2 (event) Not sure [facility] Start: 12-16-2021 End: 05-11-2023 Tobacco smoking status NHIS Unknown if ever smoked [facility] Gender identity Not on file [facility] Sexual Orientation [facility] Start: 09-30-2019 End: 02-06-2025 Sex Female (finding) [facility] Goals Date Patient Goal Desired Activity /State Mental Status Date Assessment Result Facility 11-01-2024 Cognitive function Level Of Cons ciousness Awake;Alert;Appropriate;Follow s Commands [facility] Work Phone: Clinical Notes 11-10-2021 to 03-26-2025 Note Date & Type Note Facility 03-26-2025 Radiology Diagnostic study note [facility] [address] [place], [place] [address] Pelvic w/ Transvaginal MR#: [id number] Acct: [id number] Name: ROBERTA ROSA Rep #: [id number] : 1995 F 29 From: Elpidio Chou MD PCP: VIKI ZapataC Status: REG C BLANCA Study:Pelvic w/ Transvaginal Date of Exam: 03/26/25 Exam# [id number] Ordering Dr: Sanam Tovar CNM PROCEDURE: PELVIC W/ TRANSVAGINAL REASON FOR EXAM: UTERINE TENDERNESS TECHNIQUE: Transabdominal and transvaginal pelvic ultrasound COMPARISON: None FINDINGS: LMP: March 13, 2025 Measurements: Uterus: 8.6 cm x 5.6 cm x 4.2 cm with a volume of 105.9 mL Endometrial Thickness: 4 mm Right Ovary: 4 cm x 3.4 cm x 2.5 cm with a volume of 17.47 mL. Left Ovary: 3.4 cm x 1.8 cm x 1.6 cm with a volume of 5.09 mL. TRANSABDOMINAL: Uterus: Normal size, myometrial echotexture, and contour. Endometrium: Unremarkable. Right ovary: Normal size and echotexture. Left ovary: Normal size and echotexture. Other: No large pelvic mass identified. Transvaginal sonography was performed to better visualize the endometrium. TRANSVAGINAL: Uterus: Anteverted. Endometrium: Normal echotexture. Right ovary: Normal size and echotexture. Left ovary: Normal size and echotexture. Other adnexal findings: None. Cul-de-sac: No free intraperitoneal fluid identified. Tenderness: No tenderness US/Pelvic w/ Transvaginal IMPRESSION: NORMAL TRANSABDOMINAL AND TRANSVAGINAL PELVIC ULTRASOUND. Reading Location: [place] [address] CC: DONNA Tovar; LISBETH Frazier ~ Signal Apprentice: Signed [facility] 03-18-2025 Evaluation note Diagnosis Onset Date Resolution Pelvic pain acute March 18 9:19am Encounter for routine gynecological examination noneactive March 18, 2025 9:19am [facility] Work Phone: 1(440) 340-319905-13-2025 Evaluation note* Diagnosis Onset Date Resolution Status Admit Date Pelvic pain acute March 18 9:19am Encounter for routine gynecological examination noneactive March 182024 9:19am Dysmenorrhea acute April 25, 025 9:14am Pelvic pain acute April 25 9:14am [facility] Work Phone: 1(872) 677-501005-13-[address] 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 Complaint: 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 Required: No Is patient in pain?: No Allergies azithromycin Adverse Reaction (Verified 03/18/25 09:30) lightheaded Food Allergies: Uncoded Adverse Reaction (Verified 03/18/25 09:29) Other Medications ?Medication ?Instructions ?Recorded ?Confirmed ?Type ascorbic acid (vitamin C) 1,000 mg 1 g PO DAILY supple ment 09/27/22 03/18/25 History capsule multivit-min no.71-iron fum 28 1 cap PO DAILY pregnanc y 09/27/22 03/18/25 History mg-folate no.1 1 mg-dha 300 mg capsule (PNV-Leander) omega3 1,000 [id number]-whi-[id number] 1 cap PO DAILY Check wit h primary 09/27/22 03/18/25 History ye5z-ovmr oil 1,400 mg doctor capsule,delay rel cholecalciferol (vitamin D3) 25 150 mcg PO DAILY 06/0203/18/25 History mcg (1,000 unit) capsule Is last menstrual period known: Yes Last Menstrual Period: 03/13/25 Post menopausal: No PFSH Medical History Vocal cord dysfunction Migraine ADHD Surgical History H/O wisdom tooth extraction History of tonsillectomy Family History Mother Psoriasis Brother Psoriatic arthritis Asthma Father Kidney stone Social History adopted: No household members: spouse housing: apartment number of children: 0 current occupational status: employed 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 current occupational exposures/hazards: No pets and animals: Yes pets and animals: dog(s) history of recent travel: Yes ([place]) out of state: Yes out of country: No sexually active: Yes Smoking Status: Never smoker second hand exposure: No alcohol intake: former details: socially prior to substance use type: does not use well-balanced diet: daily or most days caffeine: Yes Type: coffee Number of servings: 1 eating out: 1-3 times/week what type of physical activity do you participate in: walking frequency: 5-6 times per week duration: 30-45 minutes/day amy/advent: None seatbelt use: always do you feel safe at home: Yes 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 Date Name GA/Weeks Outcome Route Bth Weight Gen Labor Lgth Anesthesia Del Locatn Provider FOB 04/25/23 Rickey Ramirez IV 37 live - full term Male epidural WC Sanam Lang Delivery Date: 04/25/23 Last Updated by: Soco Ruiz 2nd degree laceration HPI Encounter for routine gynecological examination Details: ROBERTA ROSA is a 29 year old who presents for annual exam. concerns with dysmenorrhea for thelast 2 cycles-cycles not any heavier. not on contraception.motrin and tylenol for pain which helps but does not take it away. is Last PAP: 12/2021 History of abnormal PAP: No Last mammogram: Due at 41yrs History of abnormal mammogram: [] Colon cancer screening: Due at 46yrs Other preventative health care screenings: PCP, Endocrinology Female Reproductive History Last Menstrual Period: 03/13/25 Cycle Length: 21-35 Bleeding Duration: 4 Questions: metorrhagia: Yes, sexually active: Yes, dyspareunia: No and PCB: No ROS Const Constitutional: Reports system reviewed and no additional complaints, except as documented Cardio Card: Reports system reviewed and no additional complaints, except as documented Resp Resp: Reports system reviewed and no additional complaints, except as documented GI GI: Reports system reviewed and no additional complaints, except as documented : Reports system reviewed and no additional complaints, except as documented; Denies difficulty voiding, dysuria or urinary frequency Skin Skin/Breast: Reports system reviewed and no additional complaints, except as documented Neuro Neuro: Reports system reviewed and no additional complaints, except as documented Psych Psych: Reports system reviewed and no additional complaints, except as documented; Denies anhedonia, anxiety or depression Exam Const General: cooperative, healthy appearing, comfortable and no acute distress Orientation: alert, awake and oriented x3 Neck Neck: normal visual inspection and full ROM Thyroid: thyroid normal Chest Breast inspection: normal inspection of the breasts and normal inspection of the axillae Breast palpation: normal palpation of the breasts and normal palpation of the axillae Resp Effort & Inspection: normal respiratory effort, able to speak in complete sentences and symmetric chest movement GI Inspection: normal to inspection Palpation: soft Rectal Exam: visual inspection normal External Female Exam: normal external appearance and normal appearance of the urethra Urethra: normal appearance of the urethra Speculum Exam - Vagina: normal appearance of the vagina and normal vaginal discharge Speculum Exam - Cervix: normal appearance of the cervix and nontender Bimanual Exam- Vagina & Uterus: normal bimanual exam, normal palpation, uterine size normal, Notender and non-tender Bimanual Exam- Adnexa, other: normal Pelvic Support: normal Skin General: no rashes or lesions noted Neuro General: patient alert, patient awake and patient oriented x3 Cognition: normal cognition Speech: speech normal Gait: normal gait Extrem General: normal to inspection and full ROM Psych Appearance: grossly normal and well kempt Mental Status: mental status grossly normal Affect: normal affect Speech and Movement: speech and movement normal Attitude: cooperative Thought Process: normal Thought Content: normal Judgment: judgment good Coding Level of Care Code Off vis,est,prev 18-39yrs Diagnoses Encounter for routine gynecological examination Z01.419 Pelvic pain R10.2 Assessment and Plan Assessment and Plan (1) Encounter for routine gynecological examination: (2) Pelvic pain: Status: Acute Plan: genital culture TVUS Orders: Orders PAP I-G w/rfx hrHPV-Aptima Today Z12.4 - Encounter for screening for malignant neoplasm of cervix Pelvic w/ Transvaginal Today R10.2 - Pelvic and perineal pain Plan Details Additional Comments: Cervical cancer screening: today Breast cancer screening: age 40 STD prevention and contraceptive options including their risks, benefits, and alternatives were reviewed with the patient and she chooses: denies Encouraged maintenance of a healthy weight and active lifestyle and handout given. Calcium/vitamin D recommendations provided. Annual exam handout including recommendations for good health guidelines and basic screening information given. Problem list up to date, see problem list details for any additional plan information. follow up in one year for annual health maintenance exam or sooner if needed. 03/18/25 1000 s CNM> Date _ Sanam Tovar CNM Cosigner Signature: Date (if applicable) CC: ~ [facility]03-29-2025 Radiology Diagnostic study note [facility] [address], [place] [address] Thyroid MR#: [id number] Acct: [id number] Name: ROBERTA ROSA Rep #: [id number] : 1995 F 29 From: Pet er Peer DO PCP: Soco Frazier NP-Zachery Status: REG C BLANCA Study:Thyroid Date of Exam: 01/30/25 Exam# [id number] Ordering Dr: Fay Cabello MD PROCEDURE: THYROID 01/30/2025 REASON FOR EXAM: F/U NODULE SIZE TECHNIQUE: Real-time grayscale sonography is performed as well as color Doppler. COMPARISON: None. FINDINGS: MID right lobe nodule identified measuring 9 MM X 7 MM X 7 MM. The nodule is solid (2 points); isoechoic (1 point); wider than tall (0); smooth margins (0 points); and has no calcifications (0). TR 3 mildly suspicious. The gland is otherwise normal size and echogenicity. Right lobe measures 4.9 cm by 1.5 cm x 1.3 cm.The left lobe measures 5.0 cm x 1.9 cm x 0.9 cm. Isthmus is 2.9 mm in thickness. COMPARISON No follow-up imaging or FNA procedure recommended. PROCEDURE: Not recommended US/Thyroid IMPRESSION: Only mildly suspicious TR 3 lesion identified in the mid right lobe, too small for follow-up imaging or FNA biopsy. Reading Location: [facility] CC: LISBETH Frazier; Dr. Fay Hebert MD ~ Signal Apprentice: Signed [facility]11-07-2024 Consult note* Ancillary Consult - Sanam Arcos, CCC-COLD FOOD PACKER - 09/12/2024 1:30 PM EST Speech/Language Pathology Voice Evaluation for Vocal Cord Dysfunction Test Date: 09/12/2024 Patient Name: Roberta Rosa Date of : 1995 Age: 29 y.o. MR#: [id number] Referring Physician: hCarbel Napier Length of Session: 40 minutes Pain: NPR Summary: Roberta Rosa was referred for a voice evaluation by Dr. Charbel Napier following the diagnosis of vocal cord dysfunction. Roberta reports that she notices difficulties while hiking but is generally able to use belly breathing techniques to resolved them. She is able to use the breathing techniques during exertion well enough to continue activity. Around 2 months ago, she experienced breathing difficulty with no discernible trigger. She reports that this lasted around 1.5 weeks and was resolved by using breathing techniques coupled with chiropractic treatment for possible nervecompression in cervical spine. Medical History: not remarkable. 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 Identified triggers include exertion and anxiety/stress. Symptoms are reported to have a gradual onset and take 2-3 minutes to subside using metered breathing exercises to get breathing back in c heck. Trial use of inhaler has been ineffective in relieving symptoms. No contributing factors have been identified. Hearing: Responded appropriately to all conversationally presented stimuli. Symptoms consistent with vocal cord dysfunction include: Coughing/throat clearing before,during,or after episodes, Hoarseness, Sensation she cannot get enough air, and Tightness in the throat,upper chest/neck Metered breathing techniques using diaphragmatic breath support were practiced in prone, supine, sitting, and standing positions. Equal respiratory cycles using one second inhalation and one second exhalation were used to enable the patient to gain active control of the respiratory pattern. , The patient was able to identify this pattern and replace it with abdominal breath support instead. she is to use metered breathing actively as soon as symptoms of vocal cord dysfunction occur. Impression: Symptoms are consistent with vocal cord dysfunction in the absence of possible anxiety. Prognosis: Prognosis for improvement and management of dyspnea is excellent without speech- language/voice therapy. Positive prognostic indicators include: positive response to strategies utilized today , good cooperation during evaluation, premorbid functional abilities, adequate attention and listening, and patient motivation Recommendations: Use of metered breathing with diaphragmatic breath support to control symptoms of vocal cord dysfunction. A detailed home program was provided and practiced today. Should she encounter further difficulty prior to their next scheduled visit, she will contact this therapist. Patient is encouraged to discuss medical evaluation and treatment of allergies, reflux, and anxiety, should they arise, with their physician, as this may be contributing to voice symptoms Treatment Plan: -No follow-up appointment is required a this time. -Should Roberta require additional information or encounter further difficulty , she is to contact this therapist Goals: 1. Patient will paraphrase basic anatomy and physiology of respiration and phonation with 80% accuracy. 2. Patient will complete metered, diaphragmatic breathing techniques in supine, sitting, and standing positions with 80% accuracy and no more than 1 verbal cue (per position). 3. Patient will utilize lower abdominal breath support during light exertion (fast walk, slow jog, jumping jacks, stairs, etc) with 80% accuracy. Saanm Arcos CCC-COLD FOOD PACKER Speech-Language Pathologist CC: Referring Physician(s) [facility]11-07-2024 Miscellaneous Notes* Ancillary Consult - Sanam Arcos CCC-COLD FOOD PACKER - 09/12/2024 1:30 PM EST Speech/Language Pathology Voice Evaluation for Vocal Cord Dysfunction Test Date: 09/12/2024 Patient Name: Roberta Rosa Date of : 1995 Age: 29 y.o. MR#: [id number] Referring Physician: Charbel Sibilia Length of Session: 40 minutes Pain: NPR Summary: Roberta Rosa was referred for a voice evaluation by Dr. Charbel Napier following the diagnosis of vocal cord dysfunction. Roberta reports that she notices difficulties while hiking but is generally able to use belly breathing techniques to resolved them. She is able to use the breathing techniques during exertion well enough to continue activity. Around 2 months ago, she experienced breathing difficulty with no discernible trigger. She reports that this lasted around 1.5 weeks and was resolved by using breathing techniques coupled with chiropractic treatment for possible nervecompression in cervical spine. Medical History: not remarkable. 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 Identified triggers include exertion and anxiety/stress. Symptoms are reported to have a gradual onset and take 2-3 minutes to subside using metered breathing exercises to get breathing back in c heck. Trial use of inhaler has been ineffective in relieving symptoms. No contributing factors have been identified. Hearing: Responded appropriately to all conversationally presented stimuli. Symptoms consistent with vocal cord dysfunction include: Coughing/throat clearing before,during,or after episodes, Hoarseness, Sensation she cannot get enough air, and Tightness in the throat,upper chest/neck Metered breathing techniques using diaphragmatic breath support were practiced in prone, supine, sitting, and standing positions. Equal respiratory cycles using one second inhalation and one second exhalation were used to enable the patient to gain active control of the respiratory pattern. , The patient was able to identify this pattern and replace it with abdominal breath support instead. she is to use metered breathing actively as soon as symptoms of vocal cord dysfunction occur. Impression: Symptoms are consistent with vocal cord dysfunction in the absence of possible anxiety. Prognosis: Prognosis for improvement and management of dyspnea is excellent without speech- language/voice therapy. Positive prognostic indicators include: positive response to strategies utilized today , good cooperation during evaluation, premorbid functional abilities, adequate attention and listening, and patient motivation Recommendations: Use of metered breathing with diaphragmatic breath support to control symptoms of vocal cord dysfunction. A detailed home program was provided and practiced today. Should she encounter further difficulty prior to their next scheduled visit, she will contact this therapist. Patient is encouraged to discuss medical evaluation and treatment of allergies, reflux, and anxiety, should they arise, with their physician, as this may be contributing to voice symptoms Treatment Plan: -No follow-up appointment is required a this time. -Should Roberta require additional information or encounter further difficulty , she is to contact this therapist Goals: 1. Patient will paraphrase basic anatomy and physiology of respiration and phonation with 80% accuracy. 2. Patient will complete metered, diaphragmatic breathing techniques in supine, sitting, and standing positions with 80% accuracy and no more than 1 verbal cue (per position). 3. Patient will utilize lower abdominal breath support during light exertion (fast walk, slow jog, jumping jacks, stairs, etc) with 80% accuracy. Sanam Arcos CCC-C[employer] P[employer]ER Speech-Language Pathologist CC: Referring Physician(s) documented in [facility] Note ORIGINAL EXAMINATION: ULTRASOUND OF THE THYROID WITH COLOR DOPPLER FLOW EVALUATION02/23/2024 12:02 pm COMPARISON: Thyroid ultrasound 02/13/2023 HISTORY: ORDERING SYSTEM PROVIDED HISTORY: Reason for Exam: f/u thyroid nodule, FINDINGS: Size right thyroid lobe: 5.7 x 1.5 x 1.7 cm Size left thyroid lobe: 5.1 x 1.1 x 1.9 cm Size isthmus: 0.4 cm Texture: Homogeneous Estimated total number of nodules greater than or equal to 1 cm: 1 Nodule #1: Maximum size: 1 cm . All dimensions: 1 x 0.8 x 0.9 cm Location: Right Mid Composition: solid or almost completely solid: 2 points Echogenicity: hypoechoic: 2 points Shape: wider than tall: 0 points Margins: smooth: 0 points Echogenic foci: none: 0 points ACR Total Points: 4; ACR TI-RADS risk category: TR4 - moderately suspicious nodule. Non-enlarged thyroid. Solitary right-sided thyroid nodule is grossly unchanged in size IMPRESSION: 1. Right-sided thyroid nodule: ACR TI-RADS 2017 Category 4. Recommend: Follow-up ultrasound in 1 year. ACR TI-RADS 2017 Recommendations: TR1(0 points) : No FNA or follow up TR2 (2 points) : No FNA or follow up TR3 (3 points) : FNA if >/= 2.5 cm, follow up if 1.5 - 2.4 cm in 1, 3, and 5 years TR4 (4-6 points) : FNA if >/= 1.5 cm, follow up if 1.0 - 1.4 cm in 1, 2, 3, and 5 years TR5 (>/= 7 points) : FNA if >/= 1.0 cm, follow up if 0.5 - 0.9 cm every year for 5 years *ACR TI-RADS recommends that no more than two nodules with the highest ACR TI-RADS total point should be biopsied and no more than four nodules should be followed. I have personally reviewed the images of this examination and agree with the resident's findings and interpretation. Interpreted by: Hayden Rodríguez DO Preliminary Report By: Nessa Price Electronically signed By Hayden Rodríguez DO Dictated Date: 02/23/2024 1:25:45 PM Prelim Date: 02/23/2024 1:56:19 PM Sign Date: 02/23/2024 1:56:19 PM Ordering Provider: [facility] 10-18-2023 Evaluation + Plan note Future Scheduled Tests Radiology* XR Shoulder Minimum 2 Views Right 10/18/23 * US Thyroid 11/25/23 [facility] 06-21-2023 Discharge summary Author Sanam Tovar [facility] April 26, 2023 7:28am Note Date/Time April 26, 2023 7:28 am [facility] Medical Records Department [address] [place] [address] Instructions for Home/Discharge Instructions 04/26/23 0727 MR#: [id number] Acct: [id number] Name: ROBERTA ROSA Rep #:[id number] : 1995 27 From: Sanam Tovar CNM PCP: LISBETH Zapata Status:ADM I N Discharge Instructions Diet Discharge Diet: No restrictions Activity May resume sexual activity in: 6-8 weeks Dressing / Incision Call your doctor if you observe: Fever of 101 or Higher, Coldness, Increased Pain, Numbness or Tingling, Change in Color, Inability to urinate, Inability to have a bowel movement, Using more than 1 pad per hour, Shortness of breath, Dizziness, Fainting spells, Swelling in the ankles, Chest pain, Increased palpitations (irregular heartbeat), Calf discomfort and Uncontrolled pain Follow Up Care Please Follow Up With: Sanam Tovar CNM Test Results: Test results from this visit will be discussed in further detail at your follow- up appointment, if applicable. Discharge Plan Admission Admit Date/Time: 04/23/23 19:05 Attending Provider: Sanam Tovar Primary Care Provider: Soco Frazier NP Discharge Orders/Prescriptions Prescriptions: No Action PNV-Leander 28-1-300 mg capsule 1 cap PO DAILY ascorbic acid (vitamin C) 1,000 mg capsule 1 g PO DAILY B Complex Plus Vitamin C 92-06-03-5-300 mg capsule 1 cap PO QODAY Rx Instructions: give with food (meal/snack) tcnqb-4b-jax-epa-fish oil 1,000-1,400 mg capsule,delayed release(DR/EC) 1 cap PO DAILY Referrals / Follow Up: Soco Frazier NP, RADHA-C [Primary Care Provider] - Disposition Disposition (needs filled in before D/C Order can be placed): Home, Self Care 04/26/2328<Electronically signed by Sanam Tovar CNM>Sanam Tovar CNM CC: RADHA-C Soco Frazier ~ Signed [facility] Work Phone: 1(496) 479-144806-21-2023 Progress note Author Sanam Tovar [facility] April 26, 2023 7:27am Note Date/Time April 26, 2023 7:27 am [facility] Medical Records Department [address] [place] [id number] Progress Note - OBGYN 04/26/23 0725 MR#: [id number] Acct: [id number] Name: ROBERTA ROSA Rep #:[id number] : 1995 27 From: Sanam Tovar CNM PCP: LISBETH Zapata Status:ADM I N Location: [place] [address]-1 Subjective Subjective Patient doing well without complaints. Tolerating PO. Ambulating and voiding without difficulty. Feeding well. Denies chest pain, shortness of breath, calf pain/swelling, fevers, chills, lightheadedness. Objective Data Objective Data Vital Signs: Vital Signs Temp Pulse Resp BP Pulse Ox O2 Del Method 97.7 F L 72 16 114/61 95 Room Air 04/26/23 05:49 04/26/23 05:49 04/26/23 05:49 04/26/23 05:49 04/26/23 05:49 04/26/23 05:49 Oxygen Delivery Method Room Air Weight: 248 lb Body Mass Index (BMI) 36.6 Intake & Output: Intake and Output for Last 24 Hours 04/24/23 04/25/23 04/26/23 23:59 23:59 23:59 Intake Total 1524.50 / 1524.50 2426.3 / 2426.3 Output Total 2650 / 2650 Balance 1524.50 / 1524.50 -223.7 / -223.7 Lab / Micro Data Attestation: I reviewed the patient's lab results. Result Diagrams: 04/23/23 19:30 04/23/23 20:05 Labs: Laboratory Results - last 24 hr 04/25/23 08:30: Screen NEGATIVE, Baby's Blood Type O POSITIVE, Baby's EDNA NEGATIVE ROS Constitutional Constitutional: Reports systems reviewed and no addt'l complaints, except as documented; Denies anorexia or headache(s) Cardiovascular Cardiovascular: Reports systems reviewed and no addt'l complaints, except as documented; Denies dizziness, dyspnea, nausea or tachypnea Respiratory/Chest Respiratory/Chest: Reports systems reviewed and no addt'l complaints, except as documented; Denies cough, dyspnea, shortness of breath at rest or tachypnea Gastrointestinal Gastrointestinal: Reports systems reviewed and no addt'l complaints, except as documented; Denies abdominal pain, constipation or nausea Genitourinary Genitourinary: Reports systems reviewed and no addt'l complaints, except as documented; Denies burning urination, difficulty urinating, dysuria, urinary frequency or urinary incontinence Musculoskeletal Musculoskeletal: Reports systems reviewed and no addt'l complaints, except as documented Integumentary Integumentary: Reports systems reviewed and no addt'l complaints, except as documented Neurologic Neurologic: Reports systems reviewed and no addt'l complaints, except as documented; Denies abnormal speech, dizziness or headache(s) Psychiatric Psychiatric: Reports systems reviewed and no addt'l complaints, except as documented Endocrine Endocrinology: Reports systems reviewed and no addt'l complaints, except as documented Hematologic/Lymphatic Hematologic/Lymphatic: Reports systems reviewed and no addt'l complaints, exceptas documented Physical Exam Const alert, oriented x3 and no apparent distress Neck full ROM Resp normal respiratory effort, normal air movement and no retractions Effort and Inspection: able to speak in complete sentences and symmetric chest movement GI soft to palpation Bladder / Kidney Exam: bladder normal to palpation Uterus Palpation: uterus fundus firm Extremity normal to inspection and full ROM Psych mental status grossly normal, thought process normal and cooperative Assessment & Plan (1) Vaginal delivery: COMMENT: KW IOL 37.3 PIH Boy Rickey Ramirez PLAN: s/p PPD # 1 1. routine post delivery care 2. breast feeding- support given 3. rh positive 4. rubella immune 5. D/C home (2) Gestational hypertension: COMMENT: 04/13 discussed with patient again- questionable diagnosis- considerable variation, recommend weekly labs. continue to monitor at this point to clarify diagnosis 04/21- reviewed BP log at home consistent 140s/80s atleast once/day. c/w JV concurs diagnosis of GHTN. IOL at 37 weeks NST twice weekly. growth US at 32 (70%) &36 weeks. home monitor-Daily BP. consider IOL between 37-38 weeks only if persistent HTN, discussed brining in cuff. bps 110s over 70s, PCR low/stable PLAN: continue to monitor BP daily. call with BP over 150/90 (3) Rh negative state in antepartum period: COMMENT: rhogam @ 28 wks & PRN bleeding (4) Maternal varicella, non-immune: COMMENT: Pt has had 5 boosters, doesn't hold immunity Charges/Coding Multi Select Codes Urinary/Genital Urinary/Genital CPT Codes: No Charge 04/26/23 2927 <Electronically signed by Sanam Tovar CNM> Cosigner Signature (if applicable): CC: ~ Signed [facility] Work Phone: 1(620) 287-723306-20-2023 Discharge summary Author Sanam Tovar [facility] April 25, 2023 5:35am Note Date/Time April 25, 2023 5:35 am [facility] Medical Records Department [address] [place] [id number] Instructions for Home/Discharge Instructions 04/25/23 0533 MR#: [id number] Acct: [id number] Name: ROBERTA ROSA Rep #:[id number] : 1995 27 From: Sanam Tovar CNM PCP: LISBETH Zapata Status:ADM I N Discharge Instructions Diet Discharge Diet: No restrictions Activity Discharge Activity: Return to Normal Activity May resume sexual activity in: 6-8 weeks Dressing / Incision Call your doctor if you observe: Fever of 101 or Higher, Coldness, Increased Pain, Numbness or Tingling, Change in Color, Inability to urinate, Inability to have a bowel movement, Using more than 1 pad per hour, Shortness of breath, Dizziness, Fainting spells, Swelling in the ankles, Chest pain, Increased palpitations (irregular heartbeat), Calf discomfort and Uncontrolled pain Follow Up Care Please Follow Up With: Sanam Tovar CNM When: Please call the office to schedule your follow up appointment in 6 weeks. If you had high blood pressure please call to schedule an appointment in 2 weeks. Test Results: Test results from this visit will be discussed in further detail at your follow- up appointment, if applicable. Discharge Plan Admission Admit Date/Time: 04/23/23 19:05 Attending Provider: Sanam Tovar Primary Care Provider: Soco Frazier NP Discharge Orders/Prescriptions Prescriptions: No Action PNV-Leander 28-1-300 mg capsule 1 cap PO DAILY ascorbic acid (vitamin C) 1,000 mg capsule 1 g PO DAILY B Complex Plus Vitamin C 18-96-07-5-300 mg capsule 1 cap PO QODAY Rx Instructions: give with food (meal/snack) sbskl-3y-mrn-epa-fish oil 1,000-1,400 mg capsule,delayed release(DR/EC) 1 cap PO DAILY Referrals / Follow Up: Soco Frazier NP, BRUSH HOLDER INSPECTOR-C [Primary Care Provider] - Disposition Disposition (needs filled in before D/C Order can be placed): Home, Self Care 04/25/23 0535<Electronically signed by Sanam Tovar CNM>Sanam Tovar CNM CC: LISBETH Frazier ~ Signed [facility] Work Phone: 1(109) 545-818406-20-2023 Procedure [facility] 04-25-2023 Progress note Author Sanam Tovar [facility] April 24, 2023 10:56pm Note Date/Time April 24, 2023 10:5 6pm [facility] Medical Records Department [address] [place] [address] Progress Note 04/24/232252 MR#: [id number] Acct: [id number] Name: ROBERTA ROSA Rep #:[id number] : 1995 27 From: Sanam Tovar CNM PCP: VIKI ZapataC Status:ADM I N Location: [place] [address] Progress Note comfortable with epidural current tracing: FHT: 145 Moderate variability reactive no decelerations category I tracing Serena: 2-4 minute Contractions-IUPC in place SVE 4/80/-1 Pitocin 6.0mu A/P: continue position changes titrate pitocin per policy anticipate active labor and Multi Select Codes Urinary/Genital Urinary/Genital CPT Codes: No Charge 04/24/232255 <Electronically signed by Sanam Tovar CNM> Sanam Tovar CNM Cosigner Signature (if applicable): CC: ~ Signed [facility] Work Phone: 1(546) 984-362206-19-2023 Progress note Author Sanam [facility] April 24, 2023 3:56pm Note Date/Time April 24, 2023 3:56 pm [facility] Medical Records Department [address] [place] [address] Progress Note 04/24/23 1551 MR#: [id number] Acct: [id number] Name: ROBERTA ROSA Rep #:[id number] : 1995 27 From: Sanam Tovar CNM PCP: LISBETH Zapata Status:ADM I N Location: [place] [address] Progress Note coping well with contractions current tracing: FHT: 145Moderate variability reactive no decelerations category I tracing Serena: irregular Contractions SROM at 1530 clear SVE 2/80/-1 A/P: pitocin titration per protocol continue position changes encouraged to walk room and halls epidural if desired Assessment & Plan Assessment/Plan (1) Encounter for induction of labor: (2) Gestational hypertension: (3) Thyroid goiter: (4) Rh negative state in antepartum period: (5) Supervision of high risk , antepartum: (6) : QUALIFIERS: Weeks of gestation: 36 weeks Qualified Code(s): Z3A.36 - 36 weeks gestation of Multi Select Codes Urinary/Genital Urinary/Genital CPT Codes: No Charge 04/24/23 1556 <Electronically signed by Sanam Tovar CNM> Sanam Tovar CNM Cosigner Signature (if applicable): CC: ~ Signed [facility] Work Phone: 1(452) 837-966806-19-2023 Progress note Author Sanam Tovar [facility] April 24, 2023 7:39am Note Date/Time April 24, 2023 7:28 am [facility] Medical Records Department [address] [place] [address] Progress Note 04/24/23724 MR#: [id number] Acct: [id number] Name: ROBERTA ROSA Rep #:[id number] : 1995 27 From: Sanam Tovar CNM PCP: Soco Frazier NP-C Status:ADM I N Location: [place] [address] Progress Note patient coping well with cramping continue with cytotec dosing. Will increase dose to 50mcg current tracing: FHT: 130 Moderate variability reactive no decelerations category I tracing Serena: irregular Contractions A/P: continue with cytotec continue position changes anticipate pitocin and parks bulb placement with improved mckeon score. Assessment & Plan Assessment/Plan (1) Encounter for induction of labor: PLAN: at 37.1 weeks for PIH (2) Gestational hypertension: (3) Supervision of high risk , antepartum: (4) : QUALIFIERS: Weeks of gestation: 36 weeks Qualified Code(s): Z3A.36 - 36 weeks gestation of Multi Select Codes Urinary/Genital Urinary/Genital CPT Codes: No Charge 04/24/23 0739 <Electronically signed by Sanam Tovar CNM> Sanam Tovar CNM Cosigner Signature (if applicable): CC: ~ Signed [facility] Work Phone: 1(760) 923-972805-10-2023 Progress note Author Sanam Tovar [facility] March 14, 2023 10:46pm Note Date/Time March 14, 2023 10:46[facility] Medical Records Department [address] [place] [address] OB Triage Progress Note 03/14/236 MR#: [id number] Acct: [id number] Name: ROBERTA RSOA Rep #:[id number] : 1995 27 From: Sanam Tovar CNM PCP: Soco Frazier, BRUSH HOLDER INSPECTOR-C Status:REG C LI Y DOS: Location: [place] [address] Progress Notes Date of Service: 03/14/23 Progress Note: Patient presents for triage evaluation secondary to headache and elevated BP at work today FHT: 145 Moderate variability reactive no decelerations category I tracing. appropriate for gestational age Serena: No Contractions Assessment and plan: Reactive NST, reassuring maternal and status patientdischarged to home to follow-up in office later this week for BP check. Get homeBP monitoring set up through this week. See problem list details for additional plan information. Reviewed POC with Dr. Harris, agrees with plan. Laboratory Studies: Laboratory Tests 03/14/23 03/14/23 03/14/23 Range/Units 21:50 21:50 21:45 WBC 16.4 H (4.4-11.0) K/mm3 RBC 4.32 (4.2-5.4) M/mm3 Hgb 12.6 (12.0-15.0) g/dL Hct 37.5 (37-47) % MCV 86.8 (81-99) fL MCH 29.2 (27.0-32.0) pg MCHC 33.6 (32-36) g/dL RDW Std Deviation 41.7 (35.1-43.9) fl RDW Coeff of Leora 13.2 (11.6-14.6) % Plt Count 252 (150-450) K/mm3 MPV 10.3 (6.2-12.0) fl Creatinine 0.70 (0.55-1.02) mg/dL Estim Creat Clear Calc 127.28 ml/min Est GFR (MDRD) Af Amer 130 (>60) mL/min Est GFR (MDRD) Non-Af 107 (>60) mL/min Uric Acid 4.0 (2.6-6.0) mg/dL AST 10 L (15-37) U/L ALT 17 (13-56) U/L U Random Total Protein < 6.0 (<11.9) mg/dL Urine Creatinine 25.10 (NO RANGE EST.) mg/dL Protein/Creatinin Ratio TNP Charges/Coding Multi Select Codes Urinary/Genital Urinary/Genital CPT Codes: 31313-08 non-stress test Interp Assessment & Plan (1) Elevated blood pressure affecting , antepartum: COMMENT: to follow up this week for BP check. Get home monitor (WP), repeat labs next week. Anticipate testing at 32 weeks and growth US q 4 weeks 03/14/236 <Electronically signed by Sanam cantu CNM> Date _ Sanam Tovar CNM Cosigner Signature (if applicable): Date CC: DONNA Tovar; BRUSH HOLDER INSPECTOR-C Soco Frazier ~ Signed [facility] Work Phone: 1(468) 439-518003-28-2022 Evaluation + Plan note Future Scheduled Tests Radiology* XR Neck Soft Tissue 01/31/22 * US Thyroid 01/31/22 [facility] 03-16-2022 Emergency department Note* Nohemi Luke RN - 01/19/2022 6:17 PM EDT Patient discharged to home, alert and oriented, skin warm, dry and pink. Denies needs and or questions. Will follow-up as directed, patient encouraged to return for worsening or new symptoms or otherconcerns. * Rosalie Hanna RN - 01/19/2022 4:01 PM EDT Bed: 17 Expected date: Expected time: Means of arrival: Comments: 1 * Lori Franco RN - 01/19/2022 3:46 PM EDT Pt c/o of anxiety and sob. Pt reports she was working and felt like she could not take a deep breath and then felt anxious. Pt very tearful in triage. Reports she has had this in the past. documented [facility] [id number] Hospital Discharge instructions* Instructions* Paulette Mcdonough APRN - 01/19/2022 Please follow-up with your primary care provider. Please return to the emergency department if you have worsening shortness of breath, chest pain or any other concern If you have pain or discomfort you can use [id number] Tylenol or Motrin * Attachments The following attachments cannot be sent through Care Everywhere. * SOB (Shortness of Breath) (Welsh) * High Blood Pressure in Adults (Welsh) documented in this encounterMer[facility] [id number] Evaluation + Plan note Diagnostic Tests Pending * Varicella Zoster Antibody 11/10/21 * Rubeola IgG Antibody 11/10/21 * Rubella Antibody 11/10/21 * Mumps Antibody 11/10/21 Future Scheduled Tests Radiology* XR Knee 3 Views Right 11/16/20 [facility] Evaluation + Plan note Future Appointments Appointment Date:03/02/2022 08:50:00 AM Scheduled Provider:TESSY BOTELLO APRN-ASSOCIATE PROFESSOR OF HISTORY Location:[facility] Appointment Type:PC OV Future Scheduled Tests Radiology* XR Neck Soft Tissue 01/31/22 * US Thyroid 01/31/22 [facility] Evaluation + Plan note Future Appointments Appointment Date:03/01/2022 08:30:00 AM Scheduled Provider: Location:[facility] Appointment Type:PF PFT Future Scheduled Tests Radiology* XR Neck Soft Tissue 01/31/22 * US Thyroid 01/31/22 [facility] Evaluation + Plan note Future Appointments Appointment Date:11/23/2023 09:30:00 AM Scheduled Provider:FAY HEBERT MD Location:[facility] Appointment Type:ENDO OV Future Scheduled Tests Laboratory* Thyroid Stimulating Hormone 11/25/23 * Free T4 11/25/23 * Free T3 11/25/23 Radiology* XR Shoulder Minimum 2 Views Right 10/18/23 * US Thyroid 11/25/23 [facility] Evaluation + Plan note Future Appointments Appointment Date:12/19/2024 09:00:00 AM Scheduled Provider:FAY HEBERT MD Location:[facility] Appointment Type:ENDO OV Future Scheduled Tests Laboratory* Lead, Blood (Adult >=16 yrs) 06/06/24 * Thyroid Stimulating Hormone 12/19/24 * Free T4 12/19/24 * Free T3 12/19/24 Radiology* XR Shoulder Minimum 2 Views Right 10/18/23 * US Thyroid 11/25/23 * US Thyroid 12/12/24 [facility] Evaluation + Plan note Future Appointments Appointment Date:12/19/2024 09:00:00 AM Scheduled Provider:FAY HEBERT MD Location:[facility] Appointment Type:ENDO OV Appointment Date:12/19/2024 10:00:00 AM Scheduled Provider:SOCO FRAZIER Location:[facility] Appointment Type:PC Wellness Annual Future Scheduled Tests Laboratory* Lead, Blood (Adult >=16 yrs) 06/06/24 Radiology* US Thyroid 11/25/23 * US Thyroid 12/12/24 [facility] Evowoation note* Diagnosis Dyspnea, unspecified type- Primary Anxiety Anxiety state, unspecified Elevated blood pressure reading without diagnosis of hypertension [facility] Diagnosis Nontoxic nodular goiter Unspecified nontoxic nodular goiter documented [facility] this encounter [facility] noteNo assessment information availableWJoint Township District [facility] Work Phone: Evaluation note* Diagnosis Onset Date Resolution Status BMI 31.0-31.9,adult acute Maternal varicella, non-immune acute acute Rh negative state in antepartum period acute Supervision of high risk , antepartum acute Thyroid goiter acute Vocal cord dysfunction acute [facility] Work Phone: evaluation note* Diagnosis Onset Date Resolution Status BMI 31.0-31.9,adult acute Maternal varicella, non-immune acute acute Rh negative state in antepartum period acute Supervision of high risk , antepartum acute Thyroid goiter acute Vocal cord dysfunction acute BMI 31.0-31.9,adult acute Low lying placenta nos or wi thout hemorrhage, second trimester acute acute Rh negative state in antepartum period acute Supervision of high risk , antepartum acute Thyroid goiter acute [facility] Work Phone: evaluation note* Diagnosis Onset Date Resolution Status Low lying placenta nos or wi thout hemorrhage, second trimester acute acute Rh negative state in antepartum period acute Supervision of high risk , antepartum acute Thyroid goiter acute BMI 31.0-31.9,adult resolved Low lying placenta nos or wi thout hemorrhage, second trimester acute Maternal varicella, non-immune acute acute Rh negative state in antepartum period acute Supervision of high risk , antepartum acute Thyroid goiter acute BMI 31.0-31.9,adult resolved Low lying placenta nos or wi thout hemorrhage, second trimester acute Maternal varicella, non-immune acute acute Rh negative state in antepartum period acute Supervision of high risk , antepartum acute Thyroid goiter acute Low lying placenta nos or wi thout hemorrhage, second trimester acute Maternal varicella, non-immune acute acute Rh negative state in antepartum period acute Supervision of high risk , antepartum acute Thyroid goiter acute [facility] Work Phone: evaluation note* Diagnosis Onset Date Resolution Status Low lying placenta nos or wi thout hemorrhage, second trimester acute acute Rh negative state in antepartum period acute Supervision of high risk , antepartum acute Thyroid goiter acute BMI 31.0-31.9,adult resolved Low lying placenta nos or wi thout hemorrhage, second trimester acute Maternal varicella, non-immune acute acute Rh negative state in antepartum period acute Supervision of high risk , antepartum acute Thyroid goiter acute BMI 31.0-31.9,adult resolved Low lying placenta nos or wi thout hemorrhage, second trimester acute Maternal varicella, non-immune acute acute Rh negative state in antepartum period acute Supervision of high risk , antepartum acute Thyroid goiter acute Low lying placenta nos or wi thout hemorrhage, second trimester acute Maternal varicella, non-immune acute acute Rh negative state in antepartum period acute Supervision of high risk , antepartum acute Thyroid goiter acute Low lying placenta nos or wi thout hemorrhage, second trimester acute Maternal varicella, non-immune acute acute Rh negative state in antepartum period acute Supervision of high risk , antepartum acute Thyroid goiter acute Elevated blood pressure affe cting , antepartum acute [facility] Work Phone: Evaluation note* Diagnosis Onset Date Resolution Status acute Rh negative state in antepartum period acute Supervision of high risk , antepartum acute Thyroid goiter acute BMI 31.0-31.9,adult resolved Low lying placenta nos or wi thout hemorrhage, second trimester resolved Maternal varicella, non-immune acute acute Rh negative state in antepartum period acute Supervision of high risk , antepartum acute Thyroid goiter acute BMI 31.0-31.9,adult resolved Low lying placenta nos or wi thout hemorrhage, second trimester resolved Maternal varicella, non-immune acute acute Rh negative state in antepartum period acute Supervision of high risk , antepartum acute Thyroid goiter acute Low lying placenta nos or wi thout hemorrhage, second trimester resolved Maternal varicella, non-immune acute acute Rh negative state in antepartum period acute Supervision of high risk , antepartum acute Thyroid goiter acute Low lying placenta nos or wi thout hemorrhage, second trimester resolved Maternal varicella, non-immune acute acute Rh negative state in antepartum period acute Supervision of high risk , antepartum acute Thyroid goiter acute Low lying placenta nos or wi thout hemorrhage, second trimester resolved Elevated blood pressure affe cting , antepartum resolved Maternal varicella, non-immune acute acute Rh negative state in antepartum period acute Supervision of high risk , antepartum acute Thyroid goiter acute Elevated blood pressure affe cting , antepartum resolved Low lying placenta nos or wi thout hemorrhage, second trimester resolved Gestational hypertension acu te Maternal varicella, non-immune acute acute Rh negative state in antepartum period acute Supervision of high risk , antepartum acute Thyroid goiter acute Low lying placenta nos or wi thout hemorrhage, second trimester resolved Gestational hypertension acu te acute Rh negative state in antepartum period acute Supervision of high risk , antepartum acute Thyroid goiter acute Low lying placenta nos or wi thout hemorrhage, second trimester resolved Gestational hypertension acu te Maternal varicella, non-immune acute acute Rh negative state in antepartum period acute Supervision of high risk , antepartum acute Thyroid goiter acute Gestational hypertension acu te Maternal varicella, non-immune acute acute Rh negative state in antepartum period acute Supervision of high risk , antepartum acute Thyroid goiter acute Gestational hypertension acu te Maternal varicella, non-immune acute acute Rh negative state in antepartum period acute Supervision of high risk , antepartum acute Thyroid goiter acute Gestational hypertension acu te Maternal varicella, non-immune acute acute Rh negative state in antepartum period acute Supervision of high risk , antepartum acute Thyroid goiter acute [facility] Work Phone: Evaluation note* Diagnosis Onset Date Resolution Status Maternal varicella, non-immune acute acute Rh negative state in antepartum period acute Supervision of high risk , antepartum acute Thyroid goiter acute BMI 31.0-31.9,adult resolved Low lying placenta nos or wi thout hemorrhage, second trimester resolved Maternal varicella, non-immune acute acute Rh negative state in antepartum period acute Supervision of high risk , antepartum acute Thyroid goiter acute Low lying placenta nos or wi thout hemorrhage, second trimester resolved Maternal varicella, non-immune acute acute Rh negative state in antepartum period acute Supervision of high risk , antepartum acute Thyroid goiter acute Low lying placenta nos or wi thout hemorrhage, second trimester resolved Maternal varicella, non-immune acute acute Rh negative state in antepartum period acute Supervision of high risk , antepartum acute Thyroid goiter acute Low lying placenta nos or wi thout hemorrhage, second trimester resolved Elevated blood pressure affe cting , antepartum resolved Maternal varicella, non-immune acute acute Rh negative state in antepartum period acute Supervision of high risk , antepartum acute Thyroid goiter acute Elevated blood pressure affe cting , antepartum resolved Low lying placenta nos or wi thout hemorrhage, second trimester resolved Gestational hypertension acu te Maternal varicella, non-immune acute acute Rh negative state in antepartum period acute Supervision of high risk , antepartum acute Thyroid goiter acute Low lying placenta nos or wi thout hemorrhage, second trimester resolved Gestational hypertension acu te acute Rh negative state in antepartum period acute Supervision of high risk , antepartum acute Thyroid goiter acute Low lying placenta nos or wi thout hemorrhage, second trimester resolved Gestational hypertension acu te Maternal varicella, non-immune acute acute Rh negative state in antepartum period acute Supervision of high risk , antepartum acute Thyroid goiter acute Gestational hypertension acu te Maternal varicella, non-immune acute acute Rh negative state in antepartum period acute Supervision of high risk , antepartum acute Thyroid goiter acute Gestational hypertension acu te Maternal varicella, non-immune acute acute Rh negative state in antepartum period acute Supervision of high risk , antepartum acute Thyroid goiter acute Gestational hypertension acu te Maternal varicella, non-immune acute acute Rh negative state in antepartum period acute Supervision of high risk , antepartum acute Thyroid goiter acute Gestational hypertension acu te Maternal varicella, non-immune acute acute Rh negative state in antepartum period acute Supervision of high risk , antepartum acute Thyroid goiter acute Gestational hypertension acu te Maternal varicella, non-immune acute acute Rh negative state in antepartum period acute Supervision of high risk , antepartum acute Thyroid goiter acute [facility] Work Phone: Evaluation note* Diagnosis Onset Date Resolution Status Maternal varicella, non-immune acute Rh negative state in antepartum period acute Thyroid goiter acute BMI 31.0-31.9,adult resolved Low lying placenta nos or wi thout hemorrhage, second trimester resolved resolved Supervision of high risk , antepartum resolved Maternal varicella, non-immune acute Rh negative state in antepartum period acute Thyroid goiter acute Low lying placenta nos or wi thout hemorrhage, second trimester resolved resolved Supervision of high risk , antepartum resolved Maternal varicella, non-immune acute Rh negative state in antepartum period acute Thyroid goiter acute Low lying placenta nos or wi thout hemorrhage, second trimester resolved resolved Supervision of high risk , antepartum resolved Maternal varicella, non-immune acute Rh negative state in antepartum period acute Thyroid goiter acute Low lying placenta nos or wi thout hemorrhage, second trimester resolved resolved Supervision of high risk , antepartum resolved Elevated blood pressure affe cting , antepartum resolved Maternal varicella, non-immune acute Rh negative state in antepartum period acute Thyroid goiter acute Elevated blood pressure affe cting , antepartum resolved Low lying placenta nos or wi thout hemorrhage, second trimester resolved resolved Supervision of high risk , antepartum resolved Gestational hypertension acu te Maternal varicella, non-immune acute Rh negative state in antepartum period acute Thyroid goiter acute Low lying placenta nos or wi thout hemorrhage, second trimester resolved resolved Supervision of high risk , antepartum resolved Gestational hypertension acu te Rh negative state in antepartum period acute Thyroid goiter acute Low lying placenta nos or wi thout hemorrhage, second trimester resolved resolved Supervision of high risk , antepartum resolved Gestational hypertension acu te Maternal varicella, non-immune acute Rh negative state in antepartum period acute Thyroid goiter acute resolved Supervision of high risk , antepartum resolved Gestational hypertension acu te Maternal varicella, non-immune acute Rh negative state in antepartum period acute Thyroid goiter acute resolved Supervision of high risk , antepartum resolved Gestational hypertension acu te Maternal varicella, non-immune acute Rh negative state in antepartum period acute Thyroid goiter acute resolved Supervision of high risk , antepartum resolved Gestational hypertension acu te Maternal varicella, non-immune acute Rh negative state in antepartum period acute Thyroid goiter acute resolved Supervision of high risk , antepartum resolved Gestational hypertension acu te Maternal varicella, non-immune acute Rh negative state in antepartum period acute Thyroid goiter acute resolved Supervision of high risk , antepartum resolved Gestational hypertension acu te Maternal varicella, non-immune acute Rh negative state in antepartum period acute Thyroid goiter acute resolved Supervision of high risk , antepartum resolved Gestational hypertension acu te Maternal varicella, non-immune acute Rh negative state in antepartum period acute Thyroid goiter acute resolved Supervision of high risk , antepartum resolved Gestational hypertension acu te Maternal varicella, non-immune acute Rh negative state in antepartum period acute Thyroid goiter acute resolved Supervision of high risk , antepartum resolved Gestational hypertension acu te Maternal varicella, non-immune acute Rh negative state in antepartum period acute Thyroid goiter acute resolved Supervision of high risk , antepartum resolved Gestational hypertension acu te Maternal varicella, non-immune acute Rh negative state in antepartum period acute Thyroid goiter acute Vaginal delivery acute Encounter for induction of labor resolved resolved Supervision of high risk , antepartum resolved [facility] Work Phone: Evaluation note* Diagnosis Onset Date Resolution Status Maternal varicella, non-immune acute Rh negative state in antepartum period acute Thyroid goiter acute Low lying placenta nos or wi thout hemorrhage, second trimester resolved resolved Supervision of high risk , antepartum resolved Maternal varicella, non-immune acute Rh negative state in antepartum period acute Thyroid goiter acute Low lying placenta nos or wi thout hemorrhage, second trimester resolved resolved Supervision of high risk , antepartum resolved Maternal varicella, non-immune acute Rh negative state in antepartum period acute Thyroid goiter acute Low lying placenta nos or wi thout hemorrhage, second trimester resolved resolved Supervision of high risk , antepartum resolved Elevated blood pressure affe cting , antepartum resolved Maternal varicella, non-immune acute Rh negative state in antepartum period acute Thyroid goiter acute Elevated blood pressure affe cting , antepartum resolved Low lying placenta nos or wi thout hemorrhage, second trimester resolved resolved Supervision of high risk , antepartum resolved Gestational hypertension acu te Maternal varicella, non-immune acute Rh negative state in antepartum period acute Thyroid goiter acute Low lying placenta nos or wi thout hemorrhage, second trimester resolved resolved Supervision of high risk , antepartum resolved Gestational hypertension acu te Rh negative state in antepartum period acute Thyroid goiter acute Low lying placenta nos or wi thout hemorrhage, second trimester resolved resolved Supervision of high risk , antepartum resolved Gestational hypertension acu te Maternal varicella, non-immune acute Rh negative state in antepartum period acute Thyroid goiter acute resolved Supervision of high risk , antepartum resolved Gestational hypertension acu te Maternal varicella, non-immune acute Rh negative state in antepartum period acute Thyroid goiter acute resolved Supervision of high risk , antepartum resolved Gestational hypertension acu te Maternal varicella, non-immune acute Rh negative state in antepartum period acute Thyroid goiter acute resolved Supervision of high risk , antepartum resolved Gestational hypertension acu te Maternal varicella, non-immune acute Rh negative state in antepartum period acute Thyroid goiter acute resolved Supervision of high risk , antepartum resolved Gestational hypertension acu te Maternal varicella, non-immune acute Rh negative state in antepartum period acute Thyroid goiter acute resolved Supervision of high risk , antepartum resolved Gestational hypertension acu te Maternal varicella, non-immune acute Rh negative state in antepartum period acute Thyroid goiter acute resolved Supervision of high risk , antepartum resolved Gestational hypertension acu te Maternal varicella, non-immune acute Rh negative state in antepartum period acute Thyroid goiter acute resolved Supervision of high risk , antepartum resolved Gestational hypertension acu te Maternal varicella, non-immune acute Rh negative state in antepartum period acute Thyroid goiter acute resolved Supervision of high risk , antepartum resolved Gestational hypertension acu te Maternal varicella, non-immune acute Rh negative state in antepartum period acute Thyroid goiter acute resolved Supervision of high risk , antepartum resolved Gestational hypertension acu te Maternal varicella, non-immune acute Rh negative state in antepartum period acute Thyroid goiter acute Vaginal delivery acute Encounter for induction of labor resolved resolved Supervision of high risk , antepartum resolved [facility] Work Phone: Evaluation note* Diagnosis Vocal cord dysfunction- Primary Other diseases of vocal cords [facility] Diagnosis Onset Date Resolution Status Admit Date Pelvic pain acute March 18 9:19am Encounter for routine gynecological examination noneactive March 182024 9:19am [facility] Work Phone: Hospital course Narrative No data available for this section [facility] Hospital Discharge instructions No data available for this section [facility] Progress note No data available for this section [facility] Progress note Author Isabel Dickerson [facility] April 03, 2023 9:48am Note Date/Time April 03, 2023 9:48a m [facility] Medical Records Department [address] [place] [address] Progress Note - OBGYN 04/03/23 0946 MR#: [id number] Acct: [id number] Name: ROBERTA ROSA Rep #:[id number] : 1995 27 From: Isabel Dickerson CNM PCP: LISBETH Zapata Status:REG C LI Location: [place] [id number] Objective Data Objective Data Vital Signs: Vital Signs Temp Pulse BP Pulse Ox 98.1 F 75 106/59 L 98 04/03/23 09:08 04/03/23 09:08 04/03/23 09:08 04/03/23 09:08 Weight: 239 lb 4 oz Body Mass Index (BMI) 35.3 NST FHR Rate Baby A Baseline: 150 Variability:: Moderate Accelerations:: 15 x 15 Decelerations:: None NST Reactive:: Yes FHR Category:: Category I Uterine Activity:: no contractions Assessment & Plan (1) Gestational hypertension: COMMENT: questionable diagnosis- considerable variation, recommend weekly labs. continue to monitor at this point to clarify diagnosis. NST twice weekly. growth US at 32 (70%) &36 weeks. home monitor-Daily BP. consider IOL between 37-38 weeks (2) Supervision of high risk , antepartum: COMMENT: PRR , ADILENE 05/13/23, boy Coleen Lang Jr IV Rickey (3) : QUALIFIERS: Weeks of gestation: 33 weeks Qualified Code(s): Z3A.33 - 33 weeks gestation of COMMENT: NIPT low risk, declined carrier testing, nl 1 HR GCT. declined ntd screening. nl anatomy. (4) Maternal varicella, non-immune: COMMENT: Pt has had 5 boosters, doesn't hold immunity (5) Thyroid goiter: COMMENT: monitoring TSH normal 03/22 (6) Rh negative state in antepartum period: COMMENT: rhogam @ 28 wks & PRN bleeding PLAN: Plan Patient presents for triage evaluation secondary to NST for GHTN FHT: Moderate variability reactive no decelerations category I tracing Serena: no Contractions Assessment and plan: Reactive NST, reassuring maternal and status patientdischarged to home to follow-up in office. See problem list details for additional plan information. Charges/Coding Procedures Urinary/Genital 52xxx-59xxx: 25343-12 non-stress test Interp 04/03/23 0948 <Electronically signed by Isabel Dickerson CNM> Cosigner Signature (if applicable): CC: ~ Signed [facility] Work Phone: Progress note Author Sanam Tovar [facility] Note Date/Time March 18, 2025 10:00 am [facility] [address], [address] [place] [address] OFFICE VISIT Date of Service: 03/18/25 MR#: [id number] Acct: [id number] Name: ROBERTA ROSA Rep #: [id number] : 1995 Provider: DONNA Tovar Age/Sex: 29/F [place] [facility] [place]: Signed Intake Vital Signs 11/01/24 01:47 03/18/25 09:27 Height 5 ft 9 in 5 ft 9 in Weight: 212 lb BMI 31.3 BP 120/82 H 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 Complaint: 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 Required: No Is patient in pain?: No Allergies azithromycin Adverse Reaction (Verified 03/18/25 09:30) lightheaded Food Allergies: Uncoded Adverse Reaction (Verified 03/18/25 09:29) Other Medications ?Medication ?Instructions ?Recorded ?Confirmed ?Type ascorbic acid (vitamin C) 1,000 mg 1 g PO DAILY supple ment 09/27/22 03/18/25 History capsule multivit-min no.71-iron fum 28 1 cap PO DAILY pregnanc y 09/27/22 03/18/25 History mg-folate no.1 1 mg-dha 300 mg capsule (PNV-Leander) omega3 1,000 ru-ehk-pvy-other 1 cap PO DAILY Check wit h primary 09/27/22 03/18/25 History ds9l-cmpl oil 1,400 mg doctor capsule,delay rel cholecalciferol (vitamin D3) 25 150 mcg PO DAILY 06/0203/18/25 History mcg (1,000 unit) capsule Is last menstrual period known: Yes Last Menstrual Period: 03/13/25 Post menopausal: No PFSH Medical History Vocal cord dysfunction Migraine ADHD Surgical History H/O wisdom tooth extraction History of tonsillectomy Family History Mother Psoriasis Brother Psoriatic arthritis Asthma Father Kidney stone Social History adopted: No household members: spouse housing: apartment number of children: 0 current occupational status: employed 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 current occupational exposures/hazards: No pets and animals: Yes pets and animals: dog(s) history of recent travel: Yes ([place]) out of state: Yes out of country: No sexually active: Yes Smoking Status: Never smoker second hand exposure: No alcohol intake: former details: socially prior to substance use type: does not use well-balanced diet: daily or most days caffeine: Yes Type: coffee Number of servings: 1 eating out: 1-3 times/week what type of physical activity do you participate in: walking frequency: 5-6 times per week duration: 30-45 minutes/day amy/advent: None seatbelt use: always do you feel safe at home: Yes 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 Date Name GA/Weeks Outcome Route Bth Weight Infant Gen Labor Lgth Anesthesia Del Locatn Provider FOB 04/25/23 Rickey Ramirez IV 37 live - full term Male epidural [facility] Sanam Lang Delivery Date: 04/25/23 Last Updated by: Soco Ruiz 2nd degree laceration HPI Encounter for routine gynecological examination Details: ROBERTA ROSA is a 29 year old who presents for annual exam. concerns with dysmenorrhea for the last 2 cycles-cycles not any heavier. not on contraception.motrin and tylenol for pain which helps but does not take it away. is Last PAP: 12/2021 History of abnormal PAP: No Last mammogram: Due at 41yrs History of abnormal mammogram: [] Colon cancer screening: Due at 46yrs Other preventative health care screenings: PCP, Endocrinology Female Reproductive History Last Menstrual Period: 03/13/25 Cycle Length: 21-35 Bleeding Duration: 4 Questions: metorrhagia: Yes, sexually active: Yes, dyspareunia: No and PCB: No ROS Const Constitutional: Reports system reviewed and no additional complaints, except as documented Cardio Card: Reports system reviewed and no additional complaints, except as documented Resp Resp: Reports system reviewed and no additional complaints, except as documented GI GI: Reports system reviewed and no additional complaints, except as documented : Reports system reviewed and no additional complaints, except as documented; Denies difficulty voiding, dysuria or urinary frequency Skin Skin/Breast: Reports system reviewed and no additional complaints, except as documented Neuro Neuro: Reports system reviewed and no additional complaints, except as documented Psych Psych: Reports system reviewed and no additional complaints, except as documented; Denies anhedonia, anxiety or depression Exam Const General: cooperative, healthy appearing, comfortable and no acute distress Orientation: alert, awake and oriented x3 Neck Neck: normal visual inspection and full ROM Thyroid: thyroid normal Chest Breast inspection: normal inspection of the breasts and normal inspection of the axillae Breast palpation: normal palpation of the breasts and normal palpation of the axillae Resp Effort & Inspection: normal respiratory effort, able to speak in complete sentences and symmetric chest movement GI Inspection: normal to inspection Palpation: soft Rectal Exam: visual inspection normal External Female Exam: normal external appearance and normal appearance of the urethra Urethra: normal appearance of the urethra Speculum Exam - Vagina: normal appearance of the vagina and normal vaginal discharge Speculum Exam - Cervix: normal appearance of the cervix and nontender Bimanual Exam- Vagina & Uterus: normal bimanual exam, normal palpation, uterine size normal, No tender and non-tender Bimanual Exam- Adnexa, other: normal Pelvic Support: normal Skin General: no rashes or lesions noted Neuro General: patient alert, patient awake and patient oriented x3 Cognition: normal cognition Speech: speech normal Gait: normal gait Extrem General: normal to inspection and full ROM Psych Appearance: grossly normal and well kempt Mental Status: mental status grossly normal Affect: normal affect Speech and Movement: speech and movement normal Attitude: cooperative Thought Process: normal Thought Content: normal Judgment: judgment good Coding Level of Care Code Off vis,est,prev 18-39yrs Diagnoses Encounter for routine gynecological examination Z01.419 Pelvic pain R10.2 Assessment and Plan Assessment and Plan (1) Encounter for routine gynecological examination: (2) Pelvic pain: Status: Acute Plan: genital culture TVUS Orders: Orders PAP I-G w/rfx hrHPV-Aptima Today Z12.4 - Encounter for screening for malignant neoplasm of cervix Pelvic w/ Transvaginal Today R10.2 - Pelvic and perineal pain Plan Details Additional Comments: Cervical cancer screening: today Breast cancer screening: age 40 STD prevention and contraceptive options including their risks, benefits, and alternatives were reviewed with the patient and she chooses: denies Encouraged maintenance of a healthy weight and active lifestyle and handout given. Calcium/vitamin D recommendations provided. Annual exam handout including recommendations for good health guidelines and basic screening information given. Problem list up to date, see problem list details for any additional plan information. follow up in one year for annual health maintenance exam or sooner if needed. 03/18/25 1000 <Electronically signed by Sanam cantu CNM> Date _ Sanam Tovar CNM Cosigner Signature: Date (if applicable) CC: ~ [facility] Work Phone: Reason for referral (narrative)No reason for referral information availableWJoint [facility] Work Phone: Reason for visit Narrative* Speech Therapy (Routine) - Authorized Specialty Diagnoses / Procedures Referred By Contjcalyn t Referred To Contact Speech Pathology / Speech Therapy Diagnoses SIBILLIA/RX IN MEDIA Procedures VOCAL CORD DYSFUNCTION Charbel Napier MD [address] [place] [address] Phone: tel: fax: Sanam Arcos, [facility] [place] [address] Phone: tel: fax: Referral ID Status Reason Start Date Expiration Date V isits Requested Visits Authorized [id number] Authorized 09/06/2024 11/05/2024 20 20 [facility] Summary Purpose Family History No Family History Records Found Relationship Condition Age at Onset Recorded Date/T clyde mother Psoriasis Unknown Relationship Condition Age at Onset Recorded Date/T clyde mother Psoriasis Unknown brother Psoriatic arthritis Unknown Asthma Unknown father Calculus of kidney Unknown Advance Directives No Advanced Directives Records Found Advance Directive Response Recorded Date/ Time Living Will No May 07, 2019 1 0:01am Power of Javascript Front End Developer No May 07, 2019 10:01am Advance Directive Response Recorded Date/ Time Living Will No May 07, 2019 9 :01am Power of Javascript Front End Developer No May 07, 2019 9:01am Advance Directive Response Recorded Date/ Time Living Will No April 23, 2023 7:44pm Power of Javascript Front End Developer No April 23 7:44pm Advance Directive Response Recorded Date/ Time Living Will No November 01 024 2:50am Do you have a Healthcare Power of Javascript Front End Developer? No November 01, 2024 2:50am Reason for Referral Specialty Diagnoses / Procedures Referred By Contjaclyn t Referred To Contact Diagnoses Nontoxic nodular goiter Procedures US THYROID OR PARATHYROID Tessy Botello, ASSOCIATE PROFESSOR OF HISTORY [address] [place] [address] Referral ID Status Reason Start Date Expiration Date Visits Re quested Visits Authorized [id number] Closed 02/01/2022 1 1 Chief Complaint and Reason for Visit Chief Complaint STRIDER, DYSPNEA, HY POXEMIA Chief Complaint STRIDER, DYSPNEA, HY POXEMIA nob lmp 08/06/22 Reason for Visit BMI 31.0-31.9,adult Maternal varicella, non-immune Rh negative state in antepartum period Supervision of high risk , antepartum Thyroid goiter Vocal cord dysfunction Chief Complaint nob lmp 08/06/22 Reason for Visit BMI 31.0-31.9,adult Maternal varicella, non-immune Rh negative state in antepartum period Supervision of high risk , antepartum Thyroid goiter Vocal cord dysfunction Chief Complaint nob lmp 08/06/22 13 WK OB WELLBEING 18 WK OB Reason for Visit BMI 31.0-31.9,adult Maternal varicella, non-immune Rh negative state in antepartum period Supervision of high risk , antepartum Thyroid goiter Vocal cord dysfunction BMI 31.0-31.9,adult Low lying placenta nos or without hemorrhage, second trimester Rh negative state in antepartum period Supervision of high risk , antepartum Thyroid goiter Chief Complaint 13 WK OB WELLBEING 18 WK OB 22 WK OB 26 WK OB 28 WK OB Reason for Visit Low lying placenta n os or without hemorrhage, second trimester Rh negative state in antepartum period Supervision of high risk , antepartum Thyroid goiter BMI 31.0-31.9,adult Low lying placenta nos or without hemorrhage, second trimester Maternal varicella, non-immune Rh negative state in antepartum period Supervision of high risk , antepartum Thyroid goiter BMI 31.0-31.9,adult Low lying placenta nos or without hemorrhage, second trimester Maternal varicella, non-immune Rh negative state in antepartum period Supervision of high risk , antepartum Thyroid goiter Low lying placenta nos or without hemorrhage, second trimester Maternal varicella, non-immune Rh negative state in antepartum period Supervision of high risk , antepartum Thyroid goiter Chief Complaint WELLBEING 18 WK OB 22 WK OB 26 WK OB 28 WK OB 30 WK OB RULE OUT PRE-ECLAMPSIA RULE OUT PRE-ECLAMPSIA Reason for Visit Low lying placenta n os or without hemorrhage, second trimester Rh negative state in antepartum period Supervision of high risk , antepartum Thyroid goiter BMI 31.0-31.9,adult Low lying placenta nos or without hemorrhage, second trimester Maternal varicella, non-immune Rh negative state in antepartum period Supervision of high risk , antepartum Thyroid goiter BMI 31.0-31.9,adult Low lying placenta nos or without hemorrhage, second trimester Maternal varicella, non-immune Rh negative state in antepartum period Supervision of high risk , antepartum Thyroid goiter Low lying placenta nos or without hemorrhage, second trimester Maternal varicella, non-immune Rh negative state in antepartum period Supervision of high risk , antepartum Thyroid goiter Low lying placenta nos or without hemorrhage, second trimester Maternal varicella, non-immune Rh negative state in antepartum period Supervision of high risk , antepartum Thyroid goiter Elevated blood pressure affecting , antepartum Chief Complaint 18 WK OB 22 WK OB 26 WK OB 28 WK OB 30 WK OB RULE OUT PRE-ECLAMPSIA RULE OUT PRE-ECLAMPSIA check BP and draft roller picker monitor 32 WK OB 32 WK NST GROWTH 33 WK OB/NST NST- NON STRESS TEST NST- NON STRESS TEST NST NST Reason for Visit Rh negative state in antepartum period Supervision of high risk , antepartum Thyroid goiter BMI 31.0-31.9,adult Low lying placenta nos or without hemorrhage, second trimester Maternal varicella, non-immune Rh negative state in antepartum period Supervision of high risk , antepartum Thyroid goiter BMI 31.0-31.9,adult Low lying placenta nos or without hemorrhage, second trimester Maternal varicella, non-immune Rh negative state in antepartum period Supervision of high risk , antepartum Thyroid goiter Low lying placenta nos or without hemorrhage, second trimester Maternal varicella, non-immune Rh negative state in antepartum period Supervision of high risk , antepartum Thyroid goiter Low lying placenta nos or without hemorrhage, second trimester Maternal varicella, non-immune Rh negative state in antepartum period Supervision of high risk , antepartum Thyroid goiter Low lying placenta nos or without hemorrhage, second trimester Elevated blood pressure affecting , antepartum Maternal varicella, non-immune Rh negative state in antepartum period Supervision of high risk , antepartum Thyroid goiter Elevated blood pressure affecting , antepartum Low lying placenta nos or without hemorrhage, second trimester Gestational hypertension Maternal varicella, non-immune Rh negative state in antepartum period Supervision of high risk , antepartum Thyroid goiter Low lying placenta nos or without hemorrhage, second trimester Gestational hypertension Rh negative state in antepartum period Supervision of high risk , antepartum Thyroid goiter Low lying placenta nos or without hemorrhage, second trimester Gestational hypertension Maternal varicella, non-immune Rh negative state in antepartum period Supervision of high risk , antepartum Thyroid goiter Gestational hypertension Maternal varicella, non-immune Rh negative state in antepartum period Supervision of high risk , antepartum Thyroid goiter Gestational hypertension Maternal varicella, non-immune Rh negative state in antepartum period Supervision of high risk , antepartum Thyroid goiter Gestational hypertension Maternal varicella, non-immune Rh negative state in antepartum period Supervision of high risk , antepartum Thyroid goiter Chief Complaint 22 WK OB 26 WK OB 28 WK OB 30 WK OB RULE OUT PRE-ECLAMPSIA RULE OUT PRE-ECLAMPSIA check BP and draft roller picker monitor 32 WK OB 32 WK NST GROWTH 33 WK OB/NST NST- NON STRESS TEST NST- NON STRESS TEST NST NST 34 WK OB/NST 35 WK NST Reason for Visit Maternal varicella, non-immune Rh negative state in antepartum period Supervision of high risk , antepartum Thyroid goiter BMI 31.0-31.9,adult Low lying placenta nos or without hemorrhage, second trimester Maternal varicella, non-immune Rh negative state in antepartum period Supervision of high risk , antepartum Thyroid goiter Low lying placenta nos or without hemorrhage, second trimester Maternal varicella, non-immune Rh negative state in antepartum period Supervision of high risk , antepartum Thyroid goiter Low lying placenta nos or without hemorrhage, second trimester Maternal varicella, non-immune Rh negative state in antepartum period Supervision of high risk , antepartum Thyroid goiter Low lying placenta nos or without hemorrhage, second trimester Elevated blood pressure affecting , antepartum Maternal varicella, non-immune Rh negative state in antepartum period Supervision of high risk , antepartum Thyroid goiter Elevated blood pressure affecting , antepartum Low lying placenta nos or without hemorrhage, second trimester Gestational hypertension Maternal varicella, non-immune Rh negative state in antepartum period Supervision of high risk , antepartum Thyroid goiter Low lying placenta nos or without hemorrhage, second trimester Gestational hypertension Rh negative state in antepartum period Supervision of high risk , antepartum Thyroid goiter Low lying placenta nos or without hemorrhage, second trimester Gestational hypertension Maternal varicella, non-immune Rh negative state in antepartum period Supervision of high risk , antepartum Thyroid goiter Gestational hypertension Maternal varicella, non-immune Rh negative state in antepartum period Supervision of high risk , antepartum Thyroid goiter Gestational hypertension Maternal varicella, non-immune Rh negative state in antepartum period Supervision of high risk , antepartum Thyroid goiter Gestational hypertension Maternal varicella, non-immune Rh negative state in antepartum period Supervision of high risk , antepartum Thyroid goiter Gestational hypertension Maternal varicella, non-immune Rh negative state in antepartum period Supervision of high risk , antepartum Thyroid goiter Gestational hypertension Maternal varicella, non-immune Rh negative state in antepartum period Supervision of high risk , antepartum Thyroid goiter Chief Complaint 22 WK OB 26 WK OB 28 WK OB 30 WK OB RULE OUT PRE-ECLAMPSIA RULE OUT PRE-ECLAMPSIA check BP and draft roller picker monitor 32 WK OB 32 WK NST GROWTH 33 WK OB/NST NST- NON STRESS TEST NST- NON STRESS TEST NST NST 34 WK OB/NST 35 WK NST 35 WK OB/NST 36 WK NST 36 WK OB/NST GROWTH VAG INDUCTION VAG VAG Reason for Visit Maternal varicella, non-immune Rh negative state in antepartum period Thyroid goiter BMI 31.0-31.9,adult Low lying placenta nos or without hemorrhage, second trimester Supervision of high risk , antepartum Maternal varicella, non-immune Rh negative state in antepartum period Thyroid goiter Low lying placenta nos or without hemorrhage, second trimester Supervision of high risk , antepartum Maternal varicella, non-immune Rh negative state in antepartum period Thyroid goiter Low lying placenta nos or without hemorrhage, second trimester Supervision of high risk , antepartum Maternal varicella, non-immune Rh negative state in antepartum period Thyroid goiter Low lying placenta nos or without hemorrhage, second trimester Supervision of high risk , antepartum Elevated blood pressure affecting , antepartum Maternal varicella, non-immune Rh negative state in antepartum period Thyroid goiter Elevated blood pressure affecting , antepartum Low lying placenta nos or without hemorrhage, second trimester Supervision of high risk , antepartum Gestational hypertension Maternal varicella, non-immune Rh negative state in antepartum period Thyroid goiter Low lying placenta nos or without hemorrhage, second trimester Supervision of high risk , antepartum Gestational hypertension Rh negative state in antepartum period Thyroid goiter Low lying placenta nos or without hemorrhage, second trimester Supervision of high risk , antepartum Gestational hypertension Maternal varicella, non-immune Rh negative state in antepartum period Thyroid goiter Supervision of high risk , antepartum Gestational hypertension Maternal varicella, non-immune Rh negative state in antepartum period Thyroid goiter Supervision of high risk , antepartum Gestational hypertension Maternal varicella, non-immune Rh negative state in antepartum period Thyroid goiter Supervision of high risk , antepartum Gestational hypertension Maternal varicella, non-immune Rh negative state in antepartum period Thyroid goiter Supervision of high risk , antepartum Gestational hypertension Maternal varicella, non-immune Rh negative state in antepartum period Thyroid goiter Supervision of high risk , antepartum Gestational hypertension Maternal varicella, non-immune Rh negative state in antepartum period Thyroid goiter Supervision of high risk , antepartum Gestational hypertension Maternal varicella, non-immune Rh negative state in antepartum period Thyroid goiter Supervision of high risk , antepartum Gestational hypertension Maternal varicella, non-immune Rh negative state in antepartum period Thyroid goiter Supervision of high risk , antepartum Gestational hypertension Maternal varicella, non-immune Rh negative state in antepartum period Thyroid goiter Supervision of high risk , antepartum Gestational hypertension Maternal varicella, non-immune Rh negative state in antepartum period Thyroid goiter Vaginal delivery Encounter for induction of labor Supervision of high risk , antepartum Chief Complaint 22 WK OB 26 WK OB 28 WK OB 30 WK OB RULE OUT PRE-ECLAMPSIA RULE OUT PRE-ECLAMPSIA check BP and draft roller picker monitor 32 WK OB 32 WK NST GROWTH 33 WK OB/NST NST- NON STRESS TEST NST- NON STRESS TEST NST NST 34 WK OB/NST 35 WK NST 35 WK OB/NST 36 WK NST 36 WK OB/NST GROWTH VAG INDUCTION VAG VAG VAG check BP E-ORDER Reason for Visit Maternal varicella, non-immune Rh negative state in antepartum period Thyroid goiter BMI 31.0-31.9,adult Low lying placenta nos or without hemorrhage, second trimester Supervision of high risk , antepartum Maternal varicella, non-immune Rh negative state in antepartum period Thyroid goiter Low lying placenta nos or without hemorrhage, second trimester Supervision of high risk , antepartum Maternal varicella, non-immune Rh negative state in antepartum period Thyroid goiter Low lying placenta nos or without hemorrhage, second trimester Supervision of high risk , antepartum Maternal varicella, non-immune Rh negative state in antepartum period Thyroid goiter Low lying placenta nos or without hemorrhage, second trimester Supervision of high risk , antepartum Elevated blood pressure affecting , antepartum Maternal varicella, non-immune Rh negative state in antepartum period Thyroid goiter Elevated blood pressure affecting , antepartum Low lying placenta nos or without hemorrhage, second trimester Supervision of high risk , antepartum Gestational hypertension Maternal varicella, non-immune Rh negative state in antepartum period Thyroid goiter Low lying placenta nos or without hemorrhage, second trimester Supervision of high risk , antepartum Gestational hypertension Rh negative state in antepartum period Thyroid goiter Low lying placenta nos or without hemorrhage, second trimester Supervision of high risk , antepartum Gestational hypertension Maternal varicella, non-immune Rh negative state in antepartum period Thyroid goiter Supervision of high risk , antepartum Gestational hypertension Maternal varicella, non-immune Rh negative state in antepartum period Thyroid goiter Supervision of high risk , antepartum Gestational hypertension Maternal varicella, non-immune Rh negative state in antepartum period Thyroid goiter Supervision of high risk , antepartum Gestational hypertension Maternal varicella, non-immune Rh negative state in antepartum period Thyroid goiter Supervision of high risk , antepartum Gestational hypertension Maternal varicella, non-immune Rh negative state in antepartum period Thyroid goiter Supervision of high risk , antepartum Gestational hypertension Maternal varicella, non-immune Rh negative state in antepartum period Thyroid goiter Supervision of high risk , antepartum Gestational hypertension Maternal varicella, non-immune Rh negative state in antepartum period Thyroid goiter Supervision of high risk , antepartum Gestational hypertension Maternal varicella, non-immune Rh negative state in antepartum period Thyroid goiter Supervision of high risk , antepartum Gestational hypertension Maternal varicella, non-immune Rh negative state in antepartum period Thyroid goiter Supervision of high risk , antepartum Gestational hypertension Maternal varicella, non-immune Rh negative state in antepartum period Thyroid goiter Vaginal delivery Encounter for induction of labor Supervision of high risk , antepartum Chief Complaint 26 WK OB 28 WK OB 30 WK OB RULE OUT PRE-ECLAMPSIA RULE OUT PRE-ECLAMPSIA check BP and draft roller picker monitor 32 WK OB 32 WK NST GROWTH 33 WK OB/NST NST- NON STRESS TEST NST- NON STRESS TEST NST NST 34 WK OB/NST 35 WK NST 35 WK OB/NST 36 WK NST 36 WK OB/NST GROWTH VAG INDUCTION VAG VAG VAG check BP E-ORDER 2 wk PP BP check Reason for Visit Maternal varicella, non-immune Rh negative state in antepartum period Thyroid goiter Low lying placenta nos or without hemorrhage, second trimester Supervision of high risk , antepartum Maternal varicella, non-immune Rh negative state in antepartum period Thyroid goiter Low lying placenta nos or without hemorrhage, second trimester Supervision of high risk , antepartum Maternal varicella, non-immune Rh negative state in antepartum period Thyroid goiter Low lying placenta nos or without hemorrhage, second trimester Supervision of high risk , antepartum Elevated blood pressure affecting , antepartum Maternal varicella, non-immune Rh negative state in antepartum period Thyroid goiter Elevated blood pressure affecting , antepartum Low lying placenta nos or without hemorrhage, second trimester Supervision of high risk , antepartum Gestational hypertension Maternal varicella, non-immune Rh negative state in antepartum period Thyroid goiter Low lying placenta nos or without hemorrhage, second trimester Supervision of high risk , antepartum Gestational hypertension Rh negative state in antepartum period Thyroid goiter Low lying placenta nos or without hemorrhage, second trimester Supervision of high risk , antepartum Gestational hypertension Maternal varicella, non-immune Rh negative state in antepartum period Thyroid goiter Supervision of high risk , antepartum Gestational hypertension Maternal varicella, non-immune Rh negative state in antepartum period Thyroid goiter Supervision of high risk , antepartum Gestational hypertension Maternal varicella, non-immune Rh negative state in antepartum period Thyroid goiter Supervision of high risk , antepartum Gestational hypertension Maternal varicella, non-immune Rh negative state in antepartum period Thyroid goiter Supervision of high risk , antepartum Gestational hypertension Maternal varicella, non-immune Rh negative state in antepartum period Thyroid goiter Supervision of high risk , antepartum Gestational hypertension Maternal varicella, non-immune Rh negative state in antepartum period Thyroid goiter Supervision of high risk , antepartum Gestational hypertension Maternal varicella, non-immune Rh negative state in antepartum period Thyroid goiter Supervision of high risk , antepartum Gestational hypertension Maternal varicella, non-immune Rh negative state in antepartum period Thyroid goiter Supervision of high risk , antepartum Gestational hypertension Maternal varicella, non-immune Rh negative state in antepartum period Thyroid goiter Supervision of high risk , antepartum Gestational hypertension Maternal varicella, non-immune Rh negative state in antepartum period Thyroid goiter Vaginal delivery Encounter for induction of labor Supervision of high risk , antepartum Chief Complaint Admit Date NEAR SYNCOPE November 01, 2024 1:47am FOLLOW UP FOR NODULE SIZE January 30 12:55pm Chief Complaint Admit Date FOLLOW UP FOR NODULE SIZE January 30 12:55pm Annual (SHIP SCALER) March 18, 2025 9:19a m Reason for Visit Admit Date Pelvic pain March 18, 2025 9:19a m Encounter for routine gynecological exam ination March 18, 2025 9:19am Chief Complaint Admit Date FOLLOW UP FOR NODULE SIZE January 30 12:55pm Annual (SHIP SCALER) March 18, 2025 9:19a m UTERINE TENDERNESS March 26, 2025 8:27a m Chief Complaint Admit Date FOLLOW UP FOR NODULE SIZE January 30 12:55pm Annual (SHIP SCALER) March 18, 2025 9:19a m UTERINE TENDERNESS March 26, 2025 8:27a m Painful Menses $20 copay April 25, 2025 9:14am Reason for Visit Admit Date Pelvic pain March 18, 2025 9:19a m Encounter for routine gynecological exam ination March 18, 2025 9:19am Dysmenorrhea April 25, 2025 9:14 am Pelvic pain April 25, 2025 9:14 am Additional Source Comments INFORMATION SOURCE (unrecogn ized section and content) DATE CREATED AUTHOR 06/10/2021 [facility] Sands DATE CREATED AUTHOR AUTHOR'S ORGANIZ ATION 06/11/2021 [facility] DATE CREATED AUTHOR AUTHOR'S ORGANIZ ATION 01/20/2022 [facility] DATE CREATED AUTHOR AUTHOR'S ORGANIZ ATION 04/12/2022 [facility] DATE CREATED AUTHOR AUTHOR'S ORGANIZ ATION 06/12/2024 [facility] ([place]) DATE CREATED AUTHOR AUTHOR'S ORGANIZ ATION 09/14/2024 [facility] DATE CREATED AUTHOR AUTHOR'S ORGANIZ ATION 12/18/2024 [facility] DATE CREATED AUTHOR AUTHOR'S ORGANIZ ATION 06/14/2025 [facility] Reason for Visit (unrecogniz ed section and content) Reason Comments Anxiety Shortness of Breath Specialty Diagnoses / Procedures Referred By Contjaclyn t Referred To Contact Diagnoses Nontoxic nodular goiter Procedures US THYROID OR PARATHYROID Tessy Botello, ASSOCIATE PROFESSOR OF HISTORY [address] [place] [address] Referral ID Status Reason Start Date Expiration Date Visits Re quested Visits Authorized [id number] Closed 02/01/2022 1 1 Care Teams (unrecognized sec tion and content) Adhesive Bandage Machine Operator Relationship Specialty [place] [address] PCP - General 01/06/22 Adhesive Bandage Machine Operator Relationship Specialty Start [place] [address] PCP - General 01/06/22 Team Status: Active Member Role Status Dates Soco Frazier BRUSH HOLDER INSPECTOR, BRUSH HOLDER INSPECTOR-C Family Provider Active Soco Frazier BRUSH HOLDER INSPECTOR, BRUSH HOLDER INSPECTOR-C Primary Care Provider Active Team Status: Inactive Member Role Status Dates Soco Frazier BRUSH HOLDER INSPECTOR, BRUSH HOLDER INSPECTOR-C Primary Care Provider, Referri ng Provider Active Dr. Antonieta Hendrickson DO Attending Provider Activ e Team Status: Inactive Member Role Status Dates Soco Frazier BRUSH HOLDER INSPECTOR, BRUSH HOLDER INSPECTOR-C Primary Care Provider, Referri ng Provider Active Dr. Beatriz Cyr MD Attending Provider Active Team Status: Inactive Member Role Status Jackie Frazier BRUSH HOLDER INSPECTOR, BRUSH HOLDER INSPECTOR-C Primary Care Provider, Referri ng Provider Active Joy De La Paz BRUSH HOLDER INSPECTOR, BRUSH HOLDER INSPECTOR-C Attending Provider Active Team Status: Inactive Member Role Status Jackie Frazier BRUSH HOLDER INSPECTOR, BRUSH HOLDER INSPECTOR-C Primary Care Provider Active Dr. Antonieta Hendrickson DO Attending Provider Activ e Team Status: Inactive Member Role Status Jackie Frazier BRUSH HOLDER INSPECTOR, BRUSH HOLDER INSPECTOR-C Primary Care Provider Active Dr. Antonieta Hendrickson DO Attending Provider, Refe rring Provider Active Team Status: Inactive Member Role Status Jackie Frazier BRUSH HOLDER INSPECTOR, BRUSH HOLDER INSPECTOR-C Primary Care Provider Active Dr. Beatriz Cyr MD Attending Provider Active Team Status: Inactive Member Role Status Jackie Frazier BRUSH HOLDER INSPECTOR, BRUSH HOLDER INSPECTOR-C Primary Care Provider Active Dr. Beatriz Cyr MD Attending Provider, Referr ing Provider Active Team Status: Inactive Member Role Status Jackie Frazier BRUSH HOLDER INSPECTOR, BRUSH HOLDER INSPECTOR-C Primary Care Provider, Referri ng Provider Active Isabel Dickerson CNM Attending Provider Active Team Status: Active Member Role Status Jackie Frazier BRUSH HOLDER INSPECTOR, BRUSH HOLDER INSPECTOR-C Primary Care Provider Active Sanam Tovar CNM Attending Provider, Referring Provider, Other Provider Active Team Status: Inactive Member Role Status Jackie Frazier BRUSH HOLDER INSPECTOR, BRUSH HOLDER INSPECTOR-C Primary Care Provider Active Sanam Tovar CNM Attending Provider, Referring Pro vider Active Team Status: Inactive Member Role Status Jackie Frazier BRUSH HOLDER INSPECTOR, BRUSH HOLDER INSPECTOR-C Primary Care Provider, Referri ng Provider Active Sanam Tovar CNM Attending Provider Active Team Status: Active Member Role Status Jackie Frazier BRUSH HOLDER INSPECTOR, BRUSH HOLDER INSPECTOR-C Primary Care Provider Active Isabel Dickerson CNM Attending Provider , Referring Provider, Other Provider Active Team Status: Active Member Role Status Jackie Frazier BRUSH HOLDER INSPECTOR, BRUSH HOLDER INSPECTOR-C Primary Care Provider Active Isabel Dickerson CNM Attending Provider, Other Provid er Active Team Status: Active Member Role Status Jackie Frazier BRUSH HOLDER INSPECTOR, BRUSH HOLDER INSPECTOR-C Primary Care Provider Active Sanam Tovar CNM Attending Provider, Referring Pro vider Active Team Status: Inactive Member Role Status Jackie Frazier BRUSH HOLDER INSPECTOR, BRUSH HOLDER INSPECTOR-C Primary Care Provider Active Isabel Dickerson CNM Attending Provider, Referring Pr ovider Active Team Status: Inactive Member Role Status Dates Soco Frazier BRUSH HOLDER INSPECTOR, BRUSH HOLDER INSPECTOR-C Primary Care Provider Active Isabel Dickerson CNM Attending Provider Active Team Status: Inactive Member Role Status Dates Soco Frazier BRUSH HOLDER INSPECTOR, BRUSH HOLDER INSPECTOR-C Primary Care Provider, Referri ng Provider Active Joy De La Paz BRUSH HOLDER INSPECTOR, BRUSH HOLDER INSPECTOR-C Active Sanam Tovar CNM Attending Provider Active Team Status: Active Member Role Status Dates Soco Frazier BRUSH HOLDER INSPECTOR, BRUSH HOLDER INSPECTOR-C Primary Care Provider Active Dr. Antonieta Hendrickson , DO Admit Prov ider, Referring Provider, Other Provider Active Sanam Tovar CNM Attending Provider Active Team Status: Active Member Role Status Dates Soco Frazier BRUSH HOLDER INSPECTOR, BRUSH HOLDER INSPECTOR-C Primary Care Provider Active Sanam Tovar CNM Admit Provider, Att ending Provider, Referring Provider, Other Provider Active Team Status: Active Member Role Status Dates Soco Frazier BRUSH HOLDER INSPECTOR, BRUSH HOLDER INSPECTOR-C Primary Care Provider Active Sanam Tovar CNM Attending Provider, Referring Pro vider Active Isabel Dickerson CNM Other Provider Active Team Status: Active Member Role Status Dates Soco Frazier BRUSH HOLDER INSPECTOR, BRUSH HOLDER INSPECTOR-C Primary Care Provider Active Patient Link Program Attending Provider, Referring Pro vider Active Team Status: Inactive Member Role Status Dates Soco Frazier BRUSH HOLDER INSPECTOR, BRUSH HOLDER INSPECTOR-C Primary Care Provider Active Joy De La Paz NP, BRUSH HOLDER INSPECTOR-C Attending Provider, Referring Provider Active Team Status: Inactive Member Role Status Dates Soco Frazier BRUSH HOLDER INSPECTOR, BRUSH HOLDER INSPECTOR-C Primary Care Provider Active Sanam Tovar CNM Admit Provider, Att ending Provider, Referring Provider Active Team Status: Inactive Member Role Status Dates Soco Frazier BRUSH HOLDER INSPECTOR, BRUSH HOLDER INSPECTOR-C Primary Care Provider Active Sanam Tovar CNM Attending Provider, Referring Pro vider Active Isabel Dickerson CNM Other Provider Active 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 Heron Mondragon MD Attending Provider Active S tart: November 01, 2024 End: November 01, 2024 Dr. Heron Mondragon MD Emergency Provider Active S tart: November 01, 2024 End: November 01, 2024 Team Status: Inactive Member Role Status Dates Soco Frazier BRUSH HOLDER INSPECTOR, BRUSH HOLDER INSPECTOR-C Primary Care Provider Active Start: January 30, 2025 End: January 30, 2025 Dr. Fay Hebert MD Attending Provider Act trevor Start: January 30, 2025 End: January 30, 2025 Dr. Fay Hebert MD Referring Provider Act trevor Start: January 30, 2025 End: January 30, 2025 Team Status: Inactive Member Role Status Dates Soco Frazier BRUSH HOLDER INSPECTOR, BRUSH HOLDER INSPECTOR-C Primary Care Provider Active Start: March 18, 2025 End: March 18, 2025 Soco Frazier NP, BRUSH HOLDER INSPECTOR-C Referring Provider Active Start: March 18, 2025 End: March 18, 2025 Sanam Tovar CNM Attending Provider Active S tart: March 18, 2025 End: March 18, 2025 Team Status: Inactive Member Role Status Dates Soco Frazier NP, BRUSH HOLDER INSPECTOR-C Primary Care Provider Active Start: March 18, 2025 End: March 18, 2025 Sanam Tovar CNM Attending Provider Active S tart: March 18, 2025 End: March 18, 2025 Sanam Tovar CNM Referring Provider Active S tart: March 18, 2025 End: March 18, 2025 Team Status: Inactive Member Role Status Dates Soco Frazier NP, BRUSH HOLDER INSPECTOR-C Primary Care Provider Active Start: March 26, 2025 End: March 26, 2025 Sanam Tovar CNM Attending Provider Active S tart: March 26, 2025 End: March 26, 2025 Sanam Tovar CNM Referring Provider Active S tart: March 26, 2025 End: March 26, 2025 Team Status: Inactive Member Role Status Dates Soco Frazier NP, BRUSH HOLDER INSPECTOR-C Primary Care Provider Active Start: April 25, 2025 End: April 25, 2025 Soco Frazier NP, BRUSH HOLDER INSPECTOR-C Referring Provider Active Start: April 25, 2025 End: April 25, 2025 Sanam Tovar CNM Attending Provider Active S tart: April 25, 2025 End: April 25, 2025 Team Status: Active Member Role/Relationship Status Dates Soco Frazier BRUSH HOLDER INSPECTOR, BRUSH HOLDER INSPECTOR-C Primary Care Provider Active Team Status: Inactive Member Role/Relationship Status Dates Soco Frazier BRUSH HOLDER INSPECTOR, BRUSH HOLDER INSPECTOR-C Primary Care Provider Active Start: January 30, 2025 End: January 30, 2025 Dr. Fay Hebert MD Attending Provider Act trevor Start: January 30, 2025 End: January 30, 2025 Dr. Fay Hebert MD Referring Provider Act trevor Start: January 30, 2025 End: January 30, 2025 Team Status: Inactive Member Role/Relationship Status Dates Soco Frazier BRUSH HOLDER INSPECTOR, BRUSH HOLDER INSPECTOR-C Primary Care Provider Active Start: March 18, 2025 End: March 18, 2025 Soco Frazier BRUSH HOLDER INSPECTOR, BRUSH HOLDER INSPECTOR-C Referring Provider Active Start: March 18, 2025 End: March 18, 2025 Sanam Tovar CNM Attending Provider Active S tart: March 18, 2025 End: March 18, 2025 Team Status: Inactive Member Role/Relationship Status Dates Soco Frazier BRUSH HOLDER INSPECTOR, BRUSH HOLDER INSPECTOR-C Primary Care Provider Active Start: March 18, 2025 End: March 18, 2025 Sanam Tovar CNM Attending Provider Active S tart: March 18, 2025 End: March 18, 2025 Sanam Tovar CNM Referring Provider Active S tart: March 18, 2025 End: March 18, 2025 Team Status: Inactive Member Role/Relationship Status Dates Soco Frazier NP, BRUSH HOLDER INSPECTOR-C Primary Care Provider Active Start: March 26, 2025 End: March 26, 2025 Sanam Tovar CNM Attending Provider Active S tart: March 26, 2025 End: March 26, 2025 Sanam Tovar CNM Referring Provider Active S tart: March 26, 2025 End: March 26, 2025 Team Status: Inactive Member Role/Relationship Status Dates Soco Frazier NP, BRUSH HOLDER INSPECTOR-C Primary Care Provider Active Start: April 25, 2025 End: April 25, 2025 Soco Frazier NP, BRUSH HOLDER INSPECTOR-C Referring Provider Active Start: April 25, 2025 End: April 25, 2025 Sanam Tovar CNM Attending Provider Active S tart: April 25, 2025 End: April 25, 2025 Team Status: Inactive Member Role/Relationship Status Dates Soco Frazier NP, BRUSH HOLDER INSPECTOR-C Primary Care Provider Active Start: April 25, 2025 End: April 25, 2025 Sanam Tovar CNM Attending Provider Active S tart: April 25, 2025 End: April 25, 2025 Goals (unrecognized section and content) Goals may be documented in a n alternate section FOR RECORDS PERTAINING TO PATIENTS WHO ARE OR HAVE BEEN ENROLLED IN A CHEMICAL DEPENDENCY/SUBSTANCEABUSE PROGRAM, SOME INFORMATION MAY BE OMITTED. This clinical summary was aggregated from multiple sources. Caution should be exercised in using it in the provision of clinical care. This summary normalizes information from multiple sources, and as a consequence, information in this document may materially change the coding, format and clinical context of patient data. In addition, data may be omitted in some cases. CLINICAL DECISIONS SHOULD BE BASED ON THE PRIMARY CLINICAL RECORDS. [employer] provides no warranty or guarantee of the accuracy or completeness of information in this document.
[2025-06-19 08:13] LABS: Mumps Antibody,IgG 112.0 AU/mL (Immune >10.9); V-Zoster IgG (Immunity) Reactive (Non Reactive)
== END | disposition home or self-care (01) ==
PROVIDERS: PCP Nurse Practitioner Primary Care; Referring Provider Nurse Practitioner Primary Care; Visit Provider Nurse Practitioner Primary Care
DX: Z01.84 Encounter for antibody response examination (principal)
CPT/HCPCS: 36415; 86735; 86762; 86765; 86787; 87340

== ENCOUNTER → 2025-06-27 | Outpatient (CLI) | payer OTHER, SELFPAY | END | disposition home or self-care (01) | LOC: LABSPEC 12:11 | PROVIDERS: PCP Nurse Practitioner Primary Care; Referring Provider Advanced Practice Midwife; Visit Provider Advanced Practice Midwife | DX: N89.8 Other specified noninflammatory disorders of vagina (principal) | CPT/HCPCS: 87070; 87205 ==

== ENCOUNTER → 2025-07-15 | Outpatient (CLI) | payer OTHER, SELFPAY ==
[2025-07-15 12:21] LABS: Hematocrit 38.9 % (37-47); Hemoglobin 13.5 g/dL (12.0-15.0); Immature Granulocytes Count 0.040 X10^3/uL (0.0-0.0); Mean Corp Hgb Conc 34.7 g/dL (32-36); Mean Corpuscular Volume 82.9 fL (81-99); Mean Platelet Vol. 10.3 fl (6.2-12.0); NRBC Flagged by Analyzer 0 % (0-5); Platelet Count 280 K/mm3 (150-450); RBC Distribution Width CV 13.4 % (11.6-14.6); RBC Distribution Width SD 40.6 fl (35.1-43.9); Red Blood Count 4.69 M/mm3 (4.2-5.4); White Blood Count 11.3 K/mm3 (4.4-11.0)
[2025-07-15 13:12] LABS: HIV Nonreactive (Nonreactive); Hepatitis B Surface Antigen Nonreactive (Nonreactive); Hepatitis C Antibody Nonreactive (Nonreactive); Syphilis Antibodies Nonreactive (Nonreactive)
[2025-07-17 05:07] LABS: Chlamydia By Nucleic Acid AMP Negative (Negative); Gonococcus By Nucleic Acid AMP Negative (Negative)
== END | disposition home or self-care (01) ==
PROVIDERS: PCP Nurse Practitioner Primary Care; Referring Provider Obstetrics & Gynecology; Visit Provider Obstetrics & Gynecology
DX: O09.90 Supervision of high risk pregnancy, unspecified, unspecified trimester (principal); E04.9 Nontoxic goiter, unspecified; O99.280 Endocrine, nutritional and metabolic diseases complicating pregnancy, unspecified trimester; Z3A.00 Weeks of gestation of pregnancy not specified
CPT/HCPCS: 36415; 84439; 84443; 85025; 86703; 86762; 86780; 86803; 86850; 86900; 86901; 87086; 87088; 87340; 87491; 87591

== ENCOUNTER 2025-09-18 12:46 | Emergency (ER) | payer OTHER, SELFPAY ==
[2025-09-18 12:48] VITALS: BP 141/85; PULSE 86; RESP 16; TEMP 37.1; O2SAT 100; BMI 33.5
--- NOTE | 2025-09-18 12:57 | VDLE_ITS ---
Reason For Study Reason For Study: Left leg pain Procedure LEFT This is a venous duplex using B-mode, color flow and GSV is normal. spectral Doppler. CFV is compressible, spontaneous, phasic, competent, Exam performed portable in ED. and demonstrates normal augmentation. A preliminary report was called and/or faxed to . FV is compressible, spontaneous, phasic, competent Donald. and demonstrates normal augmentation. POP V is compressible, spontaneous, phasic, competent and demonstrates normal augmentation. T/P Trunk is compressible. PTV is compressible. LT PerV is compressible. Thrombus filled varicose vein noted at the left knee. VL/Venous Duplex US, Unilateral Interpretation Summary Deep veins of the left lower extremity are patent and compressible segmentally. There is no evidence of left lower extremity deep vein thrombosis. The left great saphenous vein appears patent an d compressible segmentally. Acute superficial vein thrombosis noted in varicose veins at the left knee. Ordering Physician: Karel Bennett Referring Physician: Soco Frazier Performed By: Paulette Fung RVJill
--- NOTE | 2025-09-18 13:18 | EDS_ITS ---
HPI History of Present Illness Chief Complaint: Lower Extremity Injury Narrative Narrative: Chief complaint and HPI: 30-year-old female who is in her second trimester presents for evaluation of left lower extremity pain. Patient states several days ago she noticed a knot on the medial posterior knee that is tender to palpation. States she has been having pain in the calf as well. Called DRIER ATTENDANT who recommended her to rule out DVT. Review of systems: See HPI Medications: As listed on the chart Allergies: As listed on the chart PFSH: Per chart Vital signs: As listed on the chart. Reviewed. Physical exam: Gen: Alert, no acute distress CV: Regular rate Resp: Unlabored respirations Musc: Full ROM of the left lower extremity, there is a small cord like structure that is mildly tender to palpation on the medial posterior knee-mild ecchymotic discoloration to it-suspect possible varicose vein, posterior calf mildly tender to palpation, no significant swelling to the left lower extremity compared to the right, DP/PT pulses +2 bilaterally, good capillary refill, sensation intact, no warmth or erythema Skin: Warm, dry Psych: Cooperative, appropriate mood and affect [facility] Medical History Thyroid goiter Pelvic pain Vocal cord dysfunction Migraine ADHD Home Medications Medication Instructions Recorded Last Taken Type ascorbic acid (vitamin C) 1,000 mg 1 g PO DAILY supple ment 09/27/22 03/13/23 History capsule multivit-min no.71-iron fum 28 1 cap PO DAILY pregnanc y 09/27/22 03/13/23 History mg-folate no.1 1 mg-dha 300 mg capsule (PNV-Seabrook) omega3 1,000 yf-wmy-wyu-other 1 cap PO DAILY Check wit h primary 09/27/22 03/13/23 History [id number]-[id number] oil 1,400 mg doctor capsule,delay rel cholecalciferol (vitamin D3) 25 150 mcg PO DAILY 06/02 Unknown History mcg (1,000 unit) capsule vitamin B complex 1 cap PO QDAY 06/27/25 Unkno wn History aspirin 81 mg tablet 81 mg PO DAILY 09/18/25 Unkn own History Allergy/AdvReac Type Severity Reaction Status Date / Time azithromycin AdvReac lightheaded Verified 09/18/25 12:48 Food Allergies: Uncoded AdvReac Other Verified 09/18/25 12:48 Family History Mother Psoriasis Brother Psoriatic arthritis Asthma Ulcerative colitis Father Kidney stone Surgical History H/O wisdom tooth extraction History of tonsillectomy Social History adopted: No household members: spouse and children housing: apartment number of children: 1 current occupational status: employed 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) current occupational exposures/hazards: No pets and animals: Yes pets and animals: dog(s) history of recent travel: No sexually active: Yes Smoking Status: Never smoker second hand exposure: No alcohol intake: current alcohol intake frequency: holidays/special occasions only details: Not while substance use type: does not use well-balanced diet: daily or most days caffeine: Yes Type: coffee Number of servings: 1 eating out: rarely or never during the past year weight has: remained stable what type of physical activity do you participate in: walking frequency: 5-6 times per week duration: 30-45 minutes/day amy/pentecostal: None seatbelt use: always do you feel safe at home: Yes 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 Patient states several days ago she noticed a knot on the medial posterior knee that is tender to palpation. States she has been having pain in the calf as well. Called DRIER ATTENDANT who recommended her to rule out DVT. See physical exam findings. Differential diagnosis includes but is not limited to varicose vein, superficial thrombophlebitis, DVT. Venous duplex ultrasound will be obtained. Venous duplex ultrasound negative for DVT. Patient does have thrombus filled varicose vein noted at the left knee. This corresponds with her pain and cordlike structure. Recommend warm compresses, wearing compression stockings, and Tylenol as needed for pain. Follow-up with primary care physician and DRIER ATTENDANT. Impression: 1. Superficial thrombophlebitis 2. Second trimester Discharge Plan Triage Chief Complaint: Lower Extremity Injury ED Provider: Karel Bennett Dx/Rx/DC Orders Prescriptions: No Action PNV-Seabrook 28-1-300 mg capsule 1 cap PO DAILY ascorbic acid (vitamin C) 1,000 mg capsule 1 g PO DAILY ugban-2k-hys-epa-fish oil 1,000-1,400 mg capsule,delayed release(DR/EC) 1 cap PO DAILY cholecalciferol (vitamin D3) 25 mcg (1,000 unit) capsule 150 mcg PO DAILY vitamin B complex Capsule 1 cap PO QDAY aspirin 81 mg tablet 81 mg PO DAILY Primary Care Provider: Soco Frazier NP Referrals: Soco Frazier NP, [employer] ENGINE MECH[employer]IC APPRENTICE-C [Primary Care Provider, Family Practice] Print Language: [place]
[2025-09-18 13:45] VITALS: BP 118/65; PULSE 75; RESP 16; TEMP 37; O2SAT 100
== END 2025-09-18 13:46 | disposition home or self-care (01) ==
PROVIDERS: Emergency Provider Surgery; PCP Nurse Practitioner Primary Care; Visit Provider Surgery
DX: O22.02 Varicose veins of lower extremity in pregnancy, second trimester (principal); I80.02 Phlebitis and thrombophlebitis of superficial vessels of left lower extremity; O22.22 Superficial thrombophlebitis in pregnancy, second trimester; Z79.82 Long term (current) use of aspirin; Z3A.00 Weeks of gestation of pregnancy not specified
CPT/HCPCS: 93971; 99282

== ENCOUNTER → 2025-09-30 | Outpatient (CLI) | payer OTHER, SELFPAY ==
--- NOTE | 2025-09-30 15:59 | US_ITS ---
PROCEDURE: OB ANATOMY W/ TRANSVAGINAL 09/30/2025 REASON FOR EXAM: CERVICAL LENGTH/ANATOMY TECHNIQUE: Procedure Code: [id number] Modality: US Procedure: OB ANATOMY W/ TRANSVAGINAL COMPARISON: None FINDINGS LMP: May 10, 2025. Number: 1 Position: Cephalic/variable. Placental Position: Posterior and not low-lying Placental Abnormalities: No evidence of previa. DIMENSIONS: Biparietal Diameter: 4.8 cm: 20 weeks and 4 days: 56 percentile/ Head Circumference: 18 cm: 20 weeks and 3 days: 40 percentile/ Abdominal Circumference: 16.9 cm: 21 weeks and 6 days: 87 percentile/ Femur Length: 3.4 cm: 20 weeks and 5 days: 54 percentile/ ESTIMATED WEIGHT: 416 g plus/-62 g ESTIMATED WEIGHT PERCENTILE (24+ weeks): 88 ESTIMATED GESTATIONAL AGE: Baseline: 20 weeks and 3 days By Ultrasound: 20 weeks and 4 days ESTIMATED DATE OF DELIVERY: Baseline: February 14, 2026 By Ultrasound: February 13, 2026 BIOPHYSICAL ASSESSMENT: Amniotic Fluid Volume: 4.7 Amniotic Fluid Index: Within normal limits (8-24 cm normal range) Cardiac Motion: 145 (average) Trunk and Limb Motion: Present. MATERNAL ANATOMY: Adnexa: Both maternal ovaries are visualized and unremarkable. Cervical Length (if measured): 4.6 cm ANATOMY: Spine: Unremarkable Cranium: Unremarkable Cerebellum: Unremarkable Cisterna Magna: Unremarkable Cavum Septum Pellucidi: Unremarkable Lateral Ventricles: Unremarkable Choroid Plexus: Unremarkable Midline Falx: Unremarkable Nuchal Fold: Unremarkable Upper Lip: Unremarkable Heart: Unremarkable Ventricular Outflow Tracts: Unremarkable Stomach: Unremarkable Kidneys: Unremarkable Bladder: Unremarkable Umbilical Cord: Unremarkable Extremities: Unremarkable US/OB Anatomy w/ Transvaginal IMPRESSION: Single live intrauterine gestation with a mean gestational age of 20 weeks and 4 days. Reading Location: [facility]
--- OUTSIDE RECORDS SUMMARY | 2025-09-30 19:12 | XMS RPT_ITS | CCD ---
Author Organization [facility] Care Team Providers Care Job Coaching Name Role Phone KARIN TRUCK OPERATOR-MASS SPECTROMETRY MANAGER, SOCO S Primary Care Physicia n Jorgito PT, Nohemi Unavailable Unavailable Nonstaff, Premier Primary Care Provider Karin TELECOMMUNICATION TOWER TECHNICIAN, TELECOMMUNICATION TOWER TECHNICIAN-C Soco Primary Care Provider Karin TELECOMMUNICATION TOWER TECHNICIAN, TELECOMMUNICATION TOWER TECHNICIAN-C Soco Referring Provider [phone] Dr. Antonieta Hendrickson Attending Provider [phone] Dr. Beatriz Cyr Attending Provider [phone] Brain TELECOMMUNICATION TOWER TECHNICIAN, TELECOMMUNICATION TOWER TECHNICIAN-C Joy Attending Provider [phone] Karin TELECOMMUNICATION TOWER TECHNICIAN, TELECOMMUNICATION TOWER TECHNICIAN-C Soco Primary Care Provider [phone] Karin TELECOMMUNICATION TOWER TECHNICIAN, TELECOMMUNICATION TOWER TECHNICIAN-C Scoo Referring Provider [phone] Dr. Beatriz Cyr Attending Provider [phone] Brain TELECOMMUNICATION TOWER TECHNICIAN, TELECOMMUNICATION TOWER TECHNICIAN-C Joy Attending Provider [phone] Dr. Antonieta Hendrickson Attending Provider [phone] Karin TELECOMMUNICATION TOWER TECHNICIAN, TELECOMMUNICATION TOWER TECHNICIAN-C Soco Primary Care Provider Karin TELECOMMUNICATION TOWER TECHNICIAN, TELECOMMUNICATION TOWER TECHNICIAN-C Soco Referring Provider [phone] Dr. Beatriz Cyr Attending Provider [phone] DONNA Dickerson Attending Provider [phone] DONNA Tovar Attending Provider [phone] DONNA Tovar Referring Provider [phone] DONNA Tovar Other Provider [phone] DONNA Dickerson Referring Provider Dickerson, CNM Isabel Other Provider Karin TELECOMMUNICATION TOWER TECHNICIAN, TELECOMMUNICATION TOWER TECHNICIAN-C Soco Primary Care Provider Karin TELECOMMUNICATION TOWER TECHNICIAN, TELECOMMUNICATION TOWER TECHNICIAN-C Soco Referring Provider [phone] Brain TELECOMMUNICATION TOWER TECHNICIAN, TELECOMMUNICATION TOWER TECHNICIAN-C Joy Attending Provider [phone] Dr. Antonieta Hendrickson Admit Provider Dr. Antonieta Hendrickson Referring Provider [phone] Dr. Antonieta Hendrickson Other Provider DONNA Tovar Admit Provider [phone] Karin TELECOMMUNICATION TOWER TECHNICIAN, TELECOMMUNICATION TOWER TECHNICIAN-C Soco Primary Care Provider Kairn TELECOMMUNICATION TOWER TECHNICIAN, TELECOMMUNICATION TOWER TECHNICIAN-C Soco Referring Provider [phone] Dr. Antonieta Hendrickson Attending Provider [phone] KARIN TRUCK OPERATOR-MASS SPECTROMETRY MANAGER, SOCO S Attending Unava ilable KARIN TRUCK OPERATOR-MASS SPECTROMETRY MANAGER, SOCO S Primary Care Unava ilable KARIN TRUCK OPERATOR-MASS SPECTROMETRY MANAGER, SOCO S Attending Unava ilable KARIN TRUCK OPERATOR-MASS SPECTROMETRY MANAGER, SOCO S Primary Care Unava ilable EMILEE CHRISTY, FAY Attending Unavaila ble KARIN TRUCK OPERATOR-MASS SPECTROMETRY MANAGER, SOCO S Primary Care Unava ilable EMILEE CHRISTY, FAY Attending Unavaila ble KARIN TRUCK OPERATOR-MASS SPECTROMETRY MANAGER, SOCO S Primary Care Unava ilable Karin TRUCK OPERATOR-MASS SPECTROMETRY MANAGER, Soco S Primary Care Provider CHARBEL NAPIER Referring Unavailable KARIN, SOCO S Attending Unavailable KARIN, SOCO S Primary Care Unavailable KARIN TRUCK OPERATOR-MASS SPECTROMETRY MANAGER, SOCO S Primary Care Unava ilable EMILEE CHRISTY, FAY Attending Unavaila ble [employer] TELECOMMUNICATION TOWER TECHNICIAN-C, Soco Primary Care Provider [phone] Giancarlo CHRISTY, Dr. Shelby Attending Provider [phone] Dr. Heron Mondragon MD Emergency Provider [phone] Emilee CHRISTY, Dr. Fay Murillo Attending Provide r Emilee CHRISTY, Dr. Fay Murillo Referring Provide r University TELECOMMUNICATION TOWER TECHNICIAN-C, Soco Primary Care Provider [phone] Karin TELECOMMUNICATION TOWER TECHNICIAN-C, Soco Referring Provider Sanam Tovar CNM Attending Provider [phone] Sanam Tovar CNM Referring Provider [phone] University TELECOMMUNICATION TOWER TECHNICIAN-C, Soco Primary Care Provider [phone] University TELECOMMUNICATION TOWER TECHNICIAN-C, Soco Attending Provider Tri Penaloza RN Attending [facility] Cyr MD, Dr. Henderson Attending Provider [phone] Dr. Beatriz Cyr MD Referring Provider [phone] Karin TELECOMMUNICATION TOWER TECHNICIAN-C, Soco Primary Care Physician [phone] Sanam Tovar CNM Attending Physician [phone] Sanam Tovar CNM Referring Provider [phone] University TELECOMMUNICATION TOWER TECHNICIAN-C, Soco Referring Provider [phone] Karin TELECOMMUNICATION TOWER TECHNICIAN-C, Soco Attending Physician Tri Penaloza RN Attending Physician Unavailab mena Cyr MD, Dr. Henderson Attending Physician [employer] TELECOMMUNICATION TOWER TECHNICIAN-C, Soco Primary Care Physician [phone] Sanam Tovar CNM Attending Physician [phone] Sanam Tovar CNM Referring Provider [phone] Dr. Antonieta Hendrickson DO Attending Physician Karin, Soco Primary Care Unavailable Assessment, Health Risk Referring Unavaila ble Assessment, Health Risk Attending Unavaila ble Karin, Soco Attending Unavailable Karin, Soco Primary Care Unavailable University, Soco Referring Unavailable Karin, Soco Primary Care Unavailable Karin, Soco Referring Unavailable Sanam Tovar Attending Unavailable University, Soco Primary Care Unavailable Karin, Soco Referring Unavailable Beatriz Cyr Attending Unavailable Karin, Soco Primary Care Unavailable Karin, Soco Referring Unavailable Antonieta Hendrickson Attending Unavailabl e Karin, Soco Referring Unavailable Antonieta Hendrickson Attending Unavailabl e University, Soco Primary Care Unavailable Karin, Soco Primary Care Unavailable University, Soco Referring Unavailable Sanam Tovar Attending Unavailable Karin, Soco Primary Care Unavailable University, Soco Referring Unavailable Sanam Tovar Attending Unavailable Karin, Soco Primary Care Unavailable Tri Penaloza Attending Unavailable University, Soco Primary Care Unavailable Sanam Tovar Attending Unavailable Sanam Tovar Referring Unavailable University, Soco Primary Care Unavailable Beatriz Cyr Referring Unavailable Beatriz Cyr Attending Unavailable Karin, Soco Primary Care Unavailable Sanam Tovar Referring Unavailable Sanam Tovar Attending Unavailable University, Soco Primary Care Unavailable Sanam Tovar Attending Unavailable University, Soco Primary Care Unavailable Heron Mondragon Attending Unavailable Karin, Soco Primary Care Unavailable Raghunathan, Fay Na Referring Unavaila ble Raghunathan, Fay Na Attending Unavaila ble University, Soco Primary Care Unavailable Sanam Tovar Referring Unavailable Sanam Tovar Attending Unavailable University, Soco Primary Care Unavailable Antonieta Hendrickson Referring Unavailabl e Aminae Antonieta Adams Attending Unavailabl e University, Soco Primary Care Unavailable Sanam Tovar Referring Unavailable Sanam Tovar Attending Unavailable Allergies Allergy Classification Reported Allergen(s) Allergy Type Date of Onset Reaction(s) Facility (8 sources) Acetaminophen / Caffeine / isometheptene; Translations: [APAP/caffeine/is ometheptene mucate] Drug Allergy [facility] (2 sources) LORazepam Drug Allergy 2 Other - comment required [facility] (15 sources) Food Allergies: Uncoded; Translations: [Food Allergies: Uncoded] Propensity to adverse reactions 3 Other [facility] Comment on above: artificial sweetener s give migraines (11 sources) Azithromycin Drug Allergy 5 [facility] Comment on above: Dizziness, lighthead ed, couldn't walk (1 source) Azithromycin Drug Allergy [facility] Medications Current Medications Medication Drug Class(es) Dates Sig (Normalized) Sig (Original) ascorbic acid 1000 mg oral capsule (20 sources) Vitamin C Start: 09-27-2022 take 1 g by mouth once daily Ascorbic Acid (Vitamin C) 1,000 mg capsule Active 1 g PO DAILY September 27, 2022 1:00am supplement Complies with drug therapy Start: 09-27-2022 take 1 g by mouth [...] 0 Refill(s) Start Date: 02/23/23 Status: Ordered cholecalciferol 0.025 mg oral capsule (13 sources) Vitamin D Start: 06-02-2023 take 1 capsule by mouth once daily Cholecalciferol (Vitamin D3) 25 mcg (1,000 unit) capsule Active 150 ug PO DAILY June 02, 2023 12:00am Complies with drug therapy etonogestrel/ethinyl estradiol (NUVARING VAGINAL) (2 sources) etonogestrel/eth [...] Refill(s) Start Date: 02/23/23 Status: Ordered Mv-Mins 45-Mfvb-Zxyqz No.1-D garcia (Pnv-Marion) 28-1-300 mg capsule (20 sources) Start: 09-27-2022 Mv-Mins 71-Iro n-Folic No.1-Dha (Pnv-Marion) 28-1-300 mg capsule Active 1 NMA PO DAILY September 27, 2022 1:00am Complies with drug therapy Start: 09-27-2022 Start: 09-27-2022 Mv-Mins 71-Iro n-Folic No.1-Dha (Pnv-Marion) 28-1-300 mg capsule Active 1 NMA PO DAILY September 27, 2022 1:00am Start: 09-27-2022 Mv-Mins 71-Iro n-Folic No.1-Dha (Pnv-Marion) 28-1-300 mg capsule Active 1 NMA PO DAILY September 27, 2022 1:00am Start: 09-27-2022 take 1 capsule by mo [facility] once daily Mv-Mins 89-Edfi-Ueelb No.1-Dha (Pnv-Marion) 28-1-300 mg capsule Active 1 CAP PO DAILY September 27, 2022 12:00am Start: 09-27-2022 take 1 capsule by mo [facility] once daily Mv-Mins 17-Lqex-Gtrhb No.1-Dha (Pnv-Marion) 28-1-300 mg capsule Active 1 CAP PO DAILY September 27, 2022 1:00am Start: 09-27-2022 take 1 capsule by mouth once M v-Mins 90-Ljkx-Rxgyb No.1-Dha (Pnv-Marion) 28-1-300 mg capsule Active CAP PO September 27, 2022 1:00am Start: 09-27-2022 take 1 capsule by mouth once M v-Mins 11-Spuq-Gbvuw No.1-Dha (Pnv-Marion) 28-1-300 mg capsule Active CAP PO September 27, 2022 12:00am NuvaRing 0.120 mg-0.015 mg/24 hours vaginal ring (2 sources) Start: 07-12-2019 NuvaRing 0.120 mg-0.015 mg/24 hours vaginal ring Dose = 1 EA, Vaginal, q4wk, 0 Refill(s) Start Date: 07/12/19 Status: Ordered Jezrw-5h-Wxn-Epa-Fish Oil (13 sources) Start: 09-27-2022 take 1 capsule by mouth once daily Ilnll-1m-Ano-Epa-Fish Oil Active 1 CAP PO DAILY September 27, 2022 12:00am Start: 09-27-2022 take 1 capsule by mo ut once daily Wshfc-7o-Dkm-Epa-Fish Oil Active 1 CAP PO DAILY September 27, 2022 1:00am Start: 09-27-2022 Ljzyo-4f-Bjr-E pa-Fish Oil Active CAP PO September 27, 2022 1:00am Start: 09-27-2022 Oyevn-3t-Mxt-E pa-Fish Oil Active CAP PO September 27, 2022 12:00am Omsvq-5j-Auh-Epa-Fish Oil 1,000-1,400 mg capsule,delayed release(DR/EC) (12 sources) Start: 09-27-2022 Ggsam-7n-Etk-E pa-Fish Oil 1,000-1,400 mg capsule,delayed release(DR/EC) Active 1 NMA PO DAILY September 27, 2022 1:00am Check with primary doctor Complies with drug therapy Start: 09-27-2022 Start: 09-27-2022 Cdghs-9h-Sme-E pa-Fish Oil 1,000-1,400 mg capsule,delayed release(DR/EC) Active 1 NMA PO DAILY September 27, 2022 1:00am Check with primary doctor Start: 09-27-2022 Sziil-3h-Rao-E pa-Fish Oil 1,000-1,400 mg capsule,delayed release(DR/EC) Active [...] Refill(s) Start Date: 02/23/23 Status: Ordered Vitamin B Complex capsule (5 sources) Start: 06-27-2025 Vitamin B Comp aditi capsule Active 1 NMA PO daily June 27, 2025 12:00am Complies with drug therapy Start: 06-27-2025 Start: 06-27-2025 Vitamin B Comp aditi capsule Active 1 NMA PO daily June 27, 2025 12:00am Vitamin D3 (4 sources) Start: 10-18-2023 Vitamin [...] Sig (Original) amoxicillin 500 mg oral capsule (10 sources) Penicillin-class Antibacterial Start: 03-24-2025 End: 03-24-2025 take 1 capsule by mouth every eight hours Amoxicillin 500 mg capsule Discontinued 500 mg PO Q8H 21 7 0 March 24, 2025 12:00am March 30, 2025 12:00am March 24, 2025 3:34pm amoxicillin 500 mg / clavulanate 125 mg oral tablet (20 sources) Penicillin-class Antibacterial Start: 04-29-2025 End: 04-30-2025 [...] 23, 2018 12:00am August 24, 2020 1:08pm cefdinir 300 mg oral capsule (7 sources) Cephalosporin Antibacterial Start: 04-30-2025 End: 05-10-2025 take 1 capsule by mouth twice daily Cefdinir 300 mg capsule Discontinued 300 mg PO TWICE A DAY 20 10 April 30, 2025 12:00am May 09, 2025 12:00am May 10, 2025 12:08am cyclobenzaprine hydrochloride 5 mg oral tablet (8 sources) Muscle Relaxant Start: 04-14-2025 End: 04-25-2025 take 1 tablet by mouth three times daily as needed for muscle spasms Cyclobenzaprine 5 mg tablet Discontinued 5 mg PO THREE TIMES A DAY as needed for muscle spasm 30 0 April 14, 2025 12:00am April 25, 2025 9:27am 21 day ethinyl estradiol 0.634162 mg/hr / etonogestrel 0.005 mg/hr vaginal system [...] days labetalol hydrochloride 100 mg oral tablet (20 sources) beta-Adrenergic Manuel Start: 03-21-2023 End: 03-24-2023 take 1 tablet by mouth twice daily Labetalol 100 mg tablet Discontinued 100 mg PO TWICE A DAY 60 4 March 21, 2023 12:00am March 24, 2023 3:04pm High blood pressure affecting , antepartum Unspecified maternal hypertension, unspecified trimester norethindrone 0.35 mg oral tablet (13 sources) Start: 06-02-2023 End: 03-18-2025 take 1 tablet by mouth once daily Norethindrone (Contraceptive) 0.35 mg tablet Discontinued 0.35 mg PO DAILY 84 4 June 02, 2023 12:00am March 18, 2025 9:30am Encounter for contraceptive management Encounter for contraceptive management, unspecified Vitamin B Comp And C No.3 (B Complex Plus Vitamin C) 64-35-10-5-300 mg capsule (20 sources) Start: 09-27-2022 End: 03-18-2025 Vitamin B Comp And C No.3 (B Complex Plus Vitamin C) 39-74-09-5-300 mg capsule Discontinued 1 NMA PO EVERY OTHER DAY September 27, 2022 1:00am March 18, 2025 9:30am supplement give with food (meal/snack) Start: 09-27-2022 End: 03-18-2025 Vitamin B Comp And C No.3 (B Complex Plus Vitamin C) 73-46-83-5-300 mg capsule Discontinued 1 NMA PO EVERY OTHER DAY September 27, 2022 1:00am March 18, 2025 9:30am give with food (meal/snack) Start: 09-27-2022 Vitamin B Comp And C No.3 (B Complex Plus Vitamin C) 78-02-34-5-300 mg capsule Active 1 NMA PO EVERY OTHER DAY September 27, 2022 1:00am give with food (meal/snack) Start: 09-27-2022 Vitamin B Comp And C No.3 (B Complex Plus Vitamin C) 12-67-71-5-300 mg capsule Active 1 CAP PO EVERY OTHER DAY September 27, 2022 12:00am give with food (meal/snack) Start: 09-27-2022 Vitamin B Comp And C No.3 (B Complex Plus Vitamin C) 28-44-52-5-300 mg capsule Active 1 CAP PO EVERY OTHER DAY September 27, 2022 1:00am give with food (meal/snack) Start: 09-27-2022 Vitamin B Comp And C No.3 (B Complex Plus Vitamin C) 26-22-22-5-300 mg capsule Active 1 CAP PO DAILY September 27, 2022 1:00am give with food (meal/snack) Start: 09-27-2022 Vitamin B Comp And C No.3 (B Complex Plus Vitamin C) 85-06-88-5-300 mg capsule Active 1 CAP PO DAILY September 27, 2022 12:00am give with food (meal/snack) Problems Active Problems Problem Classification Problem Date Documented Date Episodic/Chronic Abdominal pain (20 sources) Abdominal pain; Translations: [Unspecified abdominal pain] Onset: 05-02-2025 11-09-2024 Episodic Anxiety disorders (1 source) Anxiety; Translations: [Anxiety disorder, unspecified] Chronic Attention-deficit, conduct, and disruptive behavior disorders (8 sources) Adult attention deficit hyperactivity disorder 07-12-2019 Chronic Contraceptive and procreative management (13 sources) Patient encounter status; Translations: [Encounter for contraceptive management, unspecified] 06-02-2023 Episodic Diseases of white blood cells (12 sources) Leukocytosis; Translations: [Elevated white blood cell [...] Comment on above: 04/13 discussed with p britney again- questionable diagnosis- considerable variation, recommend weekly [...] 110s over 70s, PCR low/stable Menstrual disorders (14 sources) Dysmenorrhea; Translations: [Dysmenorrhea, unspecified] 04-25-2025 Chronic Other circulatory disease (1 source) Elevated blood-pressure reading without diagnosis of hypertension; Translations: [Elevated blood-pressure reading, without diagnosis of hypertension] Episodic Other complications of (20 sources) High risk ; Translations: [Supervision of high risk , unspecified, unspecified trimester] 12-06-2022 Episodic Comment on above: PRR , ADILENE 05/13/23 , boy Coleen Lang Jr IV Rickey , ADILENE 02/14, PC: Rickey Ramirez IV, : Rickey Other complications of (20 sources) Varicella non-immune; Translations: [Supervision of other high risk pregnancies, unspecified trimester] 09-27-2022 Episodic Comment on above: Pt has had 5 booster s, doesn't hold immunity Other complications of (20 sources) RhD negative; Translations: [Other specified related conditions, unspecified trimester] 09-27-2022 Episodic Comment on above: rhogam @ 28 wks & MT N bleeding Rhogam @ 28weeks & P RN Other complications of (20 sources) Supervision of other high risk pregnancies, unspecified trimester; Translations: [Other specified conditions influencing health status] Onset: 08-12-2025 Episodic Other complications of (20 sources) Other specified related conditions, unspecified trimester; Translations: [Other specified complications of , antepartum condition or complication] Onset: 08-12-2025 Episodic Other complications of (20 sources) Supervision of high risk , unspecified, unspecified trimester; Translations: [Supervision of unspecified high-risk ] Onset: 08-12-2025 Episodic Other complications of (14 sources) Uterine contractions problem; Translations: [Other specified related conditions, unspecified trimester] 06-27-2025 Episodic Other complications of (2 sources) Pain in female pelvis; Translations: [Other specified related conditions, unspecified trimester] 08-12-2025 Episodic Comment on above: goes to [facility] f or PT- ok to continue throughout and ok to use internal manipulation as needed as long as avoids cervical manipulation. Other connective tissue disease (6 sources) Cramp 07-22-2021 Episodic Other female genital disorders (1 source) Other specified noninflammatory disorders of vagina; Translations: [Other specified noninflammatory disorders of vagina] Onset: 07-03-2025 Episodic Other lower respiratory disease (1 source) Dyspnea; Translations: [Dyspnea, unspecified] Episodic Other lower respiratory disease (2 sources) Disorder of lung 03-17-2022 Episodic Other non-traumatic joint disorders (6 sources) Knee pain 11-16-2020 Episodic Other nutritional; endocrine; and metabolic disorders (20 sources) Body mass index 30+ - obesity; Translations: [Body mass index (BMI) 31.0-31.9, adult] 09-27-2022 Chronic Other nutritional; endocrine; and metabolic disorders (16 sources) Body mass index (BMI) 31.0-31.9, adult; Translations: [Body Mass Index 31.0-31.9, adult] Chronic Other and delivery including normal (20 sources) ; Translations: [Encounter for supervision of normal , unspecified, unspecified trimester] Episodic Comment on above: KW IOL 37.3 PIH Boy Rickey Ramirez Neg GBS NIPT low ris k, declined carrier testing, nl 1 HR GCT. declined ntd screening. nl anatomy. Discussed genetic/ca rrier testing - undecided Discussed genetic/ca rrier testing - declined. Other upper respiratory disease (20 sources) Vocal [...] (suspected) exposure to lead] Onset: 06-06-2024 Episodic Residual codes; unclassified (9 sources) H/O: hypertension; Translations: [Personal history of other complications of , childbirth and the puerperium] 06-27-2025 Episodic Residual codes; unclassified (1 source) Unspecified blood type, Rh negative; Translations: [Unspecified blood type, Rh negative] Onset: 08-12-2025 Episodic Residual codes; unclassified (1 source) Personal history of other complications of , childbirth and the puerperium; Translations: [Personal history of other complications of , childbirth and the puerperium] Onset: 08-12-2025 Episodic Residual codes; unclassified (1 source) 13 weeks gestation of ; Translations: [13 weeks gestation of ] Onset: 08-12-2025 Episodic Residual codes; unclassified (1 source) 9 weeks gestation of ; Translations: [9 weeks gestation of ] Onset: 07-15-2025 Episodic Thyroid disorders (20 sources) Non-toxic nodular goiter; Translations: [Nontoxic goiter, unspecified] Onset: 06-27-2025 Chronic Comment on above: monitoring TSH gary l 03/22 monitoring; Thyroid labs ordered w/NOB monitoring; Thyroid labs ordered w/NOB,TSH R AB negative Unclassified (6 sources) Injury of right foot 04-09-2020 Unclassified (8 sources) Patient encounter status 07-22-2021 Unclassified (2 sources) Pain of right shoulder region 10-18-2023 Unclassified (2 sources) Exposure to lead 06-06-2024 Unclassified (12 sources) R10.2 - Pelvic and perineal pain Unclassified (1 source) Other underimmunization status; Translations: [Other underimmunization status] Onset: 08-12-2025 Unclassified (1 source) Pelvic and perineal pain unspecified side; Translations: [Pelvic and perineal pain unspecified side] Onset: 08-12-2025 Past or Other Problems Problem Classification Problem Date Documented Da te Episodic/Chronic Other screening for suspected conditions (not mental disorders or infectious disease) (1 source) Encounter for screening for malignant neoplasm of cervix; Translations: [Encounter for screening for malignant neoplasm of cervix] Onset: 03-25-2025 Episodic Syncope (13 sources) Near syncope; Translations: [Syncope and collapse] Onset: 03-18-2025 11-09-2024 Episodic Results Test Name Value Interpretation Reference Range Facility Brand Coordinator Office Visit Reporton 09-09-2025 Brand Coordinator Office Visit Report [facility] [address] [place] [address], [address] [place] [address] OFFICE VISIT Date of Service: 09/09/25 MR#: [id number] Acct: [id number] Name: ROBERTA ROSA Rep #: [id number] : 1995 Provider: Dr. Antonieta Barbosa DO Age/Sex: 30/F Location: [facility] [place] Status: Signed Intake Vital Signs 07/15/25 10:51 08/12/25 15:33 09/09/25 10:57 Height 5 ft 9 in 5 ft 9 in 5 ft 9 in Weight: 216 lb 4 oz BMI 31.9 BP 107/70 Intake Visit Reasons: 17 WK 3D OB Chief Complaint: 17wk OB Print Producer Required: No Is patient in pain?: No Allergies azithromycin Adverse Reaction (Verified 09/09/25 10:56) lightheaded Food Allergies: Uncoded Adverse Reaction (Verified 09/09/25 10:56) Other Medications ???Medication ???Instructions ???Recorded ???Confirmed ???Type ascorbic acid (vitamin C) 1,000 mg 1 g PO DAILY supplement 09/27/22 09/09/25 History capsule multivit-min no.71-iron fum 28 1 cap PO DAILY 09/27/22 09/09/25 History mg-folate no.1 1 mg-dha 300 mg capsule (PNV-Marion) omega3 1,000 yc-ptx-mts-other 1 cap PO DAILY Check with primary 09/27/22 09/09/25 History ng0f-mxek oil 1,400 mg doctor capsule,delay rel cholecalciferol (vitamin D3) 25 150 mcg PO DAILY 06/02/23 09/09/25 History mcg (1,000 unit) capsule vitamin B complex 1 cap PO QDAY 06/27/25 09/09/25 Hi story Last Menstrual Period: 05/10/25 : No Have you fallen in the past year?: No PFSH PFSH Medical History Thyroid goiter Pelvic pain Vocal cord dysfunction Migraine ADHD Surgical History H/O wisdom tooth extraction History of tonsillectomy Family History Mother Psoriasis Brother Psoriatic arthritis Asthma Ulcerative colitis Father Kidney stone Social History adopted: No household members: spouse and children housing: apartment number of children: 1 current occupational status: employed 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) current occupational exposures/hazards: No pets and animals: Yes pets and animals: dog(s) history of recent travel: No sexually active: Yes Smoking Status: Never smoker second hand exposure: No alcohol intake: current alcohol intake frequency: holidays/special occasions only details: Not while substance use type: does not use well-balanced diet: daily or most days caffeine: Yes Type: coffee Number of servings: 1 eating out: rarely or never during the past year weight has: remained stable what type of physical activity do you participate in: walking frequency: 5-6 times per week duration: 30-45 minutes/day amy/baptism: None seatbelt use: always do you feel safe at home: Yes 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 Date Name GA/Weeks Outcome Route Bth Weight Infant Gen Labor Lgth Anesthesia Del Locatn Provider FOB 04/25/23 Rickey Ramirez IV 37 live - full term 6lbs 14oz Male epidural [facility] Sanam Lang Delivery Date: 04/25/23 Last Updated by: Soco Ruiz 2nd degree laceration HPI 17 WK 3D OB Details: ROBERTA ROSA is a 30 year old who presents for routine OB visit. OB Visit ADILENE Calculator Estimated Delivery Date Method Current WG Current Estimate 02/14/26 LMP (Certain) 17w 3d Expected Delivery Route/Plan Labor Preferences- CB/BF classes: [] labor support person: [] labor intervention preferences: [] pain management options preferred: [] cut cord/dad catch: [] : [] PP control planned: [] discussed possible routes of delivery and associated risks: [] special requests: [] Specific Issue/Plans Covid status: [] Flu vaccine: [] Tdap vaccine: [] Rhogam: [] LARC form signed: [] Problem list reviewed and updated with the most current plan of care details and appropriate orders placed. Relevant counseling for the gestational age provided. Continue routine care and follow up unless otherwise noted in visit notes/problem list details Initial Weight: 209 lb Date -???-???-???-???-???-?? ?-???-???-???-???-???-? ??- EGA Weight BP Urine Prot -???-???-???-???-???-?? ?-???-???-???-???-???-? ??- Glucose FHR FuHt Pres Dilation -???-???-???-???-???-?? ?-???-???-???-???-???-? ??- Effaced St Visit Note 07/15/25 -???-???-???-???-???-?? ?-???-???-???-???-???-? ??- 9w 3d 211 lb (more content not included)... Normal [facility] CBC, Employeeon 09-02-2025 Absolute Lymph 2.43 X10 3/uL Normal 0.83-4.51 [facility] Comment on above: Performed By: #### L 100.0200, L400.0100, L500.2900 #### [facility] [address] [place], [address] Absolute Neut 8.4 X10 3/uL High 2.0-7.7 [facility] Comment on above: Performed By: #### L 100.0200, L400.0100, L500.2900 #### [facility] [address] [place], [address] Basophils/100 WBC (Bld) 0.8 % Normal 0-1 [facility] Comment on above: Performed By: #### L 100.0200, L400.0100, L500.2900 #### [facility] [address] [place], [address] Eosinophils/100 WBC (Bld) 1.4 % Normal 0-5 [facility] Comment on above: Performed By: #### L 100.0200, L400.0100, L500.2900 #### [facility] [address] [place], [address] Erythrocyte distribution width (RBC) [Ratio] 12.6 % Normal 11.6-14.6 [facility] Comment on above: Performed By: #### L 100.0200, L400.0100, L500.2900 #### [facility] [address] [place], [address] Hematocrit (Bld) [Volume fraction] 37.9 % Normal 37-47 [facility] Comment on above: Performed By: #### L 100.0200, L400.0100, L500.2900 #### [facility] [address] [place], [address] Hemoglobin (Bld) [Mass/Vol] 12.9 g/dL Normal 12.0-15.0 [facility] Comment on above: Performed By: #### L 100.0200, L400.0100, L500.2900 #### [facility] [address] [place], [address] Lymphocytes/100 WBC (Bld) 20.8 % Normal 19-41 [facility] Comment on above: Performed By: #### L 100.0200, L400.0100, L500.2900 #### [facility] [address] [place], [address] MCH (RBC) [Entitic mass] 28.7 pg Normal 27.0-32.0 [facility] Comment on above: Performed By: #### L 100.0200, L400.0100, L500.2900 #### [facility] [address] [place], [address] MCHC (RBC) [Mass/Vol] 34.0 g/dL Normal 32-36 [facility] Comment on above: Performed By: #### L 100.0200, L400.0100, L500.2900 #### [facility] [address] [place], [address] MCV (RBC) [Entitic vol] 84.2 fL Normal 81-99 [facility] Comment on above: Performed By: #### L 100.0200, L400.0100, L500.2900 #### [facility] [address] [place], [address] Monocytes/100 WBC (Bld) 4.4 % Normal 0-10 [facility] Comment on above: Performed By: #### L 100.0200, L400.0100, L500.2900 #### [facility] [address] [place], [address] Neutrophils/100 WBC (Bld) 71.9 % High 47-70 [facility] Comment on above: Performed By: #### L 100.0200, L400.0100, L500.2900 #### [facility] [address] [place], [address] NRBC # 0.00 10 3/uL Normal 0-5 [facility] Comment on above: Performed By: #### L 100.0200, L400.0100, L500.2900 #### [facility] [address] [place], [address] Nucleated RBC (Bld) [#/Vol] 0 10*3/uL Normal 0-5 [facility] Comment on above: Performed By: #### L 100.0200, L400.0100, L500.2900 #### [facility] [address] [place], [address] Platelet mean volume (Bld) [Entitic vol] 10.1 fL Normal 6.2-12.0 [facility] Comment on above: Performed By: #### L 100.0200, L400.0100, L500.2900 #### [facility] [address] [place], [address] Platelets (Bld) [#/Vol] 228 10*3/uL Normal 150-450 [facility] Comment on above: Performed By: #### L 100.0200, L400.0100, L500.2900 #### [facility] [address] [place], [address] RBC (Bld) [#/Vol] 4.50 10*6/uL Normal 4.2-5.4 [facility] Comment on above: Performed By: #### L 100.0200, L400.0100, L500.2900 #### [facility] [address] [place], [address] RDW SD 38.1 fl Normal 35.1-43.9 [facility] Comment on above: Performed By: #### L 100.0200, L400.0100, L500.2900 #### [facility] [address] [place], [address] WBC (Bld) [#/Vol] 11.7 10*3/uL High 4.4-11.0 [facility] Comment on above: Performed By: #### L 100.0200, L400.0100, L500.2900 #### [facility] [address] [place], [address] Employee Profileon 5 LDH 181 U/L Normal 84-246 [facility] Comment on above: Performed By: #### L 100.0200, L400.0100, L500.2900 #### [facility] [address] [place], [address] Phosphate [Mass/Vol] 3.4 mg/dL Normal 2.7-4.5 [facility] Comment on above: Performed By: #### L 100.0200, L400.0100, L500.2900 #### [facility] [address] [place], [address] URIC 4.5 mg/dL Normal 2.6-6.0 [facility] Comment on above: Result Comment: The drugs N-Acetylcysteine and Metamizole may falsely depress this assay. Performed By: #### L 100.0200, L400.0100, L500.2900 #### [facility] [address] [place], [address] Urinalysis, Employeeon 09-02 BILIRUBIN URINE Negative Normal Negative [facility] Comment on above: Order Comment: Urine , Random Performed By: #### L 100.0200, L400.0100, L500.2900 #### [facility] [address] [place], [address] Clarity (U) Clear Normal Clear [facility] Comment on above: Order Comment: Urine , Random Performed By: #### L 100.0200, L400.0100, L500.2900 #### [facility] [address] [place], [address] Color (U) Yellow Normal Yellow [facility] Comment on above: Order Comment: Urine , Random Performed By: #### L 100.0200, L400.0100, L500.2900 #### [facility] [address] [place], [address] GLUCOSE, UR Normal Normal Normal [facility] Comment on above: Order Comment: Urine , Random Performed By: #### L 100.0200, L400.0100, L500.2900 #### [facility] [address] [place], [address] KETONE UR Negative Normal Negative [facility] Comment on above: Order Comment: Urine , Random Performed By: #### L 100.0200, L400.0100, L500.2900 #### [facility] [address] [place], [address] LEUK ESTERASE Negative Normal Negative [facility] Comment on above: Order Comment: Urine , Random Performed By: #### L 100.0200, L400.0100, L500.2900 #### [facility] [address] [place], [address] Nitrite Ql (U) Negative Normal Negative [facility] Comment on above: Order Comment: Urine , Random Performed By: #### L 100.0200, L400.0100, L500.2900 #### [facility] [address] [place], [address] OCCULT BLOOD-UR Negative Normal Negative [facility] Comment on above: Order Comment: Urine , Random Performed By: #### L 100.0200, L400.0100, L500.2900 #### [facility] [address] [place], [address] pH UR 8.0 Normal 5.0 - 8.0 [facility] Comment on above: Order Comment: Urine , Random Performed By: #### L 100.0200, L400.0100, L500.2900 #### [facility] [address] [place], [address] PROT DIPSTX Negative Normal Negative [facility] Comment on above: Order Comment: Urine , Random Performed By: #### L 100.0200, L400.0100, L500.2900 #### [facility] [address] [place], [address] SP.GR. DIPSTX 1.010 Normal 1.002-1.030 [facility] Comment on above: Order Comment: Urine , Random Performed By: #### L 100.0200, L400.0100, L500.2900 #### [facility] [address] [place], [address] UROBILI Normal Normal Normal [facility] Comment on above: Order Comment: Urine , Random Performed By: #### L 100.0200, L400.0100, L500.2900 #### [facility] [address] [place], [address] Brand Coordinator Office Visit Reporton 08-12-2025 Brand Coordinator Office Visit Report [facility] [address], [address] [place] [address] OFFICE VISIT Date of Service: 08/12/25 MR#: [id number] Acct: [id number] Name: PORSHAROBERTA DAWN Rep #: [id number] : 1995 Provider: Dr. Antonieta Barbosa DO Age/Sex: 30/F Location: [facility] [place] Status: Signed Intake Vital Signs 06/23/25 13:07 07/15/25 10:51 08/12/25 15:33 08/12/25 15:33 Height 5 ft 9 in 5 ft 9 in 5 ft 9 in 5 ft 9 in Weight: 211 lb 212 lb 1 oz BMI 31.1 31.3 BP 122/81 H 118/79 Intake Visit Reasons: 13wk 3D OB Print Producer Required: No Is patient in pain?: No Allergies azithromycin Adverse Reaction (Verified 08/12/25 15:32) lightheaded Food Allergies: Uncoded Adverse Reaction (Verified 08/12/25 15:32) Other Medications ???Medication ???Instructions ???Recorded ???Confirmed ???Type ascorbic acid (vitamin C) 1,000 mg 1 g PO DAILY supplement 09/27/22 08/12/25 History capsule multivit-min no.71-iron fum 28 1 cap PO DAILY 09/27/22 08/12/25 History mg-folate no.1 1 mg-dha 300 mg capsule (PNV-Marion) omega3 1,000 nw-whe-use-other 1 cap PO DAILY Check with primary 09/27/22 08/12/25 History [id number] oil 1,400 mg doctor capsule,delay rel cholecalciferol (vitamin D3) 25 150 mcg PO DAILY 06/02/23 08/12/25 History mcg (1,000 unit) capsule vitamin B complex 1 cap PO QDAY 06/27/25 08/12/25 Hi story Last Menstrual Period: 05/10/25 Zika: Zika virus screening: Negative : No PFSH PFSH Medical History Thyroid goiter Pelvic pain Vocal cord dysfunction Migraine ADHD Surgical History H/O wisdom tooth extraction History of tonsillectomy Family History Mother Psoriasis Brother Psoriatic arthritis Asthma Ulcerative colitis Father Kidney stone Social History adopted: No household members: spouse and children housing: apartment number of children: 1 current occupational status: employed 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) current occupational exposures/hazards: No pets and animals: Yes pets and animals: dog(s) history of recent travel: No sexually active: Yes Smoking Status: Never smoker second hand exposure: No alcohol intake: current alcohol intake frequency: holidays/special occasions only details: Not while substance use type: does not use well-balanced diet: daily or most days caffeine: Yes Type: coffee Number of servings: 1 eating out: rarely or never during the past year weight has: remained stable what type of physical activity do you participate in: walking frequency: 5-6 times per week duration: 30-45 minutes/day amy/baptism: None seatbelt use: always do you feel safe at home: Yes 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 Date Name GA/Weeks Outcome Route Bth Weight Infant Gen Labor Lgth Anesthesia Del Locatn Provider FOB 04/25/23 Rickey Ramirez IV 37 live - full term 6lbs 14oz Male epidural [facility] Sanam Lang Delivery Date: 04/25/23 Last Updated by: Soco Ruiz 2nd degree laceration HPI 13wk 3D OB Details: ROBERTA ROSA is a 30 year old who presents for routine OB visit. OB Visit ADILENE Calculator Estimated Delivery Date Method Current WG Current Estimate 02/14/26 LMP (Certain) 13w 3d Expected Delivery Route/Plan Labor Preferences- CB/BF classes: [] labor support person: [] labor intervention preferences: [] pain management options preferred: [] cut cord/dad catch: [] : [] PP control planned: [] discussed possible routes of delivery and associated risks: [] special requests: [] Specific Issue/Plans Covid status: [] Flu vaccine: [] Tdap vaccine: [] Rhogam: [] LARC form signed: [] Problem list reviewed and updated with the most current plan of care details and appropriate orders placed. Relevant counseling for the gestational age provided. Continue routine care and follow up unless otherwise noted in visit notes/problem list details Initial Weight: 209 lb Date -???-???-???-???-???-?? ?-???-???-???-???-???-? ??- EGA Weight BP Urine Prot -???-???-???-???-???-?? ?-???-???-???-???-???-? ??- Glucose FHR FuHt Pres Dilation -???-???-???-???-???-?? ?-???-???-???-???-???-? ??- Effaced St Visit Note 07/15/25 -???-???-???-???-???-?? ?-? (more content not included)... Normal [facility] L3410.9992on 07-24-2025 [facility] Mis. COMMENT Normal . [facility] Comment on above: Order Comment: [id number] 8TSH R AB Result Comment: Test Ordered: [id number] TSH Receptor Antibody (TBII) TSH Receptor Antibody (TBII) 0.4 U/L ES Reference Range: . Reference Range: Antibody Titer: <1.0 U/L = Negative 1.1 - 1.5 U/L = Equivocal >1.5 U/L = Positive Performed at: [facility] [address] [place] [id number] Hop Strainer: Yair Song MD, Phone: [phone] Performed at: - [facility] [id number] Hop Strainer: Rodney Mckeon PhD, Phone: [phone] Performed By: #### M 100.2000, L7400.0353, M100.3200 #### [facility] [address] [place], [place], [id number] Inital Evaluation (1) - PTon 07-22-2025 Inital Evaluation (1) - PT [facility] [place] [address] / REHABILITATION SERVICES INITIAL EVALUATION MR#: [id number] Acct: [id number] Name: ROBERTA ROSA Rep #: [id number] : 1995 30 From: Jessica Dallas Referring Dr.: Sanam Tovar CNM Status: REG RCR Insurance: [facility] [employer]/[facility] SELF PAY INSURANCE Patient's Visit Information Visit Information Visit Information: ROBERTA ROSA is a 30 year old F referred to Physical Therapy by Sanam Tovar CNM with a diagnosis of Pelvic and perineal pain, R10.2. Date of Evaluation: 07/22/25 Physical Therapist: Jessica Dallas Visit Plan Frequency: 1x/Week Duration: 4 Months Plan: Roberta would benefit from skilled PT intervention to address her pelvic pain and low back pain in . We did not complete an internal pelvic floor exam today due to her first trimester of but did find some thoracic, lumbar dysfunction with malalignments and muscle tightness that may be contributing to her pain complaints. We will initiate treatment with the focus there to see if it improves her symptoms. If not, we will reach out at a later date to get approval for pelvic floor work in . Next visit continue work on T/L junction. No internal work in . Any change with press ups in pelvic , abdominal pain? Will request approval from Dr. Cyr if no changes with working on spine in a few visits. Subjective Subjective: She is currently 10 weeks . This is her second . Her son is 2 11/07 in October. For about 3 months before she got , she was having severe cramping with horrible pain with her periods (would last 4 days). US was normal. No history of endometriosis. She is having a lot of cramping with this . She is feeling a lot of lower abdominal cramping. Low back pain which depends on the day. Prior to , she felt low back pain mainly with periods. If her bladder was really full, she would get discomfort in the lower abdomen. Randomly thru the day, she feels cramping in her lower abdomen. Sometimes the pain is sharp like a stabbing pain and other times a dull ache. When she is on her feet more, she feels better. Worse with extensive sitting. No pain with bending or lifting. Pain can average 4-5/10 but there has been 2 days she couldn't get out of bed and pain was 8-9/10. No leg pain. She leaks with a cough or sneeze. She does a lot of walks for exercise. Her goal is to manage this pain. 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 Pain Pelvic pain: Pain Intensity (Out of 10): 4 Pain Intensity Range: 5 Objective Objective: Left upslip Lumbar range of motion: Flexion no pain WNL Extension no pain Rotation no pain Sidebending no pain Right great toe extension 4-/5 otherwise good LE strength Negative slump test Negative seated SLR test ( mild awareness in the low back) Right rotation T10-L5 Mod lumbar and piriformis tightness bilaterally No pelvic floor exam due to in first trimester Goals Goal 1:: Roberta will be able to complete a work shift as a nurse without pelvic pain during or after. Goal Time Frame: 12-16 Weeks Goal 2:: Roberta will be able to sit for up to 2 hours at a time to watch a movie without low back pain or pelvic pain during or after. Goal 3:: Roberta will be able to stand for up to 1 hour at a time to do cooking activities without pelvic pain or low back pain. Rehabilitation Potential Physical Therapy Diagnosis: Low back pain, unspecified Rehabilitation Potential: Excellent Anticipated Interventions Patient/Client Instruction: Educate patient on: Condition and Plan of Care For the Purpose of:: To decrease pain, To improve muscle performance and motor function, To improve health and function and To improve self management Therapeutic Exercise to Include: Relaxation training For the Purpose of:: To decrease pain, To improve muscle performance and motor function and To improve health and function Manual Therapy Techniques to Include: Trigger point massage, Mobilization and Soft tissue mobilization For the Purpose of:: To decrease pain, To improve muscle performance and motor function, To improve health and function and To improve self management Text: Thank you for the opportunity to evaluate your patient. For Medicare and Medicare HMO plans, please review the plan of care and approve it. It will need to be FAXED BACK to us at [phone] for Medicare purposes. For Medicare only, by signing this I certify the plan of care. Please let me know if there are questions or concerns regarding this plan of care. Physician Signature: Date: 07/22/25 1720 (more content not included)... Normal [facility] Chlamydia/GC HAYES aptimaon CHLAMY,NUC ACID Negative Normal Negative [facility] Comment on above: Performed By: #### L 7000.1800, M100.2200 ####[facility] [address] [place], [address] GC BY NUC ACID Negative Normal Negative [facility] Comment on above: Result Comment: Perf ormed at: =G - [facility] [address] [id number] Hop Strainer: Yaniqeu Reed MD, Phone: [phone] Performed By: #### L 7000.1800, M100.2200 ####[facility] [address] [place], [address] Urine Cultureon 07-17-2025 [facility] Mixed Gram Positive Organisms [place] Count 11,000-25,000 MIXC Mixed contaminants. Submit a new specimen if indicated. Normal [facility] Comment on above: Performed By: #### L 7000.1800, M1.0 ####[facility] [address] [place], [place], [id number] Absolute lymphocyte countOrd ered By: Beatriz Cyr on 07-15-2025 Lymphocytes Auto (Unsp spec) [#/Vol] 2.56 10*3/uL 0.83-4.51 [facility] Absolute neutrophil countOrd ered By: Beatriz Cyr on 07-15-2025 Neutrophils (Bld) [#/Vol] 7.9 10*3/uL High 2.0-7.7 [facility] Automated lymphocyte count a s percentage of total leukocytesOrdered By: Beatriz Cyr on 07-15-2025 Lymphocytes/100 WBC Auto (Unsp spec) 22.6 % 19-41 [facility] Basophil percentageOrdered B y: Beatriz Cyr on 07-15-2025 Basophils/100 WBC (Bld) 0.9 % 0-1 [facility] CBC W/Diff, Automatedon Absolute Lymph 2.56 X10 3/uL Normal 0.83-4.51 [facility] Comment on above: Performed By: #### L 3890.6006, L100.0100, L501.9520, L3410.9992, BTS, L509.4006, L3890.6301, L3890.6102, L506.0400, L509.8002 ####[facility] [address] [place], [address] Absolute Neut 7.9 X10 3/uL High 2.0-7.7 [facility] Comment on above: Performed By: #### L 3890.6006, L100.0100, L501.9520, L3410.9992, BTS, L509.4006, L3890.6301, L3890.6102, L506.0400, L509.8002 ####[facility] [address] [place], [address] Basophils/100 WBC (Bld) 0.9 % Normal 0-1 [facility] Comment on above: Performed By: #### L 3890.6006, L100.0100, L501.9520, L3410.9992, BTS, L509.4006, L3890.6301, L3890.6102, L506.0400, L509.8002 ####[facility] [address] [place], [address] Eosinophils/100 WBC (Bld) 1.1 % Normal 0-5 [facility] Comment on above: Performed By: #### L 3890.6006, L100.0100, L501.9520, L3410.9992, BTS, L509.4006, L3890.6301, L3890.6102, L506.0400, L509.8002 ####[facility] [address] [place], [address] Erythrocyte distribution width (RBC) [Ratio] 13.4 % Normal 11.6-14.6 [facility] Comment on above: Performed By: #### L 3890.6006, L100.0100, L501.9520, L3410.9992, BTS, L509.4006, L3890.6301, L3890.6102, L506.0400, L509.8002 ####[facility] [address] [place], [address] Hematocrit (Bld) [Volume fraction] 38.9 % Normal 37-47 [facility] Comment on above: Performed By: #### L 3890.6006, L100.0100, L501.9520, L3410.9992, BTS, L509.4006, L3890.6301, L3890.6102, L506.0400, L509.8002 ####[facility] [address] [place], [address] Hemoglobin (Bld) [Mass/Vol] 13.5 g/dL Normal 12.0-15.0 [facility] Comment on above: Performed By: #### L 3890.6006, L100.0100, L501.9520, L3410.9992, BTS, L509.4006, L3890.6301, L3890.6102, L506.0400, L509.8002 ####[facility] [address] [place], [address] IG% 0.400 Normal 0.0-0.9 [facility] Comment on above: Result Comment: IG% - Immature Granulocytes (promyelocytes, myelocytes and metamyelocytes) > 1% indicates that a LEFT SHIFT is Present. Performed By: #### L 3890.6006, L100.0100, L501.9520, L3410.9992, BTS, L509.4006, L3890.6301, L3890.6102, L506.0400, L509.8002 ####[facility] [address] [place], [address] Lymphocytes/100 WBC (Bld) 22.6 % Normal 19-41 [facility] Comment on above: Performed By: #### L 3890.6006, L100.0100, L501.9520, L3410.9992, BTS, L509.4006, L3890.6301, L3890.6102, L506.0400, L509.8002 ####[facility] [address] [place], [address] MCH (RBC) [Entitic mass] 28.8 pg Normal 27.0-32.0 [facility] Comment on above: Performed By: #### L 3890.6006, L100.0100, L501.9520, L3410.9992, BTS, L509.4006, L3890.6301, L3890.6102, L506.0400, L509.8002 ####[facility] [address] [place], [address] MCHC (RBC) [Mass/Vol] 34.7 g/dL Normal 32-36 [facility] Comment on above: Performed By: #### L 3890.6006, L100.0100, L501.9520, L3410.9992, BTS, L509.4006, L3890.6301, L3890.6102, L506.0400, L509.8002 ####[facility] [address] [place], [address] MCV (RBC) [Entitic vol] 82.9 fL Normal 81-99 [facility] Comment on above: Performed By: #### L 3890.6006, L100.0100, L501.9520, L3410.9992, BTS, L509.4006, L3890.6301, L3890.6102, L506.0400, L509.8002 ####[facility] [address] [place], [address] Monocytes/100 WBC (Bld) 5.2 % Normal 0-10 [facility] Comment on above: Performed By: #### L 3890.6006, L100.0100, L501.9520, L3410.9992, BTS, L509.4006, L3890.6301, L3890.6102, L506.0400, L509.8002 ####[facility] [address] [place], [address] Neutrophils/100 WBC (Bld) 69.8 % Normal 47-70 [facility] Comment on above: Performed By: #### L 3890.6006, L100.0100, L501.9520, L3410.9992, BTS, L509.4006, L3890.6301, L3890.6102, L506.0400, L509.8002 ####[facility] [address] [place], [address] Nucleated RBC (Bld) [#/Vol] 0 10*3/uL Normal 0-5 [facility] Comment on above: Performed By: #### L 3890.6006, L100.0100, L501.9520, L3410.9992, BTS, L509.4006, L3890.6301, L3890.6102, L506.0400, L509.8002 ####[facility] [address] [place], [address] Platelet mean volume (Bld) [Entitic vol] 10.3 fL Normal 6.2-12.0 [facility] Comment on above: Performed By: #### L 3890.6006, L100.0100, L501.9520, L3410.9992, BTS, L509.4006, L3890.6301, L3890.6102, L506.0400, L509.8002 ####[facility] [address] [place], [address] Platelets (Bld) [#/Vol] 280 10*3/uL Normal 150-450 [facility] Comment on above: Performed By: #### L 3890.6006, L100.0100, L501.9520, L3410.9992, BTS, L509.4006, L3890.6301, L3890.6102, L506.0400, L509.8002 ####[facility] [address] [place], [place], [id number] RBC (Bld) [#/Vol] 4.69 10*6/uL Normal 4.2-5.4 [facility] Comment on above: Performed By: #### L 3890.6006, L100.0100, L501.9520, L3410.9992, BTS, L509.4006, L3890.6301, L3890.6102, L506.0400, L509.8002 ####[facility] [address] [place], [address] RDW SD 40.6 fl Normal 35.1-43.9 [facility] Comment on above: Performed By: #### L 3890.6006, L100.0100, L501.9520, L3410.9992, BTS, L509.4006, L3890.6301, L3890.6102, L506.0400, L509.8002 ####[facility] [address] [place], [address] WBC (Bld) [#/Vol] 11.3 10*3/uL High 4.4-11.0 [facility] Comment on above: Performed By: #### L 3890.6006, L100.0100, L501.9520, L3410.9992, BTS, L509.4006, L3890.6301, L3890.6102, L506.0400, L509.8002 ####[facility] [address] [place], [place], [id number] Chlamydia trachomatis rRNA d etection by probe and target amplification methodOrdered By: Beatriz Cyr on 07-15-2025 C. trachomatis rRNA HAYES+probe Ql (Unsp spec) Negative Negative [facility] Eosinophil percentageOrdered By: Beatriz Cyr on 07-15-2025 Eosinophils/100 WBC (Bld) 1.1 % 0-5 [facility] Erythrocyte distribution wid th ratioOrdered By: Beatriz Cyr on 07-15-2025 Erythrocyte distribution width (RBC) [Ratio] 13.4 % 11.6-14.6 [facility] Erythrocyte distribution wid th standard deviationOrdered By: Beatriz Cyr on 07-15-2025 Erythrocyte distribution width (RBC) [Ratio] 40.6 fl 35.1-43.9 [facility] HIVon 07-15-2025 HIV Non-Reactive Normal Nonreactive [facility] Comment on above: Result Comment: Non- Reactive Reactive Repeatedly reactive samples must be confirmed according to CDC recommended confirmatory algorithms. The subresults for either HIVAG or AHIV can be used as an aid in the selection of the confirmation algorithm for reactive samples. Send out specimens with Reactive results to [facility] for confirmation. Order the HIV antibody detection and differentiation: lc#[id number] Performed By: #### L 3890.6006, L100.0100, L501.9520, L3410.9992, BTS, L509.4006, L3890.6301, L3890.6102, L506.0400, L509.8002 ####[facility] [address] [place], [address] Hematocrit Auto (Bld) [Volum e fraction]Ordered By: Beatriz Ger on 07-15-2025 Hematocrit (Bld) [Volume fraction] 38.9 % 37-47 [facility] Hemoglobin measurementOrdere d By: Beatriz Sahajeyson on 07-15-2025 Hemoglobin (Bld) [Mass/Vol] 13.5 g/dL 12.0-15.0 [facility] Hepatitis C Antibodyon 07-15 Hepatitis C Ab Non-Reactive Normal Nonreactive [facility] Comment on above: Result Comment: Reac tive: Presumptive evidence of antibodies to HCV. Follow CDC recommendations for supplemental testing. Non-Reactive: Antibodies to HCV were not detected; does not exclude the possibility of exposure to HCV Reactive Results are presumptive evidence of antibodies to HCV. Follow CDC recommendations for supplemental testing. Order confirmation testing: HCV Quant by PCR testing - HCVPCR #[id number] Non Reactive: < 0.8 Equivocal: >/= 0.8 to < 1.0 Reactive: >/= 1.0 The CDC requires that a reactive/equivocal HCV antibody result be sent out for confirmation. HCV Quant by PCR testing. Performed By: #### L 3890.6006, L100.0100, L501.9520, L3410.9992, BTS, L509.4006, L3890.6301, L3890.6102, L506.0400, L509.8002 ####[facility] [address] [facility] [place], [address] Immature granulocytes/100 WB C Auto (Bld)Ordered By: Beatriz Cyr on 07-15-2025 Immature granulocytes/100 WBC (Bld) 0.400 % 0.0-0.9 [facility] Comment on above: IG% - Immature Granu locytes (promyelocytes, myelocytes and metamyelocytes) > 1% indicates that a LEFT SHIFT is Present. L3890.6102on 07-15-2025 HEP B Surf Ag Non-Reactive Normal Nonreactive [facility] Comment on above: Result Comment: Reac tive: Presumptive evidence of HBV. Repeatedly reactive samples must be confirmed using a neutralization test ([employer]s HBsAg Confirmatory Test) Non-Reactive: HBsAg not detected; does not exclude the possibility of exposure to HBV Performed By: #### L 3890.6006, L100.0100, L501.9520, L3410.9992, BTS, L509.4006, L3890.6301, L3890.6102, L506.0400, L509.8002 ####[facility] [address] [place], [place], [address] L509.4006on 07-15-2025 Rubella IgG REAC Normal Nonreactive [facility] Comment on above: Result Comment: Anti body Result: Interpretation Non-Reactive: Non-Immune Reactive: Immune The following results were obtained with the [employer] Rubella IgG assay. Results from assays of other manufacturers cannot be used interchangeably. Performed By: #### L 3890.6006, L100.0100, L501.9520, L3410.9992, BTS, L509.4006, L3890.6301, L3890.6102, L506.0400, L509.8002 ####[facility] [address] [place], [address] Laboratory - Microbiology an d Antimicrobial susceptibilityOrdered By: Beatriz Cyr on 07-15-2025 HBV surface Ag Ql (S) Non-Reactive Nonreactive [facility] Comment on above: Reactive: Presumptiv e evidence of HBV. Repeatedly reactive samples must be confirmed using a neutralization test ([employer] HBsAg Confirmatory Test)Non-Reactive: HBsAg not detected; does not exclude the possibility of exposure to HBV MCV (mean corpuscular volume ) determinationOrdered By: Beatriz Cyr on 07-15-2025 MCV (RBC) [Entitic vol] 82.9 fL 81-99 [facility] Mean corpuscular hemoglobin (MCH) determinationOrdered By: Beatriz Cyr on 07-15-2025 MCH (RBC) [Entitic mass] 28.8 pg 27.0-32.0 [facility] Mean corpuscular hemoglobin concentration (MCHC) determinationOrdered By: Beatriz Cyr on 07-15-2025 MCHC (RBC) [Mass/Vol] 34.7 g/dL 32-36 [facility] Mean platelet volume determi nationOrdered By: Beatriz Cyr on 07-15-2025 Platelet mean volume (Bld) [Entitic vol] 10.3 fL 6.2-12.0 [facility] Monocyte percentageOrdered B y: Beatriz Cyr on 07-15-2025 Monocytes/100 WBC (Bld) 5.2 % 0-10 [facility] Neisseria gonorrhoeae nuclei c acid detection by amplified probe techniqueOrdered By: Beatriz Cyr on 07-15-2025 N. gonorrhoeae DNA HAYES+probe Ql (Unsp spec) Negative Negative [facility] Comment on above: Performed at: =[address] [id number] Director: Yanique Reed MD, Phone: [phone] Neutrophil percentageOrdered By: Beatriz Cyr on 07-15-2025 Neutrophils/100 WBC (Bld) 69.8 % 47-70 [facility] No Panel InformationOrdered By: Beatriz Cyr on 07-15-2025 HIV (1&2) Antibody Non-Reactive Nonreactive [facility] Comment on above: Non-ReactiveReactive Repeatedly reactive samples must be confirmed according to CDC recommended confirmatory algorithms. The subresults for either HIVAG or AHIV can be used as an aid in the selection of the confirmation algorithm for reactive samples.Send out specimens with Reactive results to [facility] for confirmation.Order the HIV antibody detection and differentiation: #[id number] Nucleated red blood cell per centageOrdered By: Beatriz Cyr on 07-15-2025 Nucleated RBC/100 WBC (Bld) [Ratio] 0 % 0-5 [facility] Brand Coordinator Office Visit Reporton 07-15-2025 Brand Coordinator Office Visit Report [facility] [address], [address] [place] [address] OFFICE VISIT Date of Service: 07/15/25 MR#: [id number] Acct: [id number] Name: ROBERTA ROSA Rep #: [id number] : 1995 Provider: Dr. Beatriz tobias MD Age/Sex: 30/F Location: [facility] [place] Status: Signed Intake Vital Signs 04/25/25 09:27 06/27/25 11:17 07/15/25 10:51 Height 5 ft 9 in 5 ft 9 in 5 ft 9 in Weight: 211 lb BMI 31.1 BP 122/81 H Intake Visit Reasons: EST* NOB LMP 7, ADILENE 02/14 Print Producer Required: No Is patient in pain?: No Allergies azithromycin Adverse Reaction (Verified 07/15/25 10:53) lightheaded Food Allergies: Uncoded Adverse Reaction (Verified 07/15/25 10:53) Other Medications ???Medication ???Instructions ???Recorded ???Confirmed ???Type ascorbic acid (vitamin C) 1,000 mg 1 g PO DAILY supplement 09/27/22 07/15/25 History capsule multivit-min no.71-iron fum 28 1 cap PO DAILY 09/27/22 07/15/25 History mg-folate no.1 1 mg-dha 300 mg capsule (PNV-Marion) omega3 1,000 pq-mbl-fyb-other 1 cap PO DAILY Check with primary 09/27/22 07/15/25 History pc9z-toee oil 1,400 mg doctor capsule,delay rel cholecalciferol (vitamin D3) 25 150 mcg PO DAILY 06/02/23 07/15/25 History mcg (1,000 unit) capsule vitamin B complex 1 cap PO QDAY 06/27/25 07/15/25 Hi story Last Menstrual Period: 05/10/25 Zika: Zika virus screening: Negative : No PFSH PFSH Medical History Pelvic pain Vocal cord dysfunction Migraine ADHD Surgical History H/O wisdom tooth extraction History of tonsillectomy Family History Mother Psoriasis Brother Psoriatic arthritis Asthma Ulcerative colitis Father Kidney stone Social History adopted: No household members: spouse and children housing: apartment number of children: 1 current occupational status: employed 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) current occupational exposures/hazards: No pets and animals: Yes pets and animals: dog(s) history of recent travel: No sexually active: Yes Smoking Status: Never smoker second hand exposure: No alcohol intake: current alcohol intake frequency: holidays/special occasions only details: Not while substance use type: does not use well-balanced diet: daily or most days caffeine: Yes Type: coffee Number of servings: 1 eating out: rarely or never during the past year weight has: remained stable what type of physical activity do you participate in: walking frequency: 5-6 times per week duration: 30-45 minutes/day amy/baptism: None seatbelt use: always do you feel safe at home: Yes 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 Date Name GA/Weeks Outcome Route Bth Weight Infant Gen Labor Lgth Anesthesia Del Locatn Provider FOB 04/25/23 Rickey Ramirez IV 37 live - full term 6lbs 14oz Male epidural [facility] Sanam Lang Delivery Date: 04/25/23 Last Updated by: Soco Ruiz 2nd degree laceration HPI EST* NOB LMP 05/10, ADILENE 02/14 Details: ROBERTA ROSA is a 30 year old who presents for New OB visit. OB Visit ADILENE Calculator Estimated Delivery Date Method Current WG Current Estimate 02/14/26 LMP (Certain) 9w 3d Estimated Due Date: 02/14/26 Expected Delivery Route/Plan Labor Preferences- CB/BF classes: [] labor support person: [] labor intervention preferences: [] pain management options preferred: [] cut cord/dad catch: [] : [] PP control planned: [] discussed possible routes of delivery and associated risks: [] special requests: [] Specific Issue/Plans Covid status: [] Flu vaccine: [] Tdap vaccine: [] Rhogam: [] LARC form signed: [] Problem list reviewed and updated with the most current plan of care details and appropriate orders placed. Relevant counseling for the gestational age provided. Continue routine care and follow up unless otherwise noted in visit notes/problem list details Initial Weight: Not Recorded Date -???-???-???-???-???-?? ?-???-???-???-???-???-? ??- EGA Weight BP Urine Prot -???-???-???-???-???-?? ?-???-???-???-???-???-? ??- Glucose FHR FuHt Pres Dilation -???-???-???-???-???-?? ?-???-???-???-???-???-? ??- Effaced St Visit Note 07/15/25 -???-???-???-???-???-?? ?-???-???-???-??? (more content not included)... Normal [facility] Platelet countOrdered By: Agustín Cyr on 07-15-2025 Platelets (Bld) [#/Vol] 280 10*3/uL 150-450 [facility] RBC Auto (Bld) [#/Vol]Ordere d By: Beatriz Cyr on 07-15-2025 RBC (Bld) [#/Vol] 4.69 10*6/uL 4.2-5.4 [facility] Syphilis Antibodieson 2024 Syphilis Abs Non-Reactive Normal Nonreactive [facility] Comment on above: Performed By: #### L 3890.6006, L100.0100, L501.9520, L3410.9992, BTS, L509.4006, L3890.6301, L3890.6102, L506.0400, L509.8002 ####[facility] [address] [place], [place], [id number] T4 Free Directon 07-15-2025 T4 FREE DIRECT 1.20 ng/dL Normal 0.76-1.46 [facility] Comment on above: Performed By: #### L 3890.6006, L100.0100, L501.9520, L3410.9992, BTS, L509.4006, L3890.6301, L3890.6102, L506.0400, L509.8002 ####[facility] [address] [place], [place], [id number] T4 freeOrdered By: Beatriz carrillo on 07-15-2025 Free T4 [Mass/Vol] 1.20 ng/dL 0.76-1.46 [facility] TSH DL <= 0.005 mIU/L QnOrde red By: Beatriz Cyr on 07-15-2025 TSH Qn 1.780 uIU/mL 0.300-4.200 [facility] Thyroid Stim Hormone (TSH)on 07-15-2025 TSH 1.780 uIU/mL Normal 0.300-4.200 [facility] Comment on above: Performed By: #### L 3890.6006, L100.0100, L501.9520, L3410.9992, BTS, L509.4006, L3890.6301, L3890.6102, L506.0400, L509.8002 ####[facility] [address] [place] [place], [address] Type AND Screenon 07-15-2025 Ab SCREEN GEL Negative Normal [facility] Comment on above: Order Comment: PN Performed By: #### M 100.1999, L7400.0353, M100.3200 #### [facility] [address] [place], [address] Urine cultureOrdered By: Lukasz Cyr on 07-15-2025 Bacteria identified Cx Nom (U) Positive Abnormal [facility] White blood cell (WBC) count Ordered By: Beatriz Cyr on 07-15-2025 WBC (Bld) [#/Vol] 11.3 10*3/uL High 4.4-11.0 [facility] Genital Culture Comprehensiv ceci 06-30-2025 VAC Reason for Exam: Vaginal Discharge Normal vaginal ashley isolated. No yeast, Gardnerella, Neisseria or beta-hemolytic Streptococcus isolated. Normal [facility] Comment on above: Performed By: #### M 100.3200, #### [facility] [address] [place], [address] Genital cultureOrdered By: Daquan Tovar on 06-27-2025 Source specific culture Neisseria or beta-hemolytic Streptococcus isolated. [facility] Gram Stainon 06-27-2025 GS Reason for Exam: Vaginal Discharge Gram Stain 4+ Gram positive rods No Gram negative diplococci 1+ Epithelial cells 1+ Gram positive cocci Score = 0 Interpretation: 0-3 Normal, 4-6 Intermediate, 7-10 Positive BV Normal [facility] Comment on above: Performed By: #### M 100.3200, M1 #### [facility] [address] [place] [place], [address] Gram stainOrdered By: Sanam Tovar on 06-27-2025 Microscopic observation Gram stain Nom (Unsp spec) [facility] Brand Coordinator Office Visit Reporton 06-27-2025 Brand Coordinator Office Visit Report [facility] [address], [address] [place] [address] OFFICE VISIT Date of Service: 06/27/25 MR#: [id number] Acct: [id number] Name: ROBERTA ROSA Rep #: [id number] : 1995 Provider: DONNA Norris ams Age/Sex: 30/F Location: [facility] Status: Signed Intake Vital Signs 04/25/25 09:27 06/23/25 13:07 06/27/25 11:17 Height 5 ft 9 in 5 ft 9 in 5 ft 9 in Weight: 209 lb 7 oz BMI 30.9 BP 110/73 Intake Visit Reasons: LMP 7/5, ro vaginal infection Chief Complaint: vaginal discharge Print Producer Required: No Is patient in pain?: No Allergies azithromycin Adverse Reaction (Verified 06/27/25 11:15) lightheaded Food Allergies: Uncoded Adverse Reaction (Verified 06/27/25 11:15) Other Medications ???Medication ???Instructions ???Recorded ???Confirmed ???Type ascorbic acid (vitamin C) 1,000 mg 1 g PO DAILY supplement 09/27/22 06/27/25 History capsule multivit-min no.71-iron fum 28 1 cap PO DAILY 09/27/22 06/27/25 History mg-folate no.1 1 mg-dha 300 mg capsule (PNV-Marion) omega3 1,000 qh-jll-atu-other 1 cap PO DAILY Check with primary 09/27/22 06/27/25 History pd7f-cdlo oil 1,400 mg doctor capsule,delay rel cholecalciferol (vitamin D3) 25 150 mcg PO DAILY 06/02/23 06/27/25 History mcg (1,000 unit) capsule vitamin B complex 1 cap PO QDAY 06/27/25 06/27/25 Hi story Is last menstrual period known: Yes Last Menstrual Period: 05/10/25 Post menopausal: No Patient : Yes : No PFSH Medical History Pelvic pain Vocal cord dysfunction Migraine ADHD Surgical History H/O wisdom tooth extraction History of tonsillectomy Family History Mother Psoriasis Brother Psoriatic arthritis Asthma Ulcerative colitis Father Kidney stone Social History adopted: No household members: spouse and children housing: apartment number of children: 1 current occupational status: employed 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) current occupational exposures/hazards: No pets and animals: Yes pets and animals: dog(s) history of recent travel: No sexually active: Yes Smoking Status: Never smoker second hand exposure: No alcohol intake: current alcohol intake frequency: holidays/special occasions only details: Not while substance use type: does not use well-balanced diet: daily or most days caffeine: Yes Type: coffee Number of servings: 1 eating out: rarely or never during the past year weight has: remained stable what type of physical activity do you participate in: walking frequency: 5-6 times per week duration: 30-45 minutes/day amy/baptism: None seatbelt use: always do you feel safe at home: Yes 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 Had positive test with cramping. Having some right sided pelvic pain. not consistent, NO vaginal bleeding. Is feeling nauseated and having food aversions. Office TVUS to determine position and IUP. CRL 0.86 cons with 6.6 weeks. FHT 146 Female Reproductive History Last Menstrual Period: 05/10/25 Questions: sexually active: Yes, dyspareunia: No and PCB: No 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 Date Name GA/Weeks Outcome Route Bth Weight Gen Labor Lgth Anesthesia Del Locatn Provider FOB 04/25/23 Rickey Ramirez IV 37 live - full term 6lbs 14oz Male epidural [employer] Sanam Lang Delivery Date: 04/25/23 Last [...] and no additional complaints, except as documented (more content not included)... Normal [facility] L3410.9992on 06-23-2025 [facility]. COMMENT Normal . [facility] Comment on above: Order Comment: Speci men Comment: [id number] Specimen Comment: No. of containers..01 ThinPrep Vial Result Comment: Test Ordered: [id number] Tetanus/Diphtheria Ab Tetanus Antitoxoid IgG Ab 1.91 IU/mL Reference Range: <0.10 Interpretation: Non-Protective <0.10 Protective >=0.10 Results for this test are for research purposes only by the assay's absorber operator. The performance characteristics of this product have not been established. Results should not be used as a diagnostic procedure without confirmation of the diagnosis by another medically established diagnostic product or procedure. Diphtheria Antitoxoid Ab 0.28 IU/mL Reference Range: <0.10 Interpretation: Non-Protective <0.10 Protective >=0.10 For research use only. Performed at: [facility] [address] [id number] Hop Strainer: Kathrin Carr MD, Phone: [phone] Performed at: [facility] [address] [id number] Hop Strainer: Rodney Mckeon PhD, Phone: [phone] Performed By: #### M 100.2000, L3100.3503, M137.3680 #### [facility] [place], [address] L3400.0005on 06-19-2025 V ZOSTER IgG Reactive Normal Non Reactive [facility] Comment on above: Result Comment: Pl ease note reference interval change A Reactive result is considered evidence of immunity to VZV. Reactive indicates that VZV IgG was detected consistent with previous infection and/or vaccination. A Non Reactive result indicates that VZV IgG was not detected suggesting that immunity has not been acquired. Performed By: #### M 100, L7400.0353, M100.3200 #### [facility] [address] [place], [address] Mumps Antibody,IgGon 025 MUMPS Ab, IgG 112.0 AU/mL Normal Immune >10.9 [facility] Comment on above: Result Comment: Nega tive <9.0 Equivocal 9.0 - 10.9 Positive >10.9 A positive result generally indicates past exposure to Mumps virus or previous vaccination. Performed By: #### M , L7400.0353, M100.3200 #### [facility] [address] [place], [address] Rubella Ab IgGon 06-19-2025 RUBELLA Ab, IgG 1.73 index Normal Immune >0.99 [facility] Comment on above: Result Comment: Non- immune <0.90 Equivocal 0.90 - 0.99 Immune >0.99 Performed at: [address] [id number] Hop Strainer: Rodney Mckeon PhD, Phone: [phone] Performed By: #### M 100, L7400.0353, M100.3200 #### [facility] [address] [place], [address] Rubeola IgG Abon 06-19-2025 RUBEOLA Ab, IgG 145.0 AU/mL High Immune >16.4 [facility] Comment on above: Result Comment: Clie nt Requested Flag Negative <13.5 Equivocal 13.5 - 16.4 Positive >16.4 Presence of antibodies to Rubeola is presumptive evidence of immunity except when acute infection is suspected. Performed at: [facility] [address] [place], [place] [id number] Hop Strainer: Rodney Mckeon PhD, Phone: [phone] Performed By: #### M 100.1999, L7400.0353, M100.3200 #### [facility] [address] [place], [address] L3890.6102on 06-18-2025 HEP B Surf Ag Non-Reactive Normal Nonreactive [facility] Comment on above: Result Comment: Reac tive: Presumptive evidence of HBV. Repeatedly reactive samples must be confirmed using a neutralization test ([employer]ys HBsAg Confirmatory Test) Non-Reactive: HBsAg not detected; does not exclude the possibility of exposure to HBV Performed By: #### M 100.1999, L7400.0353, M100.3200 #### [facility] [address] [place], [place], [address] Laboratory - Microbiology an d Antimicrobial susceptibilityOrdered By: Soco Frazier on 06-18-2025 HBV surface Ag Ql (S) Non-Reactive Nonreactive [facility] Comment on above: Reactive: Presumptiv e evidence of HBV. Repeatedly reactive samples must be confirmed using a neutralization test (Elecsys HBsAg Confirmatory Test)Non-Reactive: HBsAg not detected; does not exclude the possibility of exposure to HBV Serum measles virus IgG anti body assay by immunoassay (units/volume)Ordered By: Soco Frazier on 06-18-2025 MeV IgG IA Qn (S) 145.0 AU/mL High Immune >16.4 [facility] Comment on above: Client Requested Fla g Negative <13.5 Equivocal 13.5 - 16.4 Positive >16.4Presence of antibodies to Rubeola is presumptive evidenceof immunity except when acute infection is suspected.Performed at: [facility] [place], [place] [id number] Director: Rodney Mckeon PhD, Phone: [phone] Serum mumps virus IgG antibo dy assay (units/volume)Ordered By: Soco Frazier on 06-18-2025 MuV IgG Qn (S) 112.0 AU/mL Immune >10.9 [facility] Comment on above: Negative <9.0 Equivo avril 9.0 - 10.9 Positive >10.9A positive result generally indicates past exposure toMumps virus or previous vaccination. Genital Culture Comprehensiv ceci 04-28-2025 VAC Reason [...] Lactamase-Reportable Negative GVAG Amount Growth 2+ Normal [facility] Comment on above: Performed By: #### M 100, L7400.0353, M100.3200 #### [facility] [address] [place], [place], [id number] Genital cultureOrdered By: Daquan Tovar on 04-25-2025 Source specific culture G. vaginalis (Presumptive) Abnormal [facility] Gram Stainon 04-25-2025 GS Reason for Exam: Pel lashawn pain Gram Stain 3+ Gram positive rods 2+ Gram negative rods No Gram negative diplococci Score =4 Interpretation: 0-3 Normal, 4-6 Intermediate, 7-10 Positive BV Normal [facility] Comment on above: Performed By: #### M , L7400.0353, M100.3200 #### [facility] [address] [facility] [place], [place], [address] Gram stainOrdered By: Sanam Tovar on 04-25-2025 Microscopic observation Gram stain Nom (Unsp spec) [facility] Brand Coordinator Office Visit Reporton 04-25-2025 Brand Coordinator Office Visit Report [facility]'s [address], [address] [place] [address] OFFICE VISIT Date of Service: 04/25/25 MR#: [id number] Acct: [id number] Name: ROBERTA ROSA Rep #: [id number] : 1995 Provider: DONNA Norris ams Age/Sex: 29/F Location: [facility] [place] Status: Signed Intake Vital Signs 03/18/25 09:27 04/25/25 09:23 04/25/25 09:27 Height 5 ft 9 in 5 ft 9 in 5 ft 9 in Weight: 212 lb 210 lb 6 oz BMI 31.3 31.0 BP 120/82 H 115/77 Intake Visit Reasons: Painful Menses $20 copay Chief Complaint: painful menses Print Producer Required: No Is patient in pain?: No Allergies azithromycin Adverse Reaction (Verified 04/25/25 09:22) lightheaded Food Allergies: Uncoded Adverse Reaction (Verified 04/25/25 09:22) Other Medications ???Medication ???Instructions ???Recorded ???Confirmed ???Type ascorbic acid (vitamin C) 1,000 mg 1 g PO DAILY supplement 09/27/22 04/25/25 History capsule multivit-min no.71-iron fum 28 1 cap PO DAILY 09/27/22 04/25/25 History mg-folate no.1 1 mg-dha 300 mg capsule (PNV-Marion) omega3 1,000 um-fhq-zyp-other 1 cap PO DAILY Check with primary 09/27/22 04/25/25 History sr0w-pgpj oil 1,400 mg doctor capsule,delay rel cholecalciferol (vitamin D3) 25 150 mcg PO DAILY 06/02/23 04/25/25 History mcg (1,000 unit) capsule Is last [...] 5-6 times per week duration: 30-45 minutes/day amy/baptism: None seatbelt use: always do you feel safe at home: Yes 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 Normal [facility] Pelvic w/ Transvaginalon Pelvic w/ Transvaginal [facility] [address] [place] [address] Pelvic w/ Transvaginal MR#: [id number] Acct: [id number] Name: ROBERTA ROSA Rep #: [id number] : 1995 F 29 From: Galindo pelayo MD PCP: LISBETH Zapata Status: REG CLI Study: Pelvic w/ Transvaginal Date of Exam: 03/26/25 Exam# [id number] Ordering Dr: Sanam Tovar CNM PROCEDURE: PELVIC [...] TRANSABDOMINAL AND TRANSVAGINAL PELVIC ULTRASOUND. Reading Location: [place] [address] CC: DONNA Tovar; LISBETH Frazier Modeling Instructor: Signed Normal [facility] Genital Culture Comprehensiv ceci 03-21-2025 VAC Reason [...] Amount Growth Rare Beta Lactamase-Reportable Negative Normal [facility] Comment on above: Performed By: #### M 100.1999, L7400.0353, M100.3200 #### [facility] [address] [place], [place], [id number] PAP I-G w/rfx hrHPV-Aptimaon 03-20-2025 ADEQ Comment Normal . [facility] Comment on above: Order Comment: Speci men Comment: [id number] Specimen Comment: No. of containers..01 ThinPrep Vial Result Comment: Sati sfactory for evaluation. Endocervical and/or squamous metaplastic cells (endocervical component) are present. Performed By: #### M 100, L7400.0353, M100.3200 #### [facility] [address] [place], [address] COMM . Normal . [facility] Comment on above: Order Comment: Speci men Comment: [id number] Specimen Comment: No. of containers..01 ThinPrep Vial Performed By: #### M 100, L7400.0353, M100.3200 #### [facility] [address] [place], [address] COMMENT Comment Normal . [facility] Comment on above: Order Comment: Speci men Comment: [id number] Specimen Comment: No. of containers..01 ThinPrep Vial Result Comment: This liquid based ThinPrep(R) pap test was screened with the use of an image guided system. Performed By: #### M , L7400.352, M100.3200 #### [facility] [address] [place], [place], [address] DIAG Comment Normal . [facility] Comment on above: Order Comment: Speci men Comment: [id number] Specimen Comment: No. of containers..01 ThinPrep Vial Result Comment: NEGA TIVE FOR INTRAEPITHELIAL LESION OR MALIGNANCY. Performed By: #### M , L7399.352, M100.3200 #### [facility] [address] [place], [place], [id number] HPV RFLX Comment Normal . [facility] Comment on above: Order Comment: Speci men Comment: [id number] Specimen Comment: No. of containers..01 ThinPrep Vial Result Comment: The HPV DNA reflex criteria were not met with this specimen result therefore, no HPV testing was performed. Performed at: [address] [id number] Hop Strainer: Yanique Reed MD, Phone: [phone] Performed By: #### M , L, M100.3200 #### [facility] [address] [place], [address] PAPSMR Comment Normal . [facility] Comment on above: Order Comment: Speci men Comment: [id number] Specimen Comment: No. of containers..01 ThinPrep Vial Result Comment: The Pap smear is a screening test designed to aid in the detection of premalignant and malignant conditions of the uterine cervix. It is not a diagnostic procedure and should not be used as the sole means of detecting cervical cancer. Both false-positive and false-negative reports do occur. Performed By: #### M , L7400.0353, M100.3200 #### [facility] [address] [place], [address] PERFORM Comment Normal . [facility] Comment on above: Order Comment: Speci men Comment: [id number] Specimen Comment: No. of containers..01 ThinPrep Vial Result Comment: Linda Pollack, Leak Hunter (ASCP) Performed By: #### M , L7400.0353, M100.3200 #### [facility] [address] [place], [address] Cervical or vagninal specime n microscopic examination by cytology stain (reported asOrdered By: Sanam Tovar on 03-18-2025 Cytology report Cyto stain Doc (Cvx/Vag) Comment . [facility] Comment on above: The Pap smear is [...] Normal, 4-6 Intermediate, 7-10 Positive BV Normal [facility] Comment on above: Performed By: #### M , L7400.0353, M100.3200 #### [facility] [address] [place], [address] Gram stainOrdered By: Sanam Tovar on 03-18-2025 Microscopic observation Gram stain Nom (Unsp spec) [facility] - CytologyOrdered By: Sanam Tovar on 03-18-2025 Leak Hunter Cyto stain Nom (Cvx/Vag) [ID] Comment . [facility] Comment on above: Carito Pollack Cytol ogist (ASCP) Laboratory - Miscellaneous t estsOrdered By: Sanam Tovar on 03-18-2025 Service comment (Unsp spec) [Interp] . . [facility] No Panel InformationOrdered By: Sanam Tovar on 03-18-2025 Pap Smear Specimen Adequacy Comment . [facility] Comment on above: Satisfactory for ruben luation. Endocervical and/or squamous metaplasticcells (endocervical component) are present. 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 Complaint: Annual Print 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 Required: No Is patient in pain?: No Allergies azithromycin Adverse Reaction (Verified 03/18/25 09:30) lightheaded Food Allergies: Uncoded Adverse Reaction (Verified 03/18/25 09:29) Other Medications ???Medication ???Instructions ???Recorded ???Confirmed ???Type ascorbic acid (vitamin C) 1,000 mg 1 g PO DAILY supplement 09/27/22 03/18/25 History capsule multivit-min no.71-iron fum 28 1 cap PO DAILY 09/27/22 03/18/25 History mg-folate no.1 1 mg-dha 300 mg capsule (PNV-Marion) omega3 1,000 kq-unp-zuj-other 1 cap PO DAILY Check with primary 09/27/22 03/18/25 History zk1i-ajbs oil 1,400 mg doctor capsule,delay rel cholecalciferol [...] 5-6 times per week duration: 30-45 minutes/day amy/baptism: None seatbelt use: always do you feel safe at home: Yes 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 Date Name GA/Weeks Outcome Route Bth Weight Infant Gen Labor Lgth Anesthesia Del Locatn Provider FOB 04/25/23 Rickey Ramirez IV 37 live - full term Male epidural [facility] Sanam Lang Delivery Date: 04/25/23 Last [...] General: co (more content not included)... Normal [facility] Thyroidon 01-30-2025 Thyroid [facility] [address] [place] [address] Thyroid MR#: [id number] Acct: [id number] Name: ROBERTA ROSA Rep #: [id number] : 1995 F 29 From: Finesse Contreras DO PCP: Soco Frazier NP-C Status: REG CLI Study: Thyroid Date of Exam: 01/30/25 Exam# [id number] Ordering Dr: Fay Hebert MD PROCEDURE: THYROID [...] follow-up imaging or FNA biopsy. Reading Location: [facility] CC: LISBETH Frazier; Dr. Fay Hebert MD Modeling Instructor: Signed Normal [facility] FT3on 12-16-2024 Free T3 [Mass/Vol] 2.19 pg/mL Low 2.30-4.00 [facility] Comment on above: Performed By: #### F T4, TSH, FT3 #### [place] [address] FT4on 12-16-2024 Free T4 [Mass/Vol] 0.96 ng/dL Normal 0.76-1.46 [facility] Comment on above: Performed By: #### F T4, TSH, FT3 #### [place] [address] LABORATORYOrdered By: SYSTEM SYSTEM on 12-16-2024 Free T3 [Mass/Vol] 2.19 pg/mL Low 2.30 - 4. 00 pg/mL AO ADM SS Free T4 [Mass/Vol] 0.96 ng/dL Normal 0.76 - 1. 46 ng/dL AO ADM SS TSH Qn 1.53 m[IU]/L Normal 0.36 - 3.74 mcIU/mL AO ADM SS TSHon 12-16-2024 TSH Qn 1.53 m[IU]/L Normal 0.36-3.74 [facility] Comment on above: Performed By: #### F T4, TSH, FT3 #### [place] [address] 12 Lead EKGon 11-01-2024 12 Lead EKG [facility] Services [address] [place] [address] 12 Lead EKG 11/01/24 0210 MR#: [id number] Acct: [id number] Name: PAMELARobinROBERTA Rep #: [id number] : 1995 29 From: Tuan Pack MD [...] sinus rhythm Normal ECG Confirmed by TUAN PACK MD ([id number]), editor index JEN CESPEDES ([id number]) on 11/01/2024 9:47:36 AM Referred By: Confirmed By: TUAN PACK MD 11/01/24 0947 Date Tuan Pack MD CC: TELECOMMUNICATION TOWER TECHNICIAN-C Soco Frazier; Dr. Heron Mondragon MD Signed Normal [facility] Abdomen/Pelvis W IV Cont ONL Yon 11-01-2024 Abdomen/Pelvis W IV Cont ONLY [facility] Services [address] [place] [id number] Abdomen/Pelvis W IV Cont ONLY MR#: [id number] Acct: [id number] Name: ROBERTA ROSA Rep #: [id number] : 1995 F 29 From: Florencio Torres MD PCP: LISBETH Zapata Status: REG ER Study: Abdomen/Pelvis W IV Cont ONLY Date of Exam: Exam# [id number] Ordering [place]: [place] [id number] EXAM: CT ABDOMEN AND PELVIS WITH INTRAVENOUS [...] down into the pelvis. Electronically Signed: Florencio Torres MD at 4:18 EST Reading Location ID and State: [address] [place] [address] Tel , Service support , CC: LISBETH Frazier; Dr. Heron Mondragon MD Modeling Instructor: Signed Normal [facility] Absolute neutrophil countOrd ered By: Heron Mondragon on 11-01-2024 Neutrophils (Bld) [#/Vol] 18.9 10*3/uL High 2.0-7.7 [facility] Albumin to globulin ratioOrd ered By: Heron Mondragon on 11-01-2024 Albumin/Globulin [Mass ratio] 1.2 {ratio} 0.9-2.4 [facility] Basophil percentageOrdered B y: Heron Mondragon on 11-01-2024 Basophils/100 WBC (Bld) 0.5 % 0-1 [facility] Beta HCG ( test) Ql Ordered By: Heron Mondragon on 11-01-2024 Serum Test, Qualitative Negative [facility] Bilirubin Test strip Ql (U)O rdered By: Heron Mondragon on 11-01-2024 Bilirubin Ql (U) 1 mg/dL High Negative [facility] Comment on above: COLOR OF URINE MAY A FFECT DIPSTICK RESULTS. Bilirubin, totalOrdered By: Heron Mondragon on 11-01-2024 Bilirubin [Mass/Vol] 0.50 mg/dL 0.20-1.00 [facility] Comment on above: For patients on eltr ombopag therapy, use of Dimension [place] TBIL is not recommended. Blood urea nitrogen (BUN)/cr eatinine ratioOrdered By: Heron Mondragon on 11-01-2024 Urea nitrogen/Creatinine [Mass ratio] 15.6 mg/mg 10-20 [facility] CBC W/Diff, Automatedon 10-07 Absolute Lymph 3.64 X10 3/uL Normal 0.83-4.51 [facility] Comment on above: Performed By: #### M , L7400.0353, M100.3200 #### [facility] [address] [place], [address] Absolute Neut 18.9 X10 3/uL High 2.0-7.7 [facility] Comment on above: Performed By: #### M , L7400.0353, M100.3200 #### [facility] [address] [place], [address] Basophils/100 WBC (Bld) 0.5 % Normal 0-1 [facility] Comment on above: Performed By: #### M , L7400.0353, M100.3200 #### [facility] [address] [place], [address] Eosinophils/100 WBC (Bld) 0.3 % Normal 0-5 [facility] Comment on above: Performed By: #### M , L7400.0353, M100.3200 #### [facility] [address] [place], [address] Erythrocyte distribution width (RBC) [Ratio] 13.0 % Normal 11.6-14.6 [facility] Comment on above: Performed By: #### M , L7400.0353, M100.3200 #### [facility] [address] [place], [address] Hematocrit (Bld) [Volume fraction] 50.3 % High 37-47 [facility] Comment on above: Performed By: #### M , L7400.035, 00.3200 #### [facility] [address] [place], [address] Hemoglobin (Bld) [Mass/Vol] 17.2 g/dL High 12.0-15.0 [facility] Comment on above: Performed By: #### M , L7400.035, M100.3200 #### [facility] [address] [place], [address] IG% 0.500 Normal 0.0-0.9 [facility] Comment on above: Result Comment: IG% - Immature Granulocytes (promyelocytes, myelocytes and metamyelocytes) > 1% indicates that a LEFT SHIFT is Present. Performed By: #### M , L7400.0353, M100.3200 #### [facility] [address] [place], [address] Lymphocytes/100 WBC (Bld) 15.3 % Low 19-41 [facility] Comment on above: Performed By: #### M , L7400.0353, M100.3200 #### [facility] [address] [place], [address] MCH (RBC) [Entitic mass] 28.4 pg Normal 27.0-32.0 [facility] Comment on above: Performed By: #### M , L7400.0353, M100.3200 #### [facility] [address] [place], [address] MCHC (RBC) [Mass/Vol] 34.2 g/dL Normal 32-36 [facility] Comment on above: Performed By: #### M , L7400.0353, M100.3200 #### [facility] [address] [place], [address] MCV (RBC) [Entitic vol] 83.1 fL Normal 81-99 [facility] Comment on above: Performed By: #### M , L7400.0353, M100.3200 #### [facility] [address] [place], [address] Monocytes/100 WBC (Bld) 4.2 % Normal 0-10 [facility] Comment on above: Performed By: #### M , L7400.0353, M100.3200 #### [facility] [address] [place], [address] Neutrophils/100 WBC (Bld) 79.2 % High 47-70 [facility] Comment on above: Performed By: #### M , L7400.0353, M100.3200 #### [facility] [address] [place], [address] Nucleated RBC (Bld) [#/Vol] 0 10*3/uL Normal 0-5 [facility] Comment on above: Performed By: #### M , L7400.0353, M100.3200 #### [facility] [address] [place], [address] Platelet mean volume (Bld) [Entitic vol] 9.7 fL Normal 6.2-12.0 [facility] Comment on above: Performed By: #### M , L7400.0353, M100.3200 #### [facility] [address] [place], [address] Platelets (Bld) [#/Vol] 349 10*3/uL Normal 150-450 [facility] Comment on above: Performed By: #### M , L7400.0353, M100.3200 #### [facility] [address] [place], [address] RBC (Bld) [#/Vol] 6.05 10*6/uL High 4.2-5.4 [facility] Comment on above: Performed By: #### M , L7400.0353, M100.3200 #### [facility] [address] [place], [address] RDW SD 39.2 fl Normal 35.1-43.9 [facility] Comment on above: Performed By: #### M , L7400.0353, M100.3200 #### [facility] [address] [place], [address] WBC (Bld) [#/Vol] 23.8 10*3/uL High 4.4-11.0 [facility] Comment on above: Performed By: #### M , L7400.0353, M100.3200 #### [facility] [address] [place], [address] Carbon dioxide measurementOr dered By: Heron Mondragon on 11-01-2024 CO2 [Moles/Vol] 31.0 mmol/L 21.0-32.0 [facility] Chloride measurementOrdered By: Heron Mondragon on 11-01-2024 Chloride [Moles/Vol] 101 mmol/L 98-107 [facility] Comprehensive Metabolic Prof ilon 11-01-2024 Albumin [Mass/Vol] 4.1 g/dL Normal 3.2-5.0 [facility] Comment on above: Performed By: #### M , L7400.0353, M100.3200 #### [facility] [address] [place], [address] Albumin/Globulin [Mass ratio] 1.2 {ratio} Normal 0.9-2.4 [facility] Comment on above: Performed By: #### M , L7400.0353, M100.3200 #### [facility] [address] [place], [address] ALK P 90 U/L Normal 45-117 [facility] Comment on above: Performed By: #### M , L7400.0353, M100.3200 #### [facility] [address] [place], [address] ALT [Catalytic activity/Vol] 22 U/L Normal 13-56 [facility] Comment on above: Performed By: #### M , L7400.0353, M100.3200 #### [facility] [address] [place], [address] AST [Catalytic activity/Vol] 20 U/L Normal 15-37 [facility] Comment on above: Result Comment: Mode rate Hemolysis, Result may be falsely increased. Performed By: #### M , L7400.0353, M100.3200 #### [facility] [address] [place], [address] Bilirubin [Mass/Vol] 0.50 mg/dL Normal 0.20-1.00 [facility] Comment on above: Result Comment: For patients on eltrombopag therapy, use of Dimension [place] TBIL is not recommended. Performed By: #### M , L7400.0353, M100.3200 #### [facility] [address] [place], [address] BUN/CRE 15.6 RATIO Normal 10-20 [facility] Comment on above: Performed By: #### M , L7400.0353, M100.3200 #### [facility] [address] [place], [address] CA,Total 9.6 mg/dL Normal 8.5-10.1 [facility] Comment on above: Performed By: #### M , L7400.0353, M100.3200 #### [facility] [address] [place], [address] Chloride [Moles/Vol] 101 mmol/L Normal 98-107 [facility] Comment on above: Performed By: #### M , L7400.0353, M100.3200 #### [facility] [address] [place], [address] CO2 [Moles/Vol] 31.0 mmol/L Normal 21.0-32.0 [facility] Comment on above: Performed By: #### M , L7400.035, M100.3200 #### [facility] [address] [place], [address] Creatinine [Mass/Vol] 0.96 mg/dL Normal 0.55-1.02 [facility] Comment on above: Result Comment: The validity of the calculated GFR GFRAA in patients over 70 years has not been determined. Clinical correlation is essential. Performed By: #### M , L7400.0353, M100.3200 #### [facility] [address] [place], [address] ECRCL 107.38 ml/min Normal [facility] Comment on above: Performed By: #### M , L7400.0353, M100.3200 #### [facility] [address] [place], [address] EST GFR - AA 89 mL/min Normal >60 [facility] Comment on above: Result Comment: Afri can Afghan GFR Calc Performed By: #### M , L7400.0353, M100.3200 #### [facility] [address] [place], [address] GAP 7 Normal 5-15 [facility] Comment on above: Performed By: #### M , L7400.0353, M100.3200 #### [facility] [address] [place], [address] GFR/1.73 sq M.predicted among non-blacks MDRD (S/P/Bld) [Vol rate/Area] 73 mL/min/{1.73_m2} Normal >60 [facility] Comment on above: Result Comment: Non- GFR Calc Performed By: #### M , L7400.0353, M100.3200 #### [facility] [address] [place], [address] Globulin (S) [Mass/Vol] 3.4 g/dL Normal 2.2-4.2 [facility] Comment on above: Performed By: #### M , L7400.0353, M100.3200 #### [facility] [address] [place], [address] Glucose [Mass/Vol] 125 mg/dL High 74-106 [facility] Comment on above: Result Comment: Fast ing Glucose result from 100 to 125 mg/dL suggests IMPAIRED HOMEOSTASIS per A.D.A. criteria. Performed By: #### M , L7400.0353, M100.3200 #### [facility] [address] [place], [address] Potassium [Moles/Vol] 4.2 mmol/L Normal 3.5-5.1 [facility] Comment on above: Result Comment: Mode rate Hemolysis, Result may be falsely increased. Performed By: #### M 100, L7400.0353, M100.3200 #### [facility] [address] [place], [address] Sodium [Moles/Vol] 138 mmol/L Normal 136-145 [facility] Comment on above: Performed By: #### M 100, L7400.0353, M100.3200 #### [facility] [address] [place], [address] T PROT 7.5 g/dL Normal 6.4-8.2 [facility] Comment on above: Performed By: #### M 100, L7400.0353, M100.3200 #### [facility] [address] [place] [place], [address] Urea nitrogen [Mass/Vol] 15 mg/dL Normal 7-18 [facility] Comment on above: Performed By: #### M , L7400.0353, M100.3200 #### [facility] [address] [place], [address] Emergency Department Summary on 11-01-2024 Emergency Department Summary [facility] Medical Records Department [address] [place] [address] Emergency Department Summary 11/01/24 MR#: [id number] Acct: [id number] Name: ROBERTA ROSA Rep #: [id number] : 1995 29 From: Heron Mondragon MD PCP: Soco Frazier NP-Zachery Status:REG ER Location: ED HPI History of Present Illness Chief Complaint: Syncope Detail of Chief Complaint: Near syncope. No LOC. Abdominal cramping. Informant: patient Onset/Context/Timing Onset: Today and Yesterday Context: Gradual Onset Timing: Intermittent Current Severity: Mild Maximum Severity: Moderate Narrative Narrative: Healthy 29-year-old female. No prior abdominal surgeries. She was at her parents house today. [place] lightheaded and dizzy. 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 Abdominal [...] no lymp (more content not included)... Normal [facility] Eosinophil percentageOrdered By: Heron Mondragon on 11-01-2024 Eosinophils/100 WBC (Bld) 0.3 % 0-5 [facility] Epithelial cells.squamous LM Ql (Urine sed)Ordered By: Heron Mondragon on 11-01-2024 Epithelial cells.squamous LM.HPF (Urine sed) [#/Area] 0 /[HPF] 5-10 [facility] Erythrocyte distribution wid th (RBC) [Ratio]Ordered By: Heron Mondragon on 11-01-2024 Erythrocyte distribution width (RBC) [Entitic vol] 39.2 fL 35.1-43.9 [facility] Erythrocyte distribution wid th ratioOrdered By: Heron Mondragon on 11-01-2024 Erythrocyte distribution width (RBC) [Ratio] 13.0 % 11.6-14.6 [facility] Estimated glomerular filtrat ion rate (GFR) AmericanOrdered By: Heron Mondragon on 11-01-2024 Estimated GFR (MDRD) Amer 89 mL/min >60 [facility] Comment on above: GFR Calc Estimation of creatinine ivelisse aranceOrdered By: Heron Mondragon on 11-01-2024 Estimated Creatinine Clearance Calc 107.38 ml/min [facility] Glomerular filtration rate ( GFR) estimationOrdered By: Heron Mondragon on 11-01-2024 Estimated GFR (MDRD) Non-Af Amer 73 mL/min >60 [facility] Comment on above: Non- GFR Calc Glucose Ql (U)Ordered By: Robert Mondragon on 11-01-2024 Urine Glucose (UA) Normal mg/dl Normal [facility] Glucose measurementOrdered B y: Heron Mondragon on 11-01-2024 Glucose [Mass/Vol] 125 mg/dL High 74-106 [facility] Comment on above: Fasting Glucose resu lt from 100 to 125 mg/dL suggests IMPAIRED HOMEOSTASIS per A.D.A. criteria. Hematocrit Auto (Bld) [Volum e fraction]Ordered By: Heron Mondragon on 11-01-2024 Hematocrit (Bld) [Volume fraction] 50.3 % High 37-47 [facility] Hemoglobin measurementOrdere d By: Heron Mondragon on 11-01-2024 Hemoglobin (Bld) [Mass/Vol] 17.2 g/dL High 12.0-15.0 [facility] Hyaline casts LM.LPF (Urine sed) [#/Area]Ordered By: Heron Mondragon on 11-01-2024 Hyaline casts LM Ql (Urine sed) 0-5 SEEN /lpf 0-5 [facility] Immature granulocytes/100 WB C Auto (Bld)Ordered By: Heron Mondragon on 11-01-2024 Immature granulocytes/100 WBC (Bld) 0.500 % 0.0-0.9 [facility] Comment on above: IG% - Immature Granu locytes (promyelocytes, myelocytes and metamyelocytes) > 1% indicates that a LEFT SHIFT is Present. Ketones Test strip Ql (U)Ord ered By: Heron Mondragon on 11-01-2024 Ketones Ql (U) 5 mg/dl High Negative [facility] - Chemistry and C hemistry - challengeOrdered By: Heron Mondragon on 11-01-2024 AST [Catalytic activity/Vol] 20 U/L 15-37 [facility] Comment on above: Moderate Hemolysis, Result may be falsely increased. Lipaseon 11-01-2024 Lipase [Catalytic activity/Vol] 21 U/L Normal 13-75 [facility] Comment on above: Result Comment: Plea se note: LIPASE revised reference range effective 23. New Lipase methodology. Expected to produce lower values than the previous assay method. NEW Reference Range: 13 - 75 U/L Performed By: #### M 100.2000, L7400.0353, M100.3200 #### [facility] [address] [place], [place], [address] Lipase measurementOrdered By : Heron Mondragon on 11-01-2024 Lipase [Catalytic activity/Vol] 21 U/L 13-75 [facility] Comment on above: Please note:LIPASE r evised reference range effective 23. New Lipase methodology. Expected to produce lower values than the previous assay method. NEW Reference Range: 13 - 75 U/L Lymphocytes Auto (Unsp spec) [#/Vol]Ordered By: Heron Mondragon on 11-01-2024 Lymphocytes (Bld) [#/Vol] 3.64 10*3/uL 0.83-4.51 [facility] Lymphocytes/100 WBC Auto (Un sp spec)Ordered By: Heron Mondragon on 11-01-2024 Lymphocytes/100 WBC (Bld) 15.3 % Low 19-41 [facility] MCV (mean corpuscular volume ) determinationOrdered By: Heron Mondragon on 11-01-2024 MCV (RBC) [Entitic vol] 83.1 fL 81-99 [facility] Mean corpuscular hemoglobin (MCH) determinationOrdered By: Heron Mondragon on 11-01-2024 MCH (RBC) [Entitic mass] 28.4 pg 27.0-32.0 [facility] Mean corpuscular hemoglobin concentration (MCHC) determinationOrdered By: Heron Mondragon on 11-01-2024 MCHC (RBC) [Mass/Vol] 34.2 g/dL 32-36 [facility] Mean platelet volume determi nationOrdered By: Heron Mondragon on 11-01-2024 Platelet mean volume (Bld) [Entitic vol] 9.7 fL 6.2-12.0 [facility] Microscopic analysis of urin e for red blood cells (RBC)Ordered By: Heron Mondragon on 11-01-2024 Urine RBC 0 SEEN /hpf 0-5 [facility] Monocyte percentageOrdered B y: Heron Mondragon on 11-01-2024 Monocytes/100 WBC (Bld) 4.2 % 0-10 [facility] Mucus LM Ql (Urine sed)Order ed By: Heron Mondragon on 11-01-2024 Mucus Ql (Urine sed) 0 SEEN /hpf [facility] Neutrophil percentageOrdered By: Heron Mondragon on 11-01-2024 Neutrophils/100 WBC (Bld) 79.2 % High 47-70 [facility] Nitrite Test strip Ql (U)Ord ered By: Heron Mondragon on 11-01-2024 Nitrite Ql (U) Negative Negative [facility] Nucleated red blood cell per centageOrdered By: Heron Mondragon on 11-01-2024 Nucleated RBC/100 WBC (Bld) [Ratio] 0 % 0-5 [facility] Platelet countOrdered By: Robert Mondragon on 11-01-2024 Platelets (Bld) [#/Vol] 349 10*3/uL 150-450 [facility] Potassium measurementOrdered By: Heron Mondragon on 11-01-2024 Potassium [Moles/Vol] 4.2 mmol/L 3.5-5.1 [facility] Comment on above: Moderate Hemolysis, Result may be falsely increased. ,Serum,hCG Quali.on 11-01-2024 HCG, SERUM QUAL Negative Normal [facility] Comment on above: Performed By: #### M 100.2000, L7400.0353, M100.3200 #### [facility] [address] [address] [place], [address] Protein Test strip Ql (U)Ord ered By: Heron Mondragon on 11-01-2024 Protein Ql (U) 30 mg/dl High Negative [facility] RBC Auto (Bld) [#/Vol]Ordere d By: Heron Mondragon on 11-01-2024 RBC (Bld) [#/Vol] 6.05 10*6/uL High 4.2-5.4 [facility] Serum anion gap measurementO rdered By: Heron Mondragon on 11-01-2024 Anion gap [Moles/Vol] 7 mmol/L 5-15 [facility] Serum globulin measurementOr dered By: Heron Mondragon on 11-01-2024 Globulin (S) [Mass/Vol] 3.4 g/dL 2.2-4.2 [facility] Serum or plasma alanine serna otransferase (ALT) measurementOrdered By: Heron Mondragon on 11-01-2024 ALT [Catalytic activity/Vol] 22 U/L 13-56 [facility] Serum or plasma albumin johnna urement (mass/volume)Ordered By: Heron Mondragon on 11-01-2024 Albumin [Mass/Vol] 4.1 g/dL 3.2-5.0 [facility] Serum or plasma alkaline barbara sphatase measurementOrdered By: Heron Mondragon on 11-01-2024 ALP [Catalytic activity/Vol] 90 U/L 45-117 [facility] Serum or plasma calcium johnna urement (mass/volume)Ordered By: Heron Mondragon on 11-01-2024 Calcium [Mass/Vol] 9.6 mg/dL 8.5-10.1 [facility] Serum or plasma creatinine m easurement (mass/volume)Ordered By: Heron Mondragon on 11-01-2024 Creatinine [Mass/Vol] 0.96 mg/dL 0.55-1.02 [facility] Comment on above: The validity of the calculated GFR & GFRAA in patients over 70 years has not been determined. Clinical correlation is essential. Serum or plasma urea nitroge n measurement (mass/volume)Ordered By: Heron Mondragon on 11-01-2024 Urea nitrogen [Mass/Vol] 15 mg/dL 7-18 [facility] Sodium levelOrdered By: Heron Mondragon on 11-01-2024 Sodium [Moles/Vol] 138 mmol/L 136-145 [facility] Total proteinOrdered By: Hemant evangelina Giancarlo on 11-01-2024 Protein [Mass/Vol] 7.5 g/dL 6.4-8.2 [facility] Urinalysis, Completeon 11-01 BACTERIA 2+ /hpf Normal None Seen [facility] Comment on above: Order Comment: Speci men Comment: [id number] Specimen Comment: No. of containers..01 ThinPrep Vial Performed By: #### M 100.1999, L7400.0353, M100.3200 #### [facility] [address] [place], [address] CAST,HYALINE 0-5 SEEN Normal 0-5 [facility] Comment on above: Order Comment: Speci men Comment: [id number] Specimen Comment: No. of containers..01 ThinPrep Vial Performed By: #### M 100.1999, L7400.0353, M100.3200 #### [facility] [address] [place], [address] EPI,SQUAMOUS 0 SEEN Normal 5-10 [facility] Comment on above: Order Comment: Speci men Comment: [id number] Specimen Comment: No. of containers..01 ThinPrep Vial Performed By: #### M 100.1999, L7400.0353, M100.3200 #### [facility] [address] [place], [address] Mucus Ql (Urine sed) 0 SEEN Normal [facility] Comment on above: Order Comment: Speci men Comment: [id number] Specimen Comment: No. of containers..01 ThinPrep Vial Performed By: #### M 100, L7400.0353, M100.3200 #### [facility] [address] [place], [address] RBC 0 SEEN Normal 0-5 [facility] Comment on above: Order Comment: Speci men Comment: [id number] Specimen Comment: No. of containers..01 ThinPrep Vial Performed By: #### M 100.2000, L7400.0353, M100.3200 #### [facility] [address] [place], [address] WBC 0 SEEN Normal 0-5 [facility] Comment on above: Order Comment: Speci men Comment: [id number] Specimen Comment: No. of containers..01 ThinPrep Vial Performed By: #### M 100.2000, L7400.0353, M100.3200 #### [facility] [address] [place], [address] Urine blood detectionOrdered By: Heron Mondragon on 11-01-2024 Urine Occult Blood 10 /ul High Negative [facility] Urine clarityOrdered By: Hemant Mondragon on 11-01-2024 Clarity (U) Clear Clear [facility] Urine color determinationOrd ered By: Heron Mondragon on 11-01-2024 Color (U) Yellow Yellow [facility] Urine leukocyte esterase det ection by dipstickOrdered By: Heron Mondragon on 11-01-2024 Leukocyte esterase Test strip Ql (U) 25 /ul High Negative [facility] Urine pHOrdered By: Heron alonso on 11-01-2024 pH (U) 6.0 [pH] 5.0 - 8.0 [facility] Urine sediment bacteria coun t by microscopy (number/high power field)Ordered By: Heron Mondragon on 11-01-2024 Bacteria LM.HPF (Urine sed) [#/Area] 2 /[HPF] None Seen [facility] Urine specific gravity measu rementOrdered By: Heron Mondragon on 11-01-2024 Specific gravity (U) [Rel density] 1.025 1.002-1.030 [facility] Urobilinogen Ql (U)Ordered B y: Heron Mondragon on 11-01-2024 Urobilinogen (U) [Mass/Vol] 1 mg/dL High Normal [facility] White blood cell (WBC) count Ordered By: Heron Mondragon on 11-01-2024 WBC (Bld) [#/Vol] 23.8 10*3/uL High 4.4-11.0 [facility] White blood cell countOrdere d By: Heron Mondragon on 11-01-2024 Urine WBC 0 SEEN /hpf 0-5 [facility] .Auto Diffon 06-06-2024 Basophil, Absolute 0.1 10 3/mcL Normal 0.0-0.2 [facility] ([place]) Comment on above: Performed By: #### A DIFF, ANEU, CBC #### [address] [address] Basophils/100 WBC (Bld) 1.1 % Normal 0.0-2.5 [facility] ([place]) Comment on above: Performed By: #### A DIFF, ANEU, CBC #### [address] [address] Eosinophil, Absolute 0.2 10 3/mcL Normal 0.0-0.4 [facility] ([place]) Comment on above: Performed By: #### A DIFF, ANEU, CBC #### [address] [address] Eosinophils/100 WBC (Bld) 2.3 % Normal 0.0-7.0 [facility] ([place]) Comment on above: Performed By: #### A DIFF, ANEU, CBC #### [address] [address] Lymphocyte, Absolute 2.9 10 3/mcL Normal 0.8-3.9 [facility] ([place]) Comment on above: Performed By: #### A DIFF, ANEU, CBC #### [address] [address] Lymphocytes/100 WBC (Bld) 28.2 % Normal 10.0-50.0 [facility] ([place]) Comment on above: Performed By: #### A DIFF, ANEU, CBC #### [address] [address] Monocyte, Absolute 0.7 10 3/mcL Normal 0.2-1.0 [facility] ([place]) Comment on above: Performed By: #### A DIFF, ANEU, CBC #### [address] [address] Monocytes/100 WBC (Bld) 7.2 % Normal 1.7-13.0 [facility] ([place]) Comment on above: Performed By: #### A DIFF, ANEU, CBC #### [address] [address] Neutrophils/100 WBC (Bld) 61.2 % Normal 37.0-80.0 [facility] ([place]) Comment on above: Performed By: #### A DIFF, ANEU, CBC #### [address] [address] .NEUABSon 06-06-2024 Neutrophil, Absolute 6.3 10 3/mcL High 2.9-6.2 [facility] ([place]) Comment on above: Performed By: #### A DIFF, ANEU, CBC #### [address] [address] CBCon 06-06-2024 Erythrocyte distribution width (RBC) [Ratio] 14.3 % Normal 11.5-14.5 [facility] ([place]) Comment on above: Performed By: #### A DIFF, ANEU, CBC #### [address] [address] Hematocrit (Bld) [Volume fraction] 40.1 % Normal 37.0-47.0 [facility] ([place]) Comment on above: Performed By: #### A DIFF, ANEU, CBC #### [address] [address] Hgb 13.7 G/dL Normal 12.0-16.0 [facility] ([place]) Comment on above: Performed By: #### A DIFF, ANEU, CBC #### [address] [address] MCH (RBC) [Entitic mass] 29.6 pg Normal 27.0-31.2 [facility] ([place]) Comment on above: Performed By: #### A DIFF, ANEU, CBC #### [address] [address] MCHC 34.3 G/dL Normal 33.0-37.0 [facility] ([place]) Comment on above: Performed By: #### A DIFF, ANEU, CBC #### [address] [address] MCV (RBC) [Entitic vol] 86.3 fL Normal 80.0-94.0 [facility] ([place]) Comment on above: Performed By: #### A DIFF, ANEU, CBC #### [address] [address] Platelet 262 10 3/mcL Normal 130-400 [facility] ([place]) Comment on above: Performed By: #### A DIFF, ANEU, CBC #### [address] [address] Platelet mean volume (Bld) [Entitic vol] 8.9 fL Normal 7.4-10.4 [facility] ([place]) Comment on above: Performed By: #### A DIFF, ANEU, CBC #### [address] [address] RBC 4.64 10 6/mcL Normal 4.20-5.40 [facility] ([place]) Comment on above: Performed By: #### A DIFF, ANEU, CBC #### [address] [address] WBC 10.3 10 3/mcL Normal 4.6-10.8 [facility] ([place]) Comment on above: Performed By: #### A DIFF, ANEU, CBC #### [address] [address] LABORATORYOrdered By: SYSTEM SYSTEM on 06-06-2024 Basophil, [...] Date: 02/23/2024 1:56:19 PM Ordering [facility] FT3on 12-20-2023 Free T3 [Mass/Vol] 3.03 pg/mL Normal 2.30-4.00 [facility] ([place]) Comment on above: Performed By: #### F T3, TSH, FT4 #### [address] [address] FT4on 12-20-2023 Free T4 [Mass/Vol] 0.82 ng/dL Normal 0.76-1.46 [facility] ([place]) Comment on above: Performed By: #### F T3, TSH, FT4 #### [address] [address] TSHon 12-20-2023 TSH Qn 2.92 m[IU]/L Normal 0.36-3.74 [facility] ([place]) Comment on above: Performed By: #### F T3, TSH, FT4 #### [address] [address] XR SHOULDER MINIMUM 2 VIEWS RIGHTon 10-20-2023 XR SHOULDER MINIMUM 2 VIEWS RIGHT ORIGINAL EXAMINATION: 4 XRAY VIEWS OF THE RIGHT OWPFWOPB11/13/2023 2:18 pm COMPARISON: None HISTORY: ORDERING SYSTEM [...] Date: 10/20/2023 11:47:31 AM Ordering Provider: SOCO FRAZIER [facility] ([place]) Absolute lymphocyte countOrd ered By: Dr. Cyr on 04-28-2023 Lymphocytes Auto (Unsp spec) [#/Vol] 2.40 10*3/uL 0.83-4.51 [facility] Basophil percentageOrdered B y: Dr. Cyr on 04-28-2023 Basophils/100 WBC (Bld) 0.5 % 0-1 [facility] Bilirubin [Mass/Vol] 0.20 mg/dL 0.20-1.00 [facility] Comment on above: For patients on eltr ombopag therapy, use of Dimension [place] TBIL is not recommended. Chloride [Moles/Vol] 108 mmol/L 98-107 [facility] Eosinophils/100 WBC (Bld) 3.7 % 0-5 [facility] Glucose [Mass/Vol] 84 mg/dL 74-106 [facility] Neutrophils (Bld) [#/Vol] 7.5 10*3/uL 2.0-7.7 [facility] Neutrophils/100 WBC (Bld) 67.3 % 47-70 [facility] Potassium [Moles/Vol] 3.6 mmol/L 3.5-5.1 [facility] Protein [Mass/Vol] 6.0 g/dL 6.4-8.2 [facility] Sodium [Moles/Vol] 142 mmol/L 136-145 [facility] WBC (Bld) [#/Vol] 11.2 10*3/uL 4.4-11.0 [facility] Blood erythrocytes count (nu mber/volume)Ordered By: Dr. Cyr on 04-28-2023 RBC (Bld) [#/Vol] 4.45 10*6/uL 4.2-5.4 [facility] Blood hemoglobin measurement (mass/volume)Ordered By: Dr. Cyr on 04-28-2023 Hemoglobin (Bld) [Mass/Vol] 13.1 g/dL 12.0-15.0 [facility] Blood lymphocytes/100 leukoc ytesOrdered By: Dr. Cyr on 04-28-2023 Lymphocytes/100 WBC (Bld) 21.5 % 19-41 [facility] Blood monocytes/100 leukocyt esOrdered By: Dr. Cyr on 04-28-2023 Monocytes/100 WBC (Bld) 6.5 % 0-10 [facility] Blood platelet mean volumeOr dered By: Dr. Cyr on 04-28-2023 Platelet mean volume (Bld) [Entitic vol] 10.1 fL 6.2-12.0 [facility] Determination of erythrocyte mean corpuscular volume (MCV)Ordered By: Dr. Cyr on 04-28-2023 MCV (RBC) [Entitic vol] 87.9 fL 81-99 [facility] Hematocrit Auto (Bld) [Volum e fraction]Ordered By: Dr. Cyr on 04-28-2023 Hematocrit (Bld) [Volume fraction] 39.1 % 37-47 [facility] - Chemistry and C hemistry - challengeOrdered By: Dr. Cyr on 04-28-2023 ALP [Catalytic activity/Vol] 100 U/L 45-117 [facility] ALT [Catalytic activity/Vol] 23 U/L 13-56 [facility] CO2 [Moles/Vol] 29.0 mmol/L 21.0-32.0 [facility] Globulin (S) [Mass/Vol] 3.4 g/dL 2.2-4.2 [facility] Urea nitrogen/Creatinine [Mass ratio] 10.5 mg/mg 10-20 [facility] - Hematology and Cell countsOrdered By: Dr. Cyr on 04-28-2023 Erythrocyte distribution width (RBC) [Entitic vol] 44.1 fL 35.1-43.9 [facility] Erythrocyte distribution width (RBC) [Ratio] 13.9 % 11.6-14.6 [facility] Immature granulocytes/100 WBC (Bld) 0.500 % 0.0-0.9 [facility] Comment on above: IG% - Immature Granu locytes (promyelocytes, myelocytes and metamyelocytes) > 1% indicates that a LEFT SHIFT is Present. MCH (RBC) [Entitic mass] 29.4 pg 27.0-32.0 [facility] Nucleated RBC/100 WBC (Bld) [Ratio] 0 % 0-5 [facility] MCHC Auto (RBC) [Mass/Vol]Or dered By: Dr. Cyr on 04-28-2023 MCHC (RBC) [Mass/Vol] 33.5 g/dL 32-36 [facility] No Panel InformationOrdered By: Dr. Cyr on 04-28-2023 Estimated GFR (MDRD) Amer 117 mL/min >60 [facility] Comment on above: GFR Calc Estimated GFR (MDRD) Non-Af Amer 97 mL/min >60 [facility] Comment on above: Non- GFR Calc Platelets bldOrdered By: Dr. Cyr on 04-28-2023 Platelets (Bld) [#/Vol] 264 10*3/uL 150-450 [facility] Serum or plasma albumin johnna urement (mass/volume)Ordered By: Dr. Cyr on 04-28-2023 Albumin [Mass/Vol] 2.6 g/dL 3.2-5.0 [facility] Serum or plasma albumin/glob ulin mass ratioOrdered By: Dr. Cyr on 04-28-2023 Albumin/Globulin [Mass ratio] 0.8 {ratio} 0.9-2.4 [facility] Serum or plasma calcium johnna urement (mass/volume)Ordered By: Dr. Cyr on 04-28-2023 Calcium [Mass/Vol] 8.8 mg/dL 8.5-10.1 [facility] Serum or plasma creatinine m easurement (mass/volume)Ordered By: Dr. Cyr on 04-28-2023 Creatinine [Mass/Vol] 0.76 mg/dL 0.55-1.02 [facility] Comment on above: The validity of the calculated GFR & GFRAA in patients over 70 years has not been determined. Clinical correlation is essential. Serum or plasma urea nitroge n measurement (mass/volume)Ordered By: Dr. Cyr on 04-28-2023 Urea nitrogen [Mass/Vol] 8 mg/dL 7-18 [facility] Thin prep Papanicolaou smear with manual screeningOrdered By: Dr. Cyr on 04-28-2023 Thin prep Papanicolaou smear with manual screening 19 U/L 15-37 [facility] Thin prep Papanicolaou smear with manual screening 5 5-15 [facility] Urine creatinine measurement (mass/volume)Ordered By: Dr. Cyr on 04-28-2023 Creatinine (U) [Mass/Vol] 18.80 mg/dL NO RANGE EST. [facility] Urine protein measurement (m ass/volume)Ordered By: Dr. Cyr on 04-28-2023 Protein (U) [Mass/Vol] 9.5 mg/dL 0.0-11.8 [facility] Urine protein/creatinine mas s ratioOrdered By: Dr. Cyr on 04-28-2023 Protein/Creatinine (U) [Mass ratio] 505 mg/g CRE 0-200 [facility] Absolute lymphocyte countOrd ered By: Dr. Adams on 04-23-2023 Lymphocytes Auto (Unsp spec) [#/Vol] 2.58 10*3/uL 0.83-4.51 [facility] Basophil percentageOrdered B y: Dr. Adams on 04-23-2023 Basophils/100 WBC (Bld) 0.6 % 0-1 [facility] Eosinophils/100 WBC (Bld) 1.5 % 0-5 [facility] Neutrophils (Bld) [#/Vol] 8.1 10*3/uL 2.0-7.7 [facility] Neutrophils/100 WBC (Bld) 68.8 % 47-70 [facility] WBC (Bld) [#/Vol] 11.8 10*3/uL 4.4-11.0 [facility] Blood erythrocytes count (nu mber/volume)Ordered By: Dr. Adams on 04-23-2023 RBC (Bld) [#/Vol] 4.33 10*6/uL 4.2-5.4 [facility] Blood hemoglobin measurement (mass/volume)Ordered By: Dr. Adams on 04-23-2023 Hemoglobin (Bld) [Mass/Vol] 12.8 g/dL 12.0-15.0 [facility] Blood lymphocytes/100 leukoc ytesOrdered By: Dr. Adams on 04-23-2023 Lymphocytes/100 WBC (Bld) 21.8 % 19-41 [facility] Blood monocytes/100 leukocyt esOrdered By: Dr. Adams on 04-23-2023 Monocytes/100 WBC (Bld) 6.7 % 0-10 [facility] Blood platelet mean volumeOr dered By: Dr. Adams on 04-23-2023 Platelet mean volume (Bld) [Entitic vol] 11.1 fL 6.2-12.0 [facility] Determination of erythrocyte mean corpuscular volume (MCV)Ordered By: Dr. Adams on 04-23-2023 MCV (RBC) [Entitic vol] 86.1 fL 81-99 [facility] Hematocrit Auto (Bld) [Volum e fraction]Ordered By: Dr. Adams on 04-23-2023 Hematocrit (Bld) [Volume fraction] 37.3 % 37-47 [facility] - Chemistry and C hemistry - challengeOrdered By: Dr. Adams on 04-23-2023 ALT [Catalytic activity/Vol] 15 U/L 13-56 [facility] - Hematology and Cell countsOrdered By: Dr. Adams on 04-23-2023 Erythrocyte distribution width (RBC) [Entitic vol] 42.2 fL 35.1-43.9 [facility] Erythrocyte distribution width (RBC) [Ratio] 13.6 % 11.6-14.6 [facility] Immature granulocytes/100 WBC (Bld) 0.600 % 0.0-0.9 [facility] Comment on above: IG% - Immature Granu locytes (promyelocytes, myelocytes and metamyelocytes) > 1% indicates that a LEFT SHIFT is Present. MCH (RBC) [Entitic mass] 29.6 pg 27.0-32.0 [facility] Nucleated RBC/100 WBC (Bld) [Ratio] 0 % 0-5 [facility] MCHC Auto (RBC) [Mass/Vol]Or dered By: Dr. Adams on 04-23-2023 MCHC (RBC) [Mass/Vol] 34.3 g/dL 32-36 [facility] No Panel InformationOrdered By: Dr. Adams on 04-23-2023 Estimated Creatinine Clearance Calc 127.28 ml/min [facility] Estimated GFR (MDRD) Amer 129 mL/min >60 [facility] Comment on above: GFR Calc Estimated GFR (MDRD) Non-Af Amer 106 mL/min >60 [facility] Comment on above: Non- GFR Calc Platelets bldOrdered By: Dr. Adams on 04-23-2023 Platelets (Bld) [#/Vol] 225 10*3/uL 150-450 [facility] Serum Treponema species anti body detectionOrdered By: Dr. Adams on 04-23-2023 Treponema sp Ab Ql (S) Non-Reactive [facility] Serum or plasma creatinine m easurement (mass/volume)Ordered By: Dr. Adams on 04-23-2023 Creatinine [Mass/Vol] 0.70 mg/dL 0.55-1.02 [facility] Comment on above: The validity of the calculated GFR & GFRAA in patients over 70 years has not been determined. Clinical correlation is essential. Serum or plasma uric acid me asurement (mass/volume)Ordered By: Dr. Adams on 04-23-2023 Urate [Mass/Vol] 5.7 mg/dL 2.6-6.0 [facility] Comment on above: The drugs N-Acetylcy steine and Metamizole may falsely depress this assay. Thin prep Papanicolaou smear with manual screeningOrdered By: Dr. Adams on 04-23-2023 Thin prep Papanicolaou smear with manual screening 11 U/L 15-37 [facility] Urine creatinine measurement (mass/volume)Ordered By: Dr. Adams on 04-23-2023 Creatinine (U) [Mass/Vol] 81.80 mg/dL NO RANGE EST. [facility] Urine protein measurement (m ass/volume)Ordered By: Dr. Adams on 04-23-2023 Protein (U) [Mass/Vol] 8.1 mg/dL 0.0-11.8 [facility] Urine protein/creatinine mas s ratioOrdered By: Dr. Adams on 04-23-2023 Protein/Creatinine (U) [Mass ratio] 99 mg/g CRE 0-200 [facility] Laboratory - Chemistry and C hemistry - challengeon 04-21-2023 Glucose Ql (U) Negative [facility] Laboratory - Urinalysison Protein Ql (U) 1+ [facility] No Panel InformationOrdered By: Isabel Dickerson on 04-21-2023 Urine Microalbumin/Creatinine Ratio 8.5 mg/g CRE <30 [facility] No Panel InformationOrdered By: Joy De La Paz on 04-21-2023 Group B Streptococcus Culture Group B Beta Streptococcus is not isolated. [facility] Thin prep Papanicolaou smear with manual screeningOrdered By: Isabel Dickerson on 04-21-2023 Thin prep Papanicolaou smear with manual screening 18.9 mg/L NO RANGE EST. [facility] Urine creatinine measurement (mass/volume)Ordered By: Isabel Dickerson on 04-21-2023 Creatinine (U) [Mass/Vol] 223.00 mg/dL NO RANGE EST. [facility] Absolute lymphocyte countOrd ered By: Joy De La Paz on 04-18-2023 Lymphocytes Auto (Unsp spec) [#/Vol] 2.50 10*3/uL 0.83-4.51 [facility] Basophil percentageOrdered B y: Joy De La Paz on 04-18-2023 Basophils/100 WBC (Bld) 0.7 % 0-1 [facility] Bilirubin [Mass/Vol] 0.30 mg/dL 0.20-1.00 [facility] Comment on above: For patients on eltr ombopag therapy, use of Dimension [place] TBIL is not recommended. Chloride [Moles/Vol] 110 mmol/L 98-107 [facility] Eosinophils/100 WBC (Bld) 1.4 % 0-5 [facility] Glucose [Mass/Vol] 96 mg/dL 74-106 [facility] Neutrophils (Bld) [#/Vol] 8.8 10*3/uL 2.0-7.7 [facility] Neutrophils/100 WBC (Bld) 70.5 % 47-70 [facility] Potassium [Moles/Vol] 3.9 mmol/L 3.5-5.1 [facility] Protein [Mass/Vol] 6.1 g/dL 6.4-8.2 [facility] Sodium [Moles/Vol] 139 mmol/L 136-145 [facility] WBC (Bld) [#/Vol] 12.5 10*3/uL 4.4-11.0 [facility] Blood erythrocytes count (nu mber/volume)Ordered By: Joy De La Paz on 04-18-2023 RBC (Bld) [#/Vol] 4.71 10*6/uL 4.2-5.4 [facility] Blood hemoglobin measurement (mass/volume)Ordered By: Joy De La Paz on 04-18-2023 Hemoglobin (Bld) [Mass/Vol] 13.6 g/dL 12.0-15.0 [facility] Blood lymphocytes/100 leukoc ytesOrdered By: Joy De La Paz on 04-18-2023 Lymphocytes/100 WBC (Bld) 20.0 % 19-41 [facility] Blood monocytes/100 leukocyt esOrdered By: Joy De La Paz on 04-18-2023 Monocytes/100 WBC (Bld) 6.5 % 0-10 [facility] Blood platelet mean volumeOr dered By: Joy De La Paz on 04-18-2023 Platelet mean volume (Bld) [Entitic vol] 10.5 fL 6.2-12.0 [facility] Determination of erythrocyte mean corpuscular volume (MCV)Ordered By: Joy De La Paz on 04-18-2023 MCV (RBC) [Entitic vol] 86.8 fL 81-99 [facility] Hematocrit Auto (Bld) [Volum e fraction]Ordered By: Joy De La Paz on 04-18-2023 Hematocrit (Bld) [Volume fraction] 40.9 % 37-47 [facility] Laboratory - Chemistry and C hemistry - challengeOrdered By: Joy De La Paz on 04-18-2023 ALP [Catalytic activity/Vol] 118 U/L 45-117 [facility] ALT [Catalytic activity/Vol] 14 U/L 13-56 [facility] CO2 [Moles/Vol] 22.0 mmol/L 21.0-32.0 [facility] Globulin (S) [Mass/Vol] 3.5 g/dL 2.2-4.2 [facility] Urea nitrogen/Creatinine [Mass ratio] 6.8 mg/mg 10-20 [facility] - Chemistry and C hemistry - challengeon 04-18-2023 Glucose Ql (U) Negative [facility] - Hematology and Cell countsOrdered By: Joy De La Paz on 04-18-2023 Erythrocyte distribution width (RBC) [Entitic vol] 42.2 fL 35.1-43.9 [facility] Erythrocyte distribution width (RBC) [Ratio] 13.5 % 11.6-14.6 [facility] Immature granulocytes/100 WBC (Bld) 0.900 % 0.0-0.9 [facility] Comment on above: IG% - Immature Granu locytes (promyelocytes, myelocytes and metamyelocytes) > 1% indicates that a LEFT SHIFT is Present. MCH (RBC) [Entitic mass] 28.9 pg 27.0-32.0 [facility] Nucleated RBC/100 WBC (Bld) [Ratio] 0 % 0-5 [facility] Laboratory - Urinalysison Protein Ql (U) Negative [facility] MCHC Auto (RBC) [Mass/Vol]Or dered By: Joy De La Paz on 04-18-2023 MCHC (RBC) [Mass/Vol] 33.3 g/dL 32-36 [facility] No Panel InformationOrdered By: Joy De La Paz on 04-18-2023 Group B Streptococcus Culture Group B Beta Streptococcus is not isolated. [facility] Estimated GFR (MDRD) Amer 123 mL/min >60 [facility] Comment on above: GFR Calc Estimated GFR (MDRD) Non-Af Amer 102 mL/min >60 [facility] Comment on above: Non- GFR Calc Platelets bldOrdered By: Danica De La Paz on 04-18-2023 Platelets (Bld) [#/Vol] 244 10*3/uL 150-450 [facility] Serum or plasma albumin johnna urement (mass/volume)Ordered By: Joy De La Paz on 04-18-2023 Albumin [Mass/Vol] 2.6 g/dL 3.2-5.0 [facility] Serum or plasma albumin/glob ulin mass ratioOrdered By: Joy De La Paz on 04-18-2023 Albumin/Globulin [Mass ratio] 0.7 {ratio} 0.9-2.4 [facility] Serum or plasma calcium johnna urement (mass/volume)Ordered By: Joy De La Paz on 04-18-2023 Calcium [Mass/Vol] 9.3 mg/dL 8.5-10.1 [facility] Serum or plasma creatinine m easurement (mass/volume)Ordered By: Joy De La Paz on 04-18-2023 Creatinine [Mass/Vol] 0.73 mg/dL 0.55-1.02 [facility] Comment on above: The validity of the calculated GFR & GFRAA in patients over 70 years has not been determined. Clinical correlation is essential. Serum or plasma urea nitroge n measurement (mass/volume)Ordered By: Joy De La Paz on 04-18-2023 Urea nitrogen [Mass/Vol] 5 mg/dL 7-18 [facility] Thin prep Papanicolaou smear with manual screeningOrdered By: Joy De La Paz on 04-18-2023 Thin prep Papanicolaou smear with manual screening 12 U/L 15-37 [facility] Thin prep Papanicolaou smear with manual screening 7 5-15 [facility] Urine creatinine measurement (mass/volume)Ordered By: Dr. Adams on 04-18-2023 Creatinine (U) [Mass/Vol] 21.60 mg/dL NO RANGE EST. [facility] Urine protein measurement (m ass/volume)Ordered By: Dr. Adams on 04-18-2023 Protein (U) [Mass/Vol] mg/dL 0.0-11.8 [facility] Urine protein/creatinine mas s ratioOrdered By: Dr. Adams on 04-18-2023 Protein/Creatinine (U) [Mass ratio] TNP [facility] Comment on above: Test not performed Absolute lymphocyte countOrd ered By: Sanam Tovar on 04-10-2023 Lymphocytes Auto (Unsp spec) [#/Vol] 2.31 10*3/uL 0.83-4.51 [facility] Basophil percentageOrdered B y: Sanam Tovar on 04-10-2023 Basophils/100 WBC (Bld) 0.6 % 0-1 [facility] Bilirubin [Mass/Vol] 0.40 mg/dL 0.20-1.00 [facility] Comment on above: For patients on eltr ombopag therapy, use of Dimension [place] TBIL is not recommended. Chloride [Moles/Vol] 109 mmol/L 98-107 [facility] Eosinophils/100 WBC (Bld) 1.4 % 0-5 [facility] Glucose [Mass/Vol] 96 mg/dL 74-106 [facility] Neutrophils (Bld) [#/Vol] 10.3 10*3/uL 2.0-7.7 [facility] Neutrophils/100 WBC (Bld) 74.6 % 47-70 [facility] Potassium [Moles/Vol] 3.8 mmol/L 3.5-5.1 [facility] Protein [Mass/Vol] 6.1 g/dL 6.4-8.2 [facility] Sodium [Moles/Vol] 136 mmol/L 136-145 [facility] WBC (Bld) [#/Vol] 13.9 10*3/uL 4.4-11.0 [facility] Blood erythrocytes count (nu mber/volume)Ordered By: Sanam Tovar on 04-10-2023 RBC (Bld) [#/Vol] 4.70 10*6/uL 4.2-5.4 [facility] Blood hemoglobin measurement (mass/volume)Ordered By: Sanam Tovar on 04-10-2023 Hemoglobin (Bld) [Mass/Vol] 13.6 g/dL 12.0-15.0 [facility] Blood lymphocytes/100 leukoc ytesOrdered By: Sanam Tovar on 04-10-2023 Lymphocytes/100 WBC (Bld) 16.7 % 19-41 [facility] Blood monocytes/100 leukocyt esOrdered By: Sanam Tovar on 04-10-2023 Monocytes/100 WBC (Bld) 5.8 % 0-10 [facility] Blood platelet mean volumeOr dered By: Sanam Tovar on 04-10-2023 Platelet mean volume (Bld) [Entitic vol] 10.2 fL 6.2-12.0 [facility] Determination of erythrocyte mean corpuscular volume (MCV)Ordered By: Sanam Tovar on 04-10-2023 MCV (RBC) [Entitic vol] 86.0 fL 81-99 [facility] Hematocrit Auto (Bld) [Volum e fraction]Ordered By: Sanam Tovar on 04-10-2023 Hematocrit (Bld) [Volume fraction] 40.4 % 37-47 [facility] Laboratory - Chemistry and C hemistry - challengeOrdered By: Sanam Tovar on 04-10-2023 ALP [Catalytic activity/Vol] 117 U/L 45-117 [facility] ALT [Catalytic activity/Vol] 15 U/L 13-56 [facility] CO2 [Moles/Vol] 22.0 mmol/L 21.0-32.0 [facility] Globulin (S) [Mass/Vol] 3.5 g/dL 2.2-4.2 [facility] Urea nitrogen/Creatinine [Mass ratio] 8.5 mg/mg 10-20 [facility] - Chemistry and C hemistry - challengeon 04-10-2023 Glucose Ql (U) Negative [facility] - Hematology and Cell countsOrdered By: Sanam Tovar on 04-10-2023 Erythrocyte distribution width (RBC) [Entitic vol] 41.8 fL 35.1-43.9 [facility] Erythrocyte distribution width (RBC) [Ratio] 13.5 % 11.6-14.6 [facility] Immature granulocytes/100 WBC (Bld) 0.900 % 0.0-0.9 [facility] Comment on above: IG% - Immature Granu locytes (promyelocytes, myelocytes and metamyelocytes) > 1% indicates that a LEFT SHIFT is Present. MCH (RBC) [Entitic mass] 28.9 pg 27.0-32.0 [facility] Nucleated RBC/100 WBC (Bld) [Ratio] 0 % 0-5 [facility] Laboratory - Urinalysison Protein Ql (U) Negative [facility] MCHC Auto (RBC) [Mass/Vol]Or dered By: Sanam Tovar on 04-10-2023 MCHC (RBC) [Mass/Vol] 33.7 g/dL 32-36 [facility] No Panel InformationOrdered By: Sanam Tovar on 04-10-2023 Estimated GFR (MDRD) Amer 128 mL/min >60 [facility] Comment on above: GFR Calc Estimated GFR (MDRD) Non-Af Amer 106 mL/min >60 [facility] Comment on above: Non- GFR Calc Platelets bldOrdered By: Vijay Tovar on 04-10-2023 Platelets (Bld) [#/Vol] 253 10*3/uL 150-450 [facility] Serum or plasma albumin johnna urement (mass/volume)Ordered By: Saanm Tovar on 04-10-2023 Albumin [Mass/Vol] 2.6 g/dL 3.2-5.0 [facility] Serum or plasma albumin/glob ulin mass ratioOrdered By: Sanam Tovar on 04-10-2023 Albumin/Globulin [Mass ratio] 0.7 {ratio} 0.9-2.4 [facility] Serum or plasma calcium johnna urement (mass/volume)Ordered By: Sanam Tovar on 04-10-2023 Calcium [Mass/Vol] 8.8 mg/dL 8.5-10.1 [facility] Serum or plasma creatinine m easurement (mass/volume)Ordered By: Sanam Tovar on 04-10-2023 Creatinine [Mass/Vol] 0.71 mg/dL 0.55-1.02 [facility] Comment on above: The validity of the calculated GFR & GFRAA in patients over 70 years has not been determined. Clinical correlation is essential. Serum or plasma urea nitroge n measurement (mass/volume)Ordered By: Sanam Tovar on 04-10-2023 Urea nitrogen [Mass/Vol] 6 mg/dL 7-18 [facility] Thin prep Papanicolaou smear with manual screeningOrdered By: Sanam Tovar on 04-10-2023 Thin prep Papanicolaou smear with manual screening 12 U/L 15-37 [facility] Thin prep Papanicolaou smear with manual screening 5 5-15 [facility] Urine creatinine measurement (mass/volume)Ordered By: Sanam Tovar on 04-10-2023 Creatinine (U) [Mass/Vol] 31.60 mg/dL NO RANGE EST. [facility] Urine protein measurement (m ass/volume)Ordered By: Sanam Tovar on 04-10-2023 Protein (U) [Mass/Vol] 6.7 mg/dL 0.0-11.8 [facility] Urine protein/creatinine mas s ratioOrdered By: Sanam Tovar on 04-10-2023 Protein/Creatinine (U) [Mass ratio] 212 mg/g CRE 0-200 [facility] Absolute lymphocyte countOrd ered By: Dr. Adams on 04-06-2023 Lymphocytes Auto (Unsp spec) [#/Vol] 2.40 10*3/uL 0.83-4.51 [facility] Basophil percentageOrdered B y: Dr. Adams on 04-06-2023 Basophils/100 WBC (Bld) 0.6 % 0-1 [facility] Bilirubin [Mass/Vol] 0.20 mg/dL 0.20-1.00 [facility] Comment on above: For patients on eltr ombopag therapy, use of Dimension [place] TBIL is not recommended. Chloride [Moles/Vol] 106 mmol/L 98-107 [facility] Eosinophils/100 WBC (Bld) 1.4 % 0-5 [facility] Glucose [Mass/Vol] 87 mg/dL 74-106 [facility] Neutrophils (Bld) [#/Vol] 10.0 10*3/uL 2.0-7.7 [facility] Neutrophils/100 WBC (Bld) 72.8 % 47-70 [facility] Potassium [Moles/Vol] 3.6 mmol/L 3.5-5.1 [facility] Protein [Mass/Vol] 6.2 g/dL 6.4-8.2 [facility] Sodium [Moles/Vol] 137 mmol/L 136-145 [facility] WBC (Bld) [#/Vol] 13.7 10*3/uL 4.4-11.0 [facility] Blood erythrocytes count (nu mber/volume)Ordered By: Dr. Adams on 04-06-2023 RBC (Bld) [#/Vol] 4.56 10*6/uL 4.2-5.4 [facility] Blood hemoglobin measurement (mass/volume)Ordered By: Dr. Adams on 04-06-2023 Hemoglobin (Bld) [Mass/Vol] 13.4 g/dL 12.0-15.0 [facility] Blood lymphocytes/100 leukoc ytesOrdered By: Dr. Adams on 04-06-2023 Lymphocytes/100 WBC (Bld) 17.6 % 19-41 [facility] Blood monocytes/100 leukocyt esOrdered By: Dr. Adams on 04-06-2023 Monocytes/100 WBC (Bld) 6.6 % 0-10 [facility] Blood platelet mean volumeOr dered By: Dr. Adams on 04-06-2023 Platelet mean volume (Bld) [Entitic vol] 10.4 fL 6.2-12.0 [facility] Determination of erythrocyte mean corpuscular volume (MCV)Ordered By: Dr. Adams on 04-06-2023 MCV (RBC) [Entitic vol] 87.1 fL 81-99 [facility] Hematocrit Auto (Bld) [Volum e fraction]Ordered By: Dr. Adams on 04-06-2023 Hematocrit (Bld) [Volume fraction] 39.7 % 37-47 [facility] Laboratory - Chemistry and C hemistry - challengeOrdered By: Dr. Adams on 04-06-2023 ALP [Catalytic activity/Vol] 117 U/L 45-117 [facility] ALT [Catalytic activity/Vol] 16 U/L 13-56 [facility] CO2 [Moles/Vol] 24.0 mmol/L 21.0-32.0 [facility] Globulin (S) [Mass/Vol] 3.6 g/dL 2.2-4.2 [facility] Urea nitrogen/Creatinine [Mass ratio] 9.7 mg/mg 10-20 [facility] Laboratory - Chemistry and C hemistry - challengeon 04-06-2023 Glucose Ql (U) Negative [facility] - Hematology and Cell countsOrdered By: Dr. Adams on 04-06-2023 Erythrocyte distribution width (RBC) [Entitic vol] 42.2 fL 35.1-43.9 [facility] Erythrocyte distribution width (RBC) [Ratio] 13.4 % 11.6-14.6 [facility] Immature granulocytes/100 WBC (Bld) 1.000 % 0.0-0.9 [facility] Comment on above: IG% - Immature Granu locytes (promyelocytes, myelocytes and metamyelocytes) > 1% indicates that a LEFT SHIFT is Present. MCH (RBC) [Entitic mass] 29.4 pg 27.0-32.0 [facility] Nucleated RBC/100 WBC (Bld) [Ratio] 0 % 0-5 [facility] - Urinalysison [facility]l (U) [facility] ([facility]) [Mass/Vol]Or dered By: Dr. Adams on 04-06-2023 MCHC (RBC) [Mass/Vol] 33.8 g/dL 32-36 [facility] No Panel InformationOrdered By: Dr. Adams on 04-06-2023 Estimated GFR (MDRD) Amer 125 mL/min >60 [facility] Comment on above: GFR Calc Estimated GFR (MDRD) Non-Af Amer 103 mL/min >60 [facility] Comment on above: Non- GFR Calc Platelets bldOrdered By: Dr. Adams on 04-06-2023 Platelets (Bld) [#/Vol] 260 10*3/uL 150-450 [facility] Serum or plasma albumin ojhnna urement (mass/volume)Ordered By: Dr. Adams on 04-06-2023 Albumin [Mass/Vol] 2.6 g/dL 3.2-5.0 [facility] Serum or plasma albumin/glob ulin mass ratioOrdered By: Dr. Adams on 04-06-2023 Albumin/Globulin [Mass ratio] 0.7 {ratio} 0.9-2.4 [facility] Serum or plasma calcium johnna urement (mass/volume)Ordered By: Dr. Adams on 04-06-2023 Calcium [Mass/Vol] 9.3 mg/dL 8.5-10.1 [facility] Serum or plasma creatinine m easurement (mass/volume)Ordered By: Dr. Adams on 04-06-2023 Creatinine [Mass/Vol] 0.72 mg/dL 0.55-1.02 [facility] Comment on above: The validity of the calculated GFR & GFRAA in patients over 70 years has not been determined. Clinical correlation is essential. Serum or plasma urea nitroge n measurement (mass/volume)Ordered By: Dr. Adams on 04-06-2023 Urea nitrogen [Mass/Vol] 7 mg/dL 7-18 [facility] Thin prep Papanicolaou smear with manual screeningOrdered By: Dr. Adams on 04-06-2023 Thin prep Papanicolaou smear with manual screening 10 U/L 15-37 [facility] Thin prep Papanicolaou smear with manual screening 7 5-15 [facility] Urine creatinine measurement (mass/volume)Ordered By: Dr. Adams on 04-06-2023 Creatinine (U) [Mass/Vol] 16.70 mg/dL NO RANGE EST. [facility] Urine protein measurement (m ass/volume)Ordered By: Dr. Adams on 04-06-2023 Protein (U) [Mass/Vol] mg/dL 0.0-11.8 [facility] Urine protein/creatinine mas s ratioOrdered By: Dr. Adams on 04-06-2023 Protein/Creatinine (U) [Mass ratio] TNP [facility] Comment on above: Test not performed Absolute lymphocyte countOrd ered By: Sanam Tovar on 03-28-2023 Lymphocytes Auto (Unsp spec) [#/Vol] 2.53 10*3/uL 0.83-4.51 [facility] Basophil percentageOrdered B y: Sanam Tovar on 03-28-2023 Basophils/100 WBC (Bld) 0.6 % 0-1 [facility] Bilirubin [Mass/Vol] 0.20 mg/dL 0.20-1.00 [facility] Comment on above: For patients on eltr ombopag therapy, use of Dimension [place] TBIL is not recommended. Chloride [Moles/Vol] 109 mmol/L 98-107 [facility] Eosinophils/100 WBC (Bld) 1.7 % 0-5 [facility] Glucose [Mass/Vol] 115 mg/dL 74-106 [facility] Comment on above: Fasting Glucose resu lt from 100 to 125 mg/dL suggests IMPAIRED HOMEOSTASIS per A.D.A. criteria. Neutrophils (Bld) [#/Vol] 10.6 10*3/uL 2.0-7.7 [facility] Neutrophils/100 WBC (Bld) 73.0 % 47-70 [facility] Potassium [Moles/Vol] 3.7 mmol/L 3.5-5.1 [facility] Protein [Mass/Vol] 5.8 g/dL 6.4-8.2 [facility] Sodium [Moles/Vol] 140 mmol/L 136-145 [facility] WBC (Bld) [#/Vol] 14.5 10*3/uL 4.4-11.0 [facility] Blood erythrocytes count (nu mber/volume)Ordered By: Sanam Tovar on 03-28-2023 RBC (Bld) [#/Vol] 4.21 10*6/uL 4.2-5.4 [facility] Blood hemoglobin measurement (mass/volume)Ordered By: Sanam Tovar on 03-28-2023 Hemoglobin (Bld) [Mass/Vol] 12.4 g/dL 12.0-15.0 [facility] Blood lymphocytes/100 leukoc ytesOrdered By: Sanam Tovar on 03-28-2023 Lymphocytes/100 WBC (Bld) 17.4 % 19-41 [facility] Blood monocytes/100 leukocyt esOrdered By: Sanam Tovar on 03-28-2023 Monocytes/100 WBC (Bld) 6.1 % 0-10 [facility] Blood platelet mean volumeOr dered By: Sanam Tovar on 03-28-2023 Platelet mean volume (Bld) [Entitic vol] 10.2 fL 6.2-12.0 [facility] Determination of erythrocyte mean corpuscular volume (MCV)Ordered By: Sanam Tovar on 03-28-2023 MCV (RBC) [Entitic vol] 84.6 fL 81-99 [facility] Hematocrit Auto (Bld) [Volum e fraction]Ordered By: Sanam Tovar on 03-28-2023 Hematocrit (Bld) [Volume fraction] 35.6 % 37-47 [facility] Laboratory - Chemistry and C hemistry - challengeOrdered By: Sanam Tovar on 03-28-2023 ALP [Catalytic activity/Vol] 96 U/L 45-117 [facility] ALT [Catalytic activity/Vol] 14 U/L 13-56 [facility] CO2 [Moles/Vol] 23.0 mmol/L 21.0-32.0 [facility] Globulin (S) [Mass/Vol] 3.4 g/dL 2.2-4.2 [facility] Urea nitrogen/Creatinine [Mass ratio] 10.4 mg/mg 10-20 [facility] Laboratory - Chemistry and C hemistry - challengeon 03-28-2023 Glucose Ql (U) Negative [facility] - Hematology and Cell countsOrdered By: Sanam Tovar on 03-28-2023 Erythrocyte distribution width (RBC) [Entitic vol] 40.5 fL 35.1-43.9 [facility] Erythrocyte distribution width (RBC) [Ratio] 13.3 % 11.6-14.6 [facility] Immature granulocytes/100 WBC (Bld) 1.200 % 0.0-0.9 [facility] Comment on above: IG% - Immature Granu locytes (promyelocytes, myelocytes and metamyelocytes) > 1% indicates that a LEFT SHIFT is Present. MCH (RBC) [Entitic mass] 29.5 pg 27.0-32.0 [facility] Nucleated RBC/100 WBC (Bld) [Ratio] 0 % 0-5 [facility] Laboratory - Urinalysison Protein Ql (U) Trace [facility] MCHC Auto (RBC) [Mass/Vol]Or dered By: Sanam Tovar on 03-28-2023 MCHC (RBC) [Mass/Vol] 34.8 g/dL 32-36 [facility] No Panel InformationOrdered By: Sanam Tovar on 03-28-2023 Estimated GFR (MDRD) Amer 135 mL/min >60 [facility] Comment on above: GFR Calc Estimated GFR (MDRD) Non-Af Amer 112 mL/min >60 [facility] Comment on above: Non- GFR Calc Platelets bldOrdered By: Vijay Tovar on 03-28-2023 Platelets (Bld) [#/Vol] 243 10*3/uL 150-450 [facility] Serum or plasma albumin johnna urement (mass/volume)Ordered By: Sanam Tovar on 03-28-2023 Albumin [Mass/Vol] 2.4 g/dL 3.2-5.0 [facility] Serum or plasma albumin/glob ulin mass ratioOrdered By: Sanam Tovar on 03-28-2023 Albumin/Globulin [Mass ratio] 0.7 {ratio} 0.9-2.4 [facility] Serum or plasma calcium johnna urement (mass/volume)Ordered By: Sanam Tovar on 03-28-2023 Calcium [Mass/Vol] 8.6 mg/dL 8.5-10.1 [facility] Serum or plasma creatinine m easurement (mass/volume)Ordered By: Sanam Tovar on 03-28-2023 Creatinine [Mass/Vol] 0.67 mg/dL 0.55-1.02 [facility] Comment on above: The validity of the calculated GFR & GFRAA in patients over 70 years has not been determined. Clinical correlation is essential. Serum or plasma urea nitroge n measurement (mass/volume)Ordered By: Sanam Tovar on 03-28-2023 Urea nitrogen [Mass/Vol] 7 mg/dL 7-18 [facility] Thin prep Papanicolaou smear with manual screeningOrdered By: Sanam Tovar on 03-28-2023 Thin prep Papanicolaou smear with manual screening 10 U/L 15-37 [facility] Thin prep Papanicolaou smear with manual screening 8 5-15 [facility] Urine creatinine measurement (mass/volume)Ordered By: Sanam Tovar on 03-28-2023 Creatinine (U) [Mass/Vol] 204.00 mg/dL NO RANGE EST. [facility] Urine protein measurement (m ass/volume)Ordered By: Sanam Tovar on 03-28-2023 Protein (U) [Mass/Vol] 22.2 mg/dL 0.0-11.8 [facility] Urine protein/creatinine mas s ratioOrdered By: Sanam Tovar on 03-28-2023 Protein/Creatinine (U) [Mass ratio] 109 mg/g CRE 0-200 [facility] Laboratory - Chemistry and C hemistry - challengeon 03-24-2023 Glucose Ql (U) Negative [facility] Laboratory - Urinalysison Protein Ql (U) Negative [facility] Basophil percentageOrdered B y: Isabel Dickerson on 03-22-2023 WBC (Bld) [#/Vol] 13.8 10*3/uL 4.4-11.0 [facility] Blood erythrocytes count (nu mber/volume)Ordered By: Isabel Dickerson on 03-22-2023 RBC (Bld) [#/Vol] 4.43 10*6/uL 4.2-5.4 [facility] Blood hemoglobin measurement (mass/volume)Ordered By: Isabel Dickerson on 03-22-2023 Hemoglobin (Bld) [Mass/Vol] 12.9 g/dL 12.0-15.0 [facility] Blood platelet mean volumeOr dered By: Isabel Dickerson on 03-22-2023 Platelet mean volume (Bld) [Entitic vol] 10.5 fL 6.2-12.0 [facility] Determination of erythrocyte mean corpuscular volume (MCV)Ordered By: Isabel Dickerson on 03-22-2023 MCV (RBC) [Entitic vol] 86.9 fL 81-99 [facility] Hematocrit Auto (Bld) [Volum e fraction]Ordered By: Isabel Dickerson on 03-22-2023 Hematocrit (Bld) [Volume fraction] 38.5 % 37-47 [facility] Laboratory - Chemistry and C hemistry - challengeOrdered By: Isabel Dickerson on 03-22-2023 ALT [Catalytic activity/Vol] 15 U/L 13-56 [facility] Free T4 [Mass/Vol] 0.92 ng/dL 0.76-1.46 [facility] Laboratory - Chemistry and C hemistry - challengeon 03-22-2023 Glucose Ql (U) Negative [facility] Laboratory - Hematology and Cell countsOrdered By: Isabel Dickerson on 03-22-2023 Erythrocyte distribution width (RBC) [Entitic vol] 41.4 fL 35.1-43.9 [facility] Erythrocyte distribution width (RBC) [Ratio] 13.2 % 11.6-14.6 [facility] MCH (RBC) [Entitic mass] 29.1 pg 27.0-32.0 [facility] Laboratory - Urinalysison Protein Ql (U) Negative [facility] MCHC Auto (RBC) [Mass/Vol]Or dered By: Isabel Dickerson on 03-22-2023 MCHC (RBC) [Mass/Vol] 33.5 g/dL 32-36 [facility] No Panel InformationOrdered By: Isabel Dickerson on 03-22-2023 Estimated GFR (MDRD) Amer 155 mL/min >60 [facility] Comment on above: GFR Calc Estimated GFR (MDRD) Non-Af Amer 128 mL/min >60 [facility] Comment on above: Non- GFR Calc Free Triiodothyronine (T3) pg/dL 2.3 pg/mL 2.18-3.98 [facility] Thyroid Stimulating Hormone (TSH) 1.39 uIU/mL 0.358-3.74 [facility] Platelets bldOrdered By: Elba Dickerson on 03-22-2023 Platelets (Bld) [#/Vol] 257 10*3/uL 150-450 [facility] Serum or plasma creatinine m easurement (mass/volume)Ordered By: Isabel Dickerson on 03-22-2023 Creatinine [Mass/Vol] 0.60 mg/dL 0.55-1.02 [facility] Comment on above: The validity of the calculated GFR & GFRAA in patients over 70 years has not been determined. Clinical correlation is essential. Serum or plasma uric acid me asurement (mass/volume)Ordered By: Isabel Dickerson on 03-22-2023 Urate [Mass/Vol] 4.7 mg/dL 2.6-6.0 [facility] Comment on above: The drugs N-Acetylcy steine and Metamizole may falsely depress this assay. Thin prep Papanicolaou smear with manual screeningOrdered By: Isabel Dickerson on 03-22-2023 Thin prep Papanicolaou smear with manual screening 11 U/L 15-37 [facility] Laboratory - Chemistry and C hemistry - challengeon 03-15-2023 Glucose Ql (U) Negative [facility] Laboratory - Urinalysison Protein Ql (U) Negative [facility] Basophil percentageOrdered B y: Sanam Tovar on 03-14-2023 WBC (Bld) [#/Vol] 16.4 10*3/uL 4.4-11.0 [facility] Blood erythrocytes count (nu mber/volume)Ordered By: Sanam Tovar on 03-14-2023 RBC (Bld) [#/Vol] 4.32 10*6/uL 4.2-5.4 [facility] Blood hemoglobin measurement (mass/volume)Ordered By: Sanam Tovar on 03-14-2023 Hemoglobin (Bld) [Mass/Vol] 12.6 g/dL 12.0-15.0 [facility] Blood platelet mean volumeOr dered By: Sanam Tovar on 03-14-2023 Platelet mean volume (Bld) [Entitic vol] 10.3 fL 6.2-12.0 [facility] Determination of erythrocyte mean corpuscular volume (MCV)Ordered By: Sanam Tovar on 03-14-2023 MCV (RBC) [Entitic vol] 86.8 fL 81-99 [facility] Hematocrit Auto (Bld) [Volum e fraction]Ordered By: Sanam Tovar on 03-14-2023 Hematocrit (Bld) [Volume fraction] 37.5 % 37-47 [facility] Laboratory - Chemistry and C hemistry - challengeOrdered By: Sanam Tovar on 03-14-2023 ALT [Catalytic activity/Vol] 17 U/L 13-56 [facility] Laboratory - Hematology and Cell countsOrdered By: Sanam Tovar on 03-14-2023 Erythrocyte distribution width (RBC) [Entitic vol] 41.7 fL 35.1-43.9 [facility] Erythrocyte distribution width (RBC) [Ratio] 13.2 % 11.6-14.6 [facility] MCH (RBC) [Entitic mass] 29.2 pg 27.0-32.0 [facility] MCHC Auto (RBC) [Mass/Vol]Or dered By: Sanam Tovar on 03-14-2023 MCHC (RBC) [Mass/Vol] 33.6 g/dL 32-36 [facility] No Panel InformationOrdered By: Sanam Tovar on 03-14-2023 Estimated Creatinine Clearance Calc 127.28 ml/min [facility] Estimated GFR (MDRD) Amer 130 mL/min >60 [facility] Comment on above: GFR Calc Estimated GFR (MDRD) Non-Af Amer 107 mL/min >60 [facility] Comment on above: Non- GFR Calc Platelets bldOrdered By: Vijay Tovar on 03-14-2023 Platelets (Bld) [#/Vol] 252 10*3/uL 150-450 [facility] Serum or plasma creatinine m easurement (mass/volume)Ordered By: Sanam Tovar on 03-14-2023 Creatinine [Mass/Vol] 0.70 mg/dL 0.55-1.02 [facility] Comment on above: The validity of the calculated GFR & GFRAA in patients over 70 years has not been determined. Clinical correlation is essential. Serum or plasma uric acid me asurement (mass/volume)Ordered By: Sanam Tovar on 03-14-2023 Urate [Mass/Vol] 4.0 mg/dL 2.6-6.0 [facility] Comment on above: The drugs N-Acetylcy steine and Metamizole may falsely depress this assay. Thin prep Papanicolaou smear with manual screeningOrdered By: Sanam Tovar on 03-14-2023 Thin prep Papanicolaou smear with manual screening 10 U/L 15-37 [facility] Urine creatinine measurement (mass/volume)Ordered By: Sanam Tovar on 03-14-2023 Creatinine (U) [Mass/Vol] 25.10 mg/dL NO RANGE EST. [facility] Urine protein measurement (m ass/volume)Ordered By: Sanam Tovar on 03-14-2023 Protein (U) [Mass/Vol] mg/dL 0.0-11.8 [facility] Urine protein/creatinine mas s ratioOrdered By: Sanam Tovar on 03-14-2023 Protein/Creatinine (U) [Mass ratio] TNP [facility] Comment on above: Test not performed Laboratory - Chemistry and C hemistry - challengeon 03-08-2023 Glucose Ql (U) Negative [facility] Laboratory - Urinalysison Protein Ql (U) Negative [facility] Absolute lymphocyte countOrd ered By: Dr. Cyr on 02-23-2023 Lymphocytes Auto (Unsp spec) [#/Vol] 2.22 10*3/uL 0.83-4.51 [facility] Basophil percentageOrdered B y: Dr. Cyr on 02-23-2023 Basophils/100 WBC (Bld) 0.6 % 0-1 [facility] Eosinophils/100 WBC (Bld) 1.6 % 0-5 [facility] Neutrophils (Bld) [#/Vol] 11.2 10*3/uL 2.0-7.7 [facility] Neutrophils/100 WBC (Bld) 75.7 % 47-70 [facility] WBC (Bld) [#/Vol] 14.8 10*3/uL 4.4-11.0 [facility] Blood erythrocytes count (nu mber/volume)Ordered By: Dr. Cyr on 02-23-2023 RBC (Bld) [#/Vol] 4.34 10*6/uL 4.2-5.4 [facility] Blood hemoglobin measurement (mass/volume)Ordered By: Dr. Cyr on 02-23-2023 Hemoglobin (Bld) [Mass/Vol] 12.8 g/dL 12.0-15.0 [facility] Blood lymphocytes/100 leukoc ytesOrdered By: Dr. Cyr on 02-23-2023 Lymphocytes/100 WBC (Bld) 15.0 % 19-41 [facility] Blood monocytes/100 leukocyt esOrdered By: Dr. Cyr on 02-23-2023 Monocytes/100 WBC (Bld) 5.8 % 0-10 [facility] Blood platelet mean volumeOr dered By: Dr. Cyr on 02-23-2023 Platelet mean volume (Bld) [Entitic vol] 9.8 fL 6.2-12.0 [facility] Determination of erythrocyte mean corpuscular volume (MCV)Ordered By: Dr. Cyr on 02-23-2023 MCV (RBC) [Entitic vol] 87.6 fL 81-99 [facility] Gestational diabetes screen 1-hour screen with 50g oral glucose loadOrdered By: Dr. Cyr on 02-23-2023 Glucose 1 Hr post 50 g glucose PO [Mass/Vol] 114 mg/dL 70-140 [facility] HIV 1 and HIV-2 antibody ass ay with HIV-1 p24 antigen detectionOrdered By: Dr. Cyr on 02-23-2023 HIV 1+2 Ab+HIV1 p24 Ag IA Ql Non-Reactive Nonreactive [facility] Hematocrit Auto (Bld) [Volum e fraction]Ordered By: Dr. Cyr on 02-23-2023 Hematocrit (Bld) [Volume fraction] 38.0 % 37-47 [facility] Laboratory - Hematology and Cell countsOrdered By: Dr. Cyr on 02-23-2023 Erythrocyte distribution width (RBC) [Entitic vol] 42.0 fL 35.1-43.9 [facility] Erythrocyte distribution width (RBC) [Ratio] 13.2 % 11.6-14.6 [facility] Immature granulocytes/100 WBC (Bld) 1.300 % 0.0-0.9 [facility] Comment on above: IG% - Immature Granu locytes (promyelocytes, myelocytes and metamyelocytes) > 1% indicates that a LEFT SHIFT is Present. MCH (RBC) [Entitic mass] 29.5 pg 27.0-32.0 [facility] Nucleated RBC/100 WBC (Bld) [Ratio] 0 % 0-5 [facility] MCHC Auto (RBC) [Mass/Vol]Or dered By: Dr. Cyr on 02-23-2023 MCHC (RBC) [Mass/Vol] 33.7 g/dL 32-36 [facility] Platelets bldOrdered By: Dr. Cyr on 02-23-2023 Platelets (Bld) [#/Vol] 258 10*3/uL 150-450 [facility] Serum Treponema species anti body detectionOrdered By: Dr. Cyr on 02-23-2023 Treponema sp Ab Ql (S) Non-Reactive [facility] Laboratory - Chemistry and C hemistry - challengeon 02-03-2023 Glucose Ql (U) Negative [facility] Laboratory - Urinalysison Protein Ql (U) Negative [facility] Laboratory - Chemistry and C hemistry - challengeon 01-06-2023 Glucose Ql (U) Negative [facility] Laboratory - Urinalysison Protein Ql (U) Negative [facility] Laboratory - Chemistry and C hemistry - challengeon 12-06-2022 Glucose Ql (U) Negative [facility] Laboratory - Urinalysison Protein Ql (U) Negative [facility] Absolute lymphocyte countOrd ered By: Dr. Adams on 10-24-2022 Lymphocytes Auto (Unsp spec) [#/Vol] 2.24 10*3/uL 0.83-4.51 [facility] Basophil percentageOrdered B y: Dr. Adams on 10-24-2022 Basophils/100 WBC (Bld) 0.7 % 0-1 [facility] Eosinophils/100 WBC (Bld) 1.7 % 0-5 [facility] Neutrophils (Bld) [#/Vol] 7.6 10*3/uL 2.0-7.7 [facility] Neutrophils/100 WBC (Bld) 71.1 % 47-70 [facility] WBC (Bld) [#/Vol] 10.7 10*3/uL 4.4-11.0 [facility] Blood erythrocytes count (nu mber/volume)Ordered By: Dr. Adams on 10-24-2022 RBC (Bld) [#/Vol] 4.89 10*6/uL 4.2-5.4 [facility] Blood hemoglobin measurement (mass/volume)Ordered By: Dr. Adams on 10-24-2022 Hemoglobin (Bld) [Mass/Vol] 14.3 g/dL 12.0-15.0 [facility] Blood lymphocytes/100 leukoc ytesOrdered By: Dr. Adams on 10-24-2022 Lymphocytes/100 WBC (Bld) 20.9 % 19-41 [facility] Blood monocytes/100 leukocyt esOrdered By: Dr. Adams on 10-24-2022 Monocytes/100 WBC (Bld) 5.2 % 0-10 [facility] Blood platelet mean volumeOr dered By: Dr. Adams on 10-24-2022 Platelet mean volume (Bld) [Entitic vol] 9.9 fL 6.2-12.0 [facility] Determination of erythrocyte mean corpuscular volume (MCV)Ordered By: Dr. Adams on 10-24-2022 MCV (RBC) [Entitic vol] 83.0 fL 81-99 [facility] Gestational diabetes screen 1-hour screen with 50g oral glucose loadOrdered By: Dr. Adams on 10-24-2022 Glucose 1 Hr post 50 g glucose PO [Mass/Vol] 104 mg/dL 70-140 [facility] HIV 1 and HIV-2 antibody ass ay with HIV-1 p24 antigen detectionOrdered By: Dr. Adams on 10-24-2022 HIV 1+2 Ab+HIV1 p24 Ag IA Ql Non-Reactive Nonreactive [facility] Hematocrit Auto (Bld) [Volum e fraction]Ordered By: Dr. Adams on 10-24-2022 Hematocrit (Bld) [Volume fraction] 40.6 % 37-47 [facility] Laboratory - Hematology and Cell countsOrdered By: Dr. Adams on 10-24-2022 Erythrocyte distribution width (RBC) [Entitic vol] 38.5 fL 35.1-43.9 [facility] Erythrocyte distribution width (RBC) [Ratio] 12.7 % 11.6-14.6 [facility] Immature granulocytes/100 WBC (Bld) 0.400 % 0.0-0.9 [facility] Comment on above: IG% - Immature Granu locytes (promyelocytes, myelocytes and metamyelocytes) > 1% indicates that a LEFT SHIFT is Present. MCH (RBC) [Entitic mass] 29.2 pg 27.0-32.0 [facility] Nucleated RBC/100 WBC (Bld) [Ratio] 0 % 0-5 [facility] MCHC Auto (RBC) [Mass/Vol]Or dered By: Dr. Adams on 10-24-2022 MCHC (RBC) [Mass/Vol] 35.2 g/dL 32-36 [facility] No Panel InformationOrdered By: Dr. Adams on 10-24-2022 Hepatitis B Surface Antigen Non-Reactive Nonreactive [facility] Hepatitis C Antibody Non-Reactive Nonreactive [facility] Comment on above: Non Reactive: < 0.8 Equivocal: >/= 0.8 to < 1.0 Reactive: >/= 1.0The CDC recommends that a reactive/equivocal HCV antibody result be followed up by the HCV Nucleic Acid Amplificationtest (658664) Miscellaneous Test Comment MAILED SPECIMEN [facility] Rubella IgG Antibody Reactive Nonreactive [facility] Comment on above: Antibody Results Int erpretation of Immune Status Non Reactive Presumed Non-Immune Equivocal Equivocal Reactive Presumed Immune Platelets bldOrdered By: Dr. Adams on 10-24-2022 Platelets (Bld) [#/Vol] 248 10*3/uL 150-450 [facility] Serum Treponema species anti body detectionOrdered By: Dr. Adams on 10-24-2022 Treponema sp Ab Ql (S) Non-Reactive [facility] Culture, urineOrdered By: Dr Laura Adams on 10-10-2022 Bacteria identified Cx Nom (U) Presumptive Lactobacillus sp. [facility] Chlamydia trachomatis rRNA d etection by probe and target amplification methodOrdered By: Dr. Adams on 10-07-2022 C. trachomatis rRNA HAYES+probe Ql (Unsp spec) Negative Negative [facility] Laboratory - Drug toxicology Ordered By: Dr. Adams on 10-07-2022 Amphetamines Ql (U) Negative <1000 ng/mL [facility] Benzodiazepines Ql (U) Negative < 200 ng/mL [facility] Cannabinoids Screen Ql (U) Negative < 50 ng/mL [facility] Cocaine Ql (U) Negative < 300 ng/mL [facility] Opiates Ql (U) Negative < 300 ng/mL [facility] Laboratory - Microbiology an d Antimicrobial susceptibilityOrdered By: Dr. Adams on 10-07-2022 N. gonorrhoeae DNA HAYES+probe Ql (Unsp spec) Negative Negative [facility] Comment on above: Performed at: =[address] [id number] Director: Yanique Reed MD, Phone: [phone] No Panel InformationOrdered By: Dr. Adams on 10-07-2022 MDMA (Ecstasy) Screen Negative < 500 ng/mL [facility] Urine Barbiturates Screen Negative < 200 ng/mL [facility] Urine Drug Screen Comment [facility] Comment on above: CONFIRMATORY TESTING FOR ALL [...] TESTING MUST BE ORDERED SEPARATELY. USE TESTMNEMONIC: [facility] Urine Methadone Screen Negative < 300 ng/mL [facility] Urine phencyclidine (PCP) de tectionOrdered By: Dr. Adams on 10-07-2022 Phencyclidine Ql (U) Negative < 25 ng/mL [facility] LABORATORYOrdered By: SYSTEM SYSTEM on 02-22-2022 [...] year for 5. Dictated by: Dc [place] ID:[id number] Normal [facility] LABORATORYOrdered By: Jose Ceron on 01-31-2022 Free T4 [Mass/Vol] 1.00 ng/dL Invalid Interpretation Code 0.76 - 1.46 ng/dL AO ADM SS TSH Qn 1.82 m[IU]/L Invalid Interpretation Code 0.36 - 3.74 mcIU/mL AO ADM SS BASIC METABOLIC PANELon 01-04 Anion gap [Moles/Vol] 13 mmol/L Normal 5-15 [facility] Comment on above: Performed By: #### L [id number] #### [address] [address] Carlitos Ovalles M.D. [employer] Calcium [Mass/Vol] 9.0 mg/dL Normal 8.5-10.5 [facility] Comment on above: Performed By: #### L [id number] #### [address] [address] Carlitos Ovalles M.D. [employer] Chloride [Moles/Vol] 104 mmol/L Normal 96-110 [facility] Comment on above: Performed By: #### L [id number] #### [address] [address] Carlitos Ovalles M.D. [employer] CO2 [Moles/Vol] 21 mmol/L Normal 19-32 [facility] Comment on above: Performed By: #### L [id number] #### [address] [address] Carlitos Ovalles M.D. [employer] Creatinine [Mass/Vol] 0.8 mg/dL Normal 0.5-1.2 [facility] Comment on above: Performed By: #### L [id number] #### [address] [address] Carlitos Ovalles M.D. [employer] ESTIMATED GFR 105 mL/min/1.73m*2 Normal >=60 [facility] Comment on above: Performed By: #### L [id number] #### [address] [address] Carlitos Ovalles M.D. [employer] Glucose [Mass/Vol] 100 mg/dL High 70-99 [facility] Comment on above: Performed By: #### L [id number] #### [address] [address] Carlitos Ovalles M.D. [employer] Potassium [Moles/Vol] 3.9 mmol/L Normal 3.4-5.3 [facility] Comment on above: Performed By: #### L [id number] #### [address] [address] Carlitos Ovalles M.D. [employer] Sodium [Moles/Vol] 138 mmol/L Normal 135-148 [facility] Comment on above: Performed By: #### L [id number] #### [address] [address] Carlitos Ovalles M.D. [employer] Urea nitrogen [Mass/Vol] 8 mg/dL Normal 3-29 [facility] Comment on above: Performed By: #### L [id number] #### [address] [address] Carlitos Ovalles M.D. [employer] Urea nitrogen/Creatinine [Mass ratio] 10 mg/mg Normal 7-25 [facility] Comment on above: Performed By: #### L [id number] #### [address] [address] Carlitos Ovalles M.D. [employer] Anion gap [Moles/Vol] 13 mmol/L Pre kehinde [...] Health Urea nitrogen/Creatinine [Mass ratio] 10 mg/mg [facility] COMPLETE BLOOD COUNT WITH DI REMINGTONon 01-19-2022 BASOPHILS ABSOLUTE COUNT (10*3/UL) BY AUTOMATED COUNT 0.1 K/uL Normal 0.0-0.3 [facility] Comment on above: Performed By: #### L [id number] #### [address] [address] Carlitos Ovalles M.D. [employer] BASOPHILS RELATIVE PERCENT BY AUTOMATED COUNT 0.7 % Normal 0.0-2.0 [facility] Comment on above: Performed By: #### L [id number] #### [address] [address] Carlitos Ovalles M.D. [employer] Eosinophils (Bld) [#/Vol] 0.2 10*3/uL Normal 0.0-0.5 [facility] Comment on above: Performed By: #### L [id number] #### [address] [address] Carlitos Ovalles M.D. [employer] EOSINOPHILS RELATIVE PERCENT BY AUTOMATED COUNT 1.4 % Normal 0.0-5.0 [facility] Comment on above: Performed By: #### L [id number] #### [address] [address] Carlitos Ovalles M.D. [employer] Erythrocyte distribution width (RBC) [Ratio] 12.8 % Normal <=15.0 [facility] Comment on above: Performed By: #### L [id number] #### [address] [address] Carlitos Ovalles M.D. [employer] Hematocrit (Bld) [Volume fraction] 40.0 % Normal 34.0-49.0 [facility] Comment on above: Performed By: #### L [id number] #### [address] [address] Carlitos Ovalles M.D. [employer] Hemoglobin (Bld) [Mass/Vol] 13.3 g/dL Normal 11.2-15.7 [facility] Comment on above: Performed By: #### L [id number] #### [address] [address] Carlitos Ovalles M.D. [employer] Immature granulocytes (Bld) [#/Vol] 0.1 10*3/uL Normal 0.0-0.1 [facility] Comment on above: Performed By: #### L [id number] #### [address] [address] Carlitos Ovalles M.D. [employer] Immature granulocytes/100 WBC (Bld) 0.4 % Normal <1.0 [facility] Comment on above: Performed By: #### L [id number] #### [address] [address] Carlitos Ovalles M.D. [employer] LYMPHOCYTES ABSOLUTE COUNT (10*3/UL) BY AUTOMATED COUNT 3.5 K/uL Normal 0.9-4.1 [facility] Comment on above: Performed By: #### L [id number] #### [address] [address] Carlitos Ovalles M.D. [employer] LYMPHOCYTES RELATIVE PERCENT BY AUTOMATED COUNT 24.5 % Normal 14.0-51.0 [facility] Comment on above: Performed By: #### L [id number] #### [address] [address] Carlitos Ovalles M.D. [employer] MCH (RBC) [Entitic mass] 27.0 pg Normal 26.0-34.0 [facility] Comment on above: Performed By: #### L [id number] #### [address] [address] Carlitos Ovalles M.D. [employer] MCHC (RBC) [Mass/Vol] 33.3 g/dL Normal 30.7-35.5 [facility] Comment on above: Performed By: #### L [id number] #### [address] [address] Carlitos Ovalles M.D. [employer] MCV (RBC) [Entitic vol] 81.1 fL Normal 80.0-100.0 [facility] Comment on above: Performed By: #### L [id number] #### [address] [address] Carlitos Ovalles M.D. [employer] MEAN PLATELET VOLUME (FL) BY AUTOMATED COUNT 9.7 fL Normal 7.2-11.7 [facility] Comment on above: Performed By: #### L [id number] #### [address] [address] Carlitos Ovalles M.D. [employer] MONOCYTES ABSOLUTE COUNT (10*3/UL) BY AUTOMATED COUNT 0.9 K/uL Normal 0.2-1.0 [facility] Comment on above: Performed By: #### L [id number] #### [address] [address] Carlitos Ovalles M.D. [employer] MONOCYTES RELATIVE PERCENT BY AUTOMATED COUNT 6.6 % Normal 4.0-12.0 [facility] Comment on above: Performed By: #### L [id number] #### [address] [address] Carlitos Ovalles M.D. [employer] NEUTROPHILS ABSOLUTE COUNT (10*3/UL) BY AUTOMATED COUNT 9.4 K/uL High 1.8-7.5 [facility] Comment on above: Performed By: #### L [id number] #### [address] [address] Carlitos Ovalles M.D. [employer] NEUTROPHILS RELATIVE PERCENT BY AUTOMATED COUNT 66.4 % Normal 42.0-80.0 [facility] Comment on above: Performed By: #### L [id number] #### [address] [address] Carlitos Ovalles M.D. [employer] NRBC (PER 100 WBCS) BY AUTOMATED COUNT 0 /100 WBCs Normal <=0 [facility] Comment on above: Performed By: #### L [id number] #### [address] [address] Carlitos Ovalles M.D. [employer] PLATELETS (10*3/UL) BY AUTOMATED COUNT 278 K/uL Normal 140-400 [facility] Comment on above: Performed By: #### L [id number] #### [address] [address] Carlitos Ovalles M.D. [employer] RBC (Bld) [#/Vol] 4.93 10*6/uL Normal 3.95-5.26 [facility] Comment on above: Performed By: #### L [id number] #### [address] [address] Carlitos Ovalles M.D. [employer] WBC (Bld) [#/Vol] 14.1 10*3/uL High 3.5-10.9 [facility] Comment on above: Performed By: #### L [id number] #### [address] [address] Carlitos Ovalles M.D. [employer] Basophils (Bld) [#/Vol] 0.1 10*3/uL 0.0 - [...] [#/Vol] 0.1 10*3/uL 0.0 - 0.1 K/uL [facility] Immature granulocytes/100 WBC (Bld) 0.4 % <1.0 [facility] Interpretation and review of laboratory results Abnormal [facility] Lymphocytes (Bld) [#/Vol] 3.5 10*3/uL 0.9 - 4.1 K/uL [facility] Lymphocytes/100 WBC (Bld) 24.5 % 14.0 - 51.0 % [facility] MCH (RBC) [Entitic mass] 27.0 pg 26.0 - 34.0 pg [facility] MCHC (RBC) [Mass/Vol] 33.3 g/dL 30.7 - 35.5 g/dL [facility] MCV (RBC) [Entitic vol] 81.1 fL 80.0 - 100.0 fL [facility] Monocytes (Bld) [#/Vol] 0.9 10*3/uL 0.2 - 1.0 K/uL [facility] Monocytes/100 WBC (Bld) 6.6 % 4.0 - 12.0 % [facility] Neutrophils (Bld) [#/Vol] 9.4 10*3/uL High 1.8 - 7.5 K/uL [facility] Neutrophils/100 WBC (Bld) 66.4 % 42.0 - 80.0 % [facility] Nucleated cells (Bld) [#/Vol] 0 <=0 /100 WBCs [facility] Platelet mean volume (Bld) [Entitic vol] 9.7 fL 7.2 - 11.7 fL [facility] Platelets (Bld) [#/Vol] 278 10*3/uL 140 - 400 K/uL [facility] RBC (Bld) [#/Vol] 4.93 10*6/uL [facility] WBC corrected for nucl RBC Auto (Bld) [#/Vol] 14.1 K/uL High 3.5 - 10.9 K/uL [facility] D-DIMERon 01-19-2022 COMMENT The D-Dimer test may [...] inflammation, sepsis, surgery, trauma, and . Normal [facility] Comment on above: Performed By: #### L [id number] #### [address] [address] Carlitos Ovalles M.D. [employer] D-DIMER (3) <= Normal <0.50 [facility] Comment on above: Performed By: #### L [id number] #### [address] [address] Carlitos Ovalles M.D. [employer] TO SCAN RESULT USE SCAN ICON Normal [facility] Comment on above: Performed By: #### L [id number] #### [address] [address] Carlitos Ovalles M.D. [employer] D-Dimer Quantitative <=0.27 <0.50 u g/mL FEU [facility] Scan Result [facility] The D-Dimer test may be used to [...] malignancies, inflammation, sepsis, surgery, trauma, and . [facility] SCREEN, URINEon Beta HCG ( test) Ql (U) Negative Normal Negative [facility] Comment on above: Performed By: #### L [id number] #### [address] [address] Carlitos Ovalles M.D. [employer] COMMENT Dilute urine specime ns as indicated by a low specific gravity (<1.010) may not contain service support representative levels of HCG. If is still suspected, a serum test or repeat urine test using first morning urine specimen should be considered. Normal [facility] Comment on above: Performed By: #### L [id number] #### [address] [address] Carlitos Ovalles M.D. [employer] SCREEN, URINEOrder ed By: Becca Cesar on 01-19-2022 Beta HCG ( test) Ql (U) Negative Negative [facility] Beta HCG ( test) Ql (U) Dilute urine specimens as indicated by a low specific gravity (<1.010) may not contain service support representative levels of HCG. If is still suspected, a serum test or repeat urine test using first morning urine specimen should be considered. [facility] Interpretation and review of laboratory results Normal [facility] TROPONIN T (BASELINE)on 01-04 COMMENT [...] ischemic and non-ischemic causes of myocardial injury. Normal [facility] Comment on above: Performed By: #### L [id number] #### [address] [address] Carlitos Ovalles M.D. [employer] TROPONIN BASELINE < Normal <=14 [facility] Comment on above: Performed By: #### L [id number] #### [address] [address] Carlitos Ovalles M.D. [employer] Interpretation and review of laboratory results Normal [facility] Troponin T.cardiac High sensitivity method [Mass/Vol] <6 <=14 ng/L [facility] [place] [facility] Patients who present with symptoms suggestive of [...] ischemic and non-ischemic causes of myocardial injury. [facility] XR CHEST PA OR AP 1 VIEW [...] has had this in the past. Normal [facility] MRI KNEE WO IVCON RTon 06-09 MRI KNEE WO IVCON RT * * *Final Report* * * DATE OF EXAM: Jun 09 2021 7:33PM [facility] 0213 - MRI KNEE WO IVCON RT [...] effusion. IMPRESSION: Normal MRI of the knee. 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 Signed By: EVERARDO CLARK M.D. [facility] Culture, urine Bacteria identified Cx Nom (U) Presumptive Lactobacillus sp. [facility] Work Phone: Vital Signs Date Time Vital Sign Value Performing Clinician Faci lity 08-12-2025 15:33-0400 Body height 175.26 cm Soco Frazier NP-C Work Phone: [facility] 08-12-2025 15:33-0400 Body mass index (BMI) [Ratio] 31.3 kg/m2 Soco DREWC Work Phone: [facility] 08-12-2025 15:33-0400 Body weight 96.18 kg Soco Frazier NP-C Work Phone: [facility] 08-12-2025 15:33-0400 Diastolic blood pressure 79 mm[Hg] Soco Karin TELECOMMUNICATION TOWER TECHNICIAN-C Work Phone: [facility] 08-12-2025 15:33-0400 Systolic blood pressure 118 mm[Hg] [employer] TELECOMMUNICATION TOWER TECHNICIAN-C Work Phone: [facility] 07-15-2025 10:51-0400 Body height 175.26 cm Soco Karin TELECOMMUNICATION TOWER TECHNICIAN-C Work Phone: [facility] 07-15-2025 10:51-0400 Body mass index (BMI) [Ratio] 31.1 kg/m2 Soco Karin TELECOMMUNICATION TOWER TECHNICIAN-C Work Phone: [facility] 07-15-2025 10:51-0400 Body weight 95.7 kg [employer] TELECOMMUNICATION TOWER TECHNICIAN-C Work Phone: [facility] 07-15-2025 10:51-0400 Diastolic blood pressure 81 mm[Hg] Soco Karin TELECOMMUNICATION TOWER TECHNICIAN-C Work Phone: [facility] 07-15-2025 10:51-0400 Systolic blood pressure 122 mm[Hg] [employer] TELECOMMUNICATION TOWER TECHNICIAN-C Work Phone: [facility] 06-27-2025 11:17-0400 Body height 175.26 cm Soco Karin TELECOMMUNICATION TOWER TECHNICIAN-C Work Phone: [facility] 06-27-2025 11:17-0400 Body mass index (BMI) [Ratio] 30.9 kg/m2 [employer] TELECOMMUNICATION TOWER TECHNICIAN-C Work Phone: [facility] 06-27-2025 11:17-0400 Body weight 94.99 kg [employer] TELECOMMUNICATION TOWER TECHNICIAN-C Work Phone: [facility] 06-27-2025 11:17-0400 Diastolic blood pressure 73 mm[Hg] Soco [employer]in TELECOMMUNICATION TOWER TECHNICIAN-C Work Phone: [facility] 06-27-2025 11:17-0400 Systolic blood pressure 110 mm[Hg] [employer] TELECOMMUNICATION TOWER TECHNICIAN-C Work Phone: [facility] 04-25-2025 09:27-0400 Body height 175.26 cm Soco [employer]in TELECOMMUNICATION TOWER TECHNICIAN-C Work Phone: [facility] 04-25-2025 09:23-0400 Body mass index (BMI) [Ratio] 31 kg/m2 [employer] TELECOMMUNICATION TOWER TECHNICIAN-C Work Phone: [facility] 04-25-2025 09:23-0400 Body weight 95.42 kg [employer] TELECOMMUNICATION TOWER TECHNICIAN-C Work Phone: [facility] 04-25-2025 09:23-0400 Diastolic blood pressure 77 mm[Hg] [employer] TELECOMMUNICATION TOWER TECHNICIAN-C Work Phone: [facility] 04-25-2025 09:23-0400 Systolic blood pressure 115 mm[Hg] [employer]o [employer] TELECOMMUNICATION TOWER TECHNICIAN-C Work Phone: [facility] 03-18-2025 09:27-0400 Body height 175.26 cm Soco [employer] TELECOMMUNICATION TOWER TECHNICIAN-C Work Phone: [facility] 03-18-2025 09:27-0400 Body mass index (BMI) [Ratio] 31.3 kg/m2 [employer] TELECOMMUNICATION TOWER TECHNICIAN-C Work Phone: [facility] 03-18-2025 09:27-0400 Body weight 96.16 kg Soco Frazier TELECOMMUNICATION TOWER TECHNICIAN-C Work Phone: [facility] 03-18-2025 09:27-0400 Diastolic blood pressure 82 mm[Hg] [employer] TELECOMMUNICATION TOWER TECHNICIAN-C Work Phone: [facility] 03-18-2025 09:27-0400 Systolic blood pressure 120 mm[Hg] [employer] TELECOMMUNICATION TOWER TECHNICIAN-C Work Phone: [facility] 11-01-2024 04:27-0500 Body temperature 98 [degF] oSco Ibarramer TELECOMMUNICATION TOWER TECHNICIAN-C Work Phone: [facility] 11-01-2024 04:27-0500 Diastolic blood pressure 75 mm[Hg] Soco Karin TELECOMMUNICATION TOWER TECHNICIAN-C Work Phone: [facility] 11-01-2024 04:27-0500 Heart rate 69 /min Socogiselle Frazier TELECOMMUNICATION TOWER TECHNICIAN-C Work Phone: [facility] 11-01-2024 04:27-0500 Respiratory rate 18 /min Soco Frazier TELECOMMUNICATION TOWER TECHNICIAN-C Work Phone: [facility] 11-01-2024 04:27-0500 SaO2% (BldA) [Mass fraction] 97 % Soco Frazier TELECOMMUNICATION TOWER TECHNICIAN-C Work Phone: [facility] 11-01-2024 04:27-0500 Systolic blood pressure 114 mm[Hg] Soco Frazier TELECOMMUNICATION TOWER TECHNICIAN-C Work Phone: [facility] 11-01-2024 01:47-0500 Body height 175.26 cm Soco Frazier TELECOMMUNICATION TOWER TECHNICIAN-C Work Phone: [facility] 11-01-2024 01:47-0500 Body mass index (BMI) [Ratio] 31.1 kg/m2 Soco Frazier TELECOMMUNICATION TOWER TECHNICIAN-C Work Phone: [facility] 11-01-2024 01:47-0500 Body weight 95.6 kg Soco Frazier TELECOMMUNICATION TOWER TECHNICIAN-C Work Phone: [facility] 05-11-2023 13:49-0400 Body height 175.26 cm TELECOMMUNICATION TOWER TECHNICIAN-C Soco Frazier TELECOMMUNICATION TOWER TECHNICIAN Work Phone: [facility] 05-11-2023 13:49-0400 Body mass index (BMI) [Ratio] 32.8 kg/m2 TELECOMMUNICATION TOWER TECHNICIAN-C Soco Frazier TELECOMMUNICATION TOWER TECHNICIAN Work Phone: [facility] 05-11-2023 13:49-0400 Body weight 100.75 kg TELECOMMUNICATION TOWER TECHNICIAN-C Soco Frazier TELECOMMUNICATION TOWER TECHNICIAN Work Phone: [facility] 05-11-2023 13:49-0400 Diastolic blood pressure 78 mm[Hg] TELECOMMUNICATION TOWER TECHNICIAN-C Soco Frazier TELECOMMUNICATION TOWER TECHNICIAN Work Phone: [facility] 05-11-2023 13:49-0400 Systolic blood pressure 118 mm[Hg] TELECOMMUNICATION TOWER TECHNICIAN-C [employer] TELECOMMUNICATION TOWER TECHNICIAN Work Phone: [facility] 04-28-2023 15:00-0400 Body height 175.26 cm TELECOMMUNICATION TOWER TECHNICIAN-C Soco Karin TELECOMMUNICATION TOWER TECHNICIAN Work Phone: [facility] 04-28-2023 15:00-0400 Body mass index (BMI) [Ratio] 34.7 kg/m2 TELECOMMUNICATION TOWER TECHNICIAN-C [employer] TELECOMMUNICATION TOWER TECHNICIAN Work Phone: [facility] 04-28-2023 15:00-0400 Body weight 106.7 kg TELECOMMUNICATION TOWER TECHNICIAN-C [employer]o [employer] TELECOMMUNICATION TOWER TECHNICIAN Work Phone: [facility] 04-28-2023 15:00-0400 Diastolic blood pressure 82 mm[Hg] TELECOMMUNICATION TOWER TECHNICIAN-C [employer] TELECOMMUNICATION TOWER TECHNICIAN Work Phone: [facility] 04-28-2023 15:00-0400 Systolic blood pressure 132 mm[Hg] TELECOMMUNICATION TOWER TECHNICIAN-C [employer] TELECOMMUNICATION TOWER TECHNICIAN Work Phone: [facility] 04-26-2023 10:49-0400 Diastolic blood pressure 68 mm[Hg] TELECOMMUNICATION TOWER TECHNICIAN-C [employer] TELECOMMUNICATION TOWER TECHNICIAN Work Phone: [facility] 04-26-2023 10:49-0400 Heart rate 70 /min TELECOMMUNICATION TOWER TECHNICIAN-C [employer] TELECOMMUNICATION TOWER TECHNICIAN Work Phone: [facility] 04-26-2023 10:49-0400 Respiratory rate 18 /min TELECOMMUNICATION TOWER TECHNICIAN-C [employer] TELECOMMUNICATION TOWER TECHNICIAN Work Phone: [facility] 04-26-2023 10:49-0400 Systolic blood pressure 115 mm[Hg] TELECOMMUNICATION TOWER TECHNICIAN-C [employer] TELECOMMUNICATION TOWER TECHNICIAN Work Phone: [facility] 04-26-2023 07:47-0400 Body temperature 97.9 [degF] TELECOMMUNICATION TOWER TECHNICIAN-C [employer] TELECOMMUNICATION TOWER TECHNICIAN Work Phone: [facility] 04-26-2023 07:47-0400 SaO2% (BldA) [Mass fraction] 98 % TELECOMMUNICATION TOWER TECHNICIAN-C [employer] TELECOMMUNICATION TOWER TECHNICIAN Work Phone: [facility] 04-23-2023 19:30-0400 Body height 175.26 cm TELECOMMUNICATION TOWER TECHNICIAN-C [employer] TELECOMMUNICATION TOWER TECHNICIAN Work Phone: [facility] 04-23-2023 19:30-0400 Body mass index (BMI) [Ratio] 36.6 kg/m2 TELECOMMUNICATION TOWER TECHNICIAN-C [employer] TELECOMMUNICATION TOWER TECHNICIAN Work Phone: [facility] 04-23-2023 19:30-0400 Body weight 112.49 kg TELECOMMUNICATION TOWER TECHNICIAN-C [employer]o [employer]in TELECOMMUNICATION TOWER TECHNICIAN Work Phone: [facility] 04-21-2023 10:53-0400 Body weight 110.22 kg TELECOMMUNICATION TOWER TECHNICIAN-C [employer] TELECOMMUNICATION TOWER TECHNICIAN Work Phone: [facility] 04-21-2023 10:04-0400 Body mass index (BMI) [Ratio] 31.6 kg/m2 TELECOMMUNICATION TOWER TECHNICIAN-C [employer] TELECOMMUNICATION TOWER TECHNICIAN Work Phone: [facility] 04-21-2023 10:04-0400 Diastolic blood pressure 80 mm[Hg] TELECOMMUNICATION TOWER TECHNICIAN-C [employer] TELECOMMUNICATION TOWER TECHNICIAN Work Phone: [facility] 04-21-2023 10:04-0400 Systolic blood pressure 143 mm[Hg] TELECOMMUNICATION TOWER TECHNICIAN-C [employer] TELECOMMUNICATION TOWER TECHNICIAN Work Phone: [facility] 04-18-2023 09:18-0400 Body mass index (BMI) [Ratio] 35.7 kg/m2 TELECOMMUNICATION TOWER TECHNICIAN-C [employer] TELECOMMUNICATION TOWER TECHNICIAN Work Phone: [facility] 04-18-2023 09:18-0400 Body weight 109.88 kg TELECOMMUNICATION TOWER TECHNICIAN-C [employer] TELECOMMUNICATION TOWER TECHNICIAN Work Phone: [facility] 04-18-2023 09:18-0400 Diastolic blood pressure 80 mm[Hg] TELECOMMUNICATION TOWER TECHNICIAN-C [employer]in TELECOMMUNICATION TOWER TECHNICIAN Work Phone: [facility] 04-18-2023 09:18-0400 Systolic blood pressure 124 mm[Hg] TELECOMMUNICATION TOWER TECHNICIAN-C [employer] TELECOMMUNICATION TOWER TECHNICIAN Work Phone: [facility] 04-13-2023 13:14-0400 Body mass index (BMI) [Ratio] 35.7 kg/m2 TELECOMMUNICATION TOWER TECHNICIAN-C [employer] TELECOMMUNICATION TOWER TECHNICIAN Work Phone: [facility] 04-13-2023 13:14-0400 Body weight 109.76 kg TELECOMMUNICATION TOWER TECHNICIAN-C [employer] TELECOMMUNICATION TOWER TECHNICIAN Work Phone: [facility] 04-13-2023 13:14-0400 Diastolic blood pressure 75 mm[Hg] TELECOMMUNICATION TOWER TECHNICIAN-C [employer] TELECOMMUNICATION TOWER TECHNICIAN Work Phone: [facility] 04-13-2023 13:14-0400 Systolic blood pressure 113 mm[Hg] TELECOMMUNICATION TOWER TECHNICIAN-C [employer] TELECOMMUNICATION TOWER TECHNICIAN Work Phone: [facility] 04-10-2023 10:16-0400 Diastolic blood pressure 72 mm[Hg] TELECOMMUNICATION TOWER TECHNICIAN-C [employer] TELECOMMUNICATION TOWER TECHNICIAN Work Phone: [facility] 04-10-2023 10:16-0400 Systolic blood pressure 110 mm[Hg] TELECOMMUNICATION TOWER TECHNICIAN-C [employer] TELECOMMUNICATION TOWER TECHNICIAN Work Phone: [facility] 04-10-2023 09:33-0400 Body height 175.26 cm TELECOMMUNICATION TOWER TECHNICIAN-C [employer] TELECOMMUNICATION TOWER TECHNICIAN Work Phone: [facility] 04-06-2023 13:04-0400 Body mass index (BMI) [Ratio] 35.3 kg/m2 TELECOMMUNICATION TOWER TECHNICIAN-C [employer] TELECOMMUNICATION TOWER TECHNICIAN Work Phone: [facility] 04-06-2023 13:04-0400 Body weight 108.46 kg TELECOMMUNICATION TOWER TECHNICIAN-C [employer]o [employer] TELECOMMUNICATION TOWER TECHNICIAN Work Phone: [facility] 04-06-2023 13:04-0400 Diastolic blood pressure 78 mm[Hg] TELECOMMUNICATION TOWER TECHNICIAN-C [employer]o [employer]in TELECOMMUNICATION TOWER TECHNICIAN Work Phone: [facility] 04-06-2023 13:04-0400 Systolic blood pressure 124 mm[Hg] TELECOMMUNICATION TOWER TECHNICIAN-C Soco Frazier TELECOMMUNICATION TOWER TECHNICIAN Work Phone: [facility] 04-03-2023 09:08-0400 Body temperature 98.1 [degF] TELECOMMUNICATION TOWER TECHNICIAN-C Soco [employer]in TELECOMMUNICATION TOWER TECHNICIAN Work Phone: [facility] 04-03-2023 09:08-0400 Diastolic blood pressure 59 mm[Hg] TELECOMMUNICATION TOWER TECHNICIAN-C Soco Frazier TELECOMMUNICATION TOWER TECHNICIAN Work Phone: [facility] 04-03-2023 09:08-0400 Heart rate 75 /min TELECOMMUNICATION TOWER TECHNICIAN-C Soco Frazier TELECOMMUNICATION TOWER TECHNICIAN Work Phone: [facility] 04-03-2023 09:08-0400 SaO2% (BldA) [Mass fraction] 98 % TELECOMMUNICATION TOWER TECHNICIAN-C Soco Frazier TELECOMMUNICATION TOWER TECHNICIAN Work Phone: [facility] 04-03-2023 09:08-0400 Systolic blood pressure 106 mm[Hg] TELECOMMUNICATION TOWER TECHNICIAN-C Soco Frazier TELECOMMUNICATION TOWER TECHNICIAN Work Phone: [facility] 04-03-2023 09:05-0400 Body height 175.26 cm TELECOMMUNICATION TOWER TECHNICIAN-C Soco Frazier TELECOMMUNICATION TOWER TECHNICIAN Work Phone: [facility] 04-03-2023 09:05-0400 Body mass index (BMI) [Ratio] 35.3 kg/m2 TELECOMMUNICATION TOWER TECHNICIAN-C Soco Frazier TELECOMMUNICATION TOWER TECHNICIAN Work Phone: [facility] 04-03-2023 09:05-0400 Body weight 108.52 kg TELECOMMUNICATION TOWER TECHNICIAN-C Soco Frazier TELECOMMUNICATION TOWER TECHNICIAN Work Phone: [facility] 04-01-2023 09:21-0400 Body temperature 97.7 [degF] TELECOMMUNICATION TOWER TECHNICIAN-C Soco Frazier TELECOMMUNICATION TOWER TECHNICIAN Work Phone: [facility] 04-01-2023 09:21-0400 Diastolic blood pressure 71 mm[Hg] TELECOMMUNICATION TOWER TECHNICIAN-C Soco Frazier TELECOMMUNICATION TOWER TECHNICIAN Work Phone: [facility] 04-01-2023 09:21-0400 Heart rate 85 /min TELECOMMUNICATION TOWER TECHNICIAN-C Soco Frazier TELECOMMUNICATION TOWER TECHNICIAN Work Phone: [facility] 04-01-2023 09:21-0400 SaO2% (BldA) [Mass fraction] 97 % TELECOMMUNICATION TOWER TECHNICIAN-C Soco Frazier TELECOMMUNICATION TOWER TECHNICIAN Work Phone: [facility] 04-01-2023 09:21-0400 Systolic blood pressure 122 mm[Hg] TELECOMMUNICATION TOWER TECHNICIAN-C Soco Frazier TELECOMMUNICATION TOWER TECHNICIAN Work Phone: [facility] 04-01-2023 09:18-0400 Body mass index (BMI) [Ratio] 35.2 kg/m2 TELECOMMUNICATION TOWER TECHNICIAN-C [employer] TELECOMMUNICATION TOWER TECHNICIAN Work Phone: [facility] 04-01-2023 09:18-0400 Body weight 108 kg TELECOMMUNICATION TOWER TECHNICIAN-C Soco Frazier TELECOMMUNICATION TOWER TECHNICIAN Work Phone: [facility] 03-28-2023 15:38-0400 Diastolic blood pressure 76 mm[Hg] TELECOMMUNICATION TOWER TECHNICIAN-C Soco Frazier TELECOMMUNICATION TOWER TECHNICIAN Work Phone: [facility] 03-28-2023 15:38-0400 Systolic blood pressure 111 mm[Hg] TELECOMMUNICATION TOWER TECHNICIAN-C [employer] TELECOMMUNICATION TOWER TECHNICIAN Work Phone: [facility] 03-28-2023 15:00-0400 Body mass index (BMI) [Ratio] 35.4 kg/m2 TELECOMMUNICATION TOWER TECHNICIAN-C Soco Frazier TELECOMMUNICATION TOWER TECHNICIAN Work Phone: [facility] 03-28-2023 15:00-0400 Body weight 108.63 kg TELECOMMUNICATION TOWER TECHNICIAN-C Soco Frazier TELECOMMUNICATION TOWER TECHNICIAN Work Phone: [facility] 03-24-2023 14:37-0400 Body mass index (BMI) [Ratio] 35.3 kg/m2 TELECOMMUNICATION TOWER TECHNICIAN-C [employer] TELECOMMUNICATION TOWER TECHNICIAN Work Phone: [facility] 03-24-2023 14:37-0400 Body weight 108.52 kg TELECOMMUNICATION TOWER TECHNICIAN-C Soco Frazier TELECOMMUNICATION TOWER TECHNICIAN Work Phone: [facility] 03-24-2023 14:37-0400 Diastolic blood pressure 81 mm[Hg] TELECOMMUNICATION TOWER TECHNICIAN-C [employer] TELECOMMUNICATION TOWER TECHNICIAN Work Phone: [facility] 03-24-2023 14:37-0400 Systolic blood pressure 129 mm[Hg] TELECOMMUNICATION TOWER TECHNICIAN-C [employer] TELECOMMUNICATION TOWER TECHNICIAN Work Phone: [facility] 03-22-2023 10:25-0400 Body weight 108.5 kg TELECOMMUNICATION TOWER TECHNICIAN-C [employer] TELECOMMUNICATION TOWER TECHNICIAN Work Phone: [facility] 03-22-2023 09:03-0400 Diastolic blood pressure 83 mm[Hg] TELECOMMUNICATION TOWER TECHNICIAN-C [employer] TELECOMMUNICATION TOWER TECHNICIAN Work Phone: [facility] 03-22-2023 09:03-0400 Systolic blood pressure 122 mm[Hg] TELECOMMUNICATION TOWER TECHNICIAN-C [employer]in TELECOMMUNICATION TOWER TECHNICIAN Work Phone: [facility] 03-22-2023 09:01-0400 Body mass index (BMI) [Ratio] 35.6 kg/m2 TELECOMMUNICATION TOWER TECHNICIAN-C Soco [employer]in TELECOMMUNICATION TOWER TECHNICIAN Work Phone: [facility] 03-22-2023 09:01-0400 Body weight 109.37 kg TELECOMMUNICATION TOWER TECHNICIAN-C [employer]o [employer]in TELECOMMUNICATION TOWER TECHNICIAN Work Phone: [facility] 03-15-2023 09:34-0400 Body mass index (BMI) [Ratio] 34.9 kg/m2 TELECOMMUNICATION TOWER TECHNICIAN-C [employer] TELECOMMUNICATION TOWER TECHNICIAN Work Phone: [facility] 03-15-2023 09:34-0400 Body weight 107.16 kg TELECOMMUNICATION TOWER TECHNICIAN-C [employer]o [employer]in TELECOMMUNICATION TOWER TECHNICIAN Work Phone: [facility] 03-15-2023 09:34-0400 Diastolic blood pressure 71 mm[Hg] TELECOMMUNICATION TOWER TECHNICIAN-C [employer] TELECOMMUNICATION TOWER TECHNICIAN Work Phone: [facility] 03-15-2023 09:34-0400 Systolic blood pressure 108 mm[Hg] TELECOMMUNICATION TOWER TECHNICIAN-C [employer] TELECOMMUNICATION TOWER TECHNICIAN Work Phone: [facility] 03-14-2023 22:23-0400 Diastolic blood pressure 74 mm[Hg] TELECOMMUNICATION TOWER TECHNICIAN-C [employer] TELECOMMUNICATION TOWER TECHNICIAN Work Phone: [facility] 03-14-2023 22:23-0400 Heart rate 84 /min TELECOMMUNICATION TOWER TECHNICIAN-C Soco Frazier TELECOMMUNICATION TOWER TECHNICIAN Work Phone: [facility] 03-14-2023 22:23-0400 Systolic blood pressure 119 mm[Hg] TELECOMMUNICATION TOWER TECHNICIAN-C [employer]ier TELECOMMUNICATION TOWER TECHNICIAN Work Phone: [facility] 03-14-2023 21:17-0400 Body height 175.26 cm TELECOMMUNICATION TOWER TECHNICIAN-C Soco Frazier TELECOMMUNICATION TOWER TECHNICIAN Work Phone: [facility] 03-14-2023 21:17-0400 Body mass index (BMI) [Ratio] 35.4 kg/m2 TELECOMMUNICATION TOWER TECHNICIAN-C [employer]ier TELECOMMUNICATION TOWER TECHNICIAN Work Phone: [facility] 03-14-2023 21:17-0400 Body weight 108.86 kg TELECOMMUNICATION TOWER TECHNICIAN-C [employer]ier TELECOMMUNICATION TOWER TECHNICIAN Work Phone: [facility] 03-14-2023 21:09-0400 Body temperature 97.5 [degF] TELECOMMUNICATION TOWER TECHNICIAN-C [employer] TELECOMMUNICATION TOWER TECHNICIAN Work Phone: [facility] 03-14-2023 21:09-0400 SaO2% (BldA) [Mass fraction] 98 % TELECOMMUNICATION TOWER TECHNICIAN-C Soco Frazier TELECOMMUNICATION TOWER TECHNICIAN Work Phone: [facility] 03-08-2023 08:34-0400 Body mass index (BMI) [Ratio] 35.3 kg/m2 TELECOMMUNICATION TOWER TECHNICIAN-C Soco Frazier TELECOMMUNICATION TOWER TECHNICIAN Work Phone: [facility] 03-08-2023 08:34-0400 Body weight 108.46 kg TELECOMMUNICATION TOWER TECHNICIAN-C Soco Frazier TELECOMMUNICATION TOWER TECHNICIAN Work Phone: [facility] 03-08-2023 08:34-0400 Diastolic blood pressure 68 mm[Hg] TELECOMMUNICATION TOWER TECHNICIAN-C Sooc Frazier TELECOMMUNICATION TOWER TECHNICIAN Work Phone: [facility] 03-08-2023 08:34-0400 Systolic blood pressure 103 mm[Hg] TELECOMMUNICATION TOWER TECHNICIAN-C Soco Frazier TELECOMMUNICATION TOWER TECHNICIAN Work Phone: [facility] 02-23-2023 09:42-0400 Body height 175.26 cm TELECOMMUNICATION TOWER TECHNICIAN-C [employer] TELECOMMUNICATION TOWER TECHNICIAN Work Phone: [facility] 02-23-2023 09:41-0400 Body mass index (BMI) [Ratio] 34.6 kg/m2 TELECOMMUNICATION TOWER TECHNICIAN-C Soco Karin TELECOMMUNICATION TOWER TECHNICIAN Work Phone: [facility] 02-23-2023 09:41-0400 Body weight 106.36 kg TELECOMMUNICATION TOWER TECHNICIAN-C Soco Karin TELECOMMUNICATION TOWER TECHNICIAN Work Phone: [facility] 02-23-2023 09:41-0400 Diastolic blood pressure 73 mm[Hg] TELECOMMUNICATION TOWER TECHNICIAN-C Soco Karin TELECOMMUNICATION TOWER TECHNICIAN Work Phone: [facility] 02-23-2023 09:41-0400 Systolic blood pressure 119 mm[Hg] TELECOMMUNICATION TOWER TECHNICIAN-C [employer] TELECOMMUNICATION TOWER TECHNICIAN Work Phone: [facility] 02-03-2023 11:03-0400 Body mass index (BMI) [Ratio] 34.3 kg/m2 TELECOMMUNICATION TOWER TECHNICIAN-C Soco Karin TELECOMMUNICATION TOWER TECHNICIAN Work Phone: [facility] 02-03-2023 11:03-0400 Body weight 105.4 kg TELECOMMUNICATION TOWER TECHNICIAN-C Soco Karin TELECOMMUNICATION TOWER TECHNICIAN Work Phone: [facility] 02-03-2023 11:03-0400 Diastolic blood pressure 82 mm[Hg] TELECOMMUNICATION TOWER TECHNICIAN-C Soco Karin TELECOMMUNICATION TOWER TECHNICIAN Work Phone: [facility] 02-03-2023 11:03-0400 Systolic blood pressure 120 mm[Hg] TELECOMMUNICATION TOWER TECHNICIAN-C Soco Karin TELECOMMUNICATION TOWER TECHNICIAN Work Phone: [facility] 01-06-2023 10:53-0500 Body mass index (BMI) [Ratio] 32.8 kg/m2 TELECOMMUNICATION TOWER TECHNICIAN-C [employer] TELECOMMUNICATION TOWER TECHNICIAN Work Phone: [facility] 01-06-2023 10:53-0500 Body weight 100.81 kg TELECOMMUNICATION TOWER TECHNICIAN-C [employer] TELECOMMUNICATION TOWER TECHNICIAN Work Phone: [facility] 01-06-2023 10:53-0500 Diastolic blood pressure 71 mm[Hg] TELECOMMUNICATION TOWER TECHNICIAN-C Soco Karin TELECOMMUNICATION TOWER TECHNICIAN Work Phone: [facility] 01-06-2023 10:53-0500 Systolic blood pressure 107 mm[Hg] TELECOMMUNICATION TOWER TECHNICIAN-C [employer] TELECOMMUNICATION TOWER TECHNICIAN Work Phone: [facility] 12-06-2022 09:16-0500 Body height 175.26 cm TELECOMMUNICATION TOWER TECHNICIAN-C Soco Karin TELECOMMUNICATION TOWER TECHNICIAN Work Phone: [facility] 12-06-2022 09:11-0500 Body mass index (BMI) [Ratio] 31.5 kg/m2 TELECOMMUNICATION TOWER TECHNICIAN-C Soco Karin TELECOMMUNICATION TOWER TECHNICIAN Work Phone: [facility] 12-06-2022 09:11-0500 Body weight 96.84 kg TELECOMMUNICATION TOWER TECHNICIAN-C [employer] TELECOMMUNICATION TOWER TECHNICIAN Work Phone: [facility] 12-06-2022 09:11-0500 Diastolic blood pressure 74 mm[Hg] TELECOMMUNICATION TOWER TECHNICIAN-C Soco Karin TELECOMMUNICATION TOWER TECHNICIAN Work Phone: [facility] 12-06-2022 09:11-0500 Systolic blood pressure 110 mm[Hg] TELECOMMUNICATION TOWER TECHNICIAN-C Soco Karin TELECOMMUNICATION TOWER TECHNICIAN Work Phone: [facility] 11-11-2022 10:12-0500 Body mass index (BMI) [Ratio] 32 kg/m2 TELECOMMUNICATION TOWER TECHNICIAN-C Soco Karin TELECOMMUNICATION TOWER TECHNICIAN Work Phone: [facility] 11-11-2022 10:12-0500 Body weight 98.42 kg TELECOMMUNICATION TOWER TECHNICIAN-C [employer] TELECOMMUNICATION TOWER TECHNICIAN Work Phone: [facility] 11-11-2022 10:12-0500 Diastolic blood pressure 74 mm[Hg] TELECOMMUNICATION TOWER TECHNICIAN-C [employer] TELECOMMUNICATION TOWER TECHNICIAN Work Phone: [facility] 11-11-2022 10:12-0500 Systolic blood pressure 123 mm[Hg] TELECOMMUNICATION TOWER TECHNICIAN-C Soco Karin TELECOMMUNICATION TOWER TECHNICIAN Work Phone: [facility] 10-07-2022 15:19-0500 Body height 175.26 cm TELECOMMUNICATION TOWER TECHNICIAN-C Soco Frazier TELECOMMUNICATION TOWER TECHNICIAN Work Phone: [facility] Work Phone: 10-07-2022 15:12-0500 Body mass index (BMI) [Ratio] 31.7 kg/m2 TELECOMMUNICATION TOWER TECHNICIAN-C Soco Frazier TELECOMMUNICATION TOWER TECHNICIAN Work Phone: [facility] 10-07-2022 15:120500 Body weight 97.52 kg TELECOMMUNICATION TOWER TECHNICIAN-C Soco Ibarramer TELECOMMUNICATION TOWER TECHNICIAN Work Phone: [facility] 10-07-2022 15:12-0500 Diastolic blood pressure 83 mm[Hg] TELECOMMUNICATION TOWER TECHNICIAN-C Soco Ibarramer TELECOMMUNICATION TOWER TECHNICIAN Work Phone: [facility] 10-07-2022 15:12-0500 Systolic blood pressure 129 mm[Hg] TELECOMMUNICATION TOWER TECHNICIAN-C Soco Ibarramer TELECOMMUNICATION TOWER TECHNICIAN Work Phone: [facility] 01-19-2022 17:21-0400 Heart rate 83 /min Nicky Verbillion DO Work Phone: [facility] 01-19-2022 17:21-0400 SaO2% (BldA) [Mass fraction] 94 % Nicky Verbillion DO Work Phone: [facility] 01-19-2022 16:31-0400 Diastolic blood pressure 90 mm[Hg] Nicky Verbillion DO Work Phone: [facility] 01-19-2022 16:31-0400 Systolic blood pressure 153 mm[Hg] Nicky Verbillion DO Work Phone: [facility] 01-19-2022 16:05-0400 Body height 174 cm Nicky Verbillion DO Work Phone: [facility] 01-19-2022 16:05-0400 Body mass index (BMI) [Ratio] 29.96 kg/m2 Nicky Verbillion DO Work Phone: [facility] 01-19-2022 16:05-0400 Body temperature 98.6 [degF] Nicky Verbillion DO Work Phone: [facility] 01-19-2022 16:05-0400 Body weight 90.72 kg Nicky Poston DO Work Phone: [facility] 01-19-2022 16:05-0400 Respiratory rate 20 /min Nicky Poston DO Work Phone: [facility] Encounters Encounter Date Encounter Type Care Provider Facility Start: 09-30-2025 ambulatory Soco Frazier Facility :[facility] Start: 09-09-2025 End: 09-09-2025 ambulatory [employer] Facility:[facility] Start: 09-02-2025 ambulatory Soco Karin Facility :[facility] Start: 08-21-2025 ambulatory Socobrown Frazier Facility :[facility] Start: 08-12-2025 End: 08-12-[address] Antonieta Hendrickson DO -[facility] Work Phone: Start: 08-12-2025 End: 08-12-2025 ambulatory Soco Ibarramer TELECOMMUNICATION TOWER TECHNICIAN-C Work Phone: [facility] Start: 08-12-2025 Registered Recurring Sanam Tovar CNM -Physical Therapy Work Phone: Start: 07-28-2025 Encounter for antibo dy response examination Soco Frazier [facility] Start: 07-22-2025 Registered Recurring Sanam Tovar CNM -Physical Therapy Work Phone: Start: 07-15-2025 End: 07-15-[address] Beatriz Cyr MD -[facility] Work Phone: Start: 07-15-2025 End: 07-15-2025 ambulatory Soco Karin TELECOMMUNICATION TOWER TECHNICIAN-C Work Phone: -[facility] Start: 07-15-2025 End: 07-15-2025 ambulatory Soco Frazier Facility:[facility] Start: 06-27-2025 End: 06-27-2025 ambulatory Soco Frazier TELECOMMUNICATION TOWER TECHNICIAN-C Work Phone: -Laboratory Specimen Start: 06-27-2025 End: 06-27-2025 Patient encounter procedure Sanam Tovar CNM -Laboratory Specimen Work Phone: Start: 06-27-2025 End: 06-27-2025 Patient encounter procedure Sanam Tovar CNM -[facility] Work Phone: Start: 06-27-2025 End: 06-27-2025 ambulatory Soco Frazier TELECOMMUNICATION TOWER TECHNICIAN-C Work Phone: -[facility] Start: 06-27-2025 Non-patient / Non-visit Tri torres RN -[facility] Work Phone: Start: 06-27-2025 ambulatory Soco Frazier Facility :[facility] Start: 06-27-2025 End: 06-27-2025 ambulatory Soco Frazier Facility:[facility] Start: 06-18-2025 End: 06-18-2025 ambulatory Soco Karin TELECOMMUNICATION TOWER TECHNICIAN-C Work Phone: -Laboratory Start: 06-18-2025 End: 06-18-2025 Patient encounter procedure Soco Frazier TELECOMMUNICATION TOWER TECHNICIAN-C -Laboratory Work Phone: Start: 06-18-2025 End: 06-18-2025 ambulatory Soco Frazier Facility:[facility] Start: 04-25-2025 End: 04-25-2025 ambulatory Soco Frazier TELECOMMUNICATION TOWER TECHNICIAN-C Work Phone: -Lab [facility] Start: 04-25-2025 End: 04-25-2025 Patient encounter procedure Sanam Tovar CNM -Lab [facility] Start: 04-25-2025 End: 04-25-2025 Patient encounter procedure Sanam Tovar CNM -[facility] Work Phone: Start: 04-25-2025 End: 04-25-2025 ambulatory Soco Frazier TELECOMMUNICATION TOWER TECHNICIAN-C Work Phone: [facility] Work Phone: Start: 04-25-2025 End: 04-25-2025 ambulatory Soco Karin Facility:[facility] Start: 03-26-2025 End: 03-26-2025 ambulatory Soco Karin TELECOMMUNICATION TOWER TECHNICIAN-C Work Phone: [facility] Work Phone: Start: 03-26-2025 End: 03-26-2025 Patient encounter procedure Sanam Tovar CNM -[facility] Work Phone: Start: 03-26-2025 End: 03-26-2025 ambulatory Soco Karin Facility:[facility] Start: 03-18-2025 End: 03-18-2025 ambulatory Soco Karin TELECOMMUNICATION TOWER TECHNICIAN-C Work Phone: [facility] Work Phone: Start: 03-18-2025 End: 03-18-2025 Patient encounter procedure Sanam Tovar CNM -Laboratory Specimen Work Phone: Start: 03-18-2025 Encounter for gynecological examination (general) (routine) without abnormal findings Sanam Tovar [facility] Start: 03-18-2025 End: 03-18-2025 Patient encounter procedure Sanam Tovar CNM -[facility] Work Phone: Start: 03-18-2025 End: 03-18-2025 Patient encounter status Sanam Tovar CNM [facility] Start: 03-18-2025 End: 03-18-2025 ambulatory Soco Frazier TELECOMMUNICATION TOWER TECHNICIAN-C Work Phone: [facility] Work Phone: Start: 03-18-2025 End: 03-18-2025 ambulatory Soco Frazier Facility:[facility] Start: 01-30-2025 End: 01-30-2025 ambulatory Soco Karin TELECOMMUNICATION TOWER TECHNICIAN-C Work Phone: [facility] Work Phone: Start: 01-30-2025 End: 01-30-[address] Fay Hebert MD -Ultrasound, [facility] Work Phone: Start: 01-30-2025 End: 01-30-2025 ambulatory Soco Frazier Facility:[facility] Start: 12-16-2024 End: 12-16-2024 ambulatory SOCO FRAZIER TRUCK OPERATOR-MASS SPECTROMETRY MANAGER Facility:[facility] Start: 12-16-2024 End: 12-16-2024 Patient encounter procedure FAY HEBERT MD [facility] Start: 11-01-2024 End: 11-01-2024 Emergency department patient visit Dr. 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) Start: 06-06-2024 End: 06-10-2024 ambulatory SOCO FRAZIER TRUCK OPERATOR-MASS SPECTROMETRY MANAGER Facility:[facility] Start: 06-06-2024 End: 06-10-2024 Outreach Lab SOCO FRAZIER TRUCK OPERATOR-MASS SPECTROMETRY MANAGER [facility] Start: 02-23-2024 End: 02-23-2024 ambulatory FAY HEBERT MD Facility:[facility] Start: 02-23-2024 End: 02-23-2024 Patient encounter procedure FAY HEBERT MD [facility] Start: 12-20-2023 End: 12-20-2023 ambulatory FAY HEBERT MD Facility:[facility] Start: 10-18-2023 End: 10-18-2023 ambulatory SOCO FRAZIER TRUCK OPERATOR-MASS SPECTROMETRY MANAGER Facility:[facility] Start: 10-18-2023 End: 10-18-2023 Patient encounter procedure SOCO FRAZIER TRUCK OPERATOR-MASS SPECTROMETRY MANAGER [facility] Start: 05-11-2023 End: 05-11-2023 Patient encounter procedure TELECOMMUNICATION TOWER TECHNICIAN-C Soco Frazier TELECOMMUNICATION TOWER TECHNICIAN Work Phone: [facility] Work Phone: Start: 04-28-2023 End: 04-28-2023 ambulatory TELECOMMUNICATION TOWER TECHNICIAN-C Soco Frazier TELECOMMUNICATION TOWER TECHNICIAN Work Phone: [facility] Work Phone: Start: 04-28-2023 End: 04-28-2023 Patient encounter procedure TELECOMMUNICATION TOWER TECHNICIAN-C Soco Frazier TELECOMMUNICATION TOWER TECHNICIAN Work Phone: [facility]-Laboratory Start: 04-28-2023 End: 04-28-2023 Patient encounter procedure TELECOMMUNICATION TOWER TECHNICIAN-C Soco Frazier TELECOMMUNICATION TOWER TECHNICIAN Work Phone: [facility] Start: 04-27-2023 Non-patient / Non-visit TELECOMMUNICATION TOWER TECHNICIAN-C Ciro Frazier TELECOMMUNICATION TOWER TECHNICIAN Work Phone: [facility] Start: 04-26-2023 Non-patient / Non-visit TELECOMMUNICATION TOWER TECHNICIAN-C Ciro Frazier TELECOMMUNICATION TOWER TECHNICIAN Work Phone: [facility] Start: 04-25-2023 Non-patient / Non-visit TELECOMMUNICATION TOWER TECHNICIAN-C Ciro Frazier TELECOMMUNICATION TOWER TECHNICIAN Work Phone: [facility] Start: 04-24-2023 Non-patient / Non-visit TELECOMMUNICATION TOWER TECHNICIAN-C Ciro Frazier TELECOMMUNICATION TOWER TECHNICIAN Work Phone: [facility] Start: 04-23-2023 End: 04-26-2023 Evaluation and management of inpatient TELECOMMUNICATION TOWER TECHNICIAN-C Soco Frazier TELECOMMUNICATION TOWER TECHNICIAN Work Phone: [facility] Start: 04-21-2023 End: 04-21-2023 ambulatory TELECOMMUNICATION TOWER TECHNICIAN-C Soco Frazier TELECOMMUNICATION TOWER TECHNICIAN Work Phone: [facility] Work Phone: Start: 04-21-2023 End: 04-21-2023 Patient encounter procedure TELECOMMUNICATION TOWER TECHNICIAN-C Soco Frazier TELECOMMUNICATION TOWER TECHNICIAN Work Phone: [facility] Start: 04-18-2023 End: 04-18-2023 Patient encounter procedure TELECOMMUNICATION TOWER TECHNICIAN-C Soco Frazier TELECOMMUNICATION TOWER TECHNICIAN Work Phone: [facility] Start: 04-17-2023 Registered Recurring TELECOMMUNICATION TOWER TECHNICIAN-C Betsy Frazier TELECOMMUNICATION TOWER TECHNICIAN Work Phone: [facility] Start: 04-13-2023 End: 04-13-2023 Patient encounter procedure TELECOMMUNICATION TOWER TECHNICIAN-C Soco Frazier TELECOMMUNICATION TOWER TECHNICIAN Work Phone: [facility] Start: 04-10-2023 End: 04-10-2023 Patient encounter procedure TELECOMMUNICATION TOWER TECHNICIAN-C Soco Frazier TELECOMMUNICATION TOWER TECHNICIAN Work Phone: [facility] Start: 04-06-2023 End: 04-06-2023 ambulatory TELECOMMUNICATION TOWER TECHNICIAN-C Soco Frazier TELECOMMUNICATION TOWER TECHNICIAN Work Phone: [facility] Work Phone: Start: 04-06-2023 End: 04-06-2023 Patient encounter procedure TELECOMMUNICATION TOWER TECHNICIAN-C Soco Frazier TELECOMMUNICATION TOWER TECHNICIAN Work Phone: [facility] Start: 04-03-2023 Non-patient / Non-visit TELECOMMUNICATION TOWER TECHNICIAN-C Ciro Frazier TELECOMMUNICATION TOWER TECHNICIAN Work Phone: [facility] Start: 04-03-2023 End: 04-03-2023 ambulatory TELECOMMUNICATION TOWER TECHNICIAN-C Soco Frazier TELECOMMUNICATION TOWER TECHNICIAN Work Phone: [facility] Work Phone: Start: 04-03-2023 End: 04-03-2023 Patient encounter procedure TELECOMMUNICATION TOWER TECHNICIAN-C Soco Frazier TELECOMMUNICATION TOWER TECHNICIAN Work Phone: [facility] Out[facility] Start: 04-01-2023 Non-patient / Non-visit TELECOMMUNICATION TOWER TECHNICIAN-C Ciro Frazier TELECOMMUNICATION TOWER TECHNICIAN Work Phone: [facility] Start: 04-01-2023 End: 04-01-2023 Patient encounter procedure TELECOMMUNICATION TOWER TECHNICIAN-C Soco Frazier TELECOMMUNICATION TOWER TECHNICIAN Work Phone: [facility], Outpatients Start: 03-28-2023 End: 03-28-2023 ambulatory TELECOMMUNICATION TOWER TECHNICIAN-C Soco Frazier TELECOMMUNICATION TOWER TECHNICIAN Work Phone: [facility] Work Phone: Start: 03-28-2023 End: 03-28-2023 Patient encounter procedure TELECOMMUNICATION TOWER TECHNICIAN-C Soco Frazier TELECOMMUNICATION TOWER TECHNICIAN Work Phone: [facility] Pavilion Start: 03-24-2023 End: 03-24-2023 ambulatory TELECOMMUNICATION TOWER TECHNICIAN-C Soco Frazier TELECOMMUNICATION TOWER TECHNICIAN Work Phone: [facility] Work Phone: Start: 03-24-2023 End: 03-24-2023 Patient encounter procedure TELECOMMUNICATION TOWER TECHNICIAN-C Soco Frazier TELECOMMUNICATION TOWER TECHNICIAN Work Phone: [facility] Start: 03-24-2023 End: 03-24-2023 Patient encounter procedure TELECOMMUNICATION TOWER TECHNICIAN-C Soco Frazier TELECOMMUNICATION TOWER TECHNICIAN Work Phone: [facility] Start: 03-22-2023 Non-patient / Non-visit TELECOMMUNICATION TOWER TECHNICIAN-C Ciro Frazier TELECOMMUNICATION TOWER TECHNICIAN Work Phone: [facility] Start: 03-22-2023 End: 03-22-2023 Patient encounter procedure TELECOMMUNICATION TOWER TECHNICIAN-C Soco Frazier TELECOMMUNICATION TOWER TECHNICIAN Work Phone: [facility] Start: 03-15-2023 End: 03-15-2023 Patient encounter procedure TELECOMMUNICATION TOWER TECHNICIAN-C Soco Frazier TELECOMMUNICATION TOWER TECHNICIAN Work Phone: [facility] Start: 03-14-2023 Non-patient / Non-visit TELECOMMUNICATION TOWER TECHNICIAN-C Ciro Frazier TELECOMMUNICATION TOWER TECHNICIAN Work Phone: [facility] Start: 03-14-2023 End: 03-14-2023 ambulatory TELECOMMUNICATION TOWER TECHNICIAN-C Soco Frazier TELECOMMUNICATION TOWER TECHNICIAN Work Phone: [facility] Work Phone: Start: 03-14-2023 End: 03-14-2023 Patient encounter procedure TELECOMMUNICATION TOWER TECHNICIAN-C Soco Frazier TELECOMMUNICATION TOWER TECHNICIAN Work Phone: [facility] Start: 03-08-2023 End: 03-08-2023 Patient encounter procedure TELECOMMUNICATION TOWER TECHNICIAN-C Soco Frazier TELECOMMUNICATION TOWER TECHNICIAN Work Phone: [facility] Start: 02-23-2023 End: 02-23-2023 ambulatory TELECOMMUNICATION TOWER TECHNICIAN-C Soco Frazier TELECOMMUNICATION TOWER TECHNICIAN Work Phone: [facility] Work Phone: Start: 02-23-2023 End: 02-23-2023 Patient encounter procedure TELECOMMUNICATION TOWER TECHNICIAN-C Soco Frazier TELECOMMUNICATION TOWER TECHNICIAN Work Phone: [facility] Start: 02-03-2023 End: 02-03-2023 Patient encounter procedure TELECOMMUNICATION TOWER TECHNICIAN-C Soco Frazier TELECOMMUNICATION TOWER TECHNICIAN Work Phone: [facility] Start: 01-06-2023 End: 01-06-2023 Patient encounter procedure TELECOMMUNICATION TOWER TECHNICIAN-C Soco Frazier TELECOMMUNICATION TOWER TECHNICIAN Work Phone: [facility] Start: 12-06-2022 End: 12-06-2022 Patient encounter procedure TELECOMMUNICATION TOWER TECHNICIAN-C Soco Frazier TELECOMMUNICATION TOWER TECHNICIAN Work Phone: [facility] Start: 12-02-2022 End: 12-02-2022 ambulatory TELECOMMUNICATION TOWER TECHNICIAN-C Soco Frazier TELECOMMUNICATION TOWER TECHNICIAN Work Phone: [facility] Work Phone: Start: 12-02-2022 End: 12-02-2022 Patient encounter procedure TELECOMMUNICATION TOWER TECHNICIAN-C Soco Frazier TELECOMMUNICATION TOWER TECHNICIAN Work Phone: [facility], [facility] Start: 11-11-2022 End: 11-11-2022 Patient encounter procedure TELECOMMUNICATION TOWER TECHNICIAN-C Soco Frazier TELECOMMUNICATION TOWER TECHNICIAN Work Phone: [facility] Start: 10-24-2022 End: 10-24-2022 ambulatory TELECOMMUNICATION TOWER TECHNICIAN-C Soco Frazier TELECOMMUNICATION TOWER TECHNICIAN Work Phone: [facility] Work Phone: Start: 10-24-2022 End: 10-24-2022 Patient encounter procedure TELECOMMUNICATION TOWER TECHNICIAN-C Soco Frazier TELECOMMUNICATION TOWER TECHNICIAN Work Phone: [facility]Laboratory, [facility] Pav[facility] Start: 10-07-2022 End: 10-07-2022 ambulatory TELECOMMUNICATION TOWER TECHNICIAN-C Soco Frazier TELECOMMUNICATION TOWER TECHNICIAN Work Phone: [facility] Work Phone: Start: 10-07-2022 End: 10-07-2022 Patient encounter procedure TELECOMMUNICATION TOWER TECHNICIAN-C Soco Frazier TELECOMMUNICATION TOWER TECHNICIAN Work Phone: [facility]-Laboratory, Specimen Start: 10-07-2022 End: 10-07-2022 Patient encounter procedure TELECOMMUNICATION TOWER TECHNICIAN-C Soco Frazier TELECOMMUNICATION TOWER TECHNICIAN Work Phone: [facility] Start: 2022 End: 2022 ambulatory [facility] Work Phone: Start: 2022 End: 2022 Patient encounter procedure [facility] Start: 03-01-2022 End: 03-01-2022 Patient encounter procedure TESSY BOTELLO TRUCK OPERATOR-MASS SPECTROMETRY MANAGER [facility] Start: 02-22-2022 End: 02-22-2022 Patient encounter procedure SOCO FRAZIER TRUCK OPERATOR-MASS SPECTROMETRY MANAGER [facility] Start: 02-04-2022 End: 02-04-2022 Subsequent hospital visit by physician Chris Correia MD Work Phone (unformatted): [phone] [facility] Start: 01-31-2022 End: 01-31-2022 Patient encounter procedure TESSY BOTELLO TRUCK OPERATOR-MASS SPECTROMETRY MANAGER [facility] Start: 01-19-2022 End: 01-19-2022 Emergency department patient visit Nicky South DO Work Phone: [facility] Start: 11-10-2021 End: 11-10-2021 Patient encounter procedure SOCO FRAZIER TRUCK OPERATOR-MASS SPECTROMETRY MANAGER [facility] Procedures Date Procedure Procedure Detail Performing Clinician Start: 07-15-2025 Urine culture Soco Frazier TELECOMMUNICATION TOWER TECHNICIAN-C Work Phone: Start: 07-15-2025 Hepatitis C antibody measurement Soco Frazier TELECOMMUNICATION TOWER TECHNICIAN-C Work Phone: Comment on above: Reactive: Presumptive evidence of antibo dies to HCV. Follow CDC recommendations for supplemental testing.Non-Reactive: Antibodies to HCV were not detected; does not exclude the possibility of exposure to HCVReactive Results are presumptive evidence of antibodies to HCV. Follow CDC recommendations for supplemental testing.Order confirmation testing: HCV Quant by PCR testing - HCVPCR #[id number] Non Reactive: < 0.8 Equivocal: >/= 0.8 to < 1.0 Reactive: >/= 1.0The CDC requires that a reactive/equivocal HCV antibody result be sent out for confirmation. HCV Quant by PCR testing. Start: 07-15-2025 Procedure Soco Frazier TELECOMMUNICATION TOWER TECHNICIAN-C Work Phone: Comment on above: Test Ordered: [id number] TSH Receptor Antibo dy (TBII)TSH Receptor Antibody (TBII) 0.4 U/L ES Reference Range: .Reference Range:Antibody Titer:<1.0 U/L = Negative1.1 - 1.5 U/L = Equivocal>1.5 U/L = PositivePerformed at: ES - [facility] [id number] [place], [place] [id number] Director: Yair Song MD, Phone: [phone] at: [address] [id number] Director: Rodney Mckeon PhD, Phone: [phone] Start: 07-15-2025 Rubella IgG measurement Soco Frazier TELECOMMUNICATION TOWER TECHNICIAN-C Work Phone: Comment on above: Antibody Result: InterpretationNon-React trevor: Non-ImmuneReactive: ImmuneThe following results were obtained with the [employer] Rubella IgG assay. Results from assays of other manufacturers cannot be used interchangeably. Start: 07-15-2025 Serologic test for syphilis Soco Zhou can TELECOMMUNICATION TOWER TECHNICIAN-C Work Phone: Start: 06-27-2025 Gram stain microscopy Soco Frazier TELECOMMUNICATION TOWER TECHNICIAN-C Work Phone: Start: 06-27-2025 Source specific culture Soco Frazier TELECOMMUNICATION TOWER TECHNICIAN-C Work Phone: Start: 06-18-2025 Procedure Soco Frazier TELECOMMUNICATION TOWER TECHNICIAN-C Work Phone: Comment on above: Test Ordered: [id number] Tetanus/Diphtheria AbTetanus Antitoxoid IgG Ab 1.91 IU/mL BN Reference Range: <0.10 Interpretation: Non-Protective <0.10 Protective >=0.10Results for this test are for research purposesonly by the assay's absorber operator. The performancecharacteristics of this product have not beenestablished. Results should not be used as adiagnostic procedure without confirmation of thediagnosis by another medically established diagnosticproduct or procedure.Diphtheria Antitoxoid Ab 0.28 IU/mL BN Reference Range: <0.10 Interpretation: Non-Protective <0.10 Protective >=0.10For research use only.Performed at: [address] [id number] Director: Kathrin Carr MD, Phone: [phone] at: [address], [place], [place] [id number] Director: Rodney Mckeon PhD, Phone: [phone] Start: 06-18-2025 Rubella IgG measurement Soco Frazier TELECOMMUNICATION TOWER TECHNICIAN-C Work Phone: Comment on above: Non-immune <0.90 Equivocal 0.90 - 0.99 I mmune >0.99Performed at: [address] [id number] Director: Rodney Mckeon PhD, Phone: [phone] Start: 06-18-2025 Varicella-zoster virus antibody IgG measurement Soco Frazier TELECOMMUNICATION TOWER TECHNICIAN-C Work Phone: Comment on above: Please note reference interval change* *A Reactive result is considered evidence of immunity toVZV. Reactive indicates that VZV IgG was detectedconsistent with previous infection and/or vaccination.A Non Reactive result indicates that VZV IgG was notdetected suggesting that immunity has not been acquired. Start: 04-25-2025 Gram stain microscopy Soco Frazier TELECOMMUNICATION TOWER TECHNICIAN-C Work Phone: Start: 04-25-2025 End: 04-25-2025 Source specific culture Soco Frazier TELECOMMUNICATION TOWER TECHNICIAN-C Work Phone: Start: 03-26-2025 Pelvic echography Soco Frazier TELECOMMUNICATION TOWER TECHNICIAN-C Work Phone: Start: 03-18-2025 Liquid based cervical cytology screening Soco Frazier TELECOMMUNICATION TOWER TECHNICIAN-C Work Phone: Comment on above: NEGATIVE FOR INTRAEPITHELIAL LESION OR M ALIGNANCY. This liquid based Th inPrep(R) pap test was screened withthe use of an image guided system. The HPV DNA reflex c riteria were not met with this specimenresult therefore, no HPV testing was performed.Performed at: [address] [id number] Director: Yanique Reed MD, Phone: [phone] Start: 03-18-2025 Gram stain microscopy Soco Frazier TELECOMMUNICATION TOWER TECHNICIAN-C Work Phone: Start: 03-18-2025 End: 03-18-2025 Source specific culture Soco Frazier TELECOMMUNICATION TOWER TECHNICIAN-C Work Phone: Start: 01-30-2025 US scan of thyroid Soco Frazier TELECOMMUNICATION TOWER TECHNICIAN-C Work Phone: Start: 11-01-2024 Computed tomography of abdomen and pelvis with intravenous contrast Soco Frazier TELECOMMUNICATION TOWER TECHNICIAN-C Work Phone: Start: 04-21-2023 Ultrasound scan for growth TELECOMMUNICATION TOWER TECHNICIAN-C Robert Frazier TELECOMMUNICATION TOWER TECHNICIAN Work Phone: Start: 04-18-2023 Group B Streptococcus Culture TELECOMMUNICATION TOWER TECHNICIAN-C Rosa Frazier TELECOMMUNICATION TOWER TECHNICIAN Work Phone: Start: 03-24-2023 Ultrasound scan for growth TELECOMMUNICATION TOWER TECHNICIAN-C Robert Frazier TELECOMMUNICATION TOWER TECHNICIAN Work Phone: Start: 12-02-2022 Ultrasonography for antepartum monitoring of fetus TELECOMMUNICATION TOWER TECHNICIAN-C Soco Frazier TELECOMMUNICATION TOWER TECHNICIAN Work Phone: Start: 2022 CT of chest without contrast Start: 01-19-2022 Ecg routine ecg w/least 12 lds w/i&r Nicky B Verbillion DO Work Phone: Start: 01-19-2022 Assay of troponin quantitative Nicky B Verbillion DO Work Phone: Start: 01-19-2022 Basic metabolic 2000 panel - Serum or Plasma Nicky B Verbillion DO Work Phone: Start: 01-19-2022 CBC W Auto Differential panel - Blood Nicky B Verbillion DO Work Phone: Start: 01-19-2022 COMPLETE BLOOD COUNT WITH DIFFERENTIAL Nicky B Verbillion DO Work Phone: Start: 01-19-2022 Urine test visual color cmprsn meths Nicky B Verbillion DO Work Phone: Start: 01-19-2022 D-DIMER Paulette Ciro Mcdonough TRUCK OPERATOR Work Phone: Bilateral palatine t onsils (body structure) SOCO FRAZIER TRUCK OPERATOR-MASS SPECTROMETRY MANAGER Entire wisdom tooth (body structure) SOCO KARIN TRUCK OPERATOR-MASS SPECTROMETRY MANAGER Group B Streptococcus Culture TELECOMMUNICATION TOWER TECHNICIAN-C Soco Frazier TELECOMMUNICATION TOWER TECHNICIAN Work Phone: Urine culture TELECOMMUNICATION TOWER TECHNICIAN-C Soco Karin TELECOMMUNICATION TOWER TECHNICIAN Work Phone: Urine culture TELECOMMUNICATION TOWER TECHNICIAN-C Soco Karin TELECOMMUNICATION TOWER TECHNICIAN Work Phone: Plan of Treatment Date Care Activity Detail Author Start: 08-12-2025 anatomy study [facility] Start: 07-15-2025 CBC W Auto Different ial panel - Blood [facility] Start: 07-15-2025 Hepatitis C antibody measurement [facility] Start: 07-15-2025 Procedure [facility] Start: 07-15-2025 Rubella IgG measurement [facility] Start: 07-15-2025 Serologic test for syphilis [facility] Start: 07-15-2025 T4 free measurement [facility] Start: 07-15-2025 Thyroid stimulating hormone measurement [facility] Start: 07-15-2025 [facility] Start: 11-01-2024 [facility] Start: 07-07-2024 COVID-19 (2023-12 5 season) COVID-19 ( season) [facility] Start: 07-07-2024 FLU (#1) FLU (#1) [facility] Start: 04-26-2023 Patient discharge [facility] Start: 04-25-2023 Administration of bl ood product [facility] Start: 04-25-2023 Administration of medication [facility] Start: 04-25-2023 Application of ice c ollar, cap or bag [facility] Start: 04-25-2023 Catheterization of vein [facility] Start: 04-25-2023 Introduction of urin margarita catheter [facility] Start: 04-25-2023 Measuring intake and output [facility] Start: 04-25-2023 Notification of physician [facility] Start: 04-25-2023 Procedure discontinued [facility] Start: 04-25-2023 Provision of activit y privileges [facility] Start: 04-25-2023 Vital signs measurements [facility] Start: 04-25-2023 [facility] Start: 04-23-2023 Admission procedure [facility] Start: 04-23-2023 Verification routine [facility] Start: 04-03-2023 Patient discharge [facility] Start: 04-03-2023 Nonstress test [facility] Start: 04-01-2023 Patient discharge [facility] Start: 04-01-2023 Nonstress test [facility] Start: 03-22-2023 Iv infusion hydratio n initial 31 min-1 hour HYDRATION IV INFUSION INIT [facility] Start: 03-22-2023 Nonstress test [facility] Start: 03-22-2023 Obstetric monitoring [facility] Start: 03-22-2023 Vital signs measurements [facility] Start: 03-22-2023 [facility] Start: 03-14-2023 End: 03-15-2023 [facility] Start: 03-14-2023 Nonstress test [facility] Start: 03-14-2023 Obstetric monitoring [facility] Start: 03-14-2023 Vital signs measurements [facility] Start: 03-14-2023 Patient discharge [facility] Start: 2021 COTEST / HPV COTEST / HPV [facility] Start: 06-06-2021 Influenza vaccination INFLUENZA VACC INE [facility] Start: 06-06-2021 Refusal of treatment by patient INFLUENZA VACCINE [facility] Start: 2017 Microscopic observat ion [Identifier] in Cervix by Cyto stain PAP SMEAR [facility] Start: 2017 Screening for malign ant neoplasm of cervix CERVICAL CANCER SCREENING [facility] Start: 2015 DTaP/Tdap/Td VACCINE S (1 - Tdap) DTaP/Tdap/Td VACCINES (1 - Tdap) [facility] Start: 2015 Hepatitis B (1 of 3 - 19+ 3-dose series) Hepatitis B (1 of 3 - 19+ 3-dose series) [facility] Start: 2014 [facility]: 2012 MenB (1 of 2 - MenB 2-Dose Series Bexsero) MenB (1 of 2 - MenB 2-Dose Series Bexsero) [facility] Start: 2011 HIV SCREENING HIV SCREENING [facility] Start: 2009 Varicella (1 of 2 - 13+ 2-dose series) Varicella (1 of 2 - 13+ 2-dose series) [facility] Start: 2007 HPV VACCINE (1 - 2-d ose series) HPV VACCINE (1 - 2-dose series) [facility] Start: 2003 Tetanus Diphtheria a nd Pertussis Vaccines (1 - Tdap) Tetanus Diphtheria and Pertussis Vaccines (1 - Tdap) [facility] Start: 2001 COVID-19 VACCINE (1) COVID-19 VACCIN E (1) [facility] Start: 1997 MMR (1 of 1 - Standa rd series) MMR (1 of 1 - Standard series) [facility] CBC W Auto Different ial panel - Blood [facility] Work Phone: CBC W Auto Different ial panel - Blood [facility] Chlamydia deoxyribon ucleic acid detection [facility] Chlamydia deoxyribon ucleic acid detection [facility] Erythrocyte mean corpuscular volume determination [facility] Glucose [Mass/volume ] in Serum or Plasma --1 hour post 50 g glucose PO [facility] Work Phone: Hematocrit [Volume Fraction] of Blood [facility] Hemoglobin [Mass/vol ume] in Blood [facility] Hepatitis B surface antigen measurement [facility] Work Phone: Hepatitis B virus rodriguez rface Ag [Presence] in Serum [facility] Hepatitis C antibody measurement [facility] Work Phone: Hepatitis C antibody measurement [facility] HIV 1+2 Ab+HIV1 p24 Ag [Presence] in Serum or Plasma by Immunoassay [facility] Work Phone: Leukocytes [#/volume ] in Blood [facility] Liquid based cervica l cytology screening [facility] Mean corpuscular hem oglobin concentration determination [facility] Mean corpuscular hem oglobin determination [facility] Neutrophil count [facility] Neutrophil percent differential count [facility] Patient Education [facility] Work Phone: Patient referral [facility] Work Phone: Platelets [#/volume] in Blood [facility] Procedure [facility] End: 01-19-2022 Radiologic exam chest single view [facility] Work Phone: Comment on above: Now for 1 Occurrence s starting 01/19/2022 until 01/19/2022 Red blood cell count [facility] Red cell distributio n width determination [facility] Rubella IgG measurement [facility] Work Phone: Rubella IgG measurement [facility] Serologic test for syphilis [facility] Source specific culture [facility] Source specific culture [facility] Standard ECG EKG Standard EKG STAT 01/19/2022 5:24 PM EDT [facility] Work Phone: T4 free measurement [facility] Thyroid stimulating hormone measurement [facility] Treponema sp Ab [Pre sence] in Serum [facility] Work Phone: US Pelvis [facility] End: 02-04-2022 Us soft tissue head & neck real time imge docm [facility] Work Phone: Comment on above: PRN for 1 Occurrence s starting 02/04/2022 until 02/04/2022 [facility] Immunizations Immunization Date Immunization Notes Care Provider Fa zari 08-15-2023 influenza virus vacc ine, unspecified formulation SOCO FRAZIER TRUCK OPERATOR-MASS SPECTROMETRY MANAGER [facility] [place] 02-23-2023 tetanus toxoid, redu jenny diphtheria toxoid, and acellular pertussis vaccine, adsorbed TELECOMMUNICATION TOWER TECHNICIAN-C Soco Frazier TELECOMMUNICATION TOWER TECHNICIAN Work Phone: [facility] 09-28-2021 SARS-CoV-2 (COVID-19 ) mRNA-1273 vaccine SOCO IBARRAMER TRUCK OPERATOR-MASS SPECTROMETRY MANAGER [facility] Comment on above: Result Comment: 2021: [id number] 08-27-2021 SARS-CoV-2 (COVID-19 ) mRNA-1273 vaccine SOCO KARIN TRUCK OPERATOR-MASS SPECTROMETRY MANAGER [facility] Comment on above: Result Comment: 2021: [id number] 08-10-2021 influenza virus vacc ine, unspecified formulation SOCOGISELLE FRAZIER TRUCK OPERATOR-MASS SPECTROMETRY MANAGER [facility] 08-30-2017 hepatitis B vaccine, adult dosage SOCOBROWN FRAZIER TRUCK OPERATOR-MASS SPECTROMETRY MANAGER [facility] 05-01-2017 hepatitis B vaccine, adult dosage SOCO KARIN TRUCK OPERATOR-MASS SPECTROMETRY MANAGER [facility] 05-01-2017 varicella virus vaccine BETSY DASILVA KARIN TRUCK OPERATOR-MASS SPECTROMETRY MANAGER [facility] 09-16-2013 meningococcal polysaccharide (groups A, C, Y and W-135) diphtheria toxoid conjugate vaccine (MCV4P) SOCO FRAZIER TRUCK OPERATOR-MASS SPECTROMETRY MANAGER [facility] 09-16-2013 meningococcal polysaccharide vaccine (MPSV4) Soco Frazier TELECOMMUNICATION TOWER TECHNICIAN-C Work Phone: [facility] 11-06-2012 tetanus toxoid, redu jenny diphtheria toxoid, and acellular pertussis vaccine, adsorbed SOCO FRAZIER TRUCK OPERATOR-MASS SPECTROMETRY MANAGER [facility] 06-03-2008 Human Papillomavirus Quadval SOCO KARIN TRUCK OPERATOR-[facility] 09-14-2007 Human Papillomavirus Quadval SOCO KARIN TRUCK OPERATOR-MASS SPECTROMETRY MANAGER [facility] 07-18-2007 Human Papillomavirus Quadval SOCO KARIN TRUCK OPERATOR-MASS SPECTROMETRY MANAGER [facility] 07-18-2007 meningococcal polysaccharide (groups A, C, Y and W-135) diphtheria toxoid conjugate vaccine (MCV4P) SOCO FRAZIER TRUCK OPERATOR-[facility] 07-18-2007 tetanus toxoid, redu jenny diphtheria toxoid, and acellular pertussis vaccine, adsorbed SOCOGISELLE FRAZIER TRUCK OPERATOR-[facility] 06-16-2001 measles, mumps and rubella virus vaccine Soco Frazier TELECOMMUNICATION TOWER TECHNICIAN-C Work Phone: [facility] 06-16-2001 measles/mumps/rubell a virus vaccine SOCO FRAZIER TRUCK OPERATOR-MASS SPECTROMETRY MANAGER [facility] 06-16-2001 poliovirus vaccine, inactivated SOCO FRAZIER TRUCK OPERATOR-MASS SPECTROMETRY MANAGER [facility] 11-28-1997 haemophilus influenz ae type b vaccine, PRP-T conjugate SOCO FRAZIER TRUCK OPERATOR-MASS SPECTROMETRY MANAGER [facility] 11-06-1997 varicella virus vaccine BETSY FRAZIER TRUCK OPERATOR-MASS SPECTROMETRY MANAGER [facility] 08-21-1997 measles, mumps and rubella virus vaccine Soco Karin TELECOMMUNICATION TOWER TECHNICIAN-C Work Phone: [facility] 08-21-1997 measles/mumps/rubell a virus vaccine SOCO KARIN TRUCK OPERATOR-MASS SPECTROMETRY MANAGER [facility] 04-07-1997 haemophilus influenz ae type b vaccine, PRP-T conjugate SOCO KARIN TRUCK OPERATOR-MASS SPECTROMETRY MANAGER [facility] 04-07-1997 hepatitis B pediatri c vaccine SOCO KARIN TRUCK OPERATOR-MASS SPECTROMETRY MANAGER [facility] 04-07-1997 hepatitis B vaccine, pediatric or pediatric/adolescent dosage Soco Frazier TELECOMMUNICATION TOWER TECHNICIAN-C Work Phone: [facility] 04-07-1997 poliovirus vaccine, inactivated SOCO KARIN TRUCK OPERATOR-MASS SPECTROMETRY MANAGER [facility] 01-23-1997 haemophilus influenz ae type b vaccine, PRP-T conjugate SOCO KARIN TRUCK OPERATOR-MASS SPECTROMETRY MANAGER [facility] 01-23-1997 poliovirus vaccine, inactivated SOCO KARIN TRUCK OPERATOR-MASS SPECTROMETRY MANAGER [facility] 1996 haemophilus influenz ae type b vaccine, PRP-T conjugate SOCO KARIN TRUCK OPERATOR-MASS SPECTROMETRY MANAGER [facility] 1996 hepatitis B pediatri c vaccine SOCO KARIN TRUCK OPERATOR-MASS SPECTROMETRY MANAGER [facility] 1996 hepatitis B vaccine, pediatric or pediatric/adolescent dosage Soco Frazier TELECOMMUNICATION TOWER TECHNICIAN-C Work Phone: [facility] 1996 poliovirus vaccine, inactivated SOCO FRAZIER TRUCK OPERATOR-MASS SPECTROMETRY MANAGER [facility] 1996 hepatitis B pediatri c vaccine SOCO FRAZIER TRUCK OPERATOR-MASS SPECTROMETRY MANAGER [facility] 1996 hepatitis B vaccine, pediatric or pediatric/adolescent dosage Soco Ibarramer TELECOMMUNICATION TOWER TECHNICIAN-C Work Phone: [facility] Payers Date Payer Category Payer Unknown [id number] 2024 Self-pay [id number] 2023 Unknown [id number] 2021 Unknown [employer] [id number] 2021-Present [phone] [address] [place] [address] [id number] 2021 Unknown [id number] [id number] 1996 Unknown [id number] 1996 Unknown [id number].627 1996 Unknown [id number] 2.16.840.1.680443.3.579.2.627 1996 Unknown [id number]7 1996 Unknown [id number] 2.840.1.380672.3.579.2.627 1996 Unknown [id number] 2.840.1.864505.3.579.2.479 Unknown [id number] .0.1.827397.3.579.2.462 Unknown [id number] .840.1.333032.3.579.2.462 Unknown [id number] .840.1.058497.3.579.2.462 Unknown [id number] .840.1.084564.3.579.2.462 Unknown [id number] .840.1.687450.3.579.2.462 Unknown [id number] 12.22.830.1.925985.3.579.2.462 Unknown [id number] 840.1.197180.3.579.2.462 Unknown [id number] 840.1.773770.3.579.2.462 Unknown [id number] 840.1.057448.3.579.2.462 Unknown [id number] .1.465863.3.579.2.462 Unknown [id number] .840.1.713174.3.579.2.462 Unknown [id number] 840.1.292690.3.579.2.462 Unknown [id number] .840.1.580274.3.579.2.462 Unknown [id number] 840.1.787546.3.579.2.462 Unknown [id number] Unknown [id number] 840.1.040766.3.579.2.462 Unknown [id number] 2.16.840.1.162042.3.579.2.462 Unknown [id number].462 Social History Date Type Detail Facility Start: 07-12-2019 End: 06-27-2025 Never smoked tobacco (finding) [facility] Comment on above: no tobacco smoke exp osure Start: 1995 Sex Assigned At Female A [facility] Start: 01-19-2022 Tobacco use and exposure Smoke less tobacco non-user [facility] Start: 01-19-2022 Alcohol intake Current drinke r of alcohol (finding) [facility] Start: 1995 Sex Assigned At Not on file P [facility] Start: 01-09-2022 End: 02-04-2022 Exposure to SARS-CoV-2 (event) Not sure [facility] Start: 12-16-2021 End: 05-11-2023 Tobacco smoking status NHIS Unknown if ever smoked [facility] Gender identity Not on file [facility] Sexual Orientation [facility] Start: 09-30-2019 End: 02-06-2025 Sex Female (finding) [facility] Goals Date Patient Goal Desired Activity /State Mental Status Date Assessment Result Facility 11-01-2024 Cognitive function Level Of Cons ciousness Awake;Alert;Appropriate;Follow s Commands [facility] Work Phone: Clinical Notes 11-10-2021 to 08-12-2025 Note Date & Type Note Facility 08-12-2025 Progress note [facility] 08-12-2025 Progress note Note Date/Time August 12, 2025 3:59pm [facility] [address], [address] [place] [address] OFFICE VISIT Date of Service: 08/12/25 MR#: [id number] Acct: [id number] Name: ROBERTA ROSA Rep #: [id number] : 1995 Provider: Dr. Yuliet Hendrickson DO Age/Sex: 30/F Location: [facility] Status: Signed Intake Vital Signs 06/23/25 13:07 07/15/25 10:51 08/12/25 15:33 08/12/25 15:33 Height 5 ft 9 in 5 ft 9 in 5 ft 9 in 5 ft 9 in Weight: 211 lb 212 lb 1 oz BMI 31.1 31.3 BP 122/81 H 118/79 Intake Visit Reasons: 13wk 3D OB Print Producer Required: No Is patient in pain?: No Allergies azithromycin Adverse Reaction (Verified 08/12/25 15:32) lightheaded Food Allergies: Uncoded Adverse Reaction (Verified 08/12/25 15:32) Other Medications ?Medication ?Instructions ?Recorded ?Confirmed ?Type ascorbic acid (vitamin C) 1,000 mg 1 g PO DAILY supple ment 09/27/22 08/12/25 History capsule multivit-min no.71-iron fum 28 1 cap PO DAILY pregnanc y 09/27/22 08/12/25 History mg-folate no.1 1 mg-dha 300 mg capsule (PNV-Marion) omega3 1,000 ez-kjd-lwz-other 1 cap PO DAILY Check wit h primary 09/27/22 08/12/25 History [id number] oil 1,400 mg doctor capsule,delay rel cholecalciferol (vitamin D3) 25 150 mcg PO DAILY 06/0208/12/25 History mcg (1,000 unit) capsule vitamin B complex 1 cap PO QDAY 06/27/2508/12 History Last Menstrual Period: 05/10/25 Zika: Zika virus screening: Negative : No PFSH PFSH Medical History Thyroid goiter Pelvic pain Vocal cord dysfunction Migraine ADHD Surgical History H/O wisdom tooth extraction History of tonsillectomy Family History Mother Psoriasis Brother Psoriatic arthritis Asthma Ulcerative colitis Father Kidney stone Social History adopted: No household members: spouse and children housing: apartment number of children: 1 current occupational status: employed 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) current occupational exposures/hazards: No pets and animals: Yes pets and animals: dog(s) history of recent travel: No sexually active: Yes Smoking Status: Never smoker second hand exposure: No alcohol intake: current alcohol intake frequency: holidays/special occasions only details: Not while substance use type: does not use well-balanced diet: daily or most days caffeine: Yes Type: coffee Number of servings: 1 eating out: rarely or never during the past year weight has: remained stable what type of physical activity do you participate in: walking frequency: 5-6 times per week duration: 30-45 minutes/day amy/baptism: None seatbelt use: always do you feel safe at home: Yes 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 Date Name GA/Weeks Outcome Route Bth Weight Infant Gen Labor Lgth Anesthesia Del Locatn Provider FOB 04/25/23 Rickey Ramirez IV 37 live - full term 6lbs 14oz Mal e epidural [employer] Sanam Lang Delivery Date: 04/25/23 Last Updated by: Soco Ruiz 2nd degree laceration HPI 13wk 3D OB Details: ROBERTA ROSA is a 30 year old who presents for routine OB visit. OB Visit ADILENE Calculator Estimated Delivery Date Method Current WG Current Estimate 02/14/26 LMP (Certain) 13w 3d Expected Delivery Route/Plan Labor Preferences- CB/BF classes: [] labor support person: [] labor intervention preferences: [] pain management options preferred: [] cut cord/dad catch: [] : [] PP control planned: [] discussed possible routes of delivery and associated risks: [] special requests: [] Specific Issue/Plans Covid status: [] Flu vaccine: [] Tdap vaccine: [] Rhogam: [] LARC form signed: [] Problem list reviewed and updated with the most current plan of care details and appropriate orders placed. Relevant counseling for the gestational age provided. 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 At this point that would be ok as long as no manipulation of the cervix. ACOG First Trimester First Trimester: Desire for , Alcohol, Tobacco Cessation, Illicit/Recreational Drug/Substance Use, Intimate Partner Violence, Barriers to care, Unstable Housing, Communication Barriers, Environmental/Work Hazards, Anticipated Course of Care, Toxoplasmosis Precations, Use of Any medications, Sexual activity, Exercise, Dental Care, Sauna/Hot tub use, Seat Belt use, Childbirth classes/Hospital facilities, Travel, Indications for Ultrasound and Screening for Aneuploidy; Discussed Second Trimester Second Trimester: Signs and Symptoms of Labor, Selecting a care provider, Reproductive Life Planning & Contreception, Care Planning, Depression/Anxiety and Intimate Partner Violence; Discussed Tobacco Cessation Third Trimester Third Trimester: Pain Management Plans, Labor support person(s), Immediate Larc, Movement Monitoring, Signs and Symptoms of Preeclampsia and Education Results POC Urinalysis 2 Dip (Clinic) Office Urine Glucose Negative Last Edit by Lexis Brown on 08/12/25 15: 58 Office Urine Protein Negative Last Edit by Lexis Brown on 08/12/25 15: 58 Coding Level of Care Code OB Routine Diagnoses Cramping affecting , antepartum O26.899; R10.9 Rh negative status during O26.899; Z67.91 History of induced hypertension Z87.59 Supervision of high-risk O09.90 13 weeks gestation of Z3A.13 Weeks of gestation: 13 weeks Thyroid goiter E04.9 Maternal varicella, non-immune O09.899; Z28.39 Pelvic pain affecting O26.899; R10.20 Assessment and Plan Assessment and Plan (1) Cramping affecting , antepartum: Status: Acute (2) Rh negative status during : Status: Acute Comment: Rhogam @ 28weeks & PRN (3) History of induced hypertension: Status: Acute (4) Supervision of high-risk : Status: Acute Comment: , ADILENE 02/14, PC: Rickey Ramirez IV, : Rickey (5) : Status: Acute Qualifiers: Weeks of gestation: 13 weeks Qualified Code(s): Z3A.13 - 13 weeks gestation of Comment: Discussed genetic/carrier testing - declined. (6) Thyroid goiter: Status: Acute Comment: monitoring; Thyroid labs ordered w/NOB,TSH R AB negative (7) Maternal varicella, non-immune: Status: Acute Comment: Pt has had 5 boosters, doesn't hold immunity (8) Pelvic pain affecting : Status: Acute Comment: goes to Cynthia Dallas for PT- ok to continue throughout and ok to use internal manipulation as needed as long as avoids cervical manipulation. Orders: Orders POC Urinalysis 2 Dip (Clinic) Today OB Anatomy Scan Today O09.90 - Supervision of high risk , unspecified, unspecified trimester 08/12/25 1430 <Electronically signed by Antonieta Abarca DO> Date _ Antonietatanya Hendrickson DO [facility] Signature: Date (if applicable) CC: ~ [facility] Work Phone: 1(203) 147-623209-09-2025 [facility] [address] [place] [address], [address] [place] [id number] OFFICE VISIT Date of Service: 07/15/25 MR#: [id number] Acct: [id number] Name: ROBERTA ROSA Rep #: [id number] : 1995 Provider: Dr. Donnell Cyr MD Age/Sex: 30/F Location: [facility] [place] Status: Signed Intake Vital Signs 04/25/25 09:27 06/27/25 11:17 07/15/25 10:51 Height 5 ft 9 in 5 ft 9 in 5 ft 9 in Weight: 211 lb BMI 31.1 BP 122/81 H Intake Visit Reasons: EST* NOB LMP 7, ADILENE 02/14 Print Producer Required: No Is patient in pain?: No Allergies azithromycin Adverse Reaction (Verified 07/15/25 10:53) lightheaded Food Allergies: Uncoded Adverse Reaction (Verified 07/15/25 10:53) Other Medications ?Medication ?Instructions ?Recorded ?Confirmed ?Type ascorbic acid (vitamin C) 1,000 mg 1 g PO DAILY supple ment 09/27/22 07/15/25 H istory capsule multivit-min no.71-iron fum 28 1 cap PO DAILY pregnanc y 09/27/22 07/15/25 History mg-folate no.1 1 mg-dha 300 mg capsule (PNV-Marion) omega3 1,000 tm-rnx-fai-other 1 cap PO DAILY Check wit h primary 09/27/22 07/15/25 History dc9t-veys oil 1,400 mg doctor capsule,delay rel cholecalciferol (vitamin D3) 25 150 mcg PO DAILY 06/0207/15/25 History mcg (1,000 unit) capsule vitamin B complex 1 cap PO QDAY 06/27/2507/15 History Last Menstrual Period: 05/10/25 Zika: Zika virus screening: Negative : No PFSH PFSH Medical History Pelvic pain Vocal cord dysfunction Migraine ADHD Surgical History H/O wisdom tooth extraction History of tonsillectomy Family History Mother Psoriasis Brother Psoriatic arthritis Asthma Ulcerative colitis Father Kidney stone Social History adopted: No household members: spouse and children housing: apartment number of children: 1 current occupational status: employed 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) current occupational exposures/hazards: No pets and animals: Yes pets and animals: dog(s) history of recent travel: No sexually active: Yes Smoking Status: Never smoker second hand exposure: No alcohol intake: current alcohol intake frequency: holidays/special occasions only details: Not while substance use type: does not use well-balanced diet: daily or most days caffeine: Yes Type: coffee Number of servings: 1 eating out: rarely or never during the past year weight has: remained stable what type of physical activity do you participate in: walking frequency: 5-6 times per week duration: 30-45 minutes/day amy/baptism: None seatbelt use: always do you feel safe at home: Yes 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 Date Name GA/Weeks Outcome Route Bth Weight Gen Labor Lgth Anes thesi a Del Locatn Provider FOB 04/25/23 Rickey Ramirez IV 37 live - full term 6lbs 14oz Mal e epidural [employer] Sanam Lang Delivery Date: 04/25/23 Last Updated by: Soco Ruiz 2nd degree laceration HPI EST* NOB LMP 7/5, ADILENE 02/14 Details: ROBERTA ROSA is a 30 year old who presents for New OB visit. OB Visit ADILENE Calculator Estimated Delivery Date Method Current WG Current Estimate 02/14/26 LMP (Certain) 9w 3d Estimated Due Date: 02/14/26 Expected Delivery Route/Plan Labor Preferences- CB/BF classes: [] labor support person: [] labor intervention preferences: [] pain management options preferred: [] cut cord/dad catch: [] : [] PP control planned: [] discussed possible routes of delivery and associated risks: [] special requests: [] Specific Issue/Plans Covid status: [] Flu vaccine: [] Tdap vaccine: [] Rhogam: [] LARC form signed: [] Problem list reviewed and updated with the most current plan of care details and appropriate ordersplaced. Relevant counseling for the gestational age provided. 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, 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) Frequency in days: 28-30 On hormonal BC at conception: No hCG+: 06/09/25 Antepartum Record Genetic Screening: Congenital Heart Defect: Other, Neural Tube Defect: Other, Hemoglobinopathy Or Carrier: Other, Cystic Fibrosis: Other, Chromosome Abnormality: Other, Onel-Sachs: Other, Hemophilia: Other, Intellectual Disability/Autism: Other, Recurrent Loss/Stillbirth: Other, Other Structural Defect: Other, Other Genetic Disease: Other and Maternal Metabolic Disorder: Other Infection History: Live with someone with TB or Exposed to TB: No, Patient or Partner has history of Genital Herpes: No, Rash or Viral illness since last mentrual period: No, Prior GBS-Infected child: No, History of STD: No, HIV Infection: No, History of Hepatitis: No, Recent travel outside of [place]: No, Concern for hepatitis exposure: No, Varicella immune: No (Had reaction to vaccine) and Covid Vaccinated: Yes (Moderna - No boosters) Medical History Medical History: Positive: Hypertension (PIH), Thyroid dysfunction (Thyroid goiter), D (Rh) Sensitized (O-), Drug/latex allergies/reactions (See allergies list) and Operations/hospitalizations (see surg list) and Negative: Diabetes, Heart disease, Auto-immune disorder, Kidney disease/UTI, Neurologic/epilepsy, Psychiatric, Depression/ depression, Hepatitis/liver disease, Varicosities/phlebitis, Trauma/domestic violence, History of blood transfusions, Pulmonary (e.g.,TB,Asthma), Seasonal allergies, Breast, Public Administration Teacher surgery, Anesthetic complications, History of abnormal pap, Uterine anomaly/ace, Infertility, Anti- retroviral treatment, Relevant family history and Other ACOG First Trimester First Trimester: Desire for , Alcohol, Tobacco Cessation, Illicit/Recreational Drug/Substance Use, Intimate Partner Violence, Barriers to care, Unstable Housing, Communication Barriers, Environmental/Work Hazards, Anticipated Course of Care, Toxoplasmosis Precations, Use of Any med ications, Sexual activity, Exercise, Dental Care, Sauna/Hot tub use, Seat Belt use, Childbirth classes/Hospital facilities, Travel, Indications for Ultrasound and Screening for Aneuploidy; Discussed Second Trimester Second Trimester: Signs and Symptoms of Labor, Selecting a care provider, Reproductive Life Planning & Contreception, Care Planning, Depression/Anxiety and Intimate Partner Violence; Discussed Tobacco Cessation Third Trimester Third Trimester: Pain Management Plans, Labor support person(s), Immediate Larc, Movement Monitoring, Signs and Symptoms of Preeclampsia and Education ROS Const Reports system reviewed and no additional complaints, except as documented, Reports fatigue and Denies fever(s) Eyes Reports system reviewed and no additional complaints, except as documented ENT Reports system reviewed and no additional complaints, except as documented Card Denies chest pain and Denies dyspnea Resp Reports system reviewed and no additional complaints, except as documented, Denies cough and Deniesdyspnea GI Denies abdominal pain and Reports nausea Reports system reviewed and no additional complaints, except as documented Musc Reports system reviewed and no additional complaints, except as documented Skin/Breast Reports system reviewed and no additional complaints, except as documented Neuro Yes system reviewed and no additional complaints, except as documented Psych Reports system reviewed and no additional complaints, except as documented Endo Reports system reviewed and no additional complaints, except as documented and Reports fatigue Exam Const General: healthy appearing, comfortable and no acute distress Orientation: alert [facility] Head: normal to inspection, normocephalic and atraumatic Ears: hearing grossly normal bilaterally and external ears normal Nose: external nose normal and nares normal Mouth: oral mucosae normal Teeth and gingiva: dentition normal Eyes General: appearance normal, both eyes and all related structures Neck Neck: normal visual inspection, no lymphadenopathy and supple Thyroid: thyroid normal Chest Chest palpation & inspection: normal inspection of the chest Breast inspection: normal inspection of the breasts and normal inspection of the axillae Breast palpation: normal palpation of the breasts and normal palpation of the axillae Resp Effort & Inspection: normal respiratory effort GI Inspection: normal to inspection Palpation: soft and no hepatosplenomegaly General: bladder normal to palpation External Female Exam: normal external appearance and normal appearance of the urethra Urethra: normal appearance of the urethra Speculum Exam - Vagina: normal appearance of the vagina and normal vaginal discharge Speculum Exam - Cervix: normal appearance of the cervix Bimanual Exam- Vagina & Uterus: normal bimanual exam, bladder normal to palpation, non-tender and other Bimanual Exam- Adnexa, other: non-tender Skin General: no rashes or lesions noted Neuro Motor: muscle tone normal throughout and no movement abnormalities noted Extrem General: normal to inspection and full ROM Supplemental Info ACOG book given and patient encouraged to read about nutrition, exercise, weight gain, and food avoidance in . Coding Level of Care Code OB Routine Diagnoses Cramping affecting , antepartum O26.899; R10.9 Rh negative status during O26.899; Z67.91 History of induced hypertension Z87.59 Supervision of high-risk O09.90 9 weeks gestation of Z3A.09 Weeks of gestation: 9 weeks Thyroid goiter E04.9 Maternal varicella, non-immune O09.899; Z28.39 Assessment and Plan Assessment and Plan (1) Cramping affecting , antepartum: Status: Acute (2) Rh negative status during : Status: Acute Comment: Rhogam @ 28weeks & PRN (3) History of induced hypertension: Status: Acute (4) Supervision of high-risk : Status: Acute Comment: , ADILENE 02/14, PC: Rickey Ramirez IV, : Rickey (5) : Status: Acute Qualifiers: Weeks of gestation: 9 weeks Qualified Code(s): Z3A.09 - 9 weeks gestation of Comment: Discussed genetic/carrier testing - declined. (6) Thyroid goiter: Status: Acute Comment: monitoring; Thyroid labs ordered w/NOB (7) Maternal varicella, non-immune: Status: Acute Comment: Pt has had 5 boosters, doesn't hold immunity 07/15/25 1136 chloe CHRISTY> Date _ Beatriz Cyr MD [facility] Signature: Date (if applicable) CC: ~ [facility] [id number] [facility] [address] [place] [address], [address] [place] [address] OFFICE VISIT Date of Service: 06/27/25 MR#: [id number] Acct: [id number] Name: PORSHAROBERTA NARESH Rep #: [id number] : 1995 Provider: DONNA Tovar Age/Sex: 30/F Location: [facility] [place] Status: Signed Intake Vital Signs 04/25/25 09:27 06/23/25 13:07 06/27/25 11:17 Height 5 ft 9 in 5 ft 9 in 5 ft 9 in Weight: 209 lb 7 oz BMI 30.9 BP 110/73 Intake Visit Reasons: LMP 7/5, ro vaginal infection Chief Complaint: vaginal discharge Print Producer Required: No Is patient in pain?: No Allergies azithromycin Adverse Reaction (Verified 06/27/25 11:15) lightheaded Food Allergies: Uncoded Adverse Reaction (Verified 06/27/25 11:15) Other Medications ?Medication ?Instructions ?Recorded ?Confirmed ?Type ascorbic acid (vitamin C) 1,000 mg 1 g PO DAILY supple ment 09/27/22 06/27/25 History capsule multivit-min no.71-iron fum 28 1 cap PO DAILY pregnanc y 09/27/22 06/27/25 History mg-folate no.1 1 mg-dha 300 mg capsule (PNV-Marion) omega3 1,000 tr-htj-bcb-other 1 cap PO DAILY Check wit h primary 09/27/22 06/27/25 History rq7z-sxqt oil 1,400 mg doctor capsule,delay rel cholecalciferol (vitamin D3) 25 150 mcg PO DAILY 06/0206/27/25 History mcg (1,000 unit) capsule vitamin B complex 1 cap PO QDAY 06/27/2506/27 History Is last menstrual period known: Yes Last Menstrual Period: 05/10/25 Post menopausal: No Patient : Yes : No PFSH Medical History Pelvic pain Vocal cord dysfunction Migraine ADHD Surgical History H/O wisdom tooth extraction History of tonsillectomy Family History Mother Psoriasis Brother Psoriatic arthritis Asthma Ulcerative colitis Father Kidney stone Social History adopted: No household members: spouse and children housing: apartment number of children: 1 current occupational status: employed 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) current occupational exposures/hazards: No pets and animals: Yes pets and animals: dog(s) history of recent travel: No sexually active: Yes Smoking Status: Never smoker second hand exposure: No alcohol intake: current alcohol intake frequency: holidays/special occasions only details: Not while substance use type: does not use well-balanced diet: daily or most days caffeine: Yes Type: coffee Number of servings: 1 eating out: rarely or never during the past year weight has: remained stable what type of physical activity do you participate in: walking frequency: 5-6 times per week duration: 30-45 minutes/day amy/baptism: None seatbelt use: always do you feel safe at home: Yes 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 Had positive test with cramping. Having some right sided pelvic pain. not consistent, NO vaginal bleeding. Isfeeling nauseated and having food aversions. Office TVUS to determine position and IUP. CRL 0.86 cons with 6.6 weeks. FHT 146 Female Reproductive History Last Menstrual Period: 05/10/25 Questions: sexually active: Yes, dyspareunia: No and PCB: No 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 Date Name GA/Weeks Outcome Route Bth Weight Infant Gen Labor Lgth Anesthesia Del Locatn Provider FOB 04/25/23 Rickey Ramirez IV 37 live - full term 6lbs 14oz Mal e epidural [facility] Sanam Lang Delivery Date: 04/25/23 [...] and no additional complaints, except as documented Exam Const General: cooperative, healthy appearing, comfortable and no acute distress Resp Effort & Inspection: normal respiratory effort, able to speak in complete sentences and symmetric chest movement GI Inspection: normal to inspection Palpation: soft External Female Exam: normal external appearance and [...] Exam- Adnexa, other: normal Pelvic Support: normal Neuro General: patient alert, patient awake and patient oriented x3 Cognition: normal cognition Speech: speech normal Gait: normal gait Psych Appearance: grossly normal and well kempt Mental Status: mental status grossly normal Affect: normal affect Speech and Movement: speech and movement normal Attitude: cooperative Thought Process: normal Thought Content: normal Judgment: judgment good Coding Level of Care Code Off vis,est,level 3 Diagnoses Cramping affecting , antepartum O26.899; R10.9 Assessment and Plan Assessment and Plan (1) Cramping affecting , antepartum: Status: Acute Plan: genital culture Office TVUS to determine IUP- confirmed. measuring 6.6 weeks Orders: Orders Culture, Genital Comprehensive Today N89.8 - Other specified noninflammatory disorders of vagina 06/27/25 1147 s CN> Date _ Sanam Tovar CNM Cosigner Signature: Date (if applicable) CC: ~ [facility]06-20-2025 Evaluation note* Diagnosis Onset Date Resolution Status Admit Date Dysmenorrhea inactive April 25 9:14am Pelvic pain inactive April 25 9:14am Cramping affecting , antepartum acute June 27 11:10am Cramping affecting , antepartum acute July 15 10:39am History of induced hypertension acute July 15 10:39am Maternal varicella, non-immune acute July 15 10:39am acute July 15, 2025 10:39am Rh negative status during acute July 15 025 10:39am Supervision of high-risk acute July 15 10:39am Thyroid goiter acute July 15, 2025 10:39am [facility] Work Phone: 1(235) 500-871806-20-2025 Evaluation note* Diagnosis Onset Date Resolution Status Admit Date Dysmenorrhea inactive April 25 9:14am Pelvic pain inactive April 25 9:14am Cramping affecting , antepartum acute June 27 11:10am Cramping affecting , antepartum acute July 15, 025 10:39am History of induced hypertension acute July 15 10:39am Maternal varicella, non-immune acute July 15 10:39am acute July 15, 2025 10:39am Rh negative status during acute July 15 10:39am Supervision of high-risk acute July 15 10:39am Thyroid goiter acute July 15, 2025 10:39am Cramping affecting , antepartum acute August 12 3:29pm History of induced hypertension acute August 12 3:29pm Maternal varicella, non-immune acute August 12 3:29pm Pelvic pain affecting acute August 12 3:29pm acute August 12 3:29pm Rh negative status during acute August 12 3:29pm Supervision of high-risk acute August 12 3:29pm Thyroid goiter acute August 3:29pm [facility] Work Phone: 1(360) 293-729705-21-2025 Radiology Diagnostic study note [facility] Services [address] [place], [place] [address] Pelvic w/ Transvaginal MR#: [id number] Acct: [id number] Name: ROBERTA ROSA Rep #: [id number] : 1995 F 29 From: Elpidio Chou MD PCP: Soco Frazier, TELECOMMUNICATION TOWER TECHNICIAN-C Status: [facility] Study:Pelvic w/ Transvaginal Date of Exam: 03/26/25 Exam# [id number] Ordering Dr: Sanam Tovar CNM PROCEDURE: PELVIC [...] TRANSABDOMINAL AND TRANSVAGINAL PELVIC ULTRASOUND. Reading Location: [place] [address] CC: DONNA Tovar; TELECOMMUNICATION TOWER TECHNICIANZina Frazier ~ Modeling Instructor: Signed [facility]05-13-2025 Evaluation note* Diagnosis Onset Date Resolution Status Admit Date Pelvic pain acute March 18 9:19am Encounter for routine gynecological examination noneactive March 182024 9:19am [facility] Work Phone: 1(647) 321-116005-13-2025 Evaluation note* Diagnosis Onset Date Resolution Status Admit Date Pelvic pain acute March 18 9:19am Encounter for routine gynecological examination noneactive March 182024 9:19am Dysmenorrhea acute April 25, 025 9:14am Pelvic pain acute April 25 9:14am [facility] Work Phone: 1([phone]) 868-354605-13-2025 Evaluation note* Diagnosis Onset Date Resolution Status Admit Date Pelvic pain inactive March 18 9:19am Encounter for routine gynecological examination noneactive March 182024 9:19am Dysmenorrhea inactive April 25, 2 025 9:14am Pelvic pain inactive April 25 9:14am Cramping affecting , antepartum acute June 27 11:10am [facility] Work Phone: 1(703) 767-479905-13-2025 Evaluation note* Diagnosis Onset Date Resolution Status Admit Date Pelvic pain inactive March 18 9:19am Encounter for routine gynecological examination noneactive March 182024 9:19am Dysmenorrhea inactive April 25, 2 025 9:14am Pelvic pain inactive April 25 9:14am Cramping affecting , antepartum acute June 11:10am Cramping affecting , antepartum acute July 15, 2025 10:39am History of induced hypertension acute July 15 10:39am Maternal varicella, non-immune acute July 15, 025 10:39am acute July 15, 2025 10:39am Rh negative status during acute July 15 025 10:39am Supervision of high-risk acute July 15 10:39am Thyroid goiter acute July 15, 2025 10:39am [facility] Work Phone: 1(524) 171-438305-13-2025 [facility] [address] [place] [address], [address] [place] [address] OFFICE VISIT Date of Service: 03/18/25 MR#: [id number] Acct: [id number] Name: ROBERTA ROSA Rep #: [id number] : 1995 Provider: DONNA Tovar Age/Sex: 29/F Location: [facility] Status: Signed Intake Vital Signs 11/01/24 01:47 03/18/25 09:27 Height 5 ft 9 in 5 ft 9 in Weight: 212 lb BMI 31.3 BP 120/82 H 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 03/18/25 1000 s DONNA> Date Giovanna Tovar CNM Cosigner Signature: Date (if applicable) CC: ~ [facility]03-29-2025 Radiology Diagnostic study note [facility] Imaging Services [address] [place] [id number] Thyroid MR#: [id number] Acct: [id number] Name: ROBERTA ROSA Rep #: [id number] : 1995 F 29 From: Pet er Peer DO PCP: LISBETH Zapata Status: REG C LI Study:Thyroid Date of Exam: 01/30/25 Exam# [id number] Ordering Dr: Fay Cabello MD PROCEDURE: THYROID [...] follow-up imaging or FNA biopsy. Reading Location: [facility] CC: LISBETH Frazier; Dr. Fay Hebert MD ~ Modeling Instructor: [facility]igned [facility]11-07-2024 Consult note* Ancillary Consult - Sanam Arcos, CCC-TANK WELDER - 09/12/2024 1:30 PM EST Speech/Language Pathology Voice Evaluation for Vocal Cord Dysfunction Test Date: 09/12/2024 Patient Name: Roberta Rosa Date of : 1995 Age: 29 y.o. MR#: [id number] Referring Physician: Charbel Napier Length of Session: 40 minutes Pain: [...] stairs, etc) with 80% accuracy. Sanam Arcos CCC-TANK WELDER Speech-Language Pathologist CC: Referring Physician(s) [facility]11-07-2024 Miscellaneous Notes* Ancillary Consult - Sanam Arcos CCC-SLP - 09/12/2024 1:30 PM EST Speech/Language Pathology Voice Evaluation for Vocal Cord Dysfunction Test Date: 09/12/2024 Patient Name: Roberta Rosa Date of : 1995 Age: 29 y.o. MR#: [id number] Referring Physician: Charbel Napier Length of Session: 40 minutes Pain: [...] stairs, etc) with 80% accuracy. Sanam Arcos CCC-TANK WELDER Speech-Language Pathologist CC: Referring Physician(s) documented [facility] Note ORIGINAL EXAMINATION: ULTRASOUND OF THE THYROID [...] Sign Date: 02/23/2024 1:56:19 PM Ordering Provider: [facility] 10-18-2023 Evaluation + Plan note Future Scheduled Tests Radiology* XR Shoulder Minimum 2 Views Right 10/18/23 * US Thyroid 11/25/23 [facility] 06-21-2023 Discharge summary Author Sanam Tovar [facility] April 26, 2023 7:28am Note Date/Time April 26, 2023 7:28 am [facility] Medical Records Department [address] [place] [address] Instructions for Home/Discharge Instructions 04/26/23 0727 MR#: [id number] Acct: [id number] Name: ROBERTA ROSA Rep #:[id number] : 1995 27 From: Sanam Tovar CNM PCP: Soco Frazier NP-C Status:ADM I N Discharge Instructions Diet Discharge [...] Frazier NP Discharge Orders/Prescriptions Prescriptions: No Action PNV-Marion 28-1-300 mg capsule 1 cap PO DAILY ascorbic acid (vitamin C) 1,000 mg capsule 1 g PO DAILY B Complex Plus Vitamin C 31-24-26-5-300 mg capsule 1 cap PO QODAY Rx Instructions: give with food (meal/snack) xhjwz-0q-sce-epa-fish oil 1,000-1,400 mg capsule,delayed release(DR/EC) 1 cap PO DAILY Referrals / Follow Up: Soco Frazier NP, NP-C [Primary Care Provider] - Disposition Disposition (needs filled in before D/C Order can be placed): Home, Self Care 04/26/23727<Electronically signed by Sanam Tovar CNM>Sanam Tovar CNM CC: TELECOMMUNICATION TOWER TECHNICIAN-C Soco Frazier ~ [facility]igned [facility] Work Phone: 1(761) 332-789006-21-2023 Progress note Author Sanam Tovar [facility] April 26, 2023 7:27am Note Date/Time April 26, 2023 7:27 am [facility] Medical Records Department [address] [place] [address] Progress Note - OBGYN 04/26/23724 MR#: [id number] Acct: [id number] Name: ROBERTA ROSA Rep #:[id number] : 1995 27 From: Sanam Tovar CNM PCP: LISBETH Zapata Status:ADM I N Location: [place] [address] Subjective Subjective Patient doing well without complaints. [...] Urinary/Genital Urinary/Genital CPT Codes: No Charge 04/26/23 0727 <Electronically signed by Sanam Tovar CNM> Cosigner Signature (if applicable): CC: ~ [facility]igned [facility] Work Phone: 1(457) 417-527606-20-2023 Discharge summary Author Sanam Tovar [facility] April 25, 2023 5:35am Note Date/Time April 25, 2023 5:35 am [facility] Medical Records Department [address] [place] [address] Instructions for Home/Discharge Instructions 04/25/23 0533 MR#: [id number] Acct: [id number] Name: ROBERTA ROSA Rep #:[id number] : 1995 27 From: Sanam Tovar CNM [...] Frazier NP Discharge Orders/Prescriptions Prescriptions: No Action PNV-Marion 28-1-300 mg capsule 1 cap PO DAILY ascorbic acid (vitamin C) 1,000 mg capsule 1 g PO DAILY B Complex Plus Vitamin C 13-06-07-5-300 mg capsule 1 cap PO QODAY Rx Instructions: give with food (meal/snack) voqyl-8f-kny-epa-fish oil 1,000-1,400 mg capsule,delayed release(DR/EC) 1 cap PO DAILY Referrals / Follow Up: Soco Frazier NP, TELECOMMUNICATION TOWER TECHNICIAN-C [Primary Care Provider] - Disposition Disposition (needs filled in before D/C Order can be placed): Home, Self Care 04/25/23 0535<Electronically signed by Sanam Tovar CNM>Sanam Tovar CNM CC: TELECOMMUNICATION TOWER TECHNICIAN-C Soco Frazier ~ [facility]igned [facility] Work Phone: 1(658) 559-291606-20-2023 Procedure [facility] 04-25-2023 Progress note Author Sanam Tovar [facility] April 24, 2023 10:56pm Note Date/Time April 24, 2023 10:5 6pm [facility] Medical Records Department [address] [place] [address] Progress Note 04/24/232252 MR#: [id number] Acct: [id number] Name: ROBERTA ROSA Rep #:[id number] : 1995 27 From: Sanam Tovar CNM PCP: LISBETH Zapata Status:ADM I N Location: [place] [id number] Progress Note comfortable with epidural current tracing: FHT: 145 Moderate variability reactive no decelerations category I tracing Baxley: 2-4 minute Contractions-IUPC in place SVE 4/80/-1 Pitocin 6.0mu A/P: continue position changes titrate pitocin per policy anticipate active labor and Multi Select Codes Urinary/Genital Urinary/Genital CPT Codes: No Charge 04/24/23 2256 <Electronically signed by Sanam Tovar CNM> Sanam Tovar CNM Cosigner Signature (if applicable): CC: ~ [facility]igned [facility] Work Phone: 1(146) 369-159906-19-2023 Progress note Author Sanam Tovar [facility] April 24, 2023 3:56pm Note Date/Time April 24, 2023 3:56 pm [facility] Medical Records Department [address] [place] [address] Progress Note 04/24/23 155 MR#: [id number] Acct: [id number] Name: ROBERTA ROSA Rep #:[id number] : 1995 27 From: Sanam Tovar CNM PCP: Soco Frazier TELECOMMUNICATION TOWER TECHNICIAN-C Status:ADM I N Location: [place] [address] Progress Note coping well with contractions current tracing: FHT: 145Moderate variability reactive no decelerations category I tracing Baxley: irregular Contractions SROM at 1530 clear SVE [...] Cosigner Signature (if applicable): CC: ~ [facility]igned [facility] Work Phone: 1(611) 685-749106-19-2023 Progress note Author Sanam Tovar [facility] April 24, 2023 7:39am Note Date/Time April 24, 2023 7:28 am [facility] Medical Records Department [address] [place] [address] Progress Note 04/24/23 0725 MR#: [id number] Acct: [id number] Name: ROBERTA ROSA Rep #:[id number] : 1995 From: Sanam Tovar CNM PCP: VIKI ZapataC Status:ADM I N [facility] Note patient coping well with cramping continue with cytotec dosing. Will increase dose to 50mcg current tracing: FHT: 130 Moderate variability reactive no decelerations category I tracing Baxley: irregular Contractions A/P: continue with cytotec continue [...] Cosigner Signature (if applicable): CC: ~ [facility]igned [facility] Work Phone: 1(270) 580-329405-10-2023 Progress note Author Sanam [facility] March 14, 2023 10:46pm Note Date/Time March 14, 2023 10:46p [facility] Medical Records Department [address] [place] [address] OB Triage Progress Note 03/14/236 MR#: [id number] Acct: [id number] Name: ROBERTA ROSA Rep #:[id number] : 1995 27 From: Sanam Tovar CNM PCP: LISBETH Zapata Status:REG C LI Y DOS: [facility] Notes Date of Service: 03/14/23 Progress Note: Patient presents for triage evaluation secondary to headache and elevated BP at work today FHT: 145 Moderate variability reactive no decelerations category I tracing. appropriate for gestational age Baxley: No Contractions Assessment and plan: Reactive NST, reassuring maternal and status patientdischarged to home to follow-up in office later this week for BP check. Get homeBP monitoring set up through [facility] this week. See problem list details for [...] Multi Select Codes Urinary/Genital Urinary/Genital CPT Codes: 18359-49 non-stress test Interp Assessment & Plan (1) Elevated blood pressure affecting , antepartum: COMMENT: to follow up this week for BP check. Get home monitor ([facility]), repeat labs next week. Anticipate testing at 32 weeks and growth US q 4 weeks 03/14/23 2512 <Electronically signed by Sanam cantu CNM> Date _ Sanam Tovar CNM Cosigner Signature (if applicable): Date CC: DONNA Tovar; TELECOMMUNICATION TOWER TECHNICIAN-C Socogiselle Ibarramer ~ [facility]igned [facility] Work Phone: [phone]) 621-850103-28-2022 Evaluation + Plan note Future Scheduled Tests Radiology* XR Neck Soft Tissue 01/31/22 * US Thyroid 01/31/22 [facility] 03-16-2022 Emergency department Note* Nohemi Luke RN - 01/19/2022 6:17 PM EDT Patient discharged to home, alert and oriented, skin warm, dry and pink. Denies needs and or questions. Will follow-up as directed, patient encouraged to return for worsening or new symptoms or otherconcerns. * Rosalie Hanna RN - 01/19/2022 4:01 PM EDT Bed: [facility] [place] Expected date: Expected time: Means of arrival: Comments: 1 * Lori Franco RN - 01/19/2022 3:46 PM EDT Pt c/o of anxiety and sob. Pt reports she was working and felt like she could not take a deep breath and then felt anxious. Pt very tearful in triage. Reports she has had this in the past. documented in this encounterBrecksville [facility] [id number] Hospital Discharge instructions* Instructions* Paulette Mcdonough APRN - 01/19/2022 Please follow-up with your primary care provider. Please return to the emergency department if you have worsening shortness of breath, chest pain or any other concern If you have pain or discomfort you can use qjbv-neb-ocejxyq Tylenol or Motrin * Attachments The following attachments cannot be sent through Care Everywhere. * SOB (Shortness of Breath) (Tajik) * High Blood Pressure in Adults (Tajik) documented in this encounterBrecksville Va / Crille [id number] Evaluation + Plan note Diagnostic Tests Pending * Varicella Zoster Antibody 11/10/21 * Rubeola IgG Antibody 11/10/21 * Rubella Antibody 11/10/21 * Mumps Antibody 11/10/21 Future Scheduled Tests Radiology* XR Knee 3 Views Right 11/16/20 [facility] Evaluation + Plan note Future Appointments Appointment Date:03/02/2022 08:50:00 AM Scheduled Provider:TESSY BOTELLO Location:[facility] Appointment Type:PC OV Future Scheduled Tests Radiology* XR Neck Soft Tissue 01/31/22 * US Thyroid 01/31/22 [facility] Evaluation + Plan note Future Appointments Appointment Date:03/01/2022 08:30:00 AM Scheduled Provider: Location:[facility] Appointment Type:PF PFT Future Scheduled Tests Radiology* XR Neck Soft Tissue 01/31/22 * US Thyroid 01/31/22 [facility] Evaluation + Plan note Future Appointments Appointment Date:11/23/2023 09:30:00 AM Scheduled Provider:FAY HEBERT MD Location:[facility] Appointment Type:ENDO OV Future Scheduled Tests Laboratory* Thyroid Stimulating Hormone 11/25/23 * Free T4 11/25/23 * Free T3 11/25/23 Radiology* XR Shoulder Minimum 2 Views Right 10/18/23 * US Thyroid 11/25/23 [facility] Evaluation + Plan note Future Appointments Appointment Date:12/19/2024 09:00:00 AM Scheduled Provider:FAY HEBERT MD Location:[facility] Appointment Type:ENDO OV Future Scheduled Tests Laboratory* Lead, Blood (Adult >=16 yrs) 06/06/24 * Thyroid Stimulating Hormone 12/19/24 * Free T4 12/19/24 * Free T3 12/19/24 Radiology* XR Shoulder Minimum 2 Views Right 10/18/23 * US Thyroid 11/25/23 * US Thyroid 12/12/24 [facility] evaluation + Plan note Future Appointments Appointment Date:12/19/2024 09:00:00 AM Scheduled Provider:FAY HEBERT MD Location:[facility] Appointment Type:ENDO OV Appointment Date:12/19/2024 10:00:00 AM Scheduled Provider:SOCO FRAZIER Location:[facility] Appointment Type:PC Wellness Annual Future Scheduled Tests Laboratory* Lead, Blood (Adult >=16 yrs) 06/06/24 Radiology* US Thyroid 11/25/23 * US Thyroid 12/12/24 [facility] evaluation note* Diagnosis Dyspnea, unspecified type- Primary Anxiety Anxiety state, unspecified Elevated blood pressure reading without diagnosis of hypertension [facility] Diagnosis Nontoxic nodular goiter Unspecified nontoxic nodular goiter documented in this encounter [facility] noteNo assessment information availableWProvidence Hospital Work Phone: evaluckiob note* Diagnosis Onset Date Resolution Status BMI 31.0-31.9,adult acute Maternal varicella, non-immune acute acute Rh negative state in antepartum period acute Supervision of high risk , antepartum acute Thyroid goiter acute Vocal cord dysfunction [facility] Work Phone: evaluation note* Diagnosis Onset [...] high risk , antepartum acute Thyroid goiter [facility] Work Phone: evaluation note* Diagnosis Onset [...] risk , antepartum acute Thyroid goiter acute [facility] Work Phone: evaluation note* Diagnosis Onset Date [...] blood pressure affe cting , antepartum acute [facility] Work Phone: evaluation note* Diagnosis Onset Date Resolution Status acute [...] risk , antepartum acute Thyroid goiter acute [facility] Work Phone: Evaluation note* Diagnosis Onset Date [...] risk , antepartum acute Thyroid goiter acute [facility] Work Phone: Evaluation note* Diagnosis Onset Date [...] Supervision of high risk , antepartum resolved [facility] Work Phone: Evaluation note* Diagnosis Onset Date [...] Supervision of high risk , antepartum resolved [facility] Work Phone: Evaluation note* Diagnosis Vocal cord dysfunction- Primary Other diseases of vocal cords documented in this encounter [facility]* Diagnosis Onset Date Resolution Status Admit Date Pelvic pain acute March 18 9:19am Encounter for routine gynecological examination noneactive March 182024 9:19am [facility] Work Phone: Hospital course Narrative No data available for this section [facility] Hospital Discharge instructions No data available for this section [facility] Progress note No data available for this section [facility] Progrtwz note Author Isabel Dickerson [facility] April 03, 2023 9:48am Note Date/Time April 03, 2023 9:48a m [facility] Medical Records Department [address] [place] [address] Progress Note - OBGYN 04/03/2346 MR#: [id number] Acct: [id number] Name: ROBERTA ROSA Rep #:[id number] : 1995 27 From: Isabel Dickerson CNM PCP: Soco Frazier TELECOMMUNICATION TOWER TECHNICIAN-C Status:REG C LI Location: [place] [address] Objective Data Objective Data Vital Signs: Vital [...] variability reactive no decelerations category I tracing Baxley: no Contractions Assessment and plan: Reactive NST, reassuring maternal and status patientdischarged to home to follow-up in office. See problem list details for additional plan information. Charges/Coding Procedures Urinary/Genital 52xxx-59xxx: 25051-23 non-stress test Interp 04/03/23 0948 <Electronically signed by Isabel Dickerson CNM> Cosigner Signature (if applicable): CC: ~ Signed [facility] Work Phone: Progress note Author Sanam Tovar [facility] Note Date/Time March 18, 2025 10:00 am [facility] [address] [place] [address], [address] [place] [address] OFFICE VISIT Date of Service: 03/18/25 MR#: [id number] Acct: [id number] Name: ROBERTA ROSA Rep #: [id number] : 1995 Provider: DONNA Tovar Age/Sex: 29/F Location: [facility] Status: Signed Intake Vital Signs 11/01/24 01:47 03/18/25 09:27 Height 5 ft 9 in 5 ft 9 in Weight: 212 lb BMI 31.3 BP 120/82 H 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) Chief Complaint: Annual Print Producer Required: No Is patient in pain?: No [...] mg-folate no.1 1 mg-dha 300 mg capsule (PNV-Marion) omega3 1,000 hg-kvf-onp-other 1 cap PO DAILY Check wit h primary 09/27/22 03/18/25 History oz6r-juxc oil 1,400 mg doctor capsule,delay rel cholecalciferol [...] 5-6 times per week duration: 30-45 minutes/day amy/baptism: None seatbelt use: always do you feel safe at home: Yes 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 1 Elective abortions Hx Para 1 [...] Cosigner Signature: Date (if applicable) CC: ~ [facility] Work Phone: Progress note Author Sanam Tovar [facility] Note Date/Time June 27, 2025 11 :47am [facility] [address] [place] [address], [address] [place] [address] OFFICE VISIT Date of Service: 06/27/25 MR#: [id number] Acct: [id number] Name: ROBERTA ROSA Rep #: [id number] : 1995 Provider: DONNA Tovar Age/Sex: 30/F Location: [facility] Status: Signed Intake Vital Signs 04/25/25 09:27 06/23/25 13:07 06/27/25 11:17 Height 5 ft 9 in 5 ft 9 in 5 ft 9 in Weight: 209 lb 7 oz BMI 30.9 BP 110/73 Intake Visit Reasons: LMP 7/5, ro vaginal infection Chief Complaint: vaginal discharge Print Producer Required: No Is patient in pain?: No Allergies azithromycin Adverse Reaction (Verified 06/27/25 11:15) lightheaded Food Allergies: Uncoded Adverse Reaction (Verified 06/27/25 11:15) Other Medications ?Medication ?Instructions ?Recorded ?Confirmed ?Type ascorbic acid (vitamin C) 1,000 mg 1 g PO DAILY supple ment 09/27/22 06/27/25 History capsule multivit-min no.71-iron fum 28 1 cap PO DAILY pregnanc y 09/27/22 06/27/25 History mg-folate no.1 1 mg-dha 300 mg capsule (PNV-Marion) omega3 1,000 dl-goo-lkz-other 1 cap PO DAILY Check wit h primary 09/27/22 06/27/25 History kr5j-rhgb oil 1,400 mg doctor capsule,delay rel cholecalciferol (vitamin D3) 25 150 mcg PO DAILY 06/0206/27/25 History mcg (1,000 unit) capsule vitamin B complex 1 cap PO QDAY 06/27/2506/27 History Is last menstrual period known: Yes Last Menstrual Period: 05/10/25 Post menopausal: No Patient : Yes : No PFSH Medical History Pelvic pain Vocal cord dysfunction Migraine ADHD Surgical History H/O wisdom tooth extraction History of tonsillectomy Family History Mother Psoriasis Brother Psoriatic arthritis Asthma Ulcerative colitis Father Kidney stone Social History adopted: No household members: spouse and children housing: apartment number of children: 1 current occupational status: employed 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) current occupational exposures/hazards: No pets and animals: Yes pets and animals: dog(s) history of recent travel: No sexually active: Yes Smoking Status: Never smoker second hand exposure: No alcohol intake: current alcohol intake frequency: holidays/special occasions only details: Not while substance use type: does not use well-balanced diet: daily or most days caffeine: Yes Type: coffee Number of servings: 1 eating out: rarely or never during the past year weight has: remained stable what type of physical activity do you participate in: walking frequency: 5-6 times per week duration: 30-45 minutes/day amy/baptism: None seatbelt use: always do you feel safe at home: Yes 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 Had positive test with cramping. Having some right sided pelvic pain. not consistent, NO vaginal bleeding. Is feeling nauseated and having food aversions. Office TVUS to determine position and IUP. CRL 0.86 cons with 6.6 weeks. FHT 146 Female Reproductive History Last Menstrual Period: 05/10/25 Questions: sexually active: Yes, dyspareunia: No and PCB: No 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 Date Name GA/Weeks Outcome Route Bth Weight Gen Labor Lgth Anesthesia Del Locatn Provider FOB 04/25/23 Rickey Ramirez IV 37 live - full term 6lbs 14oz Mal e epidural H Sanam Lang Delivery Date: 04/25/23 Last Updated [...] and no additional complaints, except as documented Exam Const General: cooperative, healthy appearing, comfortable and no acute distress Resp Effort & Inspection: normal respiratory effort, able to speak in complete sentences and symmetric chest movement GI Inspection: normal to inspection Palpation: soft External Female Exam: normal external appearance and [...] Exam- Adnexa, other: normal Pelvic Support: normal Neuro General: patient alert, patient awake and patient oriented x3 Cognition: normal cognition Speech: speech normal Gait: normal gait Psych Appearance: grossly normal and well kempt Mental Status: mental status grossly normal Affect: normal affect Speech and Movement: speech and movement normal Attitude: cooperative Thought Process: normal Thought Content: normal Judgment: judgment good Coding Level of Care Code Off vis,est,level 3 Diagnoses Cramping affecting , antepartum O26.899; R10.9 Assessment and Plan Assessment and Plan (1) Cramping affecting , antepartum: Status: Acute Plan: genital culture Office TVUS to determine IUP- confirmed. measuring 6.6 weeks Orders: Orders Culture, Genital Comprehensive Today N89.8 - Other specified noninflammatory disorders of vagina 06/27/25 1147 <Electronically signed by Sanam cantu CNM> Date _ Sanam AVILEZAziza Cosigner Signature: Date (if applicable) CC: ~ [facility] Work Phone: Progress note Author Beatriz Cyr [facility] Note Date/Time July 15, 2025 11:36am [facility] [address] [place] [address], [address] [place] [address] OFFICE VISIT Date of Service: 07/15/25 MR#: [id number] Acct: [id number] Name: ROBERTA ROSA Rep #: [id number] : 1995 Provider: Dr. Donnell Cyr MD Age/Sex: 30/F Location: [facility] Status: Signed Intake Vital Signs 04/25/25 09:27 06/27/25 11:17 07/15/25 10:51 Height 5 ft 9 in 5 ft 9 in 5 ft 9 in Weight: 211 lb BMI 31.1 BP 122/81 H Intake Visit Reasons: EST* NOB LMP 7, ADILENE 02/14 Print Producer Required: No Is patient in pain?: No Allergies azithromycin Adverse Reaction (Verified 07/15/25 10:53) lightheaded Food Allergies: Uncoded Adverse Reaction (Verified 07/15/25 10:53) Other Medications ?Medication ?Instructions ?Recorded ?Confirmed ?Type ascorbic acid (vitamin C) 1,000 mg 1 g PO DAILY supple ment 09/27/22 07/15/25 H istory capsule multivit-min no.71-iron fum 28 1 cap PO DAILY pregnanc y 09/27/22 07/15/25 History mg-folate no.1 1 mg-dha 300 mg capsule (PNV-Marion) omega3 1,000 ls-ipw-pjm-other 1 cap PO DAILY Check wit h primary 09/27/22 07/15/25 History [id number] oil 1,400 mg doctor capsule,delay rel cholecalciferol (vitamin D3) 25 150 mcg PO DAILY 06/0207/15/25 History mcg (1,000 unit) capsule vitamin B complex 1 cap PO QDAY 06/27/2507/15 History Last Menstrual Period: 05/10/25 Zika: Zika virus screening: Negative : No PFSH PFSH Medical History Pelvic pain Vocal cord dysfunction Migraine ADHD Surgical History H/O wisdom tooth extraction History of tonsillectomy Family History Mother Psoriasis Brother Psoriatic arthritis Asthma Ulcerative colitis Father Kidney stone Social History adopted: No household members: spouse and children housing: apartment number of children: 1 current occupational status: employed 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) current occupational exposures/hazards: No pets and animals: Yes pets and animals: dog(s) history of recent travel: No sexually active: Yes Smoking Status: Never smoker second hand exposure: No alcohol intake: current alcohol intake frequency: holidays/special occasions only details: Not while substance use type: does not use well-balanced diet: daily or most days caffeine: Yes Type: coffee Number of servings: 1 eating out: rarely or never during the past year weight has: remained stable what type of physical activity do you participate in: walking frequency: 5-6 times per week duration: 30-45 minutes/day amy/baptism: None seatbelt use: always do you feel safe at home: Yes 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 Date Name GA/Weeks Outcome Route Bth Weight Gen Labor Lgth Anes thesi a Del Locatn Provider FOB 04/25/23 Rickey Ramirez IV 37 live - full term 6lbs 14oz Mal e epidural [employer] Sanam Lang Delivery Date: 04/25/23 Last Updated by: Soco Ruiz 2nd degree laceration HPI EST* NOB LMP 05/10, ADILENE 02/14 Details: ROBERTA ROSA is a 30 year old who presents for New OB visit. OB Visit ADILENE Calculator Estimated Delivery Date Method Current WG Current Estimate 02/14/26 LMP (Certain) 9w 3d Estimated Due Date: 02/14/26 Expected Delivery Route/Plan Labor Preferences- CB/BF classes: [] labor support person: [] labor intervention preferences: [] pain management options preferred: [] cut cord/dad catch: [] : [] PP control planned: [] discussed possible routes of delivery and associated risks: [] special requests: [] Specific Issue/Plans Covid status: [] Flu vaccine: [] Tdap vaccine: [] Rhogam: [] LARC form signed: [] Problem list reviewed and updated with the most current plan of care details and appropriate orders placed. Relevant counseling for the gestational age provided. 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, 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) Frequency in days: 28-30 On hormonal BC at conception: No hCG+: 06/09/25 Antepartum Record Genetic Screening: Congenital Heart Defect: Other, Neural Tube Defect: Other, Hemoglobinopathy Or Carrier: Other, Cystic Fibrosis: Other, Chromosome Abnormality: Other, Onel-Sachs: Other, Hemophilia: Other, Intellectual Disability/Autism: Other, Recurrent Loss/Stillbirth: Other, Other Structural Defect: Other, Other Genetic Disease: Other and Maternal Metabolic Disorder: Other Infection History: Live with someone with TB or Exposed to TB: No, Patient or Partner has history of Genital Herpes: No, Rash or Viral illness since last mentrual period: No, Prior GBS-Infected child: No, History of STD: No, HIV Infection: No, History of Hepatitis: No, Recent travel outside of [place]: No, Concern for hepatitis exposure: No, Varicella immune: No (Had reaction to vaccine) and Covid Vaccinated: Yes (Moderna - No boosters) Medical History Medical History: Positive: Hypertension (PIH), Thyroid dysfunction (Thyroid goiter), D (Rh) Sensitized (O-), Drug/latex allergies/reactions (See allergies list) and Operations/hospitalizations (see surg list) and Negative: Diabetes, Heart disease, Auto-immune disorder, Kidney disease/UTI, Neurologic/epilepsy, Psychiatric, Depression/ depression, Hepatitis/liver disease, Varicosities/phlebitis, Trauma/domestic violence, History of blood transfusions, Pulmonary (e.g.,TB,Asthma), Seasonal allergies, Breast, Public Administration Teacher surgery, Anesthetic complications, History of abnormal pap, Uterine anomaly/ace, Infertility, Anti-retroviral treatment, Relevant family history and Other ACOG First Trimester First Trimester: Desire for , Alcohol, Tobacco Cessation, Illicit/Recreational Drug/Substance Use, Intimate Partner Violence, Barriers to care, Unstable Housing, Communication Barriers, Environmental/Work Hazards, Anticipated Course of Care, Toxoplasmosis Precations, Use of Any medications, Sexual activity, Exercise, Dental Care, Sauna/Hot tub use, Seat Belt use, Childbirth classes/Hospital facilities, Travel, Indications for Ultrasound and Screening for Aneuploidy; Discussed Second Trimester Second Trimester: Signs and Symptoms of Labor, Selecting a care provider, Reproductive Life Planning & Contreception, Care Planning, Depression/Anxiety and Intimate Partner Violence; Discussed Tobacco Cessation Third Trimester Third Trimester: Pain Management Plans, Labor support person(s), Immediate Larc, Movement Monitoring, Signs and Symptoms of Preeclampsia and Education ROS Const Reports system reviewed and no additional complaints, except as documented, Reports fatigue and Denies fever(s) Eyes Reports system reviewed and no additional complaints, except as documented ENT Reports system reviewed and no additional complaints, except as documented Card Denies chest pain and Denies dyspnea Resp Reports system reviewed and no additional complaints, except as documented, Denies cough and Denies dyspnea GI Denies abdominal pain and Reports nausea Reports system reviewed and no additional complaints, except as documented Musc Reports system reviewed and no additional complaints, except as documented Skin/Breast Reports system reviewed and no additional complaints, except as documented Neuro Yes system reviewed and no additional complaints, except as documented Psych Reports system reviewed and no additional complaints, except as documented Endo Reports system reviewed and no additional complaints, except as documented and Reports fatigue Exam Const General: healthy appearing, comfortable and no acute distress Orientation: alert [facility] Head: normal to inspection, normocephalic and atraumatic Ears: hearing grossly normal bilaterally and external ears normal Nose: external nose normal and nares normal Mouth: oral mucosae normal Teeth and gingiva: dentition normal Eyes General: appearance normal, both eyes and all related structures Neck Neck: normal visual inspection, no lymphadenopathy and supple Thyroid: thyroid normal Chest Chest palpation & inspection: normal inspection of the chest Breast inspection: normal inspection of the breasts and normal inspection of the axillae Breast palpation: normal palpation of the breasts and normal palpation of the axillae Resp Effort & Inspection: normal respiratory effort GI Inspection: normal to inspection Palpation: soft and no hepatosplenomegaly General: bladder normal to palpation External Female Exam: normal external appearance and normal appearance of the urethra Urethra: normal appearance of the urethra Speculum Exam - Vagina: normal appearance of the vagina and normal vaginal discharge Speculum Exam - Cervix: normal appearance of the cervix Bimanual Exam- Vagina & Uterus: normal bimanual exam, bladder normal to palpation, non-tender and other Bimanual Exam- Adnexa, other: non-tender Skin General: no rashes or lesions noted Neuro Motor: muscle tone normal throughout and no movement abnormalities noted Extrem General: normal to inspection and full ROM Supplemental Info ACOG book given and patient encouraged to read about nutrition, exercise, weight gain, and food avoidance in . Coding Level of Care Code OB Routine Diagnoses Cramping affecting , antepartum O26.899; R10.9 Rh negative status during O26.899; Z67.91 History of induced hypertension Z87.59 Supervision of high-risk O09.90 9 weeks gestation of Z3A.09 Weeks of gestation: 9 weeks Thyroid goiter E04.9 Maternal varicella, non-immune O09.899; Z28.39 Assessment and Plan Assessment and Plan (1) Cramping affecting , antepartum: Status: Acute (2) Rh negative status during : Status: Acute Comment: Rhogam @ 28weeks & PRN (3) History of induced hypertension: Status: Acute (4) Supervision of high-risk : Status: Acute Comment: , ADILENE 02/14, PC: Rickey Ramirez IV, : Rickey (5) : Status: Acute Qualifiers: Weeks of gestation: 9 weeks Qualified Code(s): Z3A.09 - 9 weeks gestation of Comment: Discussed genetic/carrier testing - declined. (6) Thyroid goiter: Status: Acute Comment: monitoring; Thyroid labs ordered w/NOB (7) Maternal varicella, non-immune: Status: Acute Comment: Pt has had 5 boosters, doesn't hold immunity 07/15/25 1136 <Electronically signed by Beatriz corona MD> Date _ Beatriz Cyr MD Cosigner Signature: Date (if applicable) CC: ~ [facility] Work Phone: Reason for referral (narrative)No reason for referral [facility] Work Phone: Reason for visit Narrative* Speech Therapy (Routine) - Authorized Specialty Diagnoses / Procedures Referred By Jamar t Referred To Contact Speech Pathology / Speech Therapy Diagnoses SIBILLIA/RX IN MEDIA Procedures VOCAL CORD DYSFUNCTION Charbel Napier MD [address] [place] [address] Phone: tel: fax: Sanam Arcos, [facility] [address] [place] [address] Phone: tel: fax: Referral ID Status Reason Start Date Expiration Date V isits Requested Visits Authorized [id number] Authorized 09/06/2024 11/05/2024 20 20 [facility] Summary Purpose Family History No Family History Records Found Relationship Condition Age at Onset Recorded Date/T clyde mother Psoriasis Unknown Relationship Condition Age at Onset Recorded Date/T clyde mother Psoriasis Unknown brother Psoriatic arthritis Unknown Asthma Unknown father Calculus of kidney Unknown Relationship Condition Age at Onset Recorded Date/T clyde mother Psoriasis Unknown brother Psoriatic arthritis Unknown Asthma Unknown Ulcerative colitis Unknown father Calculus of kidney Unknown Advance Directives No Advanced Directives Records Found Advance Directive Response Recorded Date/ Time Living Will No May 07, 2019 1 0:01am Power of Tube Blower No May 07, 2019 10:01am Advance Directive Response Recorded Date/ Time Living Will No May 07, 2019 9 :01am Power of Tube Blower No May 07, 2019 9:01am Advance Directive Response Recorded Date/ Time Living Will No April 23, 2023 7:44pm Power of Tube Blower No April 23 7:44pm Advance Directive Response Recorded Date/ Time Living Will No November 01, 024 2:50am Do you have a Healthcare Power of Tube Blower? 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 32 WK OB 32 WK NST [...] PRE-ECLAMPSIA RULE OUT PRE-ECLAMPSIA 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 32 WK OB 32 WK NST [...] PRE-ECLAMPSIA RULE OUT PRE-ECLAMPSIA 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 32 WK OB 32 WK NST [...] PRE-ECLAMPSIA RULE OUT PRE-ECLAMPSIA 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 32 WK OB 32 WK NST [...] FOR NODULE SIZE January 30 12:55pm 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) March 18, 2025 9:19a m Reason for Visit Admit Date Pelvic pain March 18, 2025 9:19a m Encounter for routine gynecological exam ination March 18, 2025 9:19am Chief Complaint Admit Date FOLLOW UP FOR NODULE SIZE January 30 12:55pm 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) March 18, 2025 9:19a m UTERINE TENDERNESS March 26, 2025 8:27a m Chief Complaint Admit Date FOLLOW UP FOR NODULE SIZE January 30 12:55pm 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) March 18, 2025 9:19a m UTERINE TENDERNESS March 26, 2025 8:27a m Painful Menses $20 copay April 25, 2025 9:14am Reason for Visit Admit Date Pelvic pain March 18, 2025 9:19a m Encounter for routine gynecological exam ination March 18, 2025 9:19am Dysmenorrhea April 25, 2025 9:14 am Pelvic pain April 25, 2025 9:14 am Chief Complaint Admit Date 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) March 18, 2025 9:19a m UTERINE TENDERNESS March 26, 2025 8:27a m Painful Menses $20 copay April 25, 2025 9:14am Chief Complaint Admit Date 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) March 18, 2025 9:19a m UTERINE TENDERNESS March 26, 2025 8:27a m Painful Menses $20 copay April 25, 2025 9:14am Amb Documentation June 27, 2025 9: 25am LMP 7/5, ro vaginal infection June 11:10am Reason for Visit Admit Date Pelvic pain March 18, 2025 9:19a m Encounter for routine gynecological exam ination March 18, 2025 9:19am Dysmenorrhea April 25, 2025 9:14 am Pelvic pain April 25, 2025 9:14 am Cramping affecting , antepartum June 27, 2025 11:10am Chief Complaint Admit Date 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) March 18, 2025 9:19a m UTERINE TENDERNESS March 26, 2025 8:27a m Painful Menses $20 copay April 25, 2025 9:14am Amb Documentation June 27, 2025 9: 25am LMP 7/5, ro vaginal infection June 11:10am EST* NOB LMP 7/5, ADILENE 02/14 10:39am Reason for Visit Admit Date Pelvic pain March 18, 2025 9:19a m Encounter for routine gynecological exam ination March 18, 2025 9:19am Dysmenorrhea April 25, 2025 9:14 am Pelvic pain April 25, 2025 9:14 am Cramping affecting , antepartum June 27, 2025 11:10am Cramping affecting , antepartum July 15, 2025 10:39am History of induced hypertensio n July 15, 2025 10:39am Maternal varicella, non-immune July 15, 2025 10:39am July 15, 2025 10:39am Rh negative status during [facility] 2024 10:39am Supervision of high-risk [facility] 2024 10:39am Thyroid goiter July 15, 2025 10:39am Chief Complaint Admit Date UTERINE TENDERNESS March 26, 2025 8:27a m Painful Menses $20 copay April 25, 2025 9:14am Amb Documentation June 27, 2025 9: 25am LMP 7/5, ro vaginal infection June 11:10am EST* NOB LMP 7/5, ADILENE /July 10:39am PELVIC FLOOR/RX HERE July 22 12:25pm Reason for Visit Admit Date Dysmenorrhea April 25, 2025 9:14 am Pelvic pain April 25, 2025 9:14 am Cramping affecting , antepartum June 27, 2025 11:10am Cramping affecting , antepartum July 15, 2025 10:39am History of induced hypertensio n July 15, 2025 10:39am Maternal varicella, non-immune July 15, 2025 10:39am July 15, 2025 10:39am Rh negative status during [facility] 2024 10:39am Supervision of high-risk [facility] 2024 10:39am Thyroid goiter July 15, 2025 10:39am Chief Complaint Admit Date Painful Menses $20 copay April 25, 2025 9:14am Amb Documentation June 27, 2025 9: 25am LMP 7/5, ro vaginal infection June 11:10am EST* NOB LMP 7/5, ADILENE 4/July 10:39am PELVIC FLOOR/RX HERE August 12, 2025 7 :30am 13wk 3D OB August 12, 2025 3: 29pm Reason for Visit Admit Date Dysmenorrhea April 25, 2025 9:14 am Pelvic pain April 25, 2025 9:14 am Cramping affecting , antepartum June 27, 2025 11:10am Cramping affecting , antepartum July 15, 2025 10:39am History of induced hypertensio n July 15, 2025 10:39am Maternal varicella, non-immune July 15, 2025 10:39am July 15, 2025 10:39am Rh negative status during Sept ember 2024 10:39am Supervision of high-risk [facility]2024 10:39am Thyroid goiter July 15, 2025 10:39am Cramping affecting , antepartum August 12, 2025 3:29pm History of induced hypertensio n August 12, 2025 3:29pm Maternal varicella, non-immune August 122024 3:29pm Pelvic pain affecting August 12, 2025 3:29pm August 12, 2025 3: 29pm Rh negative status during [facility] 2024 3:29pm Supervision of high-risk 2024 3:29pm Thyroid goiter August 12, 2025 3: 29pm Additional Source Comments INFORMATION SOURCE (unrecogn ized section and content) DATE CREATED AUTHOR 06/10/2021 [facility] Mariia Sands DATE CREATED AUTHOR AUTHOR'S ORGANIZ ATION 06/11/2021 [facility] DATE CREATED AUTHOR AUTHOR'S ORGANIZ ATION 01/20/2022 [facility] DATE CREATED AUTHOR AUTHOR'S ORGANIZ ATION 04/12/2022 [facility] pitwa DATE CREATED AUTHOR AUTHOR'S ORGANIZ ATION 06/12/2024 [facility] ([place]) DATE CREATED AUTHOR AUTHOR'S ORGANIZ ATION 09/14/2024 [facility] DATE CREATED AUTHOR AUTHOR'S ORGANIZ ATION 12/18/2024 [facility] DATE CREATED AUTHOR AUTHOR'S ORGANIZ ATION 09/10/2025 [facility] Reason for Visit (unrecogniz ed section and content) Reason Comments Anxiety Shortness of Breath Specialty Diagnoses / Procedures Referred By Jamar antonio Referred To Contact Diagnoses Nontoxic nodular goiter Procedures US THYROID OR PARATHYROID Tessy Botello, MASS SPECTROMETRY MANAGER [address] [place] [address] Referral ID Status Reason Start Date Expiration Date Visits Re quested Visits Authorized [id number] Closed 02/01/2022 1 1 Care Teams (unrecognized sec tion and content) Job Coaching Relationship Specialty Start Date End Date Nonstaff, [place] [address] PCP - General 01/06/22 Job Coaching Relationship Specialty Start Date End Date Nonstaff, [place] [address] PCP - General 01/06/22 Team Status: Active Member Role Status Dates Soco Frazier TELECOMMUNICATION TOWER TECHNICIAN, TELECOMMUNICATION TOWER TECHNICIAN-C Family Provider Active Soco Frazier TELECOMMUNICATION TOWER TECHNICIAN, TELECOMMUNICATION TOWER TECHNICIAN-C Primary Care Provider Active Team Status: Inactive Member Role Status Dates Soco Frazier NP, TELECOMMUNICATION TOWER TECHNICIAN-C Primary Care Provider, Referri ng Provider Active Dr. Antonieta Hendrickson DO Attending Provider Activ e Team Status: Inactive Member Role Status Dates Soco Frazier TELECOMMUNICATION TOWER TECHNICIAN, TELECOMMUNICATION TOWER TECHNICIAN-C Primary Care Provider, Referri ng Provider Active Dr. Beatriz Cyr MD Attending Provider Active Team Status: Inactive Member Role Status Dates Soco Frazier TELECOMMUNICATION TOWER TECHNICIAN, TELECOMMUNICATION TOWER TECHNICIAN-C Primary Care Provider, Referri ng Provider Active Joy De La Paz TELECOMMUNICATION TOWER TECHNICIAN, TELECOMMUNICATION TOWER TECHNICIAN-C Attending Provider Active Team Status: Inactive Member Role Status Dates Soco Frazier NP, TELECOMMUNICATION TOWER TECHNICIAN-C Primary Care Provider Active Dr. Antonieta Hendrickson DO Attending Provider Activ e Team Status: Inactive Member Role Status Jackie Frazier NP, TELECOMMUNICATION TOWER TECHNICIAN-C Primary Care Provider Active Dr. Antonieta Hendrickson DO Attending Provider, Refe rring Provider Active Team Status: Inactive Member Role Status Dates Soco Frazier NP, TELECOMMUNICATION TOWER TECHNICIAN-C Primary Care Provider Active Dr. Beatriz Cyr MD Attending Provider Active Team Status: Inactive Member Role Status Dates Soco Frazier NP, TELECOMMUNICATION TOWER TECHNICIAN-C Primary Care Provider Active Dr. Beatriz Cyr MD Attending Provider, Referr ing Provider Active Team Status: Inactive Member Role Status Dates Soco Frazier TELECOMMUNICATION TOWER TECHNICIAN, TELECOMMUNICATION TOWER TECHNICIAN-C Primary Care Provider, Referri ng Provider Active Isabel Dickerson CNM Attending Provider Active Team Status: Active Member Role Status Dates Soco Frazier TELECOMMUNICATION TOWER TECHNICIAN, TELECOMMUNICATION TOWER TECHNICIAN-C Primary Care Provider Active Sanam Tovar CNM Attending Provider, Referring Provider, Other Provider Active Team Status: Inactive Member Role Status Dates Soco Frazier TELECOMMUNICATION TOWER TECHNICIAN, TELECOMMUNICATION TOWER TECHNICIAN-C Primary Care Provider Active Sanam Tovar CNM Attending Provider, Referring Pro vider Active Team Status: Inactive Member Role Status Dates Soco Frazier TELECOMMUNICATION TOWER TECHNICIAN, TELECOMMUNICATION TOWER TECHNICIAN-C Primary Care Provider, Referri ng Provider Active Sanam Tovar CNM Attending Provider Active Team Status: Active Member Role Status Dates Soco Frazier TELECOMMUNICATION TOWER TECHNICIAN, TELECOMMUNICATION TOWER TECHNICIAN-C Primary Care Provider Active Isabel Dickerson CNM Attending Provider , Referring Provider, Other Provider Active Team Status: Active Member Role Status Dates Soco Frazier TELECOMMUNICATION TOWER TECHNICIAN, TELECOMMUNICATION TOWER TECHNICIAN-C Primary Care Provider Active Isabel Dickerson CNM Attending Provider, Other Provid er Active Team Status: Active Member Role Status Dates Soco Frazier TELECOMMUNICATION TOWER TECHNICIAN, TELECOMMUNICATION TOWER TECHNICIAN-C Primary Care Provider Active Sanam Tovar CNM Attending Provider, Referring Pro vider Active Team Status: Inactive Member Role Status Dates Soco Frazier TELECOMMUNICATION TOWER TECHNICIAN, TELECOMMUNICATION TOWER TECHNICIAN-C Primary Care Provider Active Isabel Dickerson CNM Attending Provider, Referring Pr ovider Active Team Status: Inactive Member Role Status Jackie Frazier TELECOMMUNICATION TOWER TECHNICIAN, TELECOMMUNICATION TOWER TECHNICIAN-C Primary Care Provider Active Isabel Dickerson CNM Attending Provider Active Team Status: Inactive Member Role Status Dates Soco Frazier TELECOMMUNICATION TOWER TECHNICIAN, TELECOMMUNICATION TOWER TECHNICIAN-C Primary Care Provider, Referri ng Provider Active Joy De La Paz TELECOMMUNICATION TOWER TECHNICIAN, TELECOMMUNICATION TOWER TECHNICIAN-C Active Sanam Tovar CNM Attending Provider Active Team Status: Active Member Role Status Jackie Frazier NP, TELECOMMUNICATION TOWER TECHNICIAN-C Primary Care Provider Active Dr. Antonieta Hendrickson DO Admit Prov ider, Referring Provider, Other Provider Active Sanam Tovar CNM Attending Provider Active Team Status: Active Member Role Status Jackie Frazier TELECOMMUNICATION TOWER TECHNICIAN, TELECOMMUNICATION TOWER TECHNICIAN-C Primary Care Provider Active Sanam Tovar CNM Admit Provider, Att ending Provider, Referring Provider, Other Provider Active Team Status: Active Member Role Status Dates Soco Frazier TELECOMMUNICATION TOWER TECHNICIAN, TELECOMMUNICATION TOWER TECHNICIAN-C Primary Care Provider Active Sanam Tovar CNM Attending Provider, Referring Pro vider Active Isabel Dickerson CNM Other Provider Active Team Status: Active Member Role Status Dates Soco Frazier TELECOMMUNICATION TOWER TECHNICIAN, TELECOMMUNICATION TOWER TECHNICIAN-C Primary Care Provider Active Patient Link Program Attending Provider, Referring Pro vider Active Team Status: Inactive Member Role Status Dates Soco Frazier TELECOMMUNICATION TOWER TECHNICIAN, TELECOMMUNICATION TOWER TECHNICIAN-C Primary Care Provider Active Joy De La Paz TELECOMMUNICATION TOWER TECHNICIAN, TELECOMMUNICATION TOWER TECHNICIAN-C Attending Provider, Referring Provider Active Team Status: Inactive Member Role Status Dates Soco Frazier TELECOMMUNICATION TOWER TECHNICIAN, TELECOMMUNICATION TOWER TECHNICIAN-C Primary Care Provider Active Sanam Tovar CNM Admit Provider, Att ending Provider, Referring Provider Active Team Status: Inactive Member Role Status Dates Soco Frazier NP, TELECOMMUNICATION TOWER TECHNICIAN-C Primary Care Provider Active Sanam Tovar CNM Attending Provider, Referring Pro vider Active Isabel Dickerson CNM Other Provider Active Job Coaching Relationship Specialty Start Date End Date Soco Frazier APRN-[employer] [address] [place] [address] PCP - General Family Medicine 11/15/22 Team Status: Active Member Role Status Dates Soco Frazier TELECOMMUNICATION TOWER TECHNICIAN, TELECOMMUNICATION TOWER TECHNICIAN-C Primary Care Provider Active Team Status: Inactive Member Role Status Dates Soco Frazier TELECOMMUNICATION TOWER TECHNICIAN, TELECOMMUNICATION TOWER TECHNICIAN-C Primary Care Provider Active Start: November 01, 2024 End: November 01, 2024 Dr. Heron Mondragon MD Attending Provider Active S tart: November 01, 2024 End: November 01, 2024 Dr. Heron Mondragon MD Emergency Provider Active S tart: November 01, 2024 End: November 01, 2024 Team Status: Inactive Member Role Status Dates Soco Frazier TELECOMMUNICATION TOWER TECHNICIAN, TELECOMMUNICATION TOWER TECHNICIAN-C Primary Care Provider Active Start: January 30, 2025 End: January 30, 2025 Dr. Fay Hebetr MD Attending Provider Act trevor Start: January 30, 2025 End: January 30, 2025 Dr. Fay Hebert MD Referring Provider Act trevor Start: January 30, 2025 End: January 30, 2025 Team Status: Inactive Member Role Status Dates Soco Frazier TELECOMMUNICATION TOWER TECHNICIAN, TELECOMMUNICATION TOWER TECHNICIAN-C Primary Care Provider Active Start: March 18, 2025 End: March 18, 2025 Soco Frazier NP, TELECOMMUNICATION TOWER TECHNICIAN-C Referring Provider Active Start: March 18, 2025 End: March 18, 2025 Sanam Tovar CNM Attending Provider Active S tart: March 18, 2025 End: March 18, 2025 Team Status: Inactive Member Role Status Dates Soco Frazier NP, TELECOMMUNICATION TOWER TECHNICIAN-C Primary Care Provider Active Start: March 18, 2025 End: March 18, 2025 Sanam Tovar CNM Attending Provider Active S tart: March 18, 2025 End: March 18, 2025 Sanam Tovar CNM Referring Provider Active S tart: March 18, 2025 End: March 18, 2025 Team Status: Inactive Member Role Status Dates Soco Frazier NP, TELECOMMUNICATION TOWER TECHNICIAN-C Primary Care Provider Active Start: March 26, 2025 End: March 26, 2025 Sanam Tovar CNM Attending Provider Active S tart: March 26, 2025 End: March 26, 2025 Sanam Tovar CNM Referring Provider Active S tart: March 26, 2025 End: March 26, 2025 Team Status: Inactive Member Role Status Dates Soco Frazier NP, TELECOMMUNICATION TOWER TECHNICIAN-C Primary Care Provider Active Start: April 25, 2025 End: April 25, 2025 Soco Frazier NP, TELECOMMUNICATION TOWER TECHNICIAN-C Referring Provider Active Start: April 25, 2025 End: April 25, 2025 Sanam Tovar CNM Attending Provider Active S tart: April 25, 2025 End: April 25, 2025 Team Status: Active Member Role/Relationship Status Dates Soco Frazier NP, TELECOMMUNICATION TOWER TECHNICIAN-C Primary Care Provider Active Team Status: Inactive Member Role/Relationship Status Dates Soco Frazier NP, TELECOMMUNICATION TOWER TECHNICIAN-C Primary Care Provider Active Start: January 30, 2025 End: January 30, 2025 Dr. Fay Hebert MD Attending Provider Act trevor Start: January 30, 2025 End: January 30, 2025 Dr. Fay Hebert MD Referring Provider Act trevor Start: January 30, 2025 End: January 30, 2025 Team Status: Inactive Member Role/Relationship Status Dates Soco Frazier NP, TELECOMMUNICATION TOWER TECHNICIAN-C Primary Care Provider Active Start: March 18, 2025 End: March 18, 2025 Soco Frazier NP, TELECOMMUNICATION TOWER TECHNICIAN-C Referring Provider Active Start: March 18, 2025 End: March 18, 2025 Sanam Tovar CNM Attending Provider Active S tart: March 18, 2025 End: March 18, 2025 Team Status: Inactive Member Role/Relationship Status Dates Soco Frazier NP, TELECOMMUNICATION TOWER TECHNICIAN-C Primary Care Provider Active Start: March 18, 2025 End: March 18, 2025 Sanam Tovar CNM Attending Provider Active S tart: March 18, 2025 End: March 18, 2025 Sanam Tovar CNM Referring Provider Active S tart: March 18, 2025 End: March 18, 2025 Team Status: Inactive Member Role/Relationship Status Dates Soco Frazier NP, TELECOMMUNICATION TOWER TECHNICIAN-C Primary Care Provider Active Start: March 26, 2025 End: March 26, 2025 Sanam Tovar CNM Attending Provider Active S tart: March 26, 2025 End: March 26, 2025 Sanam Tovar CNM Referring Provider Active S tart: March 26, 2025 End: March 26, 2025 Team Status: Inactive Member Role/Relationship Status Dates Soco Frazier NP, TELECOMMUNICATION TOWER TECHNICIAN-C Primary Care Provider Active Start: April 25, 2025 End: April 25, 2025 Scoo Frazier NP, TELECOMMUNICATION TOWER TECHNICIAN-C Referring Provider Active Start: April 25, 2025 End: April 25, 2025 Sanam Tovar CNM Attending Provider Active S tart: April 25, 2025 End: April 25, 2025 Team Status: Inactive Member Role/Relationship Status Dates Soco Frazier NP, TELECOMMUNICATION TOWER TECHNICIAN-C Primary Care Provider Active Start: April 25, 2025 End: April 25, 2025 Sanam Tovar CNM Attending Provider Active S tart: April 25, 2025 End: April 25, 2025 Team Status: Inactive Member Role/Relationship Status Dates Soco Frazier NP, TELECOMMUNICATION TOWER TECHNICIAN-C Primary Care Provider Active Start: March 18, 2025 End: March 18, 2025 Soco Frazier NP, TELECOMMUNICATION TOWER TECHNICIAN-C Referring Provider Active Start: March 18, 2025 End: March 18, 2025 Sanam Tovar CNM Attending Provider Active S tart: March 18, 2025 End: March 18, 2025 Team Status: Inactive Member Role/Relationship Status Dates Soco Frazier NP, TELECOMMUNICATION TOWER TECHNICIAN-C Primary Care Provider Active Start: March 18, 2025 End: March 18, 2025 Sanam Tovar CNM Attending Provider Active S tart: March 18, 2025 End: March 18, 2025 Sanam Tovar CNM Referring Provider Active S tart: March 18, 2025 End: March 18, 2025 Team Status: Inactive Member Role/Relationship Status Dates Soco Frazier NP, TELECOMMUNICATION TOWER TECHNICIAN-C Primary Care Provider Active Start: March 26, 2025 End: March 26, 2025 Sanam Tovar CNM Attending Provider Active S tart: March 26, 2025 End: March 26, 2025 Sanam Tovar CNM Referring Provider Active S tart: March 26, 2025 End: March 26, 2025 Team Status: Inactive Member Role/Relationship Status Dates Soco Frazier TELECOMMUNICATION TOWER TECHNICIAN, TELECOMMUNICATION TOWER TECHNICIAN-C Primary Care Provider Active Start: April 25, 2025 End: April 25, 2025 Soco Frazier TELECOMMUNICATION TOWER TECHNICIAN, TELECOMMUNICATION TOWER TECHNICIAN-C Referring Provider Active Start: April 25, 2025 End: April 25, 2025 Sanam Tovar CNM Attending Provider Active S tart: April 25, 2025 End: April 25, 2025 Team Status: Inactive Member Role/Relationship Status Dates Soco Frazier NP, TELECOMMUNICATION TOWER TECHNICIAN-C Primary Care Provider Active Start: April 25, 2025 End: April 25, 2025 Sanam Tovar CNM Attending Provider Active S tart: April 25, 2025 End: April 25, 2025 Team Status: Inactive Member Role/Relationship Status Dates Soco Frazier TELECOMMUNICATION TOWER TECHNICIAN, TELECOMMUNICATION TOWER TECHNICIAN-C Primary Care Provider Active Start: June 18, 2025 End: June 18, 2025 Soco Frazier TELECOMMUNICATION TOWER TECHNICIAN, TELECOMMUNICATION TOWER TECHNICIAN-C Attending Provider Active Start: June 18, 2025 End: June 18, 2025 Soco Frazier TELECOMMUNICATION TOWER TECHNICIAN, TELECOMMUNICATION TOWER TECHNICIAN-C Referring Provider Active Start: June 18, 2025 End: June 18, 2025 Team Status: Active Member Role/Relationship Status Dates Soco Frazier NP, TELECOMMUNICATION TOWER TECHNICIAN-C Primary Care Provider Active Start: June 27, 2025 Tri Penaloza RN Attending Provider Active St art: June 27, 2025 Team Status: Inactive Member Role/Relationship Status Dates Soco Frazier TELECOMMUNICATION TOWER TECHNICIAN, TELECOMMUNICATION TOWER TECHNICIAN-C Primary Care Provider Active Start: June 27, 2025 End: June 27, 2025 Soco Frazier TELECOMMUNICATION TOWER TECHNICIAN, TELECOMMUNICATION TOWER TECHNICIAN-C Referring Provider Active Start: June 27, 2025 End: June 27, 2025 Sanam Tovar CNM Attending Provider Active S tart: June 27, 2025 End: June 27, 2025 Team Status: Inactive Member Role/Relationship Status Dates Soco Frazier TELECOMMUNICATION TOWER TECHNICIAN, TELECOMMUNICATION TOWER TECHNICIAN-C Primary Care Provider Active Start: June 27, 2025 End: June 27, 2025 Sanam Tovar CNM Attending Provider Active S tart: June 27, 2025 End: June 27, 2025 Sanam Tovar CNM Referring Provider Active S tart: June 27, 2025 End: June 27, 2025 Team Status: Inactive Member Role/Relationship Status Dates Soco Frazier TELECOMMUNICATION TOWER TECHNICIAN, TELECOMMUNICATION TOWER TECHNICIAN-C Primary Care Provider Active Start: July 15, 2025 End: July 15, 2025 Soco Frazier TELECOMMUNICATION TOWER TECHNICIAN, TELECOMMUNICATION TOWER TECHNICIAN-C Referring Provider Active Start: July 15, 2025 End: July 15, 2025 Dr. Beatriz Cyr MD Attending Provider Active Start: July 15, 2025 End: July 15, 2025 Team Status: Active Member Role/Relationship Status Dates Soco Frazier TELECOMMUNICATION TOWER TECHNICIAN, TELECOMMUNICATION TOWER TECHNICIAN-C Primary Care Provider Active Start: July 15, 2025 Dr. Beatriz Cyr MD Attending Provider Active Start: July 15, 2025 Dr. Beatriz Cyr MD Referring Provider Active Start: July 15, 2025 Team Status: Active Member Role/Relationship Status Dates Soco Frazier TELECOMMUNICATION TOWER TECHNICIAN, TELECOMMUNICATION TOWER TECHNICIAN-C Primary care physician Active Team Status: Inactive Member Role/Relationship Status Dates Soco Frazier NP, TELECOMMUNICATION TOWER TECHNICIAN-C Primary care physician Active Start: March 26, 2025 End: March 26, 2025 Sanam Tovar CNM Attending physician Active Start: March 26, 2025 End: March 26, 2025 Sanam Tovar CNM Referring Provider Active S tart: March 26, 2025 End: March 26, 2025 Team Status: Inactive Member Role/Relationship Status Dates Soco Frazier NP, TELECOMMUNICATION TOWER TECHNICIAN-C Primary care physician Active Start: April 25, 2025 End: April 25, 2025 Soco Frazier NP, TELECOMMUNICATION TOWER TECHNICIAN-C Referring Provider Active Start: April 25, 2025 End: April 25, 2025 Sanam Tovar CNM Attending physician Active Start: April 25, 2025 End: April 25, 2025 Team Status: Inactive Member Role/Relationship Status Dates Soco Frazier NP, TELECOMMUNICATION TOWER TECHNICIAN-C Primary care physician Active Start: April 25, 2025 End: April 25, 2025 Sanam Tovar CNM Attending physician Active Start: April 25, 2025 End: April 25, 2025 Team Status: Inactive Member Role/Relationship Status Dates Soco Frazier TELECOMMUNICATION TOWER TECHNICIAN, TELECOMMUNICATION TOWER TECHNICIAN-C Primary care physician Active Start: June 18, 2025 End: June 18, 2025 Soco Frazier TELECOMMUNICATION TOWER TECHNICIAN, TELECOMMUNICATION TOWER TECHNICIAN-C Attending physician Active Start: June 18, 2025 End: June 18, 2025 Soco Frazier TELECOMMUNICATION TOWER TECHNICIAN, TELECOMMUNICATION TOWER TECHNICIAN-C Referring Provider Active Start: June 18, 2025 End: June 18, 2025 Team Status: Active Member Role/Relationship Status Dates Soco Frazier TELECOMMUNICATION TOWER TECHNICIAN, TELECOMMUNICATION TOWER TECHNICIAN-C Primary care physician Active Start: June 27, 2025 Tri Penaloza RN Attending physician Active S tart: June 27, 2025 Team Status: Inactive Member Role/Relationship Status Dates Soco Frazier TELECOMMUNICATION TOWER TECHNICIAN, TELECOMMUNICATION TOWER TECHNICIAN-C Primary care physician Active Start: June 27, 2025 End: June 27, 2025 Soco Frazier TELECOMMUNICATION TOWER TECHNICIAN, TELECOMMUNICATION TOWER TECHNICIAN-C Referring Provider Active Start: June 27, 2025 End: June 27, 2025 Sanam Tovar CNM Attending physician Active Start: June 27, 2025 End: June 27, 2025 Team Status: Inactive Member Role/Relationship Status Dates Soco Frazier NP, TELECOMMUNICATION TOWER TECHNICIAN-C Primary care physician Active Start: June 27, 2025 End: June 27, 2025 Sanam Tovar CNM Attending physician Active Start: June 27, 2025 End: June 27, 2025 Sanam Tovar CNM Referring Provider Active S tart: June 27, 2025 End: June 27, 2025 Team Status: Inactive Member Role/Relationship Status Dates Soco Frazier NP, TELECOMMUNICATION TOWER TECHNICIAN-C Primary care physician Active Start: July 15, 2025 End: July 15, 2025 Soco Frazier TELECOMMUNICATION TOWER TECHNICIAN, TELECOMMUNICATION TOWER TECHNICIAN-C Referring Provider Active Start: July 15, 2025 End: July 15, 2025 Dr. Beatriz Cyr MD Attending physician Active Start: July 15, 2025 End: July 15, 2025 Team Status: Inactive Member Role/Relationship Status Dates Soco Frazier NP, TELECOMMUNICATION TOWER TECHNICIAN-C Primary care physician Active Start: July 15, 2025 End: July 15, 2025 Dr. Beatriz Cyr MD Attending physician Active Start: July 15, 2025 End: July 15, 2025 Dr. Beatriz Cyr MD Referring Provider Active Start: July 15, 2025 End: July 15, 2025 Team Status: Active Member Role/Relationship Status Dates Soco Frazier NP, TELECOMMUNICATION TOWER TECHNICIAN-C Primary care physician Active Start: July 22, 2025 Sanam Tovar CNM Attending physician Active Start: July 22, 2025 Sanam Tovar CNM Referring Provider Active S tart: July 22, 2025 Team Status: Inactive Member Role/Relationship Status Dates Soco Frazier NP, TELECOMMUNICATION TOWER TECHNICIAN-C Primary care physician Active Start: April 25, 2025 End: April 25, 2025 Soco Frazier NP, TELECOMMUNICATION TOWER TECHNICIAN-C Referring Provider Active Start: April 25, 2025 End: April 25, 2025 Sanam Tovar CNM Attending physician Active Start: April 25, 2025 End: April 25, 2025 Team Status: Inactive Member Role/Relationship Status Dates Soco Frazier NP, TELECOMMUNICATION TOWER TECHNICIAN-C Primary care physician Active Start: April 25, 2025 End: April 25, 2025 Sanam Tovar CNM Attending physician Active Start: April 25, 2025 End: April 25, 2025 Team Status: Inactive Member Role/Relationship Status Dates Soco Frazier NP, TELECOMMUNICATION TOWER TECHNICIAN-C Primary care physician Active Start: June 18, 2025 End: June 18, 2025 Soco Frazier NP, TELECOMMUNICATION TOWER TECHNICIAN-C Attending physician Active Start: June 18, 2025 End: June 18, 2025 Soco Frazier TELECOMMUNICATION TOWER TECHNICIAN, TELECOMMUNICATION TOWER TECHNICIAN-C Referring Provider Active Start: June 18, 2025 End: June 18, 2025 Team Status: Active Member Role/Relationship Status Dates Soco Frazier TELECOMMUNICATION TOWER TECHNICIAN, TELECOMMUNICATION TOWER TECHNICIAN-C Primary care physician Active Start: June 27, 2025 Tri Penaloza RN Attending physician Active S tart: June 27, 2025 Team Status: Inactive Member Role/Relationship Status Dates Soco Frazier TELECOMMUNICATION TOWER TECHNICIAN, TELECOMMUNICATION TOWER TECHNICIAN-C Primary care physician Active Start: June 27, 2025 End: June 27, 2025 Soco Frazier TELECOMMUNICATION TOWER TECHNICIAN, TELECOMMUNICATION TOWER TECHNICIAN-C Referring Provider Active Start: June 27, 2025 End: June 27, 2025 Sanam Tovar CNM Attending physician Active Start: June 27, 2025 End: June 27, 2025 Team Status: Inactive Member Role/Relationship Status Dates Soco Frazier NP, TELECOMMUNICATION TOWER TECHNICIAN-C Primary care physician Active Start: June 27, 2025 End: June 27, 2025 Sanam Tovar CNM Attending physician Active Start: June 27, 2025 End: June 27, 2025 Sanam Tovar CNM Referring Provider Active S tart: June 27, 2025 End: June 27, 2025 Team Status: Inactive Member Role/Relationship Status Dates Soco Frazier NP, TELECOMMUNICATION TOWER TECHNICIAN-C Primary care physician Active Start: July 15, 2025 End: July 15, 2025 Soco Frazier NP, TELECOMMUNICATION TOWER TECHNICIAN-C Referring Provider Active Start: July 15, 2025 End: July 15, 2025 Dr. Beatriz Cyr MD Attending physician Active Start: July 15, 2025 End: July 15, 2025 Team Status: Inactive Member Role/Relationship Status Dates Soco Frazier NP, TELECOMMUNICATION TOWER TECHNICIAN-C Primary care physician Active Start: July 15, 2025 End: July 15, 2025 Dr. Beatriz Cyr MD Attending physician Active Start: July 15, 2025 End: July 15, 2025 Dr. Beatriz Cyr MD Referring Provider Active Start: July 15, 2025 End: July 15, 2025 Team Status: Active Member Role/Relationship Status Dates Soco Frazier NP, TELECOMMUNICATION TOWER TECHNICIAN-C Primary care physician Active Start: August 12, 2025 Sanam Tovar CNM Attending physician Active Start: August 12, 2025 Sanam Tovar CNM Referring Provider Active S tart: August 12, 2025 Team Status: Inactive Member Role/Relationship Status Dates Sooc Frazier NP, TELECOMMUNICATION TOWER TECHNICIAN-C Primary care physician Active Start: August 12, 2025 End: August 12, 2025 Soco Frazier NP, TELECOMMUNICATION TOWER TECHNICIAN-C Referring Provider Active Start: August 12, 2025 End: August 12, 2025 Dr. Antonieta Hendrickson DO Attending physician Acti ve Start: August 12, 2025 End: August 12, 2025 Goals (unrecognized section and content) Type Care Experience Labor Preferences-CB /BF classes: just breathe, childbirth educationlabor support person: Carllabor intervention preferences: []pain management options preferred: prefers no epiduralcut cord/dad catch: : yesPP control planned: nuvaringdiscussed possible routes of delivery and associated risks: []special requests: [] Care Experience svdLabor Preferences -CB/BF classes: []labor support person: []labor intervention preferences: []pain management options preferred: []cut cord/dad catch: []: []PP control planned: []discussed possible routes of delivery and associated risks: []special requests: [] Goals may be documented in an alternate section FOR RECORDS PERTAINING TO PATIENTS [...] BE BASED ON THE PRIMARY CLINICAL RECORDS. [facility]. provides no warranty or guarantee of the accuracy or completeness of information in this document.
== END | disposition home or self-care (01) ==
LOC: US 15:58
PROVIDERS: PCP Nurse Practitioner Primary Care; Referring Provider Obstetrics & Gynecology; Visit Provider Obstetrics & Gynecology
DX: Z34.90 Encounter for supervision of normal pregnancy, unspecified, unspecified trimester (principal)
CPT/HCPCS: 76805; 76817

== ENCOUNTER → 2025-11-04 | Outpatient (CLI) | payer OTHER, SELFPAY | END | disposition home or self-care (01) | LOC: LABSPEC 16:07 | PROVIDERS: PCP Nurse Practitioner Primary Care; Visit Provider Nurse Practitioner Women's Health | DX: R30.0 Dysuria (principal) | CPT/HCPCS: 87086; 87088 ==